=== PATIENT | female | born 1950 | race Caucasian/White ===

== ENCOUNTER 2016-06-21 17:32 | Emergency (ER) | payer MEDICARE ==
[~2016-06-21] VITALS: Ht 167.6 cm; Wt 86.2 kg
[~2016-06-21 17:32] MED LIST: ACET-1697 PO; ALBU0.8322 IH; ALBU17AE23; ALBU8.5H2 IH; ALLP300T PO; ASP81TEC PO; CARV6.252; CEFD300C PO; DIPH25TA31 PO; DOCU-161 PO; FLUT16SP22 NSEACH; FLUT1DIS3 IH; FRSM20T PO; FURO40TA4 PO; HYDR12.570 PO; LISI2.5T PO; LISI5TAB PO; NFAMINITAB PO; NITR100C3 PO; OMEP40CA36 PO; PHEN200T16 PO; PNT40TEC PO; POTA20TA15 PO; POTASSIUM; PRAV40TA PO; PRV20T PO
--- OUTSIDE RECORDS SUMMARY | 2016-06-21 17:36 | XMS REPORT | Continuity of Care Document ---
Author Author [facility] Organization [facility] Address Unknown Phone Unavailable Care Team Providers Care Performance Manager Name Role Phone BURDEN, ABBY Chang MD PCP Insurance Providers Payer Name Policy Number Subscriber Name Relationship [facility] [id number] Raúl Hartman 17 Self / Same As Patient Advance Directives Directive Response Recorded Date/Time Advance Directives No 10/23/12 10:27am Health Care Power of Speech And Language Clinician No 10/23/12 10:27am Organ Donor No 10/23/12 10:27am Problems No known problems or medical conditions. Medications Medication Dose Route Sig Days/Qty Instructions Order Date Discontinued Date Status Carvedilol (Coreg) 6.25 Mg TWICE A DAY 08/23/09 Active Pantoprazole Sodium 1 Tab PO DAILY 08/24/10 03/21/11 Discontinued Omeprazole 40 Mg PO DAILY 03/21/11 10/22/12 Discontinued Aspirin 81 Mg PO DAILY 03/21/11 10/22/12 Discontinued Lisinopril 2.5 Mg PO DAILY 03/21/11 10/22/12 Discontinued Pravastatin Sod 20 Mg PO DAILY 03/21/11 Active Lisinopril 5 Mg PO DAILY 10/22/12 Active Furosemide 10 Mg PO DAILY PRN 10/23/12 Active [Potassium] 10/23/12 Active Social History Social History Problem Response Recorded Date/Time Recent Foreign Travel N [place] 05/04/2014 12:31pm Hospital Discharge Instructions No hospital discharge instructions. Plan of Care No plan of care. Functional Status No functional status results. Allergies, Adverse Reactions, Alerts Allergen Type Severity Reaction Status Last Updated NKANo Known Allergies Allergy Mild Active 10/22/12 Immunizations No immunization records. Vital Signs No known vital signs results. Results Laboratory Results Test Name Result Units Flags Reference Collection Date/Time Result Date/ Time Comments White Blood Count 3.9 10^3/uL L 4.3-11.0 05/27/2014 9:05/27/2014 9: 24am Red Blood Count 4.19 10^6/uL L 4.35-5.85 05/27/2014 9:05/27/2014 9: 24am Hemoglobin 12.8 G/DL 11.5-16.0 05/27/2014 9:05/27/2014 9:24am Hematocrit 38 % 35-52 05/27/2014 9:05/27/2014 9:24am Mean Corpuscular Volume 91 FL 80-99 05/27/2014 9:05/27/2014 9: 24am Mean Corpuscular Hemoglobin 31 PG 25-34 05/27/2014 9:05/27/2014 9: 24am Mean Corpuscular Hemoglobin Concent 34 G/DL 32-36 05/27/2014 9: 9:24am Red Cell Distribution Width 13.7 % 10.0-14.5 05/27/2014 9:2014 9:24am Platelet Count 117 10^3/uL L 130-400 05/27/2014 9:05/27/2014 9:24am Mean Platelet Volume 8.7 FL 7.4-10.4 05/27/2014 9:05/27/2014 9: 24am Neutrophils (%) (Auto) 50 % 42-75 05/27/2014 9:05/27/2014 9:24am Lymphocytes (%) (Auto) 34 % 12-44 05/27/2014 9:05/27/2014 9:24am Monocytes (%) (Auto) 13 % H 0-12 05/27/2014 9:05/27/2014 9:24am Eosinophils (%) (Auto) 2 % 0-10 05/27/2014 9:05/27/2014 9:24am Basophils (%) (Auto) 1 % 0-10 05/27/2014 9:05/27/2014 9:24am Neutrophils # (Auto) 1.9 X 10^3 1.8-7.8 05/27/2014 9:05/27/2014 9: 24am Lymphocytes # (Auto) 1.3 X 10^3 1.0-4.0 05/27/2014 9:05/27/2014 9: 24am Monocytes # (Auto) 0.5 X 10^3 0.0-1.0 05/27/2014 9:05/27/2014 9: 24am Eosinophils # (Auto) 0.1 10^3/uL 0.0-0.3 05/27/2014 9:05/27/2014 9 :24am Basophils # (Auto) 0.0 10^3/uL 0.0-0.1 05/27/2014 9:05/27/2014 9: 24am Sodium Level 140 MMOL/L 135-145 05/27/2014 9:05/27/2014 9:54am Potassium Level 3.9 MMOL/L 3.6-5.0 05/27/2014 9:05/27/2014 9:54am Chloride Level 105 MMOL/L 98-107 05/27/2014 9:05/27/2014 9:54am Carbon Dioxide Level 27 MMOL/L 21-32 05/27/2014 9:05/27/2014 9: 54am Blood Urea Nitrogen 15 MG/DL 7-18 05/27/2014 9:05/27/2014 9:54am Creatinine 0.83 MG/DL 0.60-1.30 05/27/2014 9:05/27/2014 9:54am BUN/Creatinine Ratio 18 05/27/2014 9:05/27/2014 9:54am Estimat Glomerular Filtration Rate > 60 05/27/2014 9:2014 9:54am GFR INTERPRETIVE DATA UNITS FOR ESTIMATED GFR (eGFR): mL/min/1.73 M2 REFERENCE RANGE FOR ESTIMATED GFR (eGFR) eGFR NORMAL eGFR >60 MODERATELY DECREASED eGFR 30-59 SEVERLY DECREASED eGFR 15-29 KIDNEY FAILURE <15 (OR DIALYSIS) Glucose Level 96 MG/DL 70-105 05/27/2014 9:05/27/2014 9:54am Calcium Level 9.9 MG/DL 8.5-10.1 05/27/2014 9:05/27/2014 9:54am Total Bilirubin 0.5 MG/DL 0.1-1.0 05/27/2014 9:05/27/2014 9:54am Alkaline Phosphatase 86 U/L 40-136 05/27/2014 9:05/27/2014 9:54am Aspartate Amino Transf (AST/SGOT) 21 U/L 5-34 05/27/2014 9:2014 9:54am Alanine Aminotransferase (ALT/SGPT) 19 U/L 0-55 05/27/2014 9:05/27 9:54am Lactate Dehydrogenase 210 U/L 125-220 05/27/2014 9:05/27/2014 9: 54am Total Protein 7.1 G/DL 6.4-8.2 05/27/2014 9:05/27/2014 9:54am Albumin 4.1 G/DL 3.2-4.5 05/27/2014 9:05/27/2014 9:54am Procedures No known history of procedures. Encounters Encounter Location Date/Time Discharged Recurring [facility] 05/27/14 9:21am Registered Clinic [facility] 05/27/14 8:59am
--- NOTE | 2016-06-21 19:32 | ED Respiratory ---
General Chief Complaint: Cough/Cold/Flu Symptoms Stated Complaint: COUGH;RUNNY NOSE Nursing Triage Note: PT REPORTS COUGH,CONGESTION X 1.5 WEEKS. REQUIRING O2 24 HOURS/DAY WITH THIS ILLNESS. Source: patient, family Exam Limitations: no limitations History of Present Illness Time seen by provider: 19:26 Initial Comments Patient has a pertinent history of COPD dependent on O2 usually at 2 L but for the past week she has felt a little more short of breath and increased her O2 to 3 L by day. She also has a son living with her who was recently diagnosed with influenza last week and started on Tamiflu but she has not received a prophylactic dose. She feels that she has a COPD attack coming on and maybe pneumonia. She has been coughing up green phlegm. She had a fever of 101 yesterday. She has had no nausea, vomiting, diarrhea. No syncope or chest pain. Allergies and Home Medications Allergies Coded Allergies: NKANo Known Allergies (Unverified Allergy, Mild, 10/22/12) Home Medications Acetaminophen 500 Mg Tablet 500 MG PO Q6H PRN PRN PAIN (Reported) Albuterol 8.5 Gm Hfa.aer.ad 1 PUFF IH Q4H PRN PRN SHORTNESS OF BREATH (Reported ) Carvedilol 6.25 Mg Tablet 6.25 MG BID (Reported) Cefdinir 300 Mg Capsule #14 300 MG PO BID Prescribed by: SHANTEL POZO on 08/27/14 1123 Diphenhydramine Hcl 25 Mg Cap 25 MG PO DAILY PRN PRN ALLERGY (Reported) Fluticasone Propionate 16 Gm Naspr 1 SPRAY NSEACH HS (Reported) Fluticasone/Salmeterol 1 Each Disk.w.dev 1 PUFF IH BID (Reported) Lisinopril 5 Mg Tablet 5 MG PO DAILY (Reported) Oseltamivir Phosphate 75 Mg Cap #10 75 MG PO BID Prescribed by: MITCHELL CHILDRESS on 06/21/161953 Pravastatin Sodium 40 Mg Tablet 40 MG PO HS (Reported) Prednisone 20 Mg Tab #10 20 MG PO BID Prescribed by: MITCHELL CHILDRESS on 06/21/161945 Vitamin C/Vitamin E 1 Tab Tab 1 TAB PO DAILY (Reported) Constitutional: No chills, No diaphoresis, No dizziness, fever malaise EENTM: nose congestionNo ear pain, No epistaxis, No eye pain, No mouth pain, No throat pain Respiratory: cough phlegm wheezing Cardiovascular: No chest pain, No edema, No syncope Gastrointestinal: No abdominal pain, No constipation, No diarrhea Genitourinary: No dysuria, No frequency Musculoskeletal: No back pain, No joint pain Skin: No change in color, No pruritus, No rash Past Bvsslzh-Kebqox-Fqojyb Hx Patient Social History Smoking Status: Former Smoker (quit 17 years ago cigarettes) 2nd Hand Smoke Exposure: No Recent Foreign Travel: No Contact w/Someone Who Travel: No Recent Infectious Disease Expo: No Surgeries HX Surgeries: Yes (GALLBLADDER SEPTEMBER 2009) Respiratory Hx Respiratory Disorders: Yes Respiratory Disorders: COPD Cardiovascular Hx Cardiac Disorders: Yes (in 1999) Neurological Hx Neurological Disorders: No Reproductive System Hx Reproductive Disorders: No Genitourinary Hx Genitourinary Disorders: No Gastrointestinal Hx Gastrointestinal Disorders: No Musculoskeletal Hx Musculoskeletal Disorders: No Endocrine Hx Endocrine Disorders: No HEENT HX ENT Disorders: No (DENTURES) Cancer Hx Cancer: Yes (Non-Hodkins lymphoma) Psychosocial Hx Psychiatric Problems: No Integumentary HX Skin/Integumentary Disorder: No Blood Transfusions Hx Blood Disorders: No Physical Exam Vital Signs Vital Sign - Last 12Hours 06/21/16 18:29 Temp 98.9 Pulse 73 Resp 16 B/P 121/57 Pulse Ox 91 O2 Delivery Nasal Cannula O2 Flow Rate 3 Capillary Refill : Less Than 3 Seconds General Appearance: WD/WN no apparent distress Eyes: Bilateral Eye EOMI, Bilateral Eye Normal Inspection HEENT: PERRL/EOMI normal ENT inspection TMs normal pharynx normal Neck: non-tender supple normal inspection Respiratory: chest non-tender no accessory muscle use decreased breath sounds wheezing Cardiovascular: normal peripheral pulses regular rate, rhythm no edema no JVD Gastrointestinal: normal bowel sounds non tender soft Neurologic/Psychiatric: alert oriented x 3 Skin: normal color warm/dry Lymphatic: no adenopathy Progress/Results/Core Measures Results/Orders Lab Results Laboratory Tests Test 06/21/16 19:59 Range/Units Basophils # (Auto) 0.0 0.0-0.1 10^3/uL Basophils (%) (Auto) 0 0-10 % Eosinophils # (Auto) 0.1 0.0-0.3 10^3/uL Eosinophils (%) (Auto) 1 0-10 % Hematocrit 39 35-52 % Hemoglobin 12.6 11.5-16.0 G/DL Lymphocytes # (Auto) 1.4 1.0-4.0 X 10^3 Lymphocytes (%) (Auto) 18 12-44 % Mean Corpuscular Hemoglobin 29 25-34 PG Mean Corpuscular Hemoglobin Concent 32 32-36 G/DL Mean Corpuscular Volume 90 80-99 FL Mean Platelet Volume 9.2 7.4-10.4 FL Monocytes # (Auto) 0.8 0.0-1.0 X 10^3 Monocytes (%) (Auto) 11 0-12 % Neutrophils # (Auto) 5.5 1.8-7.8 X 10^3 Neutrophils (%) (Auto) 70 42-75 % Platelet Count 203 130-400 10^3/uL Red Blood Count 4.34 L 4.35-5.85 10^6/uL Red Cell Distribution Width 13.6 10.0-14.5 % White Blood Count 7.9 4.3-11.0 10^3/uL My Orders Orders-MITCHELL CHILDRESS Chest Pa/Lat (2 View) (06/21/16 19:32) Cbc With Automated Diff (06/21/16 19:32) Albuterol/Ipra Inhalation Soln (Duoneb I (06/21/16 19:45) Svn Sm Volume Nebulizer Rt-Rfs (06/21/16 19:32) Prednisone Tablet (Deltasone Tablet) (06/21/16 19:45) Medications Given in ED Current Medications Medications Dose Ordered Sig/Scot Route Start Time Stop Time Status Last Admin Dose Admin Prednisone 60 mg ONCE ONCE PO 06/21/16 19:45 06/21/16 19:46 DC 06/21/16 20:00 60 MG Vital Signs/I&O Vital Sign - Last 12Hours 06/21/16 18:29 Temp 98.9 Pulse 73 Resp 16 B/P 121/57 Pulse Ox 91 O2 Delivery Nasal Cannula O2 Flow Rate 3 Blood Pressure Mean: 78 Progress Note : Time: 19:40 Progress Note Patient's son shows up reports he had bronchitis not influenza. Patient is with decreased breath sounds so we will give her albuterol treatments start her on steroids and get a chest x-ray. Possible Pna. No White count. CURB 65 1 point. Patient strongly desires to go home tonight. We'll give Rocephin IM .Will attempt home Tx. Diagnostic Imaging Diagonstic Imaging: Xray Plain Films/CT/US/NM/MRI: chest Comments NAME: RAÚL HARTMAN [facility] REC#: [id number] PT STATUS: REG ER : 1950 PHYSICIAN: MITCHELL CHILDRESS MD ADMIT DATE: 06/21/16/ER Draft Date of Exam:06/21/16 CHEST PA/LAT (2 VIEW) INDICATION: Cough. COMPARISON: December 11, 2014. TECHNIQUE: Frontal and lateral radiographs of the chest dated June 21, 2016. FINDINGS: The cardiac silhouette is within normal limits. No significant pulmonary vascular congestion. The left lung is clear. Mild patchy opacities are identified within the right lung base. No significant pleural effusion. No pneumothorax. Scattered osseous degenerative changes without acute osseous abnormality. IMPRESSION: New patchy opacities within the right lung base, likely relate to developing infiltrate such as pneumonia. However, followup radiographs are recommended 10-14 days after appropriate therapy to ensure resolution as underlying malignancy is not excluded. Dictated on workstation # [id number] Dict: 06/21/161954 Trans: 06/21/162010 [facility] [id number] Interpreted by: MATTHEW GARCÍA MD Electronically signed by: Reviewed: Reviewed by Me Departure Pneumonia Admission Pseudomonal Risk: COPD Patient allergy/sensitivity/re: None Impression Impression: Primary Impression: COPD with exacerbation Additional Impression: Pneumonia Qualified Code: J18.1 - Lobar pneumonia, unspecified organism Disposition: HOME, SELF-CARE Condition: Stable Departure-Patient Inst. Decision time for Depature: 20:26 Referrals: SHANTEL POZO MD (PCP) Primary Care Physician Patient Instructions: Acute Bronchitis, Adult (DC) Add. Discharge Instructions: You have A right lower lobe pneumonia on chest x-ray so you're given a shot of antibiotics and oral antibiotics for home. You will be allowed to go home with prednisone taper. Take one tablet by mouth twice daily until completion. Follow up this week or next with your primary care physician or return to the clinic sooner if you're having new or worsening symptoms or cannot catch her breath. Take the antibiotics as prescribed to completion. Take the Tamiflu one capsule twice a day for 5 days. All discharge instructions reviewed with patient and/or family. Voiced understanding. Scripts Levofloxacin (Levaquin)500 Mg [id number] Mg PO BID #14 TAB Ref 0 Prov:MITCHELL CHILDRESS 06/21/16 Oseltamivir Phosphate (Tamiflu)75 Mg Cap75 Mg PO BID #10 CAP Ref 0 Prov:MITCHELL CHILDRESS 06/21/16 Prednisone 20 Mg Tab20 Mg PO BID #10 TAB Ref 0 Prov:MITCHELL CHILDRESS 06/21/16 Copy Copies To 1: DANIELLA GONZALEZ TITUS J Jun 21, 2016 19:31
[2016-06-21] MEDS ORDERED: RT-ALBUTEROL/IPRATROPIUM 3 ML (DUONEB) VIAL INH ONE (19:45)
[2016-06-21] MEDS ORDERED: predniSONE 20 MG TAB PO ONE (19:45)
[2016-06-21] MEDS ORDERED: PRD20T PO (19:46)
[2016-06-21] MEDS ORDERED: OSLT75C PO (19:54)
[2016-06-21 20:03] LABS: BASOPHILS % (AUTO) 0 % (0-10); EOSINOPHILS # (AUTO) 0.1 10^3/uL (0.0-0.3); EOSINOPHILS % (AUTO) 1 % (0-10); LYMPHOCYTES # (AUTO) 1.4 X 10^3 (1.0-4.0); LYMPHOCYTES % (AUTO) 18 % (12-44); MEAN CORPUSCULAR HEMOGLOBIN 29 PG (25-34); MEAN CORPUSCULAR HGB CONC 32 G/DL (32-36); MEAN CORPUSCULAR VOLUME 90 FL (80-99); MEAN PLATELET VOLUME 9.2 FL (7.4-10.4); MONOCYTES # (AUTO) 0.8 X 10^3 (0.0-1.0); MONOCYTES % (AUTO) 11 % (0-12); NEUTROPHILS # (AUTO) 5.5 X 10^3 (1.8-7.8); NEUTROPHILS % (AUTO) 70 % (42-75); PLATELET COUNT 203 10^3/uL (130-400); RED BLOOD COUNT 4.34 10^6/uL (4.35-5.85); RED CELL DISTRIBUTION WIDTH 13.6 % (10.0-14.5); WHITE BLOOD COUNT 7.9 10^3/uL (4.3-11.0)
--- NOTE | 2016-06-21 20:12 | Diagnostic Imaging Report ---
INDICATION: Cough. COMPARISON: December 11, 2014. TECHNIQUE: Frontal and lateral radiographs of the chest dated June 21, 2016. FINDINGS: The cardiac silhouette is within normal limits. No significant pulmonary vascular congestion. The left lung is clear. Mild patchy opacities are identified within the right lung base. No significant pleural effusion. No pneumothorax. Scattered osseous degenerative changes without acute osseous abnormality. IMPRESSION: New patchy opacities within the right lung base, likely relate to developing infiltrate such as pneumonia. However, followup radiographs are recommended 10-14 days after appropriate therapy to ensure resolution as underlying malignancy is not excluded. Dictated by: Dictated on workstation # [id number]
[2016-06-21] MEDS ORDERED: LEVO500T2 PO (20:26)
[2016-06-21] MEDS ORDERED: cefTRIAXone 1 GM (ROCEPHIN) VIAL IM ONE (20:30)
[2016-06-21] MEDS ORDERED: LIDOCAINE 1% INJ 20 ML (XYLOCAINE) VIAL INJ ONE (20:30)
[2016-06-21] MEDS ORDERED: INHA1INH2 MC (21:25)
[2016-06-21 21:39] VITALS: BP 110/54
== END 2016-06-21 21:39 | disposition home or self-care (01) ==
LOC: EDUNIT# 17:32 → ER 17:33
DX: J44.1 Chronic obstructive pulmonary disease with (acute) exacerbation (principal); J18.9 Pneumonia, unspecified organism; Z79.899 Other long term (current) drug therapy; Z87.891 Personal history of nicotine dependence
CPT/HCPCS: 36415; 71020; 85025; 94640; 94760; 96372; 99282

== ENCOUNTER 2016-08-14 10:30 | Outpatient (RCR) | payer MEDICARE ==
[~2016-08-14 10:30] MED LIST changes: +INHA1INH2 MC; +LEVO500T2 PO; +OSLT75C PO; +PRD20T PO
[2016-08-14 10:51] LABS: BASOPHILS % (AUTO) 1 % (0-10); EOSINOPHILS # (AUTO) 0.1 10^3/uL (0.0-0.3); EOSINOPHILS % (AUTO) 3 % (0-10); LYMPHOCYTES # (AUTO) 1.1 X 10^3 (1.0-4.0); LYMPHOCYTES % (AUTO) 28 % (12-44); MEAN CORPUSCULAR HEMOGLOBIN 29 PG (25-34); MEAN CORPUSCULAR HGB CONC 32 G/DL (32-36); MEAN CORPUSCULAR VOLUME 90 FL (80-99); MEAN PLATELET VOLUME 8.9 FL (7.4-10.4); MONOCYTES # (AUTO) 0.6 X 10^3 (0.0-1.0); MONOCYTES % (AUTO) 14 % (0-12); NEUTROPHILS # (AUTO) 2.1 X 10^3 (1.8-7.8); NEUTROPHILS % (AUTO) 54 % (42-75); PLATELET COUNT 138 10^3/uL (130-400); RED BLOOD COUNT 4.09 10^6/uL (4.35-5.85); RED CELL DISTRIBUTION WIDTH 14.9 % (10.0-14.5); WHITE BLOOD COUNT 3.9 10^3/uL (4.3-11.0)
[2016-08-14 11:39] LABS: ALANINE AMINOTRANSFERASE 15 U/L (0-55); ALBUMIN 3.8 G/DL (3.2-4.5); ANION GAP 6 MMOL/L (5-14); ASPARTATE AMINO TRANSFERASE 20 U/L (5-34); BILIRUBIN,TOTAL 0.4 MG/DL (0.1-1.0); BLOOD UREA NITROGEN 14 MG/DL (7-18); BUN/CREATININE RATIO 19; CALCIUM 9.4 MG/DL (8.5-10.1); CARBON DIOXIDE 31 MMOL/L (21-32); CHLORIDE 107 MMOL/L (98-107); CREATININE SERUM 0.74 MG/DL (0.60-1.30); GFR ESTIMATED > 60; GLUCOSE 94 MG/DL (70-105); LACTATE DEHYDROGENASE 200 U/L (125-220); POTASSIUM 4.1 MMOL/L (3.6-5.0); SODIUM 144 MMOL/L (135-145); TOTAL PROTEIN 6.4 G/DL (6.4-8.2)
== END 2016-11-12 | disposition home or self-care (01) ==
LOC: ONC 10:30
PROVIDERS: ATTEND Internal Medicine Hematology & Oncology
DX: C82.13 Follicular lymphoma grade II, intra-abdominal lymph nodes (principal); J44.9 Chronic obstructive pulmonary disease, unspecified; G47.33 Obstructive sleep apnea (adult) (pediatric); I27.9 Pulmonary heart disease, unspecified; E78.00 Pure hypercholesterolemia, unspecified; I25.10 Atherosclerotic heart disease of native coronary artery without angina pectoris; I45.10 Unspecified right bundle-branch block; Z79.899 Other long term (current) drug therapy
CPT/HCPCS: 36415; 80053; 83615; 85025; 99213

== ENCOUNTER → 2016-08-22 | Outpatient (CLI) | payer MEDICARE ==
[~2016-08-22] MED LIST changes: +BARIUM SUSPENSION 2.1% (VANILLA SILQ) 450 ML PO ONE; +CATHETER FLUSH 10 ML SYR IV PRN; +IOHEXOL 350 MG/ML 100 ML (OMNIPAQUE 350) VIAL IV ONE; +NS 100 ML (IVPB) BAG IV ONE
--- NOTE | 2016-08-22 14:27 | Diagnostic Imaging Report ---
PROCEDURE: CT chest, abdomen, and pelvis with contrast. TECHNIQUE: Multiple contiguous axial images were obtained through the chest, abdomen, and pelvis after the administration of intravenous contrast. INDICATION: Non-Hodgkin's lymphoma. 100 mL of Omnipaque 350 is administered intravenously. COMPARISON: 05/27/2014. FINDINGS: CT CHEST: Heterogenous lower left thyroid lobe is seen with a dominant nodule suggested measuring 1.2 cm, appears stable. Multiple enlarged lymph nodes in the left axilla are seen, the largest is 1.7 cm measured in short axis and two enlarged lymph nodes in the right axilla are noted measuring up to 1.4 cm. This is adverse development from the previous scan and is suggestive of tumor recurrence. There is a 0.8 cm precarinal lymph node that appears slightly more prominent compared to the prior exam. This is indeterminate. There are otherwise no suspicious mass or lymph node enlargement in the mediastinum. No significant lymphadenopathy is seen in the left hilum. The right hilum demonstrates a 0.8 cm nonspecific lymph node of uncertain significance. The lungs demonstrate background emphysema changes. There is no significant consolidation, mass or suspicious nodule. Scattered areas of scarring and atelectasis in the lungs are noted however. There is no pericardial or pleural effusion. The thoracic aorta is normal in caliber. The osseous structures demonstrate no obvious sclerotic or lytic masses. CT ABDOMEN AND PELVIS: The liver is slightly prominent in size with no focal mass seen. The spleen demonstrates a subtle 1.2 cm hypodense lesion that becomes isodense to the rest of the spleen on the delayed phase imaging. Another subtle hypodense lesion is also seen more inferiorly in the spleen measuring 1.5 cm. These are not seen on the prior exam and there could represent perfusional changes or neoplasm. 1.7 cm hypodense area within the posterior aspect of the pancreatic head. This is stable from multiple prior exams and may relate to a small cystic non-neoplastic lesion. The comparison 04/21/2013 exam demonstrates similar appearance. The adrenal glands appear unremarkable. Cholecystectomy clips are seen. The kidneys have symmetric enhancement and contrast excretion. Simple cyst in the mid left kidney and the upper pole of both kidneys are noted. There is nonspecific stranding in the mesentery in a pattern favored to be related to scarring and is without change from the prior exam. There is a fat-containing supraumbilical ventral hernia with omental stranding seen. May relate to panniculitis or omental infarct from strangulation. No herniating bowel loops seen. No bowel obstruction. Appendix appears normal. There is a left para-aortic lesion with mixed groundglass and soft tissue density measuring 2.6 x 1.6 cm. This could be related to adjacent lymph nodes and scarring. When measured separately, the largest soft tissue component is a 1.2 cm in short axis and may represent left paraaortic lymphadenopathy. No significant change however from the previous. In the pelvis, there is an 8.3 cm cystic lesion in the left adnexa without solid mass. The osseous structures demonstrate no suspicious mass. IMPRESSION: CT CHEST: 1. Development of bilateral axillary lymphadenopathy more on the left side suggestive of tumor recurrence. 2. Minimally more prominent precarinal lymph node measuring 0.8 cm. This could be neoplastic. CT ABDOMEN AND PELVIS: 1. Indeterminate subtle hypodense lesions in the spleen up to 1.5 cm in size could be perfusional or neoplastic. 2. Stable left para-aortic mild lymphadenopathy, and stable mesenteric stranding, could relate to scarring from previously treated disease. 3. Fat-containing supraumbilical hernia with stranding. This could be related to omental panniculitis or infarct secondary to strangulation of the hernia. There is no herniating bowel loop or evidence of obstruction. Dictated by: Dictated on workstation # [id number]
== END ==
LOC: RAD 10:14
PROVIDERS: ATTEND Internal Medicine Hematology & Oncology
DX: R59.0 Localized enlarged lymph nodes (principal); D73.89 Other diseases of spleen; K42.9 Umbilical hernia without obstruction or gangrene; C82.13 Follicular lymphoma grade II, intra-abdominal lymph nodes
CPT/HCPCS: 71260; 74177

== ENCOUNTER → 2016-08-31 | Outpatient (CLI) | payer MEDICARE ==
[~2016-08-31] MED LIST changes: -BARIUM SUSPENSION 2.1% (VANILLA SILQ) 450 ML PO ONE; -CATHETER FLUSH 10 ML SYR IV PRN; -IOHEXOL 350 MG/ML 100 ML (OMNIPAQUE 350) VIAL IV ONE; -NS 100 ML (IVPB) BAG IV ONE
--- NOTE | 2016-08-31 16:38 | Diagnostic Imaging Report ---
EXAM: Abnormal pelvic CT. FINDINGS: The uterus measures 6.2 x 4.8 x 3.1 cm. There is an 11 x 8 mm fibroid in the uterine fundus. Endometrial stripe is normal. There is a large cyst on left adnexa that measures 76 mm. The right ovary was not identified. IMPRESSION: Large left adnexal cyst. It has simple cyst characteristics and is likely of ovarian origin. Dictated by: Dictated on workstation # [id number]
== END ==
LOC: RAD 14:14
PROVIDERS: ATTEND Nurse Practitioner Adult Health
DX: N83.202 Unspecified ovarian cyst, left side (principal); D25.9 Leiomyoma of uterus, unspecified
CPT/HCPCS: 76830; 76856

== ENCOUNTER 2016-09-15 09:43 | Outpatient (RCR) | payer MEDICARE | END 2016-10-04 15:24 | disposition home or self-care (01) | PROVIDERS: ATTEND Internal Medicine Hematology & Oncology | DX: C85.90 Non-Hodgkin lymphoma, unspecified, unspecified site (principal); I89.0 Lymphedema, not elsewhere classified ==

== ENCOUNTER → 2016-10-03 | Outpatient (CLI) | payer MEDICARE ==
--- NOTE | 2016-10-03 10:49 | Diagnostic Imaging Report ---
Indication: Followup left adnexal cyst. Comparison: 08/31/2016. Discussion: Transabdominal and transvaginal sonographic evaluation of the pelvis was performed. The uterus is normal in echotexture and size measuring 6.8 x 4.6 x 2.9 cm. Left ovarian fibroid measures 1.5 cm, stable. Neither ovary was discretely visualized. There is a large simple appearing anechoic cystic structure within the left adnexa which measures 7.1 x 6.9 x 7.2 cm, stable. This could represent a parapelvic cyst or an ovarian cyst. There is no mural nodularity or internal complexity identified. Etiology is indeterminate though statistically benign given its simple appearance. Recommend 6-12 month sonographic followup. Impression: 1. Large simple appearing cystic structure within the left adnexa appear stable in overall size and appearance. Etiology is indeterminate though lesion is likely benign. Recommend continued sonographic followup in 6-12 months. 2. Nonvisualization of the bilateral ovaries. 3. Small uterine fibroid, stable. Dictated by: Dictated on workstation # [id number]
== END ==
LOC: RAD 09:57
PROVIDERS: ATTEND Obstetrics & Gynecology
DX: N83.202 Unspecified ovarian cyst, left side (principal); D25.9 Leiomyoma of uterus, unspecified
CPT/HCPCS: 76830; 76856

== ENCOUNTER → 2016-12-19 | Outpatient (CLI) | payer MEDICARE ==
--- NOTE | 2016-12-19 13:41 | Diagnostic Imaging Report ---
Pelvic ultrasound. INDICATION: Left ovarian cyst. The previous pelvic ultrasound exam of 10/03/2016, noted a large anechoic cyst in the left adnexa measuring 7.1 x 6.9 x 7.2 cm. That finding is again evident and does not seem to have changed significantly. The suspected cyst now measures 7.1 x 5.9 x 7.7 cm. There is still no evidence for a solid component associated with this finding, and there no internal echoes. The right ovary was not identified. There is no solid pelvic mass or free fluid collection noted. The uterus is not enlarged measuring 6.5 x 3.9 x 3.0 cm. The endometrial lining is not thickened, but as on the prior exam there is a small amount of nonspecific fluid within the endometrium. IMPRESSION: 1. The large benign-appearing cystic mass in the left adnexa seen previously is again evident and no different. Most likely this is a benign process. If further study is desired, then laparoscopy would be recommended. If there is no intervention at this time, then a short-term (three-month) followup pelvic ultrasound exam should be obtained. 2. There is no acute pelvic abnormality noted. 3. There is still a small amount of nonspecific free fluid within the endometrium. Dictated by: Dictated on workstation # [id number]
== END ==
LOC: RAD 09:56
PROVIDERS: ATTEND Obstetrics & Gynecology
DX: N83.202 Unspecified ovarian cyst, left side (principal)
CPT/HCPCS: 76830; 76856

== ENCOUNTER → 2017-01-16 | Outpatient (CLI) | payer MEDICARE ==
[2017-01-16 12:36] LABS: BASOPHILS % (AUTO) 0 % (0-10); EOSINOPHILS # (AUTO) 0.1 10^3/uL (0.0-0.3); EOSINOPHILS % (AUTO) 1 % (0-10); LYMPHOCYTES # (AUTO) 0.9 X 10^3 (1.0-4.0); LYMPHOCYTES % (AUTO) 15 % (12-44); MEAN CORPUSCULAR HEMOGLOBIN 29 PG (25-34); MEAN CORPUSCULAR HGB CONC 32 G/DL (32-36); MEAN CORPUSCULAR VOLUME 91 FL (80-99); MEAN PLATELET VOLUME 9.8 FL (7.4-10.4); MONOCYTES # (AUTO) 0.6 X 10^3 (0.0-1.0); MONOCYTES % (AUTO) 10 % (0-12); NEUTROPHILS # (AUTO) 4.4 X 10^3 (1.8-7.8); NEUTROPHILS % (AUTO) 74 % (42-75); PLATELET COUNT 162 10^3/uL (130-400); RED BLOOD COUNT 4.32 10^6/uL (4.35-5.85); RED CELL DISTRIBUTION WIDTH 13.5 % (10.0-14.5)
[2017-01-16 13:40] LABS: BAND NEUTROPHILS 7 %; BASOPHILS % (MANUAL) 0 %; EOSINOPHILS % (MANUAL) 1 %; LYMPHOCYTES % (MANUAL) 13 %; NEUTROPHILS % (MANUAL) 71 %
== END ==
LOC: LAB 11:49
PROVIDERS: ATTEND Nurse Practitioner Family
DX: J18.9 Pneumonia, unspecified organism (principal); J43.9 Emphysema, unspecified
CPT/HCPCS: 36415; 83880; 85007; 85027

== ENCOUNTER → 2017-01-16 | Outpatient (CLI) | payer MEDICARE ==
--- NOTE | 2017-01-16 13:52 | Diagnostic Imaging Report ---
PA and lateral views of the chest. INDICATION: Cough. COMPARISON: 06/21/2016. FINDINGS: The right cardiac border is obscured similar to 06/21/2016 exam. This might relate to mild pectus deformity and prominent pericardial fat pad with no definite focal infiltrate seen. There is suggestion of a tiny left pleural effusion. The heart size is normal. No pneumothorax. The shanon and mediastinum appear unremarkable. IMPRESSION: Tiny left pleural effusion. Dictated by: Dictated on workstation # [id number]
== END ==
LOC: RAD 11:59
PROVIDERS: ATTEND Nurse Practitioner Family
DX: J90 Pleural effusion, not elsewhere classified (principal); R09.02 Hypoxemia
CPT/HCPCS: 71020

== ENCOUNTER 2017-02-12 15:52 | Outpatient (RCR) | payer MEDICARE ==
[2017-02-12 10:33] LABS: BASOPHILS % (AUTO) 0 % (0-10); EOSINOPHILS # (AUTO) 0.1 10^3/uL (0.0-0.3); EOSINOPHILS % (AUTO) 3 % (0-10); HEMATOCRIT 38 % (35-52); HEMOGLOBIN 12.2 G/DL (11.5-16.0); LYMPHOCYTES # (AUTO) 0.8 X 10^3 (1.0-4.0); LYMPHOCYTES % (AUTO) 16 % (12-44); MEAN CORPUSCULAR HEMOGLOBIN 29 PG (25-34); MEAN CORPUSCULAR HGB CONC 32 G/DL (32-36); MEAN CORPUSCULAR VOLUME 91 FL (80-99); MEAN PLATELET VOLUME 9.9 FL (7.4-10.4); MONOCYTES # (AUTO) 0.6 X 10^3 (0.0-1.0); MONOCYTES % (AUTO) 12 % (0-12); NEUTROPHILS # (AUTO) 3.6 X 10^3 (1.8-7.8); NEUTROPHILS % (AUTO) 69 % (42-75); PLATELET COUNT 119 10^3/uL (130-400); RED BLOOD COUNT 4.22 10^6/uL (4.35-5.85); RED CELL DISTRIBUTION WIDTH 13.9 % (10.0-14.5); WHITE BLOOD COUNT 5.1 10^3/uL (4.3-11.0)
[2017-02-12 10:51] LABS: ALANINE AMINOTRANSFERASE 15 U/L (0-55); ALBUMIN 3.8 GM/DL (3.2-4.5); ALKALINE PHOSPHATASE 90 U/L (40-136); BILIRUBIN,TOTAL 0.7 MG/DL (0.1-1.0); BUN/CREATININE RATIO 13; CALCIUM 9.4 MG/DL (8.5-10.1); CARBON DIOXIDE 31 MMOL/L (21-32); CHLORIDE 106 MMOL/L (98-107); CREATININE SERUM 0.72 MG/DL (0.60-1.30); GFR ESTIMATED > 60; GLUCOSE 99 MG/DL (70-105); POTASSIUM 3.9 MMOL/L (3.6-5.0); SODIUM 144 MMOL/L (135-145); TOTAL PROTEIN 6.8 GM/DL (6.4-8.2)
== END 2017-05-06 | disposition home or self-care (01) ==
LOC: ONC 15:52
PROVIDERS: ATTEND Internal Medicine Hematology & Oncology
DX: C82.13 Follicular lymphoma grade II, intra-abdominal lymph nodes (principal); J44.9 Chronic obstructive pulmonary disease, unspecified; G47.33 Obstructive sleep apnea (adult) (pediatric); I27.9 Pulmonary heart disease, unspecified; E78.00 Pure hypercholesterolemia, unspecified; I25.10 Atherosclerotic heart disease of native coronary artery without angina pectoris; I45.10 Unspecified right bundle-branch block; Z79.899 Other long term (current) drug therapy
CPT/HCPCS: 36415; 80053; 83615; 85025

== ENCOUNTER → 2017-04-11 | Outpatient (CLI) | payer MEDICARE | LOC: CARD 12:41 | PROVIDERS: ATTEND Internal Medicine Cardiovascular Disease | DX: I42.0 Dilated cardiomyopathy (principal); I25.10 Atherosclerotic heart disease of native coronary artery without angina pectoris; I10 Essential (primary) hypertension; J43.8 Other emphysema; E66.09 Other obesity due to excess calories | CPT/HCPCS: 93306 ==

== ENCOUNTER 2017-06-20 13:05 | Emergency (ER) | payer MEDICARE ==
[~2017-06-20] VITALS: Ht 167.6 cm; Wt 83.9 kg
[2017-06-20] MEDS ORDERED: methylPREDNISolone 125 MG (Solu-MEDROL) VIAL IVP ONE (13:30)
--- NOTE | 2017-06-20 13:35 | ED Respiratory ---
General Chief Complaint: Respiratory Problems Stated Complaint: DIFFICULTY BREATHING Source: patient History of Present Illness Date Seen by Provider: Jun 20, 2017 Time Seen by Provider: 13:27 Initial Comments PT ARRIVES VIA POV FROM HOME C/O SHORTNESS OF BREATH X 1 WEEK--HAS COPD AND WEARS O2 AT 2L/NC CONTINUOUSLY HAS HAD PRODUCTIVE COUGH WITH GREEN SPUTUM BEGAN RUNNING FEVER YESTERDAY --WAS 100.7 + ORTHOPNEA THIS WEEK USED INHALER X 1 TODAY AT 10:00--ALBUTEROL GRAND DAUGHTER WITH RESPIRATORY VIRUS PCP: JOSIANE AT [facility] ([facility])[3] INSIDE SALES ASSISTANT: DR. CAUSEY MANAGER OF MAINTENANCE:DR. JC ONCOLOGIST: DR. NAVA Allergies and Home Medications Allergies Coded Allergies: NKANo Known Allergies (Unverified Allergy, Mild, 10/22/12) Home Medications Acetaminophen 500 Mg Tablet, 500 MG PO Q6H PRN for PAIN, (Reported) Albuterol 8.5 Gm Hfa.aer.ad, 1 PUFF IH Q4H PRN for SHORTNESS OF BREATH, ( Reported) Azithromycin 500 Mg Tablet, 500 MG PO DAILY, #5 FOR INFECTION Prescribed by: LAVINIA MONTANEZ on 06/20/17 1448 Carvedilol 6.25 Mg Tablet, 6.25 MG BID, (Reported) Cefdinir 300 Mg Capsule, 300 MG PO BID, #20 Prescribed by: LAVINIA MONTANEZ on 06/20/17 1448 Diphenhydramine Hcl 25 Mg Cap, 25 MG PO DAILY PRN for ALLERGY, (Reported) Fluticasone Propionate 16 Gm Naspr, 1 SPRAY NSEACH HS, (Reported) Fluticasone/Salmeterol 1 Each Disk.w.dev, 1 PUFF IH BID, (Reported) Lisinopril 5 Mg Tablet, 5 MG PO DAILY, (Reported) Methylprednisolone 4 Mg Tab.ds.pk, 4 MG PO UD, #1 Prescribed by: LAVINIA MONTANEZ on 06/20/17 1448 Pravastatin Sodium 40 Mg Tablet, 40 MG PO HS, (Reported) Vitamin C/Vitamin E 1 Tab Tab, 1 TAB PO DAILY, (Reported) Constitutional: see HPI, fever EENTM: no symptoms reported Respiratory: see HPI, cough, dyspnea on exertion, orthopnea, phlegm, short of breath, wheezing Cardiovascular: No chest pain, edema (CHRONIC, STABLE) Gastrointestinal: no symptoms reported Genitourinary: no symptoms reported Musculoskeletal: no symptoms reported Skin: no symptoms reported Psychiatric/Neurological: No Symptoms Reported Hematologic/Lymphatic: No Symptoms Reported Immunological/Allergic: no symptoms reported Past Pvhusge-Okktlu-Topmcs Hx Patient Social History Alcohol Use: Denies Use Recreational Drug Use: No Smoking Status: Former Smoker (05/08 PPD, QUIT 1999) Type Used: Cigarettes (05/08 PPD, QUIT 1999) 2nd Hand Smoke Exposure: No Recent Foreign Travel: No Contact w/Someone Who Travel: No Surgeries History of Surgeries: Yes (MEGAN 09/2009) Surgeries: Gallbladder Respiratory History of Respiratory Disorde: Yes (O2 AT 2L/NC) Respiratory Disorders: COPD Cardiovascular History of Cardiac Disorders: Yes (RBBB) Cardiac Disorders: Heart Attack, High Cholesterol, Hypertension Neurological History of Neurological Disord: No Reproductive System Hx Reproductive Disorders: No 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 Genitourinary History of Genitourinary Disor: No Gastrointestinal History of Gastrointestinal Di: No Musculoskeletal History of Musculoskeletal Dis: No Endocrine History of Endocrine Disorders: No HEENT History of HEENT Disorders: No Cancer History of Cancer: Yes (NON-HODGKINS LYMPHOMA DX 2010, LAST TX 03/2013) Did You Recieve Any Treatments: Yes Type of Tx Receive: Chemotherapy Psychosocial History of Psychiatric Problem: No Integumentary History of Skin or Integumenta: No Blood Transfusions History of Blood Disorders: No Physical Exam Vital Signs Vital Signs - First Documented 06/20/17 13:05 Temp 97.8 Pulse 80 Resp 18 B/P (MAP) 157/82 (107) Pulse Ox 95 O2 Delivery Room Air O2 Flow Rate 2.00 Capillary Refill : General Appearance: WD/WN, no apparent distress HEENT: PERRL/EOMI, normal ENT inspection Neck: non-tender, supple, normal inspection Respiratory: no accessory muscle use, other (SLIGHTLY DYSPNEIC; EXPIRATORY WHEEZING RIGHT > LEFT; FAINT RALES BILATERALLY) Cardiovascular: regular rate, rhythm, no murmur Gastrointestinal: non tender, soft Extremities: non-tender, no calf tenderness, normal capillary refill, pedal edema (2+ BILATERALLY) Neurologic/Psychiatric: frozen food selector II-XII nml as tested, no motor/sensory deficits, alert, normal mood/affect, oriented x 3 Skin: normal color, warm/dry Focused Exam Evaluation Lactate Level Laboratory Tests 06/20/17 13:40: Lactic Acid Level 0.61 Lactic Acid Level Laboratory Tests Test 06/20/17 13:40 Lactic Acid Level 0.61 MMOL/L (0.50-2.00) Progress/Results/Core Measures Suspected Sepsis SIRS Temperature: Pulse: Respiratory Rate: Laboratory Tests 06/20/17 13:20: White Blood Count 4.8 Blood Pressure / Mean: Laboratory Tests 06/20/17 13:40: Lactic Acid Level 0.61 Laboratory Tests 06/20/17 13:20: Creatinine 0.61, INR Comment 1.1, Platelet Count 144, Total Bilirubin 0.4 Results/Orders Lab Results Laboratory Tests Test 06/20/17 13:20 06/20/17 13:40 Range/Units White Blood Count 4.8 4.3-11.0 10^3/uL Red Blood Count 3.93 L 4.35-5.85 10^6/uL Hemoglobin 11.3 L 11.5-16.0 G/DL Hematocrit 35 35-52 % Mean Corpuscular Volume 89 80-99 FL Mean Corpuscular Hemoglobin 29 25-34 PG Mean Corpuscular Hemoglobin Concent 32 32-36 G/DL Red Cell Distribution Width 14.0 10.0-14.5 % Platelet Count 144 130-400 10^3/uL Mean Platelet Volume 9.3 7.4-10.4 FL Neutrophils (%) (Auto) 68 42-75 % Lymphocytes (%) (Auto) 15 12-44 % Monocytes (%) (Auto) 16 H 0-12 % Eosinophils (%) (Auto) 1 0-10 % Basophils (%) (Auto) 0 0-10 % Neutrophils # (Auto) 3.2 1.8-7.8 X 10^3 Lymphocytes # (Auto) 0.7 L 1.0-4.0 X 10^3 Monocytes # (Auto) 0.8 0.0-1.0 X 10^3 Eosinophils # (Auto) 0.0 0.0-0.3 10^3/uL Basophils # (Auto) 0.0 0.0-0.1 10^3/uL Prothrombin Time 14.6 12.2-14.7 SEC INR Comment 1.1 0.8-1.4 Activated Partial Thromboplast Time 32 24-35 SEC Sodium Level 141 135-145 MMOL/L Potassium Level 4.0 3.6-5.0 MMOL/L Chloride Level 106 98-107 MMOL/L Carbon Dioxide Level 31 21-32 MMOL/L Anion Gap 4 L 5-14 MMOL/L Blood Urea Nitrogen 9 7-18 MG/DL Creatinine 0.61 0.60-1.30 MG/DL Estimat Glomerular Filtration Rate > 60 BUN/Creatinine Ratio 15 Glucose Level 116 H 70-105 MG/DL Calcium Level 9.2 8.5-10.1 MG/DL Magnesium Level 2.0 1.8-2.4 MG/DL Total Bilirubin 0.4 0.1-1.0 MG/DL Aspartate Amino Transf (AST/SGOT) 16 5-34 U/L Alanine Aminotransferase (ALT/SGPT) 12 0-55 U/L Alkaline Phosphatase 73 40-136 U/L Troponin I < 0.30 <0.30 NG/ML B-Type Natriuretic Peptide 121.4 H <100.0 PG/ML Total Protein 6.8 6.4-8.2 GM/DL Albumin 3.5 3.2-4.5 GM/DL Lactic Acid Level 0.61 0.50-2.00 MMOL/L Micro Results Microbiology 06/20/17 Influenza Types A,B Antigen (MEEK) - Final, Complete My Orders Orders - LAVINIA MONTANEZ DO Ekg Tracing (06/20/17 13:28) O2 (06/20/17 13:28) Monitor-Rhythm Ecg Trace Only (06/20/17 13:28) BNP (06/20/17 13:28) Cbc With Automated Diff (06/20/17 13:28) Comprehensive Metabolic Panel (06/20/17 13:28) Lactic Acid Analyzer (06/20/17 13:28) Magnesium (06/20/17 13:28) Protime With Inr (06/20/17 13:28) Partial Thromboplastin Time (06/20/17 13:28) Troponin I (06/20/17 13:28) Blood Culture (06/20/17 13:28) Influenza A And B Antigens (06/20/17 13:28) Chest 1 View, Ap/Pa Only (06/20/17 13:28) Methylprednisolone Sod Succ (Solu-Medrol (06/20/17 13:30) Albuterol/Ipra Inhalation Soln (Duoneb I (06/20/17 13:45) Dexamethasone Injection (Decadron Inject (06/20/17 13:45) Rt Request For Service (06/20/17 13:44) Svn Sm Volume Nebulizer Rt-Rfs (06/20/17 13:44) Ceftriaxone Injection (Rocephin Injectio (06/20/17 14:45) Azithromycin Tablet (Zithromax Tablet) (06/21/17 09:00) Azithromycin Tablet (Zithromax Tablet) (06/20/17 14:57) Medications Given in ED Current Medications Medications Dose Ordered Sig/Scot Route Start Time Stop Time Status Last Admin Dose Admin Albuterol/ Ipratropium 3 ml ONCE ONCE INH 06/20/17 13:45 06/20/17 13:46 DC 06/20/17 13:57 3 ML Ceftriaxone Sodium 1000 mg/ Sodium Chloride 50 ml @ 100 mls/hr ONCE ONCE IV 06/20/17 14:45 06/20/17 15:14 DC 06/20/17 15:01 100 MLS/HR Dexamethasone Sodium Phosphate 20 mg ONCE ONCE IH 06/20/17 13:45 06/20/17 13:46 DC 06/20/17 13:57 20 MG Methylprednisolone Sodium Succinate 125 mg ONCE ONCE IVP 06/20/17 13:30 06/20/17 13:31 DC 06/20/17 13:51 125 MG Vital Signs/I&O Vital Sign - Last 12Hours 06/20/17 06/20/17 06/20/17 13:05 13:05 13:57 Temp 97.8 Pulse 80 Resp 18 B/P (MAP) 157/82 (107) Pulse Ox 95 97 O2 Delivery Room Air Nasal Cannula Nasal Cannula O2 Flow Rate 2.00 4.00 Capillary Refill : Progress Note : Progress Note O2 SAT 94% ON 3L/NC PT STATES SHE FEELS MUCH BETTER AND WANTS TO GO HOME INCREASED AERATION AND NO WHEEZING AT THIS TIME ECG Initial ECG Impression Date: Jun 20, 2017 Initial ECG Impression Time: 13:53 Initial ECG Rate: 67 Initial ECG Comparisson: Unchanged Comment MUCH ARTIFACT, BUT BELIEVE IS SINUS RHYTHM, WITH RBBB Diagnostic Imaging Comments CXR--PATCHY RIGHT BASILAR INFILTRATE, PER RADIOLOGIST REPORT @ 1444 Reviewed: Reviewed by Me Departure Impression Impression: Primary Impression: RLL pneumonia Additional Impression: COPD exacerbation Disposition: 01 HOME, SELF-CARE Condition: Improved Departure-Patient Inst. Referrals: ALEXA JOSHUA (PCP/Family) Primary Care Physician Patient Instructions: COPD Including Emphysema (DC), Pneumonia, Adult (DC) Add. Discharge Instructions: USE YOUR INHALERS PRESCRIBED--YOU MAY USE ALBUTEROL INHALER 2 PUFFS EVERY 4 HOURS NEEDED TYLENOL AND MOTRIN NEEDED FOR PAIN OR FEVER LOTS OF FLUIDS FOLLOW UP WITH [facility] IN 2-3 DAYS FOR RECHECK, RETURN TO ER IF WORSE All discharge instructions reviewed with patient and/or family. Voiced understanding. Scripts Methylprednisolone (Medrol) 4 Mg Tab.ds.pk 4 MG PO UD, #1 PKG Prov: LAVINIA MONTANEZ DO 06/20/17 Azithromycin (Zithromax) 500 Mg Tablet 500 MG PO DAILY, #5 TAB FOR INFECTION Prov: LAVINIA MONTANEZ DO 06/20/17 Cefdinir (Cefdinir) 300 Mg Capsule 300 MG PO BID for FOR INFECTION, #20 CAP Prov: LAVINIA MONTANEZ DO 06/20/17 LAVINIA MONTANEZ DO Jun 20, 2017 13:35
[2017-06-20 13:37] LABS: BASOPHILS % (AUTO) 0 % (0-10); EOSINOPHILS % (AUTO) 1 % (0-10); HEMATOCRIT 35 % (35-52); HEMOGLOBIN 11.3 G/DL (11.5-16.0); LYMPHOCYTES # (AUTO) 0.7 X 10^3 (1.0-4.0); LYMPHOCYTES % (AUTO) 15 % (12-44); MEAN CORPUSCULAR HEMOGLOBIN 29 PG (25-34); MEAN CORPUSCULAR HGB CONC 32 G/DL (32-36); MEAN CORPUSCULAR VOLUME 89 FL (80-99); MEAN PLATELET VOLUME 9.3 FL (7.4-10.4); MONOCYTES # (AUTO) 0.8 X 10^3 (0.0-1.0); MONOCYTES % (AUTO) 16 % (0-12); NEUTROPHILS # (AUTO) 3.2 X 10^3 (1.8-7.8); NEUTROPHILS % (AUTO) 68 % (42-75); PLATELET COUNT 144 10^3/uL (130-400); RED BLOOD COUNT 3.93 10^6/uL (4.35-5.85); WHITE BLOOD COUNT 4.8 10^3/uL (4.3-11.0)
[2017-06-20 13:42] LABS: INR 1.1 (0.8-1.4); PROTHROMBIN TIME PATIENT 14.6 SEC (12.2-14.7)
[2017-06-20] MEDS ORDERED: DEXAMETHASONE 4 MG/ML SDV (DECADRON) IH ONE (13:45)
[2017-06-20] MEDS ORDERED: RT-ALBUTEROL/IPRATROPIUM 3 ML (DUONEB) VIAL INH ONE (13:45)
[2017-06-20 13:46] LABS: ALANINE AMINOTRANSFERASE 12 U/L (0-55); ALBUMIN 3.5 GM/DL (3.2-4.5); ALKALINE PHOSPHATASE 73 U/L (40-136); BILIRUBIN,TOTAL 0.4 MG/DL (0.1-1.0); BUN/CREATININE RATIO 15; CALCIUM 9.2 MG/DL (8.5-10.1); CARBON DIOXIDE 31 MMOL/L (21-32); CHLORIDE 106 MMOL/L (98-107); CREATININE SERUM 0.61 MG/DL (0.60-1.30); GFR ESTIMATED > 60; GLUCOSE 116 MG/DL (70-105); SODIUM 141 MMOL/L (135-145); TOTAL PROTEIN 6.8 GM/DL (6.4-8.2)
--- NOTE | 2017-06-20 14:40 | Diagnostic Imaging Report ---
INDICATION: Shortness of air and cough. TIME OF EXAM: 2:14 PM COMPARISON: Correlation is made with prior study from 01/16/2017. FINDINGS: The heart size is stable. There is patchy infiltrate in the right base suggestive of pneumonia or atelectasis. Left lung is clear. No effusion or pneumothorax is seen. IMPRESSION: Patchy right basilar infiltrate or atelectasis. Dictated by: Dictated on workstation # [id number]
[2017-06-20] MEDS ORDERED: cefTRIAXone INJECTION 1,000 MG in NS (IVPB) 50 ML IV ONE (14:45)
[2017-06-20] MEDS ORDERED: AZIT500T PO (14:48)
[2017-06-20] MEDS ORDERED: METH4TAB PO (14:48)
[2017-06-20] MEDS ORDERED: CEFD300C3 PO (14:48)
[2017-06-20] MEDS ORDERED: AZITHROMYCIN 250 MG TAB (ZITHROMAX) PO ONE (14:57)
[2017-06-20 15:43] VITALS: BP 148/73
[2017-06-21] MEDS ORDERED: AZITHROMYCIN 250 MG TAB (ZITHROMAX) PO SCH (09:00)
== END 2017-06-20 15:43 | disposition home or self-care (01) ==
LOC: EDUNIT# 13:05 → ER 13:07
DX: J18.8 Other pneumonia, unspecified organism (principal); J44.1 Chronic obstructive pulmonary disease with (acute) exacerbation; I25.2 Old myocardial infarction; E78.00 Pure hypercholesterolemia, unspecified; I10 Essential (primary) hypertension; Z85.72 Personal history of non-Hodgkin lymphomas; Z87.448 Personal history of other diseases of urinary system; Z88.1 Allergy status to other antibiotic agents; Z87.891 Personal history of nicotine dependence; Z90.49 Acquired absence of other specified parts of digestive tract
CPT/HCPCS: 36415; 71045; 80053; 83605; 83735; 83880; 84484; 85025; 85610; 85730; 87040; 87804; 93005; 93041; 96365; 96375

== ENCOUNTER → 2017-08-07 | Outpatient (CLI) | payer MEDICARE ==
[~2017-08-07] MED LIST changes: +AZIT500T PO; +CEFD300C3 PO; +METH4TAB PO
[2017-08-07 09:44] LABS: CHOLESTEROL 123 MG/DL (< 200); HDL CHOLESTEROL 26 MG/DL (40-60); TRIGLYCERIDES 105 MG/DL (<150); VLDL CHOLESTEROL 21 MG/DL (5-40)
== END ==
LOC: LAB 08:57
PROVIDERS: ATTEND Nurse Practitioner Family
DX: I25.10 Atherosclerotic heart disease of native coronary artery without angina pectoris (principal); I10 Essential (primary) hypertension; E78.4 Other hyperlipidemia; G47.33 Obstructive sleep apnea (adult) (pediatric)
CPT/HCPCS: 36415; 80061

== ENCOUNTER → 2017-08-07 | Outpatient (CLI) | payer MEDICARE ==
[~2017-08-07] MED LIST changes: +CATHETER FLUSH 10 ML SYR IV PRN; +IOHEXOL 350 MG/ML 100 ML (OMNIPAQUE 350) VIAL IV ONE; +NS 250 ML (IVPB) BAG IV ONE
--- NOTE | 2017-08-07 11:28 | Diagnostic Imaging Report ---
INDICATION: Non-Hodgkin's lymphoma. COMPARISON: Comparison made with prior examination 08/22/2016. TECHNIQUE: Multiple contiguous axial images were obtained through the neck, chest, abdomen and pelvis after the uneventful bolus administration of intravenous contrast. Coronal reformations were also performed. FINDINGS: The visualized intracranial structures are unremarkable. The nasopharyngeal, oropharyngeal and hypopharyngeal tissues are symmetrical without mass effect. The parotid, submandibular and thyroid glands are normal in appearance. The lung apices are clear. There is a left supraclavicular lymph node measuring up to 1.5 cm. No other pathologically enlarged adenopathy in the neck is appreciated. Major vascular structures of the neck enhance in a normal fashion. There is no significant plaque in the carotid arteries. There are mild degenerative changes in the cervical spine. Note is again made of bilateral axillary adenopathy. There is a 1.9 cm node in the left axilla as well as a 1.7 cm node. These are both measured in short axis. There is a persistent 1.3 cm node in the right axilla also measured in short axis. There is some scarring or atelectasis in both lung bases left greater than right. Similar findings are seen in the right middle lobe and lingula. There is no pleural or pericardial fluid. There is no pneumothorax. The thoracic aorta is normal in caliber without evidence of dissection. There is no pathologically enlarged adenopathy in the mediastinum or either shanon. There are mild degenerative changes in the spine. The liver is normal in size without focal lesions. Gallbladder is surgically absent. There is no biliary duct dilatation. Spleen is somewhat heterogeneous. The pancreas and adrenal glands are unremarkable. There are several cysts in the left kidney. Right kidney is normal. There is a midline anterior abdominal wall hernia containing omental fat. This fat does appear mildly indurated. There has been increased preaortic and left periaortic adenopathy developed since the prior exam. Largest left periaortic node now measures 2.2 cm. Preaortic node measures 2 cm. Bowel gas pattern is nonspecific. The appendix is normal. Bladder is normal. The uterus is normal. There is no pelvic mass or adenopathy. There is a trace amount of free pelvic fluid. There are mild degenerative changes in the thoracic and lumbar spine. IMPRESSION: 1. Slightly increased prominence of bilateral axillary adenopathy. There is also left supraclavicular node. Additionally, there has been increase in size of preaortic and left periaortic adenopathy. Possibility of disease recurrence certainly cannot be excluded. Recommend clinical correlation. 2. Bibasilar scarring or atelectasis as well as scarring or atelectasis in the right middle lobe and lingula. 3. Midline anterior abdominal wall hernia containing only omental fat. Fat does however appear mildly indurated. Dictated by: Dictated on workstation # [id number]
== END ==
LOC: RAD 09:03
PROVIDERS: ATTEND Internal Medicine Hematology & Oncology
DX: C85.90 Non-Hodgkin lymphoma, unspecified, unspecified site (principal); R91.8 Other nonspecific abnormal finding of lung field; K43.9 Ventral hernia without obstruction or gangrene
CPT/HCPCS: 70491; 71260; 74178

== ENCOUNTER 2017-08-17 13:21 | Outpatient (RCR) | payer MEDICARE ==
[2017-08-07 09:19] LABS: BASOPHILS % (AUTO) 0 % (0-10); EOSINOPHILS # (AUTO) 0.1 10^3/uL (0.0-0.3); EOSINOPHILS % (AUTO) 1 % (0-10); HEMATOCRIT 36 % (35-52); HEMOGLOBIN 11.6 G/DL (11.5-16.0); LYMPHOCYTES # (AUTO) 0.8 X 10^3 (1.0-4.0); LYMPHOCYTES % (AUTO) 11 % (12-44); MEAN CORPUSCULAR HEMOGLOBIN 29 PG (25-34); MEAN CORPUSCULAR HGB CONC 32 G/DL (32-36); MEAN CORPUSCULAR VOLUME 91 FL (80-99); MEAN PLATELET VOLUME 9.4 FL (7.4-10.4); MONOCYTES # (AUTO) 0.4 X 10^3 (0.0-1.0); MONOCYTES % (AUTO) 5 % (0-12); NEUTROPHILS # (AUTO) 6.7 X 10^3 (1.8-7.8); NEUTROPHILS % (AUTO) 83 % (42-75); PLATELET COUNT 255 10^3/uL (130-400); RED BLOOD COUNT 4.01 10^6/uL (4.35-5.85); RED CELL DISTRIBUTION WIDTH 14.5 % (10.0-14.5)
[2017-08-07 09:41] LABS: ALANINE AMINOTRANSFERASE 11 U/L (0-55); ALBUMIN 3.7 GM/DL (3.2-4.5); ALKALINE PHOSPHATASE 78 U/L (40-136); BILIRUBIN,TOTAL 0.5 MG/DL (0.1-1.0); BUN/CREATININE RATIO 20; CALCIUM 10.2 MG/DL (8.5-10.1); CARBON DIOXIDE 31 MMOL/L (21-32); CHLORIDE 99 MMOL/L (98-107); CREATININE SERUM 0.66 MG/DL (0.60-1.30); GFR ESTIMATED > 60; GLUCOSE 116 MG/DL (70-105); POTASSIUM 4.4 MMOL/L (3.6-5.0); SODIUM 141 MMOL/L (135-145); TOTAL PROTEIN 7.4 GM/DL (6.4-8.2)
[~2017-08-17 13:21] MED LIST changes: -CATHETER FLUSH 10 ML SYR IV PRN; -IOHEXOL 350 MG/ML 100 ML (OMNIPAQUE 350) VIAL IV ONE; -NS 250 ML (IVPB) BAG IV ONE
== END 2017-11-05 | disposition home or self-care (01) ==
LOC: ONC 13:21
PROVIDERS: ATTEND Internal Medicine Hematology & Oncology
DX: C82.13 Follicular lymphoma grade II, intra-abdominal lymph nodes (principal); J44.9 Chronic obstructive pulmonary disease, unspecified; G47.33 Obstructive sleep apnea (adult) (pediatric); I27.9 Pulmonary heart disease, unspecified; E78.00 Pure hypercholesterolemia, unspecified; I25.10 Atherosclerotic heart disease of native coronary artery without angina pectoris; I45.10 Unspecified right bundle-branch block; Z79.899 Other long term (current) drug therapy
CPT/HCPCS: 80053; 82784; 83615; 85025; 99213

== ENCOUNTER → 2017-12-12 | Outpatient (CLI) | payer MEDICARE ==
[~2017-12-12] MED LIST changes: +BARIUM SUSPENSION 2.1% (VANILLA SILQ) 450 ML PO ONE; +CARV6.252 PO; +CETI10TA17 PO; +FLUT1DIS26 IH; +IOHEXOL 350 MG/ML 100 ML (OMNIPAQUE 350) VIAL IV ONE; +LISI-556 PO; +MONT10TA24 PO; +NS 250 ML (IVPB) BAG IV ONE; +PRAV40TA2 PO; +RT-ALBUINH IH; +VIT1CAPS9 PO
--- NOTE | 2017-12-12 14:17 | Diagnostic Imaging Report ---
INDICATION: Lymphoma. COMPARISON: Exam compared with study of 08/07/2017. FINDINGS: Neck: Post IV contrast-enhanced soft tissue neck CT performed. Partially visualized orbits, paranasal sinuses, and intracranial contents appeared unremarkable. The bony skull base is unremarkable. There is slight membrane thickening in the left maxillary sinus, chronic. No paranasal sinus air-fluid level. Right maxillary membrane thickening has essentially resolved in the interim. There are some new shotty lymph nodes in the lower left neck at the posterior triangle, having developed in the interim, the largest of these above the level of the clavicle measures 1.2 x 0.9 cm and several subcentimeter long axis nodes have also developed. The right posterior triangle is unremarkable. The anterior neck and carotid chain spaces are unremarkable. There are carotid vascular calcifications, stable. The nasopharynx, oropharynx, and hypopharynx appeared unremarkable. The prevertebral and retropharyngeal spaces were unremarkable. Chest: Post IV contrast-enhanced chest CT performed with multiplanar reconstructions. Small retroclavicular nodes on the left are not substantially changed, the largest of these measuring 1.4 x 1.1 cm. Left greater than right axillary lymphadenopathy, a redemonstrated finding. A marker node anterosuperiorly has a short axis thickness of 1.7 cm, unchanged. A more spherical node inferiorly and posteriorly has a diameter of 2 cm, unchanged. Right axillary nodes are present, the largest with a short axis thickness of 1.6 cm, previously 1.3 cm. Prevascular lymph nodes posterior to the manubrium have maximal diameter of 1.4 cm today, previously 0.9 cm. Some left superior internal mammary chain adenopathy, unchanged. Right posterior paratracheal node just below the thoracic inlet is unchanged at 1.5 cm. Subcarinal and lower paraesophageal spaces are unremarkable. There is para-aortic posterior and inferior mediastinal adenopathy, not significantly changed. There is a minute amount of left pleural fluid. Some minimal scarring or airspace disease in posterior right upper lobe, unchanged. No new pulmonary parenchymal abnormality with resolution of perihilar and lower lobe patchy infiltrates present previously. No acute or suspect soft tissue or osseous chest wall lesion. Abdomen and pelvis: Oral and intravenous contrast were administered, abdominopelvic CT performed. There is increased periaortic retroperitoneal lymphadenopathy. The left periaortic node just posterior to the left renal vein is 2.8 cm long axis today, previously 2.2 cm. Anterior to the aorta just below the level of the left renal vein, mass measuring 2.1 cm was unchanged. Left periaortic adenopathy below the left renal vein appears more confluent and inseparable today when measured in aggregate is 3.8 x 2.6 cm, previously the same tissue measured 3.1 x 1.5 cm. Some retrocrural lymphadenopathy shows mild progression as well. Hazy induration and nodularity along the fat of the mesenteric root showed mild increase, these nodes all 1 cm or less. Liver and spleen are unremarkable. The adrenals and pancreas are negative. There are renal cortical cysts without renal mass or obstruction. A ventral supraumbilical fatty hernia is stable. Pelvic sidewall and right greater than left external iliac chain lymphadenopathy has increased from prior. On the right confluent nodes in aggregate measure 7.4 x 3.1 cm today, previously at the same level 4.9 x 2.2 cm. New lymphadenopathy along the left pelvic sidewall and left external iliac chain measures a short axis thickness of 1.8 cm. Bilateral inguinal lymphadenopathy, greater right than left, shows a mild increase in alberto size and numbers, the largest spherical mass on the right with a diameter of 3.1 cm and more medially an elongated node measures 2.9 x 2.2 cm. Those masses previously having measured 2.3 and 2.4 x 1.7 cm, respectively. Similar increase in mild left inguinal adenopathy also occurred. There is no ascites. There is no bowel, biliary, or urinary tract obstruction. No fluid collection or free air. No suspicious osseous lesion. IMPRESSION: Progressive cervical, thoracic, abdominal, and pelvic lymphadenopathy, presumed to reflect progression in lymphomatous involvement. The disease progression is most pronounced in the pelvis. No solid visceral or osseous involvement identified. Essential resolution of pulmonary infiltrates with minute left pleural effusion. No abdominopelvic ascites. Dictated by: Dictated on workstation # [id number]
== END ==
LOC: RAD 12:55
PROVIDERS: ATTEND Internal Medicine Hematology & Oncology
DX: C82.13 Follicular lymphoma grade II, intra-abdominal lymph nodes (principal); M79.89 Other specified soft tissue disorders
CPT/HCPCS: 70491; 71260; 74176

== ENCOUNTER 2017-12-18 05:47 | Outpatient (CLI) | payer MEDICARE ==
[~2017-12-18] VITALS: Ht 167.6 cm; Wt 83.9 kg
[~2017-12-18 05:47] MED LIST changes: -BARIUM SUSPENSION 2.1% (VANILLA SILQ) 450 ML PO ONE; -CARV6.252 PO; -CETI10TA17 PO; -FLUT1DIS26 IH; -IOHEXOL 350 MG/ML 100 ML (OMNIPAQUE 350) VIAL IV ONE; -LISI-556 PO; -MONT10TA24 PO; -NS 250 ML (IVPB) BAG IV ONE; -PRAV40TA2 PO; -RT-ALBUINH IH; -VIT1CAPS9 PO
[2017-12-18] MEDS ORDERED: CETI10TA17 PO (14:29)
[2017-12-18] MEDS ORDERED: PRAV40TA2 PO (14:29)
[2017-12-18] MEDS ORDERED: FLUT16SP22 NSEACH (14:29)
[2017-12-18] MEDS ORDERED: RT-ALBUINH IH (14:29)
[2017-12-18] MEDS ORDERED: VIT1CAPS9 PO (14:29)
[2017-12-18] MEDS ORDERED: LISI-556 PO (14:29)
[2017-12-18] MEDS ORDERED: CARV6.252 PO (14:29)
[2017-12-18] MEDS ORDERED: MONT10TA24 PO (14:29)
[2017-12-18] MEDS ORDERED: FLUT1DIS26 IH (14:29)
== END 2017-12-18 14:47 | disposition home or self-care (01) ==
LOC: PREOP 05:47
PROVIDERS: ATTEND Surgery
DX: Z01.818 Encounter for other preprocedural examination (principal)

== ENCOUNTER 2017-12-20 07:45 | Day surgery (SDC) | payer MEDICARE ==
[~2017-12-20] VITALS: Ht 167.6 cm; Wt 83.9 kg
[~2017-12-20 07:45] MED LIST changes: +CARV6.252 PO; +CETI10TA17 PO; +FLUT1DIS26 IH; +LISI-556 PO; +MONT10TA24 PO; +PRAV40TA2 PO; +RT-ALBUINH IH; +VIT1CAPS9 PO
[2017-12-20] MEDS ORDERED: CATHETER FLUSH 10 ML SYR IV PRN (08:30)
[2017-12-20] MEDS ORDERED: ceFAZolin 2 GM IV Premixed 50 ML IV ONE (08:30)
[2017-12-20] MEDS ORDERED: LIDOCAINE 1% INJ 20 ML 20 ML VIAL ONE ×2 (08:52→10:25)
--- NOTE | 2017-12-20 09:11 | Progress Note-Pre Operative ---
Pre-Operative Progress Note H&P Reviewed The H&P was reviewed, patient examined and no changes noted. Date Seen by Provider: Dec 20, 2017 Time Seen by Provider: 09:10 Date H&P Reviewed: Dec 20, 2017 Time H&P Reviewed: 09:11 Pre-Operative Diagnosis: NON-HODGKINS LYMPHOMA ELBA MONTOYA DO Dec 20, 2017 09:11
[2017-12-20 10:03] VITALS: BP 118/61
[2017-12-20] MEDS ORDERED: LACTATED RINGERS 1,000 ML IV PRN (10:11)
[2017-12-20] MEDS ORDERED: BUPIVACAINE 0.5% 30 ML (SENSORCAINE) VIAL ONE (10:24)
[2017-12-20] MEDS ORDERED: 0.9% SODIUM CHLORIDE PF INJ 20 ML VIAL ONE (10:24)
[2017-12-20] MEDS ORDERED: HEParin (CENTRAL IV FLUSH) 500 UNIT/5 ML SYR ONE (10:24)
[2017-12-20] MEDS ORDERED: LIDOCAINE PF 2% 5 ML (XYLOCAINE) VIAL ONE (10:41)
[2017-12-20] MEDS ORDERED: ONDANSETRON 4 MG/2 ML (SDV) Z0FRAN ONE (10:41)
[2017-12-20] MEDS ORDERED: proPOfol 200 MG/20 ML (DIPRIVAN) VIAL IV ONE (10:41)
[2017-12-20] MEDS ORDERED: DEXAMETHASONE 10 MG/ML (DECADRON) 1 ML VIAL ONE (10:41)
[2017-12-20] MEDS ORDERED: fentaNYL INJECTION 100 MCG/2 ML AMP ONE (10:41)
[2017-12-20] MEDS ORDERED: MIDAZOLAM 2 MG/2 ML (VERSED) VIAL ONE (10:42)
--- NOTE | 2017-12-20 11:43 | Discharge Inst-Simple/Standard ---
Discharge Inst-Standard Patient Instructions/Follow Up Plan of Care/Instructions/FU: 2 WEEKS Rosa Activity as Tolerated: No Discharge Diet: Regular Diet Other Inst to Patient Follow up Appt: Make appointment for 2 week. Instructions: No lifting greater than 10 pounds. No strenuous activity. May shower in 24 hours, no tub bath or soaking. Use incentive spirometer at home as directed. No Smoking Skin/Wound Care: May remove bandages IN 24 HOURS. YOU HAVE SPECIAL GLUE OVER INCISIONS IT WILL FALL OFF ON ITS OWN. PLACE ICE PACK ON 15 MIN OFF 30 MIN FOR PAIN AND DISCOMFORT AND TO REDUCE SWELLING. Symptoms to Report: Appetite Changes, Extremity Discoloration, Numbness/Tingling, Swelling Increased , Bleeding Excessive, Eyesight Changes, Pain Increased, Urine Color Change, Constipation(Persistent), Fever over 101 degree F, Pain/Pressure in chest, Urinating Difficulty, Cough Up/Vomit Blood, Heart Beat Irreg/Pounding, Pain/ Pressure in jaw, Vaginal Bleeding Increase, Cramps in feet or legs, Lightheadedness, Pain/Pressure in shoulder, Diarrhea(Persistent), Memory Changes Suddenly, Questions/Concerns, Weight gain consecutive days, Dizziness/ Fainting, Nausea/Vomiting, Shortness of Breath, Weight gain over 2 pounds If questions or concerns contact your physician Or seek help at emergency department. ELBA MONTOYA DO Dec 20, 2017 11:43
[2017-12-20] MEDS ORDERED: ONDANSETRON 4 MG/2 ML (SDV) Z0FRAN IVP PRN (11:45)
[2017-12-20] MEDS ORDERED: HYDROmorphone 2 MG/ML VIAL (DILAUDID) IV PRN (11:45)
[2017-12-20 12:05] VITALS: BP 96/51
--- NOTE | 2017-12-20 12:12 | Diagnostic Imaging Report ---
INDICATION: Groshong catheter placement. TIME OF EXAM: 11:57 a.m. COMPARISON: Correlation is made with prior study from 06/20/2017. FINDINGS: Right chest wall port has tip overlying the SVC. No pneumothorax is identified. The lungs are clear. IMPRESSION: Port placement. No pneumothorax is identified. Dictated by: Dictated on workstation # [id number]
--- NOTE | 2017-12-20 12:27 | Anesthesia-General Post-Op ---
MAC Patient Condition Mental Status/LOC: Same as Preop Cardiovascular: Satisfactory Nausea/Vomiting: Absent Respiratory: Satisfactory Pain: Controlled Complications: Absent Post Op Complications Complications None Follow Up Care/Instructions Patient Instructions None needed. Anesthesiology Discharge Order Discharge Order Patient is doing well, no complaints, stable vital signs, no apparent adverse anesthesia problems. No complications reported per nursing. CARRILLO ROCKWELL CRNA Dec 20, 2017 12:27
[2017-12-20 12:35] VITALS: BP 107/61
[2017-12-20 13:05] VITALS: BP 107/61
--- NOTE | 2017-12-20 13:13 | Diagnostic Imaging Report ---
INDICATION: Non-Hodgkin's lymphoma and axillary lymphadenopathy. Patient presents for ultrasound-guided core biopsy. FINDINGS: Patient was brought to the procedure room, placed on the table in the supine position. Ultrasound imaging over the left axilla was performed to evaluate appropriate entry site. The skin of the left axilla was then prepped and draped in the usual sterile fashion. A small amount of 1% lidocaine was utilized for local anesthesia. A 14-gauge Achieve needle was advanced, placed with the tip adjacent to the largest lymph node in the left axilla. Total of five core biopsies were obtained. Hemostasis was obtained using manual compression. Patient tolerated the procedure well and left the department in stable condition. IMPRESSION: Ultrasound-guided core biopsy of enlarged left axilla lymph node, as described. Dictated by: Dictated on workstation # [id number]
[2017-12-20 13:20] VITALS: BP 107/61
--- NOTE | 2017-12-20 13:21 | Diagnostic Imaging Report ---
Indication: Groshong catheter placement. Patient has history of non-Hodgkin's lymphoma. Time of exam: 11:20 AM Fluoroscopy was provided for Dr. Brandon during Groshong catheter placement in the OR. 22 seconds of fluoroscopy was utilized. A single image over the chest demonstrates a right-sided chest wall port with tip overlying SVC. Impression: Fluoroscopy for Groshong catheter placement. Dictated by: Dictated on workstation # [id number]
--- OUTSIDE RECORDS SUMMARY | 2017-12-21 10:53 | XMS REPORT ---
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 Unknown Non Drug Allergy Apr, Unknown SOCIAL HISTORY No smoking Hx information available PLAN OF CARE VITAL SIGNS Height 65.5 in 2016-04-10 Weight 204.8 lbs 2016-04-10 Heart Rate 107 bpm 2016-04-10 Respiratory Rate 18 2016-04-10 Oximetry 97 % 2016-04-10 BMI 33.56 kg/m2 2016-04-10 Blood pressure systolic 130 mmHg 2016-04-10 Blood pressure diastolic 74 mmHg 2016-04-10 MEDICATIONS Medication Instructions Dosage Frequency Start Date End Date Duration Status Lisinopril 5 MG Active Stiolto Respimat 2.5-2.5 MCG/ACT Inhalation Once a day 2 puffs 24h Active Ventolin HFA 108 (90 Base) MCG/ACT Inhalation every 4 hrs 2 puffs as needed 4h Active Coreg 6.25 MG Orally 2 times a day 1 tablet 12h Active Flonase Allergy Relief 50 MCG/ACT Nasally Once a day 1 spray in each nostril 24h Active Ocuvite - Active Pravastatin Sodium 40 MG Orally Once a day 1 tablet 24h Active Cetirizine HCl 10 MG Orally Once a day 1 tablet 24h Active RESULTS No Results PROCEDURES Procedure Date Ordered Related Diagnosis Body Site FQ VISIT NEW PATIENT Apr 10, 2016 Office Visit, New Pt., Level 3 Apr 10, 2016 IMMUNIZATIONS No Known Immunizations
--- OUTSIDE RECORDS SUMMARY | 2017-12-21 10:53 | XMS REPORT ---
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
--- OUTSIDE RECORDS SUMMARY | 2017-12-21 10:53 | XMS REPORT ---
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 Active 074493987 Problem History of non-Hodgkin's lymphoma Z85.72 Active 419943385 Problem Benign essential hypertension I10 Active 6545059 Problem Seasonal allergic rhinitis due to other allergic trigger J30.89 Active 995007594 ALLERGIES No Information SOCIAL HISTORY Never Assessed PLAN OF CARE VITAL SIGNS MEDICATIONS Medication Instructions Dosage Frequency Start Date End Date Duration Status Albuterol Sulfate (2.5 MG/3ML) 0.083% Inhalation Three times a day as needed 3 ml Jun, 0 days Active RESULTS No Results PROCEDURES No Known procedures IMMUNIZATIONS No Known Immunizations MEDICAL (GENERAL) HISTORY Type Description Date Medical History CAD Medical History CARDIOMYOPATHY- Dr. Ruiz ( ECHO 2013) Medical History COPD- Dr. Watt Medical History EF 50% Medical History HTN Medical History MYOPATHY Medical History NON-HODGKINS LYMPHOMA- dx 2010 ( remission 2012) Dr. [facility] Medical History OBESITY Medical History PULMONARY HYPERTENSION Medical History RBBB Medical History SLEEP APNEA Surgical History GALLBLADDER 2010 Surgical History TUBALIGATION 1980 Surgical History PORT PLACED 2011 AND REMOVED 2014 Surgical History LYMPHNODE REMOVAL Hospitalization History [facility] 2013 Hospitalization History HEART EVENT, INFECTION [facility] 1999
--- OUTSIDE RECORDS SUMMARY | 2017-12-21 10:57 | XMS REPORT | Continuity of Care Document ---
Author Author [facility] Organization [facility] Address Unknown Phone Unavailable Allergies Active Description Code Type Severity Reaction Onset Reported/Identified Relationship to Patient Clinical Status Yes NKANo Known Allergies NKA Miscellaneous Allergy Mild N/A 10/22/2012 Medications There is no data. Problems Date Dx Coded Attending Type Code Diagnosis Diagnosed By 08/24/2010 Ot 202.08 08/24/2010 Ot 275.2 08/24/2010 Ot 401.9 08/24/2010 Ot 412 08/24/2010 Ot 426.4 08/24/2010 Ot 496 08/24/2010 Ot 511.9 08/24/2010 Ot V12.59 08/24/2010 Ot V15.82 08/24/2010 Ot V57.1 11/25/2010 Ot 202.80 11/25/2010 Ot V58.11 11/25/2010 Ot V58.69 01/04/2011 Ot 202.80 OTH LYMPHOMAS EXTRANODAL SOLID ORGAN U 01/04/2011 Ot 496 CHR AIRWAY OBSTRUCT NEC 01/04/2011 Ot V58.11 ENCOUNTER FOR ANTINEOPLASTIC CHEMOTHERAP 01/04/2011 Ot V58.69 OTH MED,LT, CURRENT USE 03/21/2011 Ot 202.80 OTH LYMPHOMAS EXTRANODAL SOLID ORGAN U 03/21/2011 Ot 401.9 HYPERTENSION NOS 03/21/2011 Ot 412 OLD MYOCARDIAL INFARCT 03/21/2011 Ot 414.8 CHR ISCHEMIC HRT DIS NEC 03/21/2011 Ot 416.8 CHR PULMON HEART DIS NEC 03/21/2011 Ot 426.4 RT BUNDLE BRANCH BLOCK 03/21/2011 Ot 780.79 OTH MALAISE FATIGUE 03/21/2011 Ot 786.09 RESPIRATORY ABNORM NEC 03/21/2011 Ot V15.82 HISTORY OF TOBACCO USE 03/21/2011 Ot V58.69 OTH MED,LT, CURRENT USE 03/21/2011 Ot V87.41 PERSONAL HISTORY OF ANTINEOPLASTIC CHEMO 04/05/2011 Ot 202.80 OTH LYMPHOMAS EXTRANODAL SOLID ORGAN U 04/05/2011 Ot V58.11 ENCOUNTER FOR ANTINEOPLASTIC CHEMOTHERAP 04/05/2011 Ot V58.69 OTH MED,LT, CURRENT USE 04/20/2011 Ot 327.23 OBSTRUCTIVE SLEEP APNEA (ADULT) (PEDIATR 05/24/2011 Ot 327.23 OBSTRUCTIVE SLEEP APNEA (ADULT) (PEDIATR 05/24/2011 Ot 416.8 CHR PULMON HEART DIS NEC 07/12/2011 Ot 202.80 OTH LYMPHOMAS EXTRANODAL SOLID ORGAN U 07/12/2011 Ot 327.23 OBSTRUCTIVE SLEEP APNEA (ADULT) (PEDIATR 07/12/2011 Ot 414.00 CORON ATHEROSCLER NOS TYPE VESSEL, NATIV 07/12/2011 Ot 414.8 CHR ISCHEMIC HRT DIS NEC 07/12/2011 Ot V58.11 ENCOUNTER FOR ANTINEOPLASTIC CHEMOTHERAP 07/12/2011 Ot V58.69 OTH MED,LT, CURRENT USE 07/12/2011 Ot V58.81 FIT/ADJ VASCULAR CATHETER 11/01/2011 Ot 202.80 OTH LYMPHOMAS EXTRANODAL SOLID ORGAN U 11/01/2011 Ot 288.00 NEUTROPENIA , UNSPECIFIED 11/01/2011 Ot V58.11 ENCOUNTER FOR ANTINEOPLASTIC CHEMOTHERAP 11/01/2011 Ot V58.69 OTH MED,LT, CURRENT USE 11/01/2011 Ot V58.81 FIT/ADJ VASCULAR CATHETER 02/18/2012 Ot 202.80 OTH LYMPHOMAS EXTRANODAL SOLID ORGAN U 02/18/2012 Ot V58.11 ENCOUNTER FOR ANTINEOPLASTIC CHEMOTHERAP 02/18/2012 Ot V58.81 FIT/ADJ VASCULAR CATHETER 06/12/2012 Ot 202.80 OTH LYMPHOMAS EXTRANODAL SOLID ORGAN U 06/12/2012 Ot 465.9 ACUTE URI NOS 06/12/2012 Ot V58.11 ENCOUNTER FOR ANTINEOPLASTIC CHEMOTHERAP 06/12/2012 Ot V58.69 OTH MED,LT, CURRENT USE 06/12/2012 Ot V58.81 FIT/ADJ VASCULAR CATHETER 10/02/2012 NAKITA NAVA Ot 202.80 OTH LYMPHOMAS EXTRANODAL SOLID ORGAN U 10/02/2012 NAKITA NAVA Ot V58.81 FIT/ADJ VASCULAR CATHETER 10/23/2012 ADRIEL ANDERSON, JUDI Mckinnon Ot 202.80 OTH LYMPHOMAS EXTRANODAL SOLID ORGAN U 10/23/2012 ADRIEL ANDERSON, JUDI Mckinnon Ot 496 CHR AIRWAY OBSTRUCT NEC 10/23/2012 ADRIEL ANDERSON, JUDI Mckinnon Ot 511.9 PLEURAL EFFUSION NOS 10/23/2012 ADRIEL ANDERSON, JUDI Mckinnon Ot 785.6 ENLARGEMENT LYMPH NODES 10/23/2012 ADRIEL ANDERSON, JUDI Mckinnon Ot V58.69 OTH MED,LT,CURRENT USE 01/29/2013 BRANDYBRYNNAN N Ot 202.80 OTH LYMPHOMAS EXTRANODAL SOLID ORGAN U 01/29/2013 BRANDY BOBAN N Ot V58.69 OTH MED,LT,CURRENT USE 01/29/2013 BRANDY, BOBAN N Ot V87.41 PERSONAL HISTORY OF ANTINEOPLASTIC CHEMO 05/04/2013 BRANDY BOBAN N Ot 202.80 OTH LYMPHOMAS EXTRANODAL SOLID ORGAN U 05/04/2013 BRANDY, BOBAN N Ot 511.9 PLEURAL EFFUSION NOS 05/04/2013 BRANDYNAKITA JACKSON N Ot V07.8 OTHER SPECIFIED PROPHYLACTIC OR TREATMEN 05/04/2013 BRANDY BOBAN N Ot V58.11 ENCOUNTER FOR ANTINEOPLASTIC CHEMOTHERAP 05/04/2013 BRANDY BOBAN N Ot V58.69 OTH MED,LT,CURRENT USE 08/25/2013 BRANDY BOBAN N Ot 202.80 OTH LYMPHOMAS EXTRANODAL SOLID ORGAN U 08/25/2013 BRANDY BOBAN N Ot 272.4 HYPERLIPIDEMIA NEC/NOS 08/25/2013 BRANDY BOBAN N Ot V58.69 OTH MED,LT,CURRENT USE 12/15/2013 BRANDY BOBAN N Ot 202.80 OTH LYMPHOMAS EXTRANODAL SOLID ORGAN U 12/15/2013 BRANDY BOBAN N Ot V58.69 OTH MED,LT,CURRENT USE 12/15/2013 BRANDY, BOBAN N Ot V58.81 FIT/ADJ VASCULAR CATHETER 01/21/2014 TOM JC DO Ot 327.23 OBSTRUCTIVE SLEEP APNEA (ADULT) (PEDIATR 01/21/2014 TOM JC DO Ot 786.09 RESPIRATORY ABNORM NEC 03/29/2014 BRANDY BOBAN N Ot 202.80 OTH LYMPHOMAS EXTRANODAL SOLID ORGAN U 03/29/2014 BRANDY BOBAN N Ot V58.69 OTH MED,LT,CURRENT USE 03/29/2014 NAKITA NAVA N Ot V58.81 FIT/ADJ VASCULAR CATHETER 05/04/2014 NAKITA NAVA N Ot 202.80 05/04/2014 NAKITA NAVA N Ot V58.69 05/04/2014 NAKITA NAVA N Ot V58.81 05/05/2014 NAKITA NAVA N Ot 202.80 05/05/2014 NAKITA NAVA N Ot V58.69 05/05/2014 NAKITA NAVA N Ot V58.81 05/11/2014 NAKITA NAVA N Ot 202.80 05/11/2014 NAKITA NAVA N Ot V58.69 05/11/2014 NAKITA NAVA N Ot V58.81 05/13/2014 Ot V76.12 05/13/2014 Ot 793.80 05/13/2014 Ot 202.80 05/13/2014 Ot 511.9 05/13/2014 Ot V58.69 05/13/2014 Ot 202.80 05/13/2014 Ot 410.10 05/13/2014 Ot 428.0 05/13/2014 Ot V58.69 05/13/2014 Ot 401.9 05/13/2014 Ot 413.9 05/13/2014 Ot 414.01 05/13/2014 Ot 426.4 05/13/2014 Ot 428.0 05/13/2014 Ot 786.05 05/13/2014 Ot 794.39 05/13/2014 Ot V58.69 05/13/2014 Ot V72.63 05/13/2014 Ot V72.81 05/13/2014 Ot 272.4 05/13/2014 Ot 414.01 05/13/2014 Ot V58.69 05/13/2014 Ot 414.01 05/13/2014 Ot V58.69 05/13/2014 Ot 425.4 05/13/2014 Ot 272.4 05/13/2014 Ot 414.01 05/13/2014 Ot V58.69 05/13/2014 Ot 272.4 05/13/2014 Ot V58.69 05/13/2014 Ot 272.4 05/13/2014 Ot V58.69 05/13/2014 Ot 272.4 05/13/2014 Ot 401.9 05/13/2014 Ot V58.69 05/13/2014 PADILLA ANDERSON FACC, DAYNA READ CCDS Ot 425.4 05/13/2014 PADILLA ANDERSON [facility] CCDS Ot 786.09 05/13/2014 QUINNVEE Mckinnon S CREDIT RISK ANALYTICS MANAGER Ot 202.80 05/13/2014 QUINNVEE Mckinnon S CREDIT RISK ANALYTICS MANAGER Ot 786.09 05/13/2014 QUINNVEE Mckinnon S CREDIT RISK ANALYTICS MANAGER Ot 202.80 05/13/2014 QUINNVEE S CREDIT RISK ANALYTICS MANAGER Ot 511.9 05/13/2014 QUINNVEE S CREDIT RISK ANALYTICS MANAGER Ot 786.09 05/13/2014 QUINNARIELAH S CREDIT RISK ANALYTICS MANAGER Ot 202.80 05/13/2014 QUINNVEE S CREDIT RISK ANALYTICS MANAGER Ot 511.9 05/13/2014 QUINNVEE S CREDIT RISK ANALYTICS MANAGER Ot 786.09 05/13/2014 QUINNVEE S CREDIT RISK ANALYTICS MANAGER Ot 793.19 05/13/2014 QUINNVEE S CREDIT RISK ANALYTICS MANAGER Ot 202.80 05/13/2014 QUINNVEE S CREDIT RISK ANALYTICS MANAGER Ot 786.09 05/13/2014 QUINNVEE Mckinnon S CREDIT RISK ANALYTICS MANAGER Ot V87.41 05/13/2014 QUINNVEE S CREDIT RISK ANALYTICS MANAGER Ot 202.80 05/13/2014 ADRIEL ANDERSON, JUDI S Ot 202.80 05/13/2014 ADRIEL ANDERSON, JUDI S Ot V72.83 05/13/2014 ADRIEL ANDERSON, JUDI S Ot V74.8 05/13/2014 NAKITA NAVA Ot 202.80 05/13/2014 NAKITA NAVA Ot 786.09 05/13/2014 QUINNVEE Mckinnon S CREDIT RISK ANALYTICS MANAGER Ot 202.80 05/13/2014 QUINNVEE Mckinnon S CREDIT RISK ANALYTICS MANAGER Ot 202.80 05/13/2014 QUINNVEE S CREDIT RISK ANALYTICS MANAGER Ot V58.69 05/13/2014 QUINNVEE S CREDIT RISK ANALYTICS MANAGER Ot 202.80 05/13/2014 PADILLA ANDERSON [facility] CCDS Ot 272.4 05/13/2014 PADILLA ANDERSON [facility] CCDS Ot 414.01 05/13/2014 QUINNVEE Mckinnon S CREDIT RISK ANALYTICS MANAGER Ot 202.80 05/13/2014 QUINNVEE S CREDIT RISK ANALYTICS MANAGER Ot 272.0 05/13/2014 QUINN ARIELAH S CREDIT RISK ANALYTICS MANAGER Ot 401.9 05/13/2014 VEE QUINN CREDIT RISK ANALYTICS MANAGER Ot 414.00 05/13/2014 VEE QUINN CREDIT RISK ANALYTICS MANAGER Ot 425.4 05/13/2014 VEE QUINN CREDIT RISK ANALYTICS MANAGER Ot 780.57 05/13/2014 VEE QUINN CREDIT RISK ANALYTICS MANAGER Ot V58.69 05/13/2014 NAKITA NAVA N Ot 202.80 05/13/2014 QUINNVEE Mckinnon CREDIT RISK ANALYTICS MANAGER Ot 202.80 05/13/2014 VEE QUINN CREDIT RISK ANALYTICS MANAGER Ot 272.0 05/13/2014 QUINNVEE Mckinnon S CREDIT RISK ANALYTICS MANAGER Ot 401.9 05/13/2014 VEE QUINN CREDIT RISK ANALYTICS MANAGER Ot 414.00 05/13/2014 VEE QUINN CREDIT RISK ANALYTICS MANAGER Ot 425.4 05/13/2014 VEE QUINN CREDIT RISK ANALYTICS MANAGER Ot V58.69 05/13/2014 NAKITA NAVA Bree Ot 202.80 05/13/2014 PADILLA ANDERSON FAC, DAYNA READ CCDS Ot 272.4 05/13/2014 TOM JC DO M Ot 278.00 05/13/2014 TOM JC DO M Ot 416.9 05/13/2014 TOM JC DO Ot 425.4 05/13/2014 TOM JC DO M Ot 780.57 05/13/2014 TOM JC DO Ot 786.09 05/13/2014 VEE QUINN CREDIT RISK ANALYTICS MANAGER Ot 202.80 05/13/2014 VEE QUINN CREDIT RISK ANALYTICS MANAGER Ot V58.69 05/13/2014 BRANDYNAKITA N Ot 202.80 05/13/2014 BRANDY NAKITA N Ot V58.69 05/13/2014 BRYNN NAVABRENDON N Ot V58.81 2014 Ot V76.12 2014 Ot 793.80 2014 Ot 202.80 2014 Ot 511.9 2014 Ot V58.69 2014 Ot 202.80 2014 Ot 410.10 2014 Ot 428.0 2014 Ot V58.69 2014 Ot 401.9 2014 Ot 413.9 2014 Ot 414.01 2014 Ot 426.4 2014 Ot 428.0 2014 Ot 786.05 2014 Ot 794.39 2014 Ot V58.69 2014 Ot V72.63 2014 Ot V72.81 2014 Ot 272.4 2014 Ot 414.01 2014 Ot V58.69 2014 Ot 414.01 2014 Ot V58.69 2014 Ot 425.4 2014 Ot 272.4 2014 Ot 414.01 2014 Ot V58.69 2014 Ot 272.4 2014 Ot V58.69 2014 Ot 272.4 2014 Ot V58.69 2014 Ot 272.4 2014 Ot 401.9 2014 Ot V58.69 2014 [facility]ILL[facility]ERSON [facility] Ot 425.4 2014 PADILLA ANDERSON [facility] CCDS Ot 786.09 2014 KAI VEE Pratibha CREDIT RISK ANALYTICS MANAGER Ot 202.80 2014 KAI VEE Pratibha CREDIT RISK ANALYTICS MANAGER Ot 786.09 2014 KAI VEE S CREDIT RISK ANALYTICS MANAGER Ot 202.80 2014 KAI VEE S CREDIT RISK ANALYTICS MANAGER Ot 511.9 2014 KAI VEE S CREDIT RISK ANALYTICS MANAGER Ot 786.09 2014 KAI VEE S CREDIT RISK ANALYTICS MANAGER Ot 202.80 2014 KAI VEE S CREDIT RISK ANALYTICS MANAGER Ot 511.9 2014 KIA VEE S CREDIT RISK ANALYTICS MANAGER Ot 786.09 2014 KAI VEE S CREDIT RISK ANALYTICS MANAGER Ot 793.19 2014 ARIEL QUINNDANIEL S CREDIT RISK ANALYTICS MANAGER Ot 202.80 2014 KAI VEE S CREDIT RISK ANALYTICS MANAGER Ot 786.09 2014 KAI VEE S CREDIT RISK ANALYTICS MANAGER Ot V87.41 2014 VEE QUINN S CREDIT RISK ANALYTICS MANAGER Ot 202.80 2014 ADRIEL ANDERSON, JUDI S Ot 202.80 2014 ADRIEL ANDERSON, JUDI S Ot V72.83 2014 ADRIEL ANDERSON, JUDI S Ot V74.8 2014 NAKITA NAVA N Ot 202.80 2014 NAKITA NAVA N Ot 786.09 2014 VEE QUINN S CREDIT RISK ANALYTICS MANAGER Ot 202.80 2014 VEE QUINN S CREDIT RISK ANALYTICS MANAGER Ot 202.80 2014 VEE QUINN S CREDIT RISK ANALYTICS MANAGER Ot V58.69 2014 VEE QUINN S CREDIT RISK ANALYTICS MANAGER Ot 202.80 2014 PADILLA ANDERSON [facility] CCDS Ot 272.4 2014 PADILLA ANDERSON [facility] CCDS Ot 414.01 2014 VEE QUINN S CREDIT RISK ANALYTICS MANAGER Ot 202.80 2014 VEE QUINN S CREDIT RISK ANALYTICS MANAGER Ot 272.0 2014 QUINNVEE Mckinnon S CREDIT RISK ANALYTICS MANAGER Ot 401.9 2014 QUINNVEE Mckinnon S CREDIT RISK ANALYTICS MANAGER Ot 414.00 2014 QUINNVEE Mckinnon S CREDIT RISK ANALYTICS MANAGER Ot 425.4 2014 QUINNVEE Mckinnon S CREDIT RISK ANALYTICS MANAGER Ot 780.57 2014 VEE QUINN S CREDIT RISK ANALYTICS MANAGER Ot V58.69 2014 NAKITA NAVA N Ot 202.80 2014 VEE QUINN S CREDIT RISK ANALYTICS MANAGER Ot 202.80 2014 VEE QUINN S CREDIT RISK ANALYTICS MANAGER Ot 272.0 2014 QUINNVEE Mckinnon S CREDIT RISK ANALYTICS MANAGER Ot 401.9 2014 QUINNVEE Mckinnon S CREDIT RISK ANALYTICS MANAGER Ot 414.00 2014 QUINNVEE S CREDIT RISK ANALYTICS MANAGER Ot 425.4 2014 QUINNVEE Mckinnon S CREDIT RISK ANALYTICS MANAGER Ot V58.69 2014 NAKITA NAVA N Ot 202.80 2014 PADILLA ANDERSON [facility] CCDS Ot 272.4 2014 TOM JC DO Ot 278.00 2014 TOM JC DO Ot 416.9 2014 TOM JC DO Ot 425.4 2014 TOM JC DO Ot 780.57 2014 GIN JC DOSON M Ot 786.09 2014 VEE QUINN CREDIT RISK ANALYTICS MANAGER Ot 202.80 2014 VEE QUINN CREDIT RISK ANALYTICS MANAGER Ot V58.69 2014 NAKITA NAVA N Ot 202.80 2014 NAKITA NAVA N Ot V58.69 2014 NAKITA NAVA N Ot V58.81 05/27/2014 Ot V76.12 05/27/2014 Ot 793.80 05/27/2014 Ot 202.80 05/27/2014 Ot 511.9 05/27/2014 Ot V58.69 05/27/2014 Ot 202.80 05/27/2014 Ot 410.10 05/27/2014 Ot 428.0 05/27/2014 Ot V58.69 05/27/2014 Ot 401.9 05/27/2014 Ot 413.9 05/27/2014 Ot 414.01 05/27/2014 Ot 426.4 05/27/2014 Ot 428.0 05/27/2014 Ot 786.05 05/27/2014 Ot 794.39 05/27/2014 Ot V58.69 05/27/2014 Ot V72.63 05/27/2014 Ot V72.81 05/27/2014 Ot 272.4 05/27/2014 Ot 414.01 05/27/2014 Ot V58.69 05/27/2014 Ot 414.01 05/27/2014 Ot V58.69 05/27/2014 Ot 425.4 05/27/2014 Ot 272.4 05/27/2014 Ot 414.01 05/27/2014 Ot V58.69 05/27/2014 Ot 272.4 05/27/2014 Ot V58.69 05/27/2014 Ot 272.4 05/27/2014 Ot V58.69 05/27/2014 Ot 272.4 05/27/2014 Ot 401.9 05/27/2014 Ot V58.69 05/27/2014 PADILLA ANDERSON FACC, DAYNA READ CCDS Ot 425.4 05/27/2014 PADILLA ANDERSON FACC, DAYNA READ CCDS Ot 786.09 05/27/2014 VEE QUINN CREDIT RISK ANALYTICS MANAGER Ot 202.80 05/27/2014 VEE QUINN CREDIT RISK ANALYTICS MANAGER Ot 786.09 05/27/2014 VEE QUINN CREDIT RISK ANALYTICS MANAGER Ot 202.80 05/27/2014 VEE QUINN S CREDIT RISK ANALYTICS MANAGER Ot 511.9 05/27/2014 VEE QUINN S CREDIT RISK ANALYTICS MANAGER Ot 786.09 05/27/2014 VEE QUINN S CREDIT RISK ANALYTICS MANAGER Ot 202.80 05/27/2014 VEE QUINN S CREDIT RISK ANALYTICS MANAGER Ot 511.9 05/27/2014 VEE QUINN S CREDIT RISK ANALYTICS MANAGER Ot 786.09 05/27/2014 VEE QUINN S CREDIT RISK ANALYTICS MANAGER Ot 793.19 05/27/2014 VEE QUINN S CREDIT RISK ANALYTICS MANAGER Ot 202.80 05/27/2014 VEE QUINN S CREDIT RISK ANALYTICS MANAGER Ot 786.09 05/27/2014 VEE QUINN S CREDIT RISK ANALYTICS MANAGER Ot V87.41 05/27/2014 VEE QUINN S CREDIT RISK ANALYTICS MANAGER Ot 202.80 05/27/2014 ADRIEL ANDERSON, JUDI S Ot 202.80 05/27/2014 ADRIEL ANDERSON, JUDI S Ot V72.83 05/27/2014 ADRIEL ANDERSON, JUDI S Ot V74.8 05/27/2014 NAKITA NAVA Ot 202.80 05/27/2014 NAKITA NAVA Ot 786.09 05/27/2014 VEE QUINN S CREDIT RISK ANALYTICS MANAGER Ot 202.80 05/27/2014 VEE QUINN S CREDIT RISK ANALYTICS MANAGER Ot 202.80 05/27/2014 QUINNVEE Mckinnon S CREDIT RISK ANALYTICS MANAGER Ot V58.69 05/27/2014 VEE QUINN S CREDIT RISK ANALYTICS MANAGER Ot 202.80 05/27/2014 PADILLA ANDERSON [facility] CCDS Ot 272.4 05/27/2014 PADILLA ANDERSON [facility] CCDS Ot 414.01 05/27/2014 QUINNVEE Mckinnon S CREDIT RISK ANALYTICS MANAGER Ot 202.80 05/27/2014 QUINNVEE Mckinnon S CREDIT RISK ANALYTICS MANAGER Ot 272.0 05/27/2014 VEE QUINN S CREDIT RISK ANALYTICS MANAGER Ot 401.9 05/27/2014 VEE QUINN S CREDIT RISK ANALYTICS MANAGER Ot 414.00 05/27/2014 QUINNVEE Mckinnon S CREDIT RISK ANALYTICS MANAGER Ot 425.4 05/27/2014 QUINNVEE Mckinnon S CREDIT RISK ANALYTICS MANAGER Ot 780.57 05/27/2014 QUINNVEE Mckinnon S CREDIT RISK ANALYTICS MANAGER Ot V58.69 05/27/2014 NAIKTA NAVA N Ot 202.80 05/27/2014 QUINNVEE Mckinnon CREDIT RISK ANALYTICS MANAGER Ot 202.80 05/27/2014 QUINNVEE Mckinnon CREDIT RISK ANALYTICS MANAGER Ot 272.0 05/27/2014 QUINNVEE Mckinnon S CREDIT RISK ANALYTICS MANAGER Ot 401.9 05/27/2014 QUINNVEE Mckinnon S CREDIT RISK ANALYTICS MANAGER Ot 414.00 05/27/2014 QUINNVEE Mckinnon S CREDIT RISK ANALYTICS MANAGER Ot 425.4 05/27/2014 QUINNVEE Mckinnon S CREDIT RISK ANALYTICS MANAGER Ot V58.69 05/27/2014 NAKITA NAVA N Ot 202.80 05/27/2014 PADILLA ANDERSON FAC, DAYNA READ CCDS Ot 272.4 05/27/2014 TOM JC DO Ot 278.00 05/27/2014 TOM JC DO Ot 416.9 05/27/2014 TOM JC DO Ot 425.4 05/27/2014 TOM JC DO M Ot 780.57 05/27/2014 TOM JC DO Ot 786.09 05/27/2014 QUINNVEE Mckinnon CREDIT RISK ANALYTICS MANAGER Ot 202.80 05/27/2014 QUINNVEE Mckinnon CREDIT RISK ANALYTICS MANAGER Ot V58.69 05/27/2014 BRANDYNAKITA N Ot 202.80 05/27/2014 BRANDYNAKITA N Ot V58.69 05/27/2014 BRANDYNAKITA N Ot V58.81 06/01/2014 BRANDYNAKITA JACKSON N Ot 202.80 OTH LYMPHOMAS EXTRANODAL SOLID ORGAN U 06/01/2014 NAKITA NAVA N Ot V58.69 OTH MED,LT,CURRENT USE 06/01/2014 BRANDYBRYNNAN N Ot V58.81 FIT/ADJ VASCULAR CATHETER 06/16/2014 BRANDYNAKITA JACKSON N Ot 202.80 06/25/2014 BRANDYNAKITA N Ot 202.80 07/28/2014 Ot 272.0 07/28/2014 Ot 414.00 07/28/2014 Ot 272.0 07/28/2014 Ot 414.00 08/06/2014 Ot 272.0 08/06/2014 Ot 414.00 08/25/2014 NAKITA NAVA N Ot 202.80 OTH LYMPHOMAS EXTRANODAL SOLID ORGAN U 08/25/2014 BRANDY, BOBAN N Ot V58.69 OTH MED,LT,CURRENT USE 08/25/2014 BRANDYBRYNN JACKSONAN N Ot V58.81 FIT/ADJ VASCULAR CATHETER 08/25/2014 SHANTEL POZO MD Ot 202.80 08/25/2014 SHANTEL POZO MD Ot 486 08/25/2014 SHANTEL POZO MD Ot 799.02 08/25/2014 SHANTEL POZO MD Ot V15.82 08/27/2014 SHANTEL POZO MD Ot 202.80 OTH LYMPHOMAS EXTRANODAL SOLID ORGAN U 08/27/2014 SHANTEL POZO MD Ot 401.9 HYPERTENSION NOS 08/27/2014 SHANTEL POZO MD Ot 481 PNEUMOCOCCAL PNEUMONIA [STREPTOCOCCUS PN 08/27/2014 SHANTEL POZO MD Ot 496 CHR AIRWAY OBSTRUCT NEC 08/27/2014 SHANTEL POZO MD Ot 790.7 BACTEREMIA 08/27/2014 SHANTEL POZO MD Ot 799.02 HYPOXEMIA 08/27/2014 SHANTEL POZO MD Ot V15.82 HISTORY OF TOBACCO USE 08/31/2014 BRANDY, BOBAN N Ot 202.80 08/31/2014 BRANDY, BOBAN N Ot V58.69 08/31/2014 BRANDY, BOBAN N Ot V58.81 08/31/2014 BRANDY, BOBAN N Ot 202.80 08/31/2014 BRANDY, BOBAN N Ot V58.69 08/31/2014 BRANDY, BOBAN N Ot V58.81 08/31/2014 BRANDY, BOBAN N Ot 202.80 08/31/2014 BRANDY, BOBAN N Ot V58.69 08/31/2014 BRANDY, BOBAN N Ot V58.81 09/01/2014 BRANDY, BOBAN N Ot 202.80 09/01/2014 BRANDY, BOBAN N Ot V58.69 09/01/2014 BRANDY, BOBAN N Ot V58.81 10/03/2014 VEE QUINN CREDIT RISK ANALYTICS MANAGER Ot 202.80 10/03/2014 VEE QUINN CREDIT RISK ANALYTICS MANAGER Ot V58.69 10/23/2014 VEE QUINN CREDIT RISK ANALYTICS MANAGER Ot 202.80 10/23/2014 VEE QUINN CREDIT RISK ANALYTICS MANAGER Ot V58.69 11/02/2014 VEE QUINN CREDIT RISK ANALYTICS MANAGER Ot 202.80 11/02/2014 VEE QUINN CREDIT RISK ANALYTICS MANAGER Ot V58.69 11/12/2014 VEE QUINN CREDIT RISK ANALYTICS MANAGER Ot 202.80 11/12/2014 VEE QUINN CREDIT RISK ANALYTICS MANAGER Ot V58.69 11/29/2014 NAKITA NAVA Ot 202.80 OTH LYMPHOMAS EXTRANODAL SOLID ORGAN U 11/29/2014 NAKITA NAVA Ot V58.69 OTH MED,LT,CURRENT USE 01/01/2015 SHERYL GHOSH STORE OPERATIONS ASSOCIATE Ot 465.9 01/01/2015 SHERYL GHOSH STORE OPERATIONS ASSOCIATE Ot 492.8 01/07/2015 SHERYL GHOSH STORE OPERATIONS ASSOCIATE Ot 465.9 01/07/2015 SHERYL GHOSH STORE OPERATIONS ASSOCIATE Ot 492.8 01/14/2015 NAKITA NAVA Bree Ot 202.80 01/14/2015 NAKITA NAVA N Ot V58.69 01/21/2015 NAKITA NAVA N Ot 202.80 01/21/2015 NAKITA NAVA N Ot V58.69 02/01/2015 Ot 202.80 02/01/2015 Ot 511.9 02/01/2015 Ot V58.69 02/01/2015 Ot 202.80 02/01/2015 Ot 410.10 02/01/2015 Ot 428.0 02/01/2015 Ot V58.69 02/01/2015 Ot 401.9 02/01/2015 Ot 413.9 02/01/2015 Ot 414.01 02/01/2015 Ot 426.4 02/01/2015 Ot 428.0 02/01/2015 Ot 786.05 02/01/2015 Ot 794.39 02/01/2015 Ot V58.69 02/01/2015 Ot V72.63 02/01/2015 Ot V72.81 02/01/2015 Ot 272.4 02/01/2015 Ot 414.01 02/01/2015 Ot V58.69 02/01/2015 Ot 414.01 02/01/2015 Ot V58.69 02/01/2015 Ot 425.4 02/01/2015 Ot 272.4 02/01/2015 Ot 414.01 02/01/2015 Ot V58.69 02/01/2015 Ot 272.4 02/01/2015 Ot V58.69 02/01/2015 Ot 272.4 02/01/2015 Ot V58.69 02/01/2015 Ot 272.4 02/01/2015 Ot 401.9 02/01/2015 Ot V58.69 02/01/2015 PADILLA ANDERSON [facility] CCDS Ot 425.4 02/01/2015 PADILLA ANDERSON [facility] CCDS Ot 786.09 02/01/2015 KAIVEE S CREDIT RISK ANALYTICS MANAGER Ot 202.80 02/01/2015 QUINNVEE S CREDIT RISK ANALYTICS MANAGER Ot 786.09 02/01/2015 QUINN ARIELAH S CREDIT RISK ANALYTICS MANAGER Ot 202.80 02/01/2015 QUINN, VEE S CREDIT RISK ANALYTICS MANAGER Ot 511.9 02/01/2015 QUINN, VEE S CREDIT RISK ANALYTICS MANAGER Ot 786.09 02/01/2015 QUINNARIELAH S CREDIT RISK ANALYTICS MANAGER Ot 202.80 02/01/2015 KAI VEE S CREDIT RISK ANALYTICS MANAGER Ot 511.9 02/01/2015 QUINN, VEE S CREDIT RISK ANALYTICS MANAGER Ot 786.09 02/01/2015 KAI VEE S CREDIT RISK ANALYTICS MANAGER Ot 793.19 02/01/2015 KAI VEE S CREDIT RISK ANALYTICS MANAGER Ot 202.80 02/01/2015 KAI VEE S CREDIT RISK ANALYTICS MANAGER Ot 786.09 02/01/2015 KAI VEE S CREDIT RISK ANALYTICS MANAGER Ot V87.41 02/01/2015 KAI VEE S CREDIT RISK ANALYTICS MANAGER Ot 202.80 02/01/2015 ADRIEL ANDERSON, JUDI S Ot 202.80 02/01/2015 ADRIEL ANDERSON, JUDI S Ot V72.83 02/01/2015 ADRIEL ANDERSON, UJDI S Ot V74.8 02/01/2015 NAKITA NAVA Ot 202.80 02/01/2015 NAKITA NAVA Ot 786.09 02/01/2015 QUINN, VEE S CREDIT RISK ANALYTICS MANAGER Ot 202.80 02/01/2015 QUINN, VEE S CREDIT RISK ANALYTICS MANAGER Ot 202.80 02/01/2015 KAI VEE S CREDIT RISK ANALYTICS MANAGER Ot V58.69 02/01/2015 KAI VEE S CREDIT RISK ANALYTICS MANAGER Ot 202.80 02/01/2015 PADILLA ANDERSON [facility] CCDS Ot 272.4 02/01/2015 PADILLA ANDERSON [facility] CCDS Ot 414.01 02/01/2015 VEE QUINN S CREDIT RISK ANALYTICS MANAGER Ot 202.80 02/01/2015 QUINNVEE Mckinnon S CREDIT RISK ANALYTICS MANAGER Ot 272.0 02/01/2015 QUINNVEE Mckinnon S CREDIT RISK ANALYTICS MANAGER Ot 401.9 02/01/2015 QUINNVEE Mckinnon S CREDIT RISK ANALYTICS MANAGER Ot 414.00 02/01/2015 QUINNVEE Mckinnon S CREDIT RISK ANALYTICS MANAGER Ot 425.4 02/01/2015 QUINNVEE Mckinnon S CREDIT RISK ANALYTICS MANAGER Ot 780.57 02/01/2015 QUINNVEE Mckinnon S CREDIT RISK ANALYTICS MANAGER Ot V58.69 02/01/2015 NAKITA NAVA Ot 202.80 02/01/2015 QUINNVEE S CREDIT RISK ANALYTICS MANAGER Ot 202.80 02/01/2015 VEE QUINN S CREDIT RISK ANALYTICS MANAGER Ot 272.0 02/01/2015 QUINNVEE Mckinnon S CREDIT RISK ANALYTICS MANAGER Ot 401.9 02/01/2015 QUINNVEE Mckinnon S CREDIT RISK ANALYTICS MANAGER Ot 414.00 02/01/2015 QUINNVEE Mckinnon S CREDIT RISK ANALYTICS MANAGER Ot 425.4 02/01/2015 VEE QUINN S CREDIT RISK ANALYTICS MANAGER Ot V58.69 02/01/2015 NAKITA NAVA Ot 202.80 02/01/2015 PADILLA ANDERSON [facility] CCDS Ot 272.4 02/01/2015 TOM JC DO M Ot 278.00 02/01/2015 TOM JC DO M Ot 416.9 02/01/2015 TOM JC DO M Ot 425.4 02/01/2015 TOM JC DO Ot 780.57 02/01/2015 TOM JC DO Ot 786.09 02/01/2015 QUINNVEE Mckinnon S CREDIT RISK ANALYTICS MANAGER Ot 202.80 02/01/2015 QUINNVEE Mckinnon S CREDIT RISK ANALYTICS MANAGER Ot V58.69 02/01/2015 NAKITA NAVA N Ot 202.80 02/01/2015 Ot 272.0 02/01/2015 Ot 414.00 02/01/2015 QUINNVEE Mckinnon S CREDIT RISK ANALYTICS MANAGER Ot 202.80 02/01/2015 QUINNVEE S CREDIT RISK ANALYTICS MANAGER Ot V58.69 02/01/2015 QUINNVEE S CREDIT RISK ANALYTICS MANAGER Ot 202.80 02/01/2015 QUINNVEE S CREDIT RISK ANALYTICS MANAGER Ot V58.69 02/01/2015 BRYNN NAVAAN N Ot 202.80 02/01/2015 BRANDY, BOBAN N Ot V58.69 02/01/2015 SHERYL GHOSH APRN Ot 465.9 02/01/2015 SHERYL GHOSH APRN Ot 492.8 02/03/2015 BRANDYNAKITA JACKSON N Ot 202.80 OTH LYMPHOMAS EXTRANODAL SOLID ORGAN U 02/03/2015 NAKITA NAVA N Ot V58.69 OTH MED,LT,CURRENT USE 02/25/2015 CHRISTIAN GAYLE CREDIT RISK ANALYTICS MANAGER Ot 272.4 02/25/2015 CHRISTIAN GAYLE CREDIT RISK ANALYTICS MANAGER Ot 414.00 05/12/2015 VEE QUINN CREDIT RISK ANALYTICS MANAGER Ot C85.80 05/12/2015 VEE QUINN CREDIT RISK ANALYTICS MANAGER Ot Z79.899 05/12/2015 VEE QUINN S CREDIT RISK ANALYTICS MANAGER Ot C85.80 05/12/2015 VEE QUINN CREDIT RISK ANALYTICS MANAGER Ot Z79.899 08/09/2015 BRANDY, BOBAN N Ot 202.80 08/09/2015 BRANDY, BOBAN N Ot V58.69 08/17/2015 BRANDY, BOBAN N Ot 202.80 08/17/2015 BRANDY, BOBAN N Ot V58.69 09/08/2015 CHRISTIAN GAYLE CREDIT RISK ANALYTICS MANAGER Ot E78.0 PURE HYPERCHOLESTEROLEMIA 09/08/2015 CHRISTIAN GAYLE CREDIT RISK ANALYTICS MANAGER Ot I25.10 ATHSCL HEART DISEASE OF [place] CORONARY 09/27/2015 BRANDYBRYNN JACKSONAN N Ot C85.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, UNSPE 09/27/2015 BRANDY, BOBAN N Ot Z79.899 OTHER MARKET RISK SPECIALIST (CURRENT) DRUG THERAPY 10/06/2015 BRANDY, BOBAN N Ot C85.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, UNSPE 10/06/2015 BRANDY, BOBAN N Ot Z79.899 OTHER SENIOR CARE (CURRENT) DRUG THERAPY 11/14/2015 BRANDY, BOBAN N Ot C85.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, UNSPE 11/14/2015 BRANDY, BOBAN N Ot Z79.899 OTHER MARKET RISK SPECIALIST (CURRENT) DRUG THERAPY 02/07/2016 BRANDY, BOBAN N Ot C85.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, UNSPE 02/07/2016 NAKITA NAVA N Ot Z79.899 OTHER SENIOR CARE (CURRENT) DRUG THERAPY 02/07/2016 NAKITA NAVA Ot C85.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, UNSPE 02/07/2016 NAKITA NAVA N Ot Z79.899 OTHER SENIOR CARE (CURRENT) DRUG THERAPY 02/16/2016 BAIMA, CHRISTIAN L CREDIT RISK ANALYTICS MANAGER Ot E78.00 PURE HYPERCHOLESTEROLEMIA, UNSPECIFIED 02/16/2016 BAIMA, CHRISTIAN L CREDIT RISK ANALYTICS MANAGER Ot I25.10 ATHSCL HEART DISEASE OF [place] CORONARY 02/16/2016 NAKITA NAVA N Ot C85.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, UNSPE 02/16/2016 NAKITA NAVA N Ot Z79.899 OTHER MARKET RISK SPECIALIST (CURRENT) DRUG THERAPY 02/18/2016 BAIMA, CHRISTIAN L CREDIT RISK ANALYTICS MANAGER Ot E78.00 PURE HYPERCHOLESTEROLEMIA, UNSPECIFIED 02/18/2016 BAIMA, CHRISTIAN L CREDIT RISK ANALYTICS MANAGER Ot I25.10 ATHSCL HEART DISEASE OF [place] CORONARY 02/18/2016 BAIMA, CHRISTIAN L CREDIT RISK ANALYTICS MANAGER Ot E78.00 PURE HYPERCHOLESTEROLEMIA, UNSPECIFIED 02/18/2016 BAIMA, CHRISTIAN L CREDIT RISK ANALYTICS MANAGER Ot I25.10 ATHSCL HEART DISEASE OF [place] CORONARY 02/18/2016 BAIMA, CHRISTIAN L CREDIT RISK ANALYTICS MANAGER Ot E78.00 PURE HYPERCHOLESTEROLEMIA, UNSPECIFIED 02/18/2016 BAIMA, CHRISTIAN L CREDIT RISK ANALYTICS MANAGER Ot I25.10 ATHSCL HEART DISEASE OF [place] CORONARY 02/29/2016 NAKITA NAVA Ot C85.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, UNSPE 02/29/2016 NAKITA NAVA Ot Z79.899 OTHER SENIOR CARE (CURRENT) DRUG THERAPY 03/02/2016 BAIMA, CHRISTIAN L CREDIT RISK ANALYTICS MANAGER Ot E78.00 PURE HYPERCHOLESTEROLEMIA, UNSPECIFIED 03/02/2016 BAIMA, CHRISTIAN L CREDIT RISK ANALYTICS MANAGER Ot I25.10 ATHSCL HEART DISEASE OF [place] CORONARY 03/02/2016 BAIMA, CHRISTIAN L CREDIT RISK ANALYTICS MANAGER Ot E78.00 PURE HYPERCHOLESTEROLEMIA, UNSPECIFIED 03/02/2016 BAIMA, CHRISTIAN L CREDIT RISK ANALYTICS MANAGER Ot I25.10 ATHSCL HEART DISEASE OF [place] CORONARY 03/02/2016 BAIMA, CHRISTIAN L CREDIT RISK ANALYTICS MANAGER Ot E78.00 PURE HYPERCHOLESTEROLEMIA, UNSPECIFIED 03/02/2016 CHRISTIAN GAYLE CREDIT RISK ANALYTICS MANAGER Ot I25.10 ATHSCL HEART DISEASE OF [place] CORONARY 03/07/2016 CHRISTIAN GAYLE CREDIT RISK ANALYTICS MANAGER Ot E78.00 PURE HYPERCHOLESTEROLEMIA, UNSPECIFIED 03/07/2016 CHRISTIAN GAYLE CREDIT RISK ANALYTICS MANAGER Ot I25.10 ATHSCL HEART DISEASE OF [place] CORONARY 06/21/2016 MONORE ANDERSON, MITCHELL Ascencio Ot J18.9 PNEUMONIA, UNSPECIFIED ORGANISM 06/21/2016 MONROE ANDERSON, MITCHELL Ascencio Ot J44.1 CHRONIC OBSTRUCTIVE PULMONARY DISEASE W 06/21/2016 MITCHELL CHILDRESS MD Ot R05 COUGH 06/21/2016 MONROE ANDERSON, MITCHELL Ascencio Ot Z79.899 OTHER MARKET RISK SPECIALIST (CURRENT) DRUG THERAPY 06/21/2016 MONROE ANDERSON, MITCHELL Ascencio Ot Z87.891 PERSONAL HISTORY OF NICOTINE DEPENDENCE 06/21/2016 Ot 202.80 OTH LYMPHOMAS EXTRANODAL SOLID ORGAN U 06/21/2016 Ot 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,OTH ANTER WALL,SUBSEQ 06/21/2016 Ot 428.0 CONGESTIVE HEART FAILURE NOS 06/21/2016 Ot V58.69 OTH MED,LT, CURRENT USE 06/21/2016 Ot 401.9 HYPERTENSION NOS 06/21/2016 Ot 413.9 ANGINA PECTORIS NEC/NOS 06/21/2016 Ot 414.01 CORONARY ATHEROSCLEROSIS OF [place] CORON 06/21/2016 Ot 426.4 RT BUNDLE BRANCH BLOCK 06/21/2016 Ot 428.0 CONGESTIVE HEART FAILURE NOS 06/21/2016 Ot 786.05 SHORTNESS OF BREATH 06/21/2016 Ot 794.39 ABN CARDIOVASC STUDY NEC 06/21/2016 Ot V58.69 OTH MED,LT, CURRENT USE 06/21/2016 Ot V72.63 PRE- PROCEDURAL LABORATORY EXAMINATION 06/21/2016 Ot V72.81 EXAM-PRE- OPERATIVE CARDIOVASCULAR 06/21/2016 Ot 272.4 HYPERLIPIDEMIA NEC/NOS 06/21/2016 Ot 414.01 CORONARY ATHEROSCLEROSIS OF [place] CORON 06/21/2016 Ot V58.69 OTH MED,LT, CURRENT USE 06/21/2016 Ot 414.01 CORONARY ATHEROSCLEROSIS OF [place] CORON 06/21/2016 Ot V58.69 OTH MED,LT, CURRENT USE 06/21/2016 Ot 425.4 PRIM CARDIOMYOPATHY NEC 06/21/2016 Ot 272.4 HYPERLIPIDEMIA NEC/NOS 06/21/2016 Ot 414.01 CORONARY ATHEROSCLEROSIS OF [place] CORON 06/21/2016 Ot V58.69 OTH MED,LT, CURRENT USE 06/21/2016 Ot 272.4 HYPERLIPIDEMIA NEC/NOS 06/21/2016 Ot V58.69 OTH MED,LT, CURRENT USE 06/21/2016 Ot 272.4 HYPERLIPIDEMIA NEC/NOS 06/21/2016 Ot V58.69 OTH MED,LT, CURRENT USE 06/21/2016 Ot 272.4 HYPERLIPIDEMIA NEC/NOS 06/21/2016 Ot 401.9 HYPERTENSION NOS 06/21/2016 Ot V58.69 OTH MED,LT, CURRENT USE 06/21/2016 PADILLA ANDERSON FAC, ALI FACP CCDS Ot 425.4 PRIM CARDIOMYOPATHY NEC 06/21/2016 PADILLA ANDERSON FAC, ALI FACP CCDS Ot 786.09 RESPIRATORY ABNORM NEC 06/21/2016 VEE QUINN CREDIT RISK ANALYTICS MANAGER Ot 202.80 OTH LYMPHOMAS EXTRANODAL SOLID ORGAN U 06/21/2016 VEE QUINN CREDIT RISK ANALYTICS MANAGER Ot 786.09 RESPIRATORY ABNORM NEC 06/21/2016 VEE QUINN CREDIT RISK ANALYTICS MANAGER Ot 202.80 OTH LYMPHOMAS EXTRANODAL SOLID ORGAN U 06/21/2016 VEE QUINN CREDIT RISK ANALYTICS MANAGER Ot 511.9 PLEURAL EFFUSION NOS 06/21/2016 VEE QUINN CREDIT RISK ANALYTICS MANAGER Ot 786.09 RESPIRATORY ABNORM NEC 06/21/2016 VEE QUINN CREDIT RISK ANALYTICS MANAGER Ot 202.80 OTH LYMPHOMAS EXTRANODAL SOLID ORGAN U 06/21/2016 VEE QUINN CREDIT RISK ANALYTICS MANAGER Ot 511.9 PLEURAL EFFUSION NOS 06/21/2016 VEE QUINN CREDIT RISK ANALYTICS MANAGER Ot 786.09 RESPIRATORY ABNORM NEC 06/21/2016 VEE QUINN CREDIT RISK ANALYTICS MANAGER Ot 793.19 OTHER NONSPECIFIC ABNORMAL FINDING OF [place] 06/21/2016 VEE QUINN CREDIT RISK ANALYTICS MANAGER Ot 202.80 OTH LYMPHOMAS EXTRANODAL SOLID ORGAN U 06/21/2016 VEE QUINN CREDIT RISK ANALYTICS MANAGER Ot 786.09 RESPIRATORY ABNORM NEC 06/21/2016 VEE QUINN CREDIT RISK ANALYTICS MANAGER Ot V87.41 PERSONAL HISTORY OF ANTINEOPLASTIC CHEMO 06/21/2016 VEE QUINN CREDIT RISK ANALYTICS MANAGER Ot 202.80 OTH LYMPHOMAS EXTRANODAL SOLID ORGAN U 06/21/2016 JUDI MOREL MD Ot 202.80 OTH LYMPHOMAS EXTRANODAL SOLID ORGAN U 06/21/2016 ADRIEL ANDERSON, JUDI Mckinnon Ot V72.83 EXAM PRE-OPERATIVE NEC 06/21/2016 JUDI MOREL MD Ot V74.8 SCREEN-BACTERIAL DIS NEC 06/21/2016 NAKITA NAVA Ot 202.80 OTH LYMPHOMAS EXTRANODAL SOLID ORGAN U 06/21/2016 NAIKTA NAVA Ot 786.09 RESPIRATORY ABNORM NEC 06/21/2016 VEE QUINN CREDIT RISK ANALYTICS MANAGER Ot 202.80 OTH LYMPHOMAS EXTRANODAL SOLID ORGAN U 06/21/2016 VEE QUINN CREDIT RISK ANALYTICS MANAGER Ot 202.80 OTH LYMPHOMAS EXTRANODAL SOLID ORGAN U 06/21/2016 VEE QUINN CREDIT RISK ANALYTICS MANAGER Ot V58.69 OTH MED,LT,CURRENT USE 06/21/2016 VEE QUINN CREDIT RISK ANALYTICS MANAGER Ot 202.80 OTH LYMPHOMAS EXTRANODAL SOLID ORGAN U 06/21/2016 PADILLA ANDERSON FAC, ALI FACP CCDS Ot 272.4 HYPERLIPIDEMIA NEC/NOS 06/21/2016 PADILLA ANDERSON FAC, ALI FACP CCDS Ot 414.01 CORONARY ATHEROSCLEROSIS OF [place] CORON 06/21/2016 VEE QUINN CREDIT RISK ANALYTICS MANAGER Ot 202.80 OTH LYMPHOMAS EXTRANODAL SOLID ORGAN U 06/21/2016 VEE QUINN CREDIT RISK ANALYTICS MANAGER Ot 272.0 PURE HYPERCHOLESTEROLEM 06/21/2016 VEE QUINN CREDIT RISK ANALYTICS MANAGER Ot 401.9 HYPERTENSION NOS 06/21/2016 VEE QUINN CREDIT RISK ANALYTICS MANAGER Ot 414.00 CORON ATHEROSCLER NOS TYPE VESSEL, NATIV 06/21/2016 VEE QUINN CREDIT RISK ANALYTICS MANAGER Ot 425.4 PRIM CARDIOMYOPATHY NEC 06/21/2016 VEE QUINN CREDIT RISK ANALYTICS MANAGER Ot 780.57 UNSPECIFIED SLEEP APNEA 06/21/2016 VEE QUINN CREDIT RISK ANALYTICS MANAGER Ot V58.69 OTH MED,LT,CURRENT USE 06/21/2016 NAKITA NAVA Ot 202.80 OTH LYMPHOMAS EXTRANODAL SOLID ORGAN U 06/21/2016 VEE QUINN CREDIT RISK ANALYTICS MANAGER Ot 202.80 OTH LYMPHOMAS EXTRANODAL SOLID ORGAN U 06/21/2016 VEE QUINN S CREDIT RISK ANALYTICS MANAGER Ot 272.0 PURE HYPERCHOLESTEROLEM 06/21/2016 VEE QUINN S CREDIT RISK ANALYTICS MANAGER Ot 401.9 HYPERTENSION NOS 06/21/2016 VEE QUINN S CREDIT RISK ANALYTICS MANAGER Ot 414.00 CORON ATHEROSCLER NOS TYPE VESSEL, NATIV 06/21/2016 VEE QUINN S CREDIT RISK ANALYTICS MANAGER Ot 425.4 PRIM CARDIOMYOPATHY NEC 06/21/2016 VEE QUINN S CREDIT RISK ANALYTICS MANAGER Ot V58.69 OTH MED,LT,CURRENT USE 06/21/2016 NAKITA NAVA Ot 202.80 OTH LYMPHOMAS EXTRANODAL SOLID ORGAN U 06/21/2016 PADILLA ANDERSON FACC, DAYNA READ CCDS Ot 272.4 HYPERLIPIDEMIA NEC/NOS 06/21/2016 TOM JC DO Ot 278.00 OBESITY, NOS 06/21/2016 TOM JC DO Ot 416.9 CHR PULMON HEART DIS NOS 06/21/2016 TOM JC DO Ot 425.4 PRIM CARDIOMYOPATHY NEC 06/21/2016 TOM JC DO Ot 780.57 UNSPECIFIED SLEEP APNEA 06/21/2016 TOM JC DO Ot 786.09 RESPIRATORY ABNORM NEC 06/21/2016 VEE QUINN S CREDIT RISK ANALYTICS MANAGER Ot 202.80 OTH LYMPHOMAS EXTRANODAL SOLID ORGAN U 06/21/2016 VEE QUINN S CREDIT RISK ANALYTICS MANAGER Ot V58.69 OTH MED,LT,CURRENT USE 06/21/2016 NAKITA NAVA Ot 202.80 OTH LYMPHOMAS EXTRANODAL SOLID ORGAN U 06/21/2016 Ot 272.0 PURE HYPERCHOLESTEROLEM 06/21/2016 Ot 414.00 CORON ATHEROSCLER NOS TYPE VESSEL, NATIV 06/21/2016 VEE QUINN S CREDIT RISK ANALYTICS MANAGER Ot 202.80 OTH LYMPHOMAS EXTRANODAL SOLID ORGAN U 06/21/2016 VEE QUINN S CREDIT RISK ANALYTICS MANAGER Ot V58.69 OTH MED,LT,CURRENT USE 06/21/2016 VEE QUINN S CREDIT RISK ANALYTICS MANAGER Ot 202.80 OTH LYMPHOMAS EXTRANODAL SOLID ORGAN U 06/21/2016 VEE QUINN S CREDIT RISK ANALYTICS MANAGER Ot V58.69 OTH MED,LT,CURRENT USE 06/21/2016 SHERYL GHOSH APRN Ot 465.9 ACUTE URI NOS 06/21/2016 SHERYL GHOSH APRN Ot 492.8 EMPHYSEMA NEC 06/21/2016 CHRISTIAN GAYLE CREDIT RISK ANALYTICS MANAGER Ot 272.4 HYPERLIPIDEMIA NEC/NOS 06/21/2016 CHRISTIAN GAYLE CREDIT RISK ANALYTICS MANAGER Ot 414.00 CORON ATHEROSCLER NOS TYPE VESSEL, NATIV 06/21/2016 VEE QUINN CREDIT RISK ANALYTICS MANAGER Ot C85.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, UNSPE 06/21/2016 VEE QUINN CREDIT RISK ANALYTICS MANAGER Ot Z79.899 OTHER MARKET RISK SPECIALIST (CURRENT) DRUG THERAPY 06/21/2016 CHRISTIAN GAYLE CREDIT RISK ANALYTICS MANAGER Ot E78.0 PURE HYPERCHOLESTEROLEMIA 06/21/2016 CHRISTIAN GAYLE CREDIT RISK ANALYTICS MANAGER Ot I25.10 ATHSCL HEART DISEASE OF [place] CORONARY 06/21/2016 NAKITA NAVA Ot C85.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, UNSPE 06/21/2016 NAKITA NAVA Ot Z79.899 OTHER SENIOR CARE (CURRENT) DRUG THERAPY 06/21/2016 CHRISTIAN GAYLE CREDIT RISK ANALYTICS MANAGER Ot E78.00 PURE HYPERCHOLESTEROLEMIA, UNSPECIFIED 06/21/2016 CHRISTIAN GAYLE CREDIT RISK ANALYTICS MANAGER Ot I25.10 ATHSCL HEART DISEASE OF [place] CORONARY 06/27/2016 MONROE ANDERSON, MITCHELL J Ot J18.9 PNEUMONIA, UNSPECIFIED ORGANISM 06/27/2016 MONROE ANDERSON, MITCHELL J Ot J44.1 CHRONIC OBSTRUCTIVE PULMONARY DISEASE W 06/27/2016 MONROE ANDERSON, MITCHELL J Ot R05 COUGH 06/27/2016 MONROE ANDERSON, MITCHELL J Ot Z79.899 OTHER SENIOR CARE (CURRENT) DRUG THERAPY 06/27/2016 MONROE ANDERSON, MITCHELL J Ot Z87.891 PERSONAL HISTORY OF NICOTINE DEPENDENCE 09/01/2016 VEE QUINN CREDIT RISK ANALYTICS MANAGER Ot D25.9 LEIOMYOMA OF UTERUS, UNSPECIFIED 09/01/2016 VEE QUINN CREDIT RISK ANALYTICS MANAGER Ot N83.202 UNSPECIFIED OVARIAN CYST, LEFT SIDE 09/15/2016 NAKITA NAVA Ot C85.90 NON-[place]IN LYMPHOMA, UNSPECIFIED, UNSPE 09/15/2016 NAKITA NAVA Ot I89.0 LYMPHEDEMA, NOT ELSEWHERE CLASSIFIED 09/18/2016 NAKITA NAVA Ot C82.13 FOLLICULAR LYMPHOMA GRADE II, INTRA-ABDO 09/18/2016 NAKITA NAVA Ot D73.89 OTHER DISEASES OF [place] 09/18/2016 BRANDY, BOBAN N Ot K42.9 UMBILICAL HERNIA WITHOUT OBSTRUCTION OR 09/18/2016 BRANDYNAKITA JACKSON N Ot R59.0 LOCALIZED ENLARGED LYMPH NODES 09/21/2016 QUINNARIELDANIEL Mckinnon CREDIT RISK ANALYTICS MANAGER Ot D25.9 LEIOMYOMA OF UTERUS, UNSPECIFIED 09/21/2016 QUINNVEE Mckinnon S CREDIT RISK ANALYTICS MANAGER Ot N83.202 UNSPECIFIED OVARIAN CYST, LEFT SIDE 09/21/2016 NAKITA NAVA N Ot C82.13 FOLLICULAR LYMPHOMA GRADE II, INTRA-ABDO 09/21/2016 BRANDY NAKITA N Ot D73.89 OTHER DISEASES OF [place] 09/21/2016 NAKITA NAVA N Ot K42.9 UMBILICAL HERNIA WITHOUT OBSTRUCTION OR 09/21/2016 BRANDY, BOBBRENDON N Ot R59.0 LOCALIZED ENLARGED LYMPH NODES 10/03/2016 VEE QUINN CREDIT RISK ANALYTICS MANAGER Ot D25.9 LEIOMYOMA OF UTERUS, UNSPECIFIED 10/03/2016 VEE QUINN Pratibha CREDIT RISK ANALYTICS MANAGER Ot N83.202 UNSPECIFIED OVARIAN CYST, LEFT SIDE 10/03/2016 BRANDY, BOBAN N Ot C85.90 NON-HODG[place]IN LYMPHOMA, UNSPECIFIED, UNSPE 10/03/2016 BRANDY, BOBAN N Ot G47.33 OBSTRUCTIVE SLEEP APNEA (ADULT) (PEDIATR 10/03/2016 BRANDY, BOBAN N Ot I27.9 PULMONARY HEART DISEASE, UNSPECIFIED 10/03/2016 BRANDY, BOBAN N Ot I42.9 CARDIOMYOPATHY, UNSPECIFIED 10/03/2016 BRANDY, BOBAN N Ot I89.0 LYMPHEDEMA, NOT ELSEWHERE CLASSIFIED 10/03/2016 BRANDY BOBAN N Ot J44.9 CHRONIC OBSTRUCTIVE PULMONARY DISEASE, U 10/04/2016 BRANDY, BOBAN N Ot C85.90 NON-[place] LYMPHOMA, UNSPECIFIED, UNSPE 10/04/2016 BRANDY, BOBAN N Ot I89.0 LYMPHEDEMA, NOT ELSEWHERE CLASSIFIED 10/10/2016 BRANDY, BOBAN N Ot C85.90 NON-[place] LYMPHOMA, UNSPECIFIED, UNSPE 10/10/2016 BRANDY, BOBAN N Ot G47.33 OBSTRUCTIVE SLEEP APNEA (ADULT) (PEDIATR 10/10/2016 BRANDY, BOBAN N Ot I27.9 PULMONARY HEART DISEASE, UNSPECIFIED 10/10/2016 BRANDY, BOBAN N Ot I42.9 CARDIOMYOPATHY, UNSPECIFIED 10/10/2016 BRANDY, BOBAN N Ot I89.0 LYMPHEDEMA, NOT ELSEWHERE CLASSIFIED 10/10/2016 NAKITA NAVA N Ot J44.9 CHRONIC OBSTRUCTIVE PULMONARY DISEASE, U 10/24/2016 LUCINDA ANDERSON, DOUGLAS N Ot D25.9 LEIOMYOMA OF UTERUS, UNSPECIFIED 10/24/2016 LUCINDA ANDERSON, DOUGLAS N Ot N83.202 UNSPECIFIED OVARIAN CYST, LEFT SIDE 11/02/2016 LUCINDA ANEDRSON, DOUGLAS N Ot D25.9 LEIOMYOMA OF UTERUS, UNSPECIFIED 11/02/2016 LUCINDA ANDERSON, DOUGLAS N Ot N83.202 UNSPECIFIED OVARIAN CYST, LEFT SIDE 11/12/2016 BRANDYBRYNN JACKSONAN N Ot C82.13 FOLLICULAR LYMPHOMA GRADE II, INTRA-ABDO 11/12/2016 BRANDY, BOBAN N Ot C85.90 NON-[place] LYMPHOMA, UNSPECIFIED, UNSPE 11/12/2016 BRANDY, BOBAN N Ot E78.00 PURE HYPERCHOLESTEROLEMIA, UNSPECIFIED 11/12/2016 BRANDYBRYNN JACKSONAN N Ot G47.33 OBSTRUCTIVE SLEEP APNEA (ADULT) (PEDIATR 11/12/2016 BRANDY BOBAN N Ot I25.10 ATHSCL HEART DISEASE OF [place] CORONARY 11/12/2016 BRANDY, BOBAN N Ot I27.9 PULMONARY HEART DISEASE, UNSPECIFIED 11/12/2016 BRANDYNAKITA JACKSON N Ot I42.9 CARDIOMYOPATHY, UNSPECIFIED 11/12/2016 BRANDY BOBAN N Ot I45.10 UNSPECIFIED RIGHT BUNDLE-BRANCH BLOCK 11/12/2016 BRANDYBRYNN JACKSONAN N Ot I89.0 LYMPHEDEMA, NOT ELSEWHERE CLASSIFIED 11/12/2016 NAKITA NAVA N Ot J44.9 CHRONIC OBSTRUCTIVE PULMONARY DISEASE, U 11/12/2016 BRANDY BOBAN N Ot Z79.899 OTHER SENIOR CARE (CURRENT) DRUG THERAPY 12/29/2016 BRANDY BOBAN N Ot C85.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, UNSPE 12/29/2016 BRANDY, BOBAN N Ot E78.00 PURE HYPERCHOLESTEROLEMIA, UNSPECIFIED 12/29/2016 BRANDY, BOBAN N Ot I25.10 ATHSCL HEART DISEASE OF [place] CORONARY 12/29/2016 BRANDY BOBAN N Ot Z79.899 OTHER SENIOR CARE (CURRENT) DRUG THERAPY 01/09/2017 BRANDY, BOBAN N Ot C85.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, UNSPE 01/09/2017 NAKITA NAVA N Ot E78.00 PURE HYPERCHOLESTEROLEMIA, UNSPECIFIED 01/09/2017 NAKITA NAVA N Ot I25.10 ATHSCL HEART DISEASE OF [place] CORONARY 01/09/2017 NAKITA NAVA N Ot Z79.899 OTHER SENIOR CARE (CURRENT) DRUG THERAPY 01/09/2017 NAKITA NAVA Bree Ot C85.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, UNSPE 01/09/2017 NAKITA NAVA N Ot E78.00 PURE HYPERCHOLESTEROLEMIA, UNSPECIFIED 01/09/2017 NAKITA NAVA N Ot I25.10 ATHSCL HEART DISEASE OF [place] CORONARY 01/09/2017 NAKITA NAVA N Ot Z79.899 OTHER SENIOR CARE (CURRENT) DRUG THERAPY 01/10/2017 MARGO HOWARD DO Ot N83.202 UNSPECIFIED OVARIAN CYST, LEFT SIDE 01/17/2017 EATON ALEXA L CREDIT RISK ANALYTICS MANAGER Ot J90 PLEURAL EFFUSION, NOT ELSEWHERE CLASSIFI 01/17/2017 EATON ALEXA L CREDIT RISK ANALYTICS MANAGER Ot R09.02 HYPOXEMIA 01/17/2017 MARGO HOWARD DO Ot N83.202 UNSPECIFIED OVARIAN CYST, LEFT SIDE 01/18/2017 EATON, ALEXA L CREDIT RISK ANALYTICS MANAGER Ot J90 PLEURAL EFFUSION, NOT ELSEWHERE CLASSIFI 01/18/2017 EATON, ALEXA L CREDIT RISK ANALYTICS MANAGER Ot R09.02 HYPOXEMIA 02/12/2017 EATON ALEXA L CREDIT RISK ANALYTICS MANAGER Ot J18.9 PNEUMONIA, UNSPECIFIED ORGANISM 02/12/2017 EATUMANG, ALEXA L CREDIT RISK ANALYTICS MANAGER Ot J43.9 EMPHYSEMA, UNSPECIFIED 02/12/2017 EATON, ALEXA L CREDIT RISK ANALYTICS MANAGER Ot J90 PLEURAL EFFUSION, NOT ELSEWHERE CLASSIFI 02/12/2017 EATON, ALEXA L CREDIT RISK ANALYTICS MANAGER Ot R09.02 HYPOXEMIA 02/14/2017 EATON, ALEXA L CREDIT RISK ANALYTICS MANAGER Ot J90 PLEURAL EFFUSION, NOT ELSEWHERE CLASSIFI 02/14/2017 EATON ALEXA L CREDIT RISK ANALYTICS MANAGER Ot R09.02 HYPOXEMIA 02/15/2017 BRANDY, NAKITA N Ot C82.13 FOLLICULAR LYMPHOMA GRADE II, INTRA-ABDO 02/15/2017 BRANDY, NAKITA N Ot E78.00 PURE HYPERCHOLESTEROLEMIA, UNSPECIFIED 02/15/2017 BRANDY, BOBAN N Ot G47.33 OBSTRUCTIVE SLEEP APNEA (ADULT) (PEDIATR 02/15/2017 BRANDY, BOBAN N Ot I25.10 ATHSCL HEART DISEASE OF [place] CORONARY 02/15/2017 BRANDY, BOBAN N Ot I27.9 PULMONARY HEART DISEASE, UNSPECIFIED 02/15/2017 BRANDY, BOBAN N Ot I45.10 UNSPECIFIED RIGHT BUNDLE-BRANCH BLOCK 02/15/2017 BRANDY, BOBAN N Ot J44.9 CHRONIC OBSTRUCTIVE PULMONARY DISEASE, U 02/15/2017 BRANDY, BOBAN N Ot Z79.899 OTHER MARKET RISK SPECIALIST (CURRENT) DRUG THERAPY 03/30/2017 BRANDY, BOBAN N Ot C82.13 FOLLICULAR LYMPHOMA GRADE II, INTRA-ABDO 03/30/2017 BRANDY, BOBAN N Ot E78.00 PURE HYPERCHOLESTEROLEMIA, UNSPECIFIED 03/30/2017 BRANDY, BOBAN N Ot G47.33 OBSTRUCTIVE SLEEP APNEA (ADULT) (PEDIATR 03/30/2017 BRANDY, BOBAN N Ot I25.10 ATHSCL HEART DISEASE OF [place] CORONARY 03/30/2017 BRANDY, BOBAN N Ot I27.9 PULMONARY HEART DISEASE, UNSPECIFIED 03/30/2017 BRANDY, BOBAN N Ot I45.10 UNSPECIFIED RIGHT BUNDLE-BRANCH BLOCK 03/30/2017 BRANDY, BOBAN N Ot J44.9 CHRONIC OBSTRUCTIVE PULMONARY DISEASE, U 03/30/2017 BRANDY, BOBAN N Ot Z79.899 OTHER MARKET RISK SPECIALIST (CURRENT) DRUG THERAPY 05/02/2017 PADILLA ANDERSON FACC, ALI FACP CCDS Ot E66.09 OTHER OBESITY DUE TO EXCESS CALORIES 05/02/2017 PADILLA ANDERSON FACC, ALI FACP CCDS Ot I10 ESSENTIAL (PRIMARY) HYPERTENSION 05/02/2017 PADILLA ANDERSON FACC, ALI FACP CCDS Ot I25.10 ATHSCL HEART DISEASE OF [place] CORONARY 05/02/2017 PADILLA ANDERSON FACC, ALI FACP CCDS Ot I42.0 DILATED CARDIOMYOPATHY 05/02/2017 PADILLA ANDERSON FACC, ALI FACP CCDS Ot J43.8 OTHER EMPHYSEMA 05/06/2017 BRANDY, BOBAN N Ot C82.13 FOLLICULAR LYMPHOMA GRADE II, INTRA-ABDO 05/06/2017 BRANDY, BOBAN N Ot E78.00 PURE HYPERCHOLESTEROLEMIA, UNSPECIFIED 05/06/2017 BRANDY, BOBAN N Ot G47.33 OBSTRUCTIVE SLEEP APNEA (ADULT) (PEDIATR 05/06/2017 NAKITA NAVA Bree Ot I25.10 ATHSCL HEART DISEASE OF [place] CORONARY 05/06/2017 BRANDY BRYNNBRENDON Bree Ot I27.9 PULMONARY HEART DISEASE, UNSPECIFIED 05/06/2017 NAKITA NAVA Bree Ot I45.10 UNSPECIFIED RIGHT BUNDLE-BRANCH BLOCK 05/06/2017 BRANDY BRYNNBRENDON Bree Ot J44.9 CHRONIC OBSTRUCTIVE PULMONARY DISEASE, U 05/06/2017 NAKITA NAVA Bree Ot Z79.899 OTHER MARKET RISK SPECIALIST (CURRENT) DRUG THERAPY 05/11/2017 PADILLA ANDERSON FACC, ALI FACP CCDS Ot E66.09 OTHER OBESITY DUE TO EXCESS CALORIES 05/11/2017 PADILLA QUICKC, ALI FACP CCDS Ot I10 ESSENTIAL (PRIMARY) HYPERTENSION 05/11/2017 PADILLA ANDERSON FACC, ALI FACP CCDS Ot I25.10 ATHSCL HEART DISEASE OF [place] CORONARY 05/11/2017 PADILLA QUICKC, ALI FACP CCDS Ot I42.0 DILATED CARDIOMYOPATHY 05/11/2017 PADILLA QUICKC, ALI FACP CCDS Ot J43.8 OTHER EMPHYSEMA 06/20/2017 LAVINIA MONTANEZ DO Ot E78.00 PURE HYPERCHOLESTEROLEMIA, UNSPECIFIED 06/20/2017 LAVINIA MONTANEZ DO Ot I10 ESSENTIAL (PRIMARY) HYPERTENSION 06/20/2017 LAVINIA MONTANEZ DO Ot I25.2 OLD MYOCARDIAL INFARCTION 06/20/2017 LAVINIA MONTANEZ DO Ot J18.8 OTHER PNEUMONIA, UNSPECIFIED ORGANISM 06/20/2017 LAVINIA MONTANEZ DO Ot J44.1 CHRONIC OBSTRUCTIVE PULMONARY DISEASE W 06/20/2017 LAVINIA MONTANEZ DO Ot R06.02 SHORTNESS OF BREATH 06/20/2017 LAVINIA MONTANEZ DO Ot Z85.72 PERSONAL HISTORY OF NON-HODGKIN LYMPHOMA 06/20/2017 LAVINIA MONTANEZ DO Ot Z87.448 PERSONAL HISTORY OF OTHER DISEASES OF UR 06/20/2017 LAVINIA MONTANEZ DO Ot Z87.891 PERSONAL HISTORY OF NICOTINE DEPENDENCE 06/20/2017 LAVINIA MONTANEZ DO Ot Z88.1 ALLERGY STATUS TO OTHER ANTIBIOTIC AGENT 06/20/2017 LAVINIA MONTANEZ DO Ot Z90.49 ACQUIRED ABSENCE OF OTHER SPECIFIED PART 07/31/2017 LIAM OSPINA MD Ot C82.13 FOLLICULAR LYMPHOMA GRADE II, INTRA-ABDO 07/31/2017 LIAM OSPINA MD Ot E78.00 PURE HYPERCHOLESTEROLEMIA, UNSPECIFIED 07/31/2017 LIAM OSPINA MD, Ot G47.33 OBSTRUCTIVE SLEEP APNEA (ADULT) (PEDIATR 07/31/2017 LIAM OSPINA MD Ot I25.10 ATHSCL HEART DISEASE OF [place] CORONARY 07/31/2017 LIAM OSPINA MD Ot I27.9 PULMONARY HEART DISEASE, UNSPECIFIED 07/31/2017 LIAM OSPINA MD Ot I45.10 UNSPECIFIED RIGHT BUNDLE-BRANCH BLOCK 07/31/2017 LIAM OSPINA MD Ot J44.9 CHRONIC OBSTRUCTIVE PULMONARY DISEASE, U 07/31/2017 LIAM OSPINA MD Ot Z79.899 OTHER SENIOR CARE (CURRENT) DRUG THERAPY 07/31/2017 Ot 272.4 HYPERLIPIDEMIA NEC/NOS 07/31/2017 Ot 401.9 HYPERTENSION NOS 07/31/2017 Ot V58.69 OTH MED,LT, CURRENT USE 07/31/2017 PADILLA ANDERSON FACC, ALI FACP CCDS Ot 425.4 PRIM CARDIOMYOPATHY NEC 07/31/2017 PADILLA ANDERSON FACC, ALI FACP CCDS Ot 786.09 RESPIRATORY ABNORM NEC 07/31/2017 VEE QUINN CREDIT RISK ANALYTICS MANAGER Ot 202.80 OTH LYMPHOMAS EXTRANODAL SOLID ORGAN U 07/31/2017 VEE QUINN S CREDIT RISK ANALYTICS MANAGER Ot 786.09 RESPIRATORY ABNORM NEC 07/31/2017 VEE QUINN S CREDIT RISK ANALYTICS MANAGER Ot 202.80 OTH LYMPHOMAS EXTRANODAL SOLID ORGAN U 07/31/2017 VEE QUINN CREDIT RISK ANALYTICS MANAGER Ot 511.9 PLEURAL EFFUSION NOS 07/31/2017 VEE QUINN S CREDIT RISK ANALYTICS MANAGER Ot 786.09 RESPIRATORY ABNORM NEC 07/31/2017 VEE QUINN S CREDIT RISK ANALYTICS MANAGER Ot 202.80 OTH LYMPHOMAS EXTRANODAL SOLID ORGAN U 07/31/2017 VEE QUINN S CREDIT RISK ANALYTICS MANAGER Ot 511.9 PLEURAL EFFUSION NOS 07/31/2017 VEE QUINN S CREDIT RISK ANALYTICS MANAGER Ot 786.09 RESPIRATORY ABNORM NEC 07/31/2017 VEE QUINN CREDIT RISK ANALYTICS MANAGER Ot 793.19 OTHER NONSPECIFIC ABNORMAL FINDING OF BETO 07/31/2017 VEE QUINN CREDIT RISK ANALYTICS MANAGER Ot 202.80 OTH LYMPHOMAS EXTRANODAL SOLID ORGAN U 07/31/2017 VEE QUINN CREDIT RISK ANALYTICS MANAGER Ot 786.09 RESPIRATORY ABNORM NEC 07/31/2017 VEE QUINN CREDIT RISK ANALYTICS MANAGER Ot V87.41 PERSONAL HISTORY OF ANTINEOPLASTIC CHEMO 07/31/2017 VEE QUNIN CREDIT RISK ANALYTICS MANAGER Ot 202.80 OTH LYMPHOMAS EXTRANODAL SOLID ORGAN U 07/31/2017 JUDI MOREL MD Ot 202.80 OTH LYMPHOMAS EXTRANODAL SOLID ORGAN U 07/31/2017 JUDI MOREL MD Ot V72.83 EXAM PRE-OPERATIVE NEC 07/31/2017 JUDI MOREL MD Ot V74.8 SCREEN-BACTERIAL DIS NEC 07/31/2017 NAKITA NAVA Ot 202.80 OTH LYMPHOMAS EXTRANODAL SOLID ORGAN U 07/31/2017 NAKITA NAVA Ot 786.09 RESPIRATORY ABNORM NEC 07/31/2017 VEE QUINN CREDIT RISK ANALYTICS MANAGER Ot 202.80 OTH LYMPHOMAS EXTRANODAL SOLID ORGAN U 07/31/2017 VEE QUINN CREDIT RISK ANALYTICS MANAGER Ot 202.80 OTH LYMPHOMAS EXTRANODAL SOLID ORGAN U 07/31/2017 VEE QUINN CREDIT RISK ANALYTICS MANAGER Ot V58.69 OTH MED,LT,CURRENT USE 07/31/2017 VEE QUINN CREDIT RISK ANALYTICS MANAGER Ot 202.80 OTH LYMPHOMAS EXTRANODAL SOLID ORGAN U 07/31/2017 PADILLA ANDERSON FAC, ALI FACP CCDS Ot 272.4 HYPERLIPIDEMIA NEC/NOS 07/31/2017 PADILLA ANDERSON FAC, ALI FACP CCDS Ot 414.01 CORONARY ATHEROSCLEROSIS OF [place] CORON 07/31/2017 VEE QUINN CREDIT RISK ANALYTICS MANAGER Ot 202.80 OTH LYMPHOMAS EXTRANODAL SOLID ORGAN U 07/31/2017 VEE QUINN CREDIT RISK ANALYTICS MANAGER Ot 272.0 PURE HYPERCHOLESTEROLEM 07/31/2017 VEE QUINN CREDIT RISK ANALYTICS MANAGER Ot 401.9 HYPERTENSION NOS 07/31/2017 VEE QUINN S CREDIT RISK ANALYTICS MANAGER Ot 414.00 CORON ATHEROSCLER NOS TYPE VESSEL, NATIV 07/31/2017 VEE QUINN S CREDIT RISK ANALYTICS MANAGER Ot 425.4 PRIM CARDIOMYOPATHY NEC 07/31/2017 VEE QUINN S CREDIT RISK ANALYTICS MANAGER Ot 780.57 UNSPECIFIED SLEEP APNEA 07/31/2017 VEE QUINN S CREDIT RISK ANALYTICS MANAGER Ot V58.69 OTH MED,LT,CURRENT USE 07/31/2017 NAKITA NAVA Ot 202.80 OTH LYMPHOMAS EXTRANODAL SOLID ORGAN U 07/31/2017 VEE QUINN CREDIT RISK ANALYTICS MANAGER Ot 202.80 OTH LYMPHOMAS EXTRANODAL SOLID ORGAN U 07/31/2017 VEE QUINN CREDIT RISK ANALYTICS MANAGER Ot 272.0 PURE HYPERCHOLESTEROLEM 07/31/2017 VEE QUINN CREDIT RISK ANALYTICS MANAGER Ot 401.9 HYPERTENSION NOS 07/31/2017 VEE QUINN CREDIT RISK ANALYTICS MANAGER Ot 414.00 CORON ATHEROSCLER NOS TYPE VESSEL, NATIV 07/31/2017 VEE QUINN CREDIT RISK ANALYTICS MANAGER Ot 425.4 PRIM CARDIOMYOPATHY NEC 07/31/2017 VEE QUINN CREDIT RISK ANALYTICS MANAGER Ot V58.69 OTH MED,LT,CURRENT USE 07/31/2017 NAKITA NAVA Ot 202.80 OTH LYMPHOMAS EXTRANODAL SOLID ORGAN U 07/31/2017 PADILLA ANDERSON FACC, DAYNA QUICKP CCDS Ot 272.4 HYPERLIPIDEMIA NEC/NOS 07/31/2017 TOM JC DO Ot 278.00 OBESITY, NOS 07/31/2017 TOM JC DO Ot 416.9 CHR PULMON HEART DIS NOS 07/31/2017 TOM JC DO Ot 425.4 PRIM CARDIOMYOPATHY NEC 07/31/2017 TOM JC DO Ot 780.57 UNSPECIFIED SLEEP APNEA 07/31/2017 TOM JC DO Ot 786.09 RESPIRATORY ABNORM NEC 07/31/2017 VEE QUINN CREDIT RISK ANALYTICS MANAGER Ot 202.80 OTH LYMPHOMAS EXTRANODAL SOLID ORGAN U 07/31/2017 VEE QUINN CREDIT RISK ANALYTICS MANAGER Ot V58.69 OTH MED,LT,CURRENT USE 07/31/2017 NAKITA NAVA Ot 202.80 OTH LYMPHOMAS EXTRANODAL SOLID ORGAN U 07/31/2017 Ot 272.0 PURE HYPERCHOLESTEROLEM 07/31/2017 Ot 414.00 CORON ATHEROSCLER NOS TYPE VESSEL, NATIV 07/31/2017 VEE QUINN CREDIT RISK ANALYTICS MANAGER Ot 202.80 OTH LYMPHOMAS EXTRANODAL SOLID ORGAN U 07/31/2017 VEE QUINN CREDIT RISK ANALYTICS MANAGER Ot V58.69 OTH MED,LT,CURRENT USE 07/31/2017 VEE QUINN CREDIT RISK ANALYTICS MANAGER Ot 202.80 OTH LYMPHOMAS EXTRANODAL SOLID ORGAN U 07/31/2017 VEE QUINN CREDIT RISK ANALYTICS MANAGER Ot V58.69 OTH MED,LT,CURRENT USE 07/31/2017 SHERYL GHOSH STORE OPERATIONS ASSOCIATE Ot 465.9 ACUTE URI NOS 07/31/2017 SHERYL GHOSH STORE OPERATIONS ASSOCIATE Ot 492.8 EMPHYSEMA NEC 07/31/2017 CHRISTIAN GAYLE CREDIT RISK ANALYTICS MANAGER Ot 272.4 HYPERLIPIDEMIA NEC/NOS 07/31/2017 CHRISTIAN GAYLE CREDIT RISK ANALYTICS MANAGER Ot 414.00 CORON ATHEROSCLER NOS TYPE VESSEL, NATIV 07/31/2017 VEE QUINN CREDIT RISK ANALYTICS MANAGER Ot C85.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, UNSPE 07/31/2017 VEE QUINN S CREDIT RISK ANALYTICS MANAGER Ot Z79.899 OTHER SENIOR CARE (CURRENT) DRUG THERAPY 07/31/2017 CHRISTIAN GAYLE CREDIT RISK ANALYTICS MANAGER Ot E78.0 PURE HYPERCHOLESTEROLEMIA 07/31/2017 CHRISTIAN GAYLE CREDIT RISK ANALYTICS MANAGER Ot I25.10 ATHSCL HEART DISEASE OF [place] CORONARY 07/31/2017 NAKITA NAVA Ot C85.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, UNSPE 07/31/2017 NAKITA NAVA N Ot E78.00 PURE HYPERCHOLESTEROLEMIA, UNSPECIFIED 07/31/2017 NAKITA NAVA N Ot I25.10 ATHSCL HEART DISEASE OF [place] CORONARY 07/31/2017 NAKITA NAVA N Ot Z79.899 OTHER MARKET RISK SPECIALIST (CURRENT) DRUG THERAPY 07/31/2017 CHRISTIAN GAYLE CREDIT RISK ANALYTICS MANAGER Ot E78.00 PURE HYPERCHOLESTEROLEMIA, UNSPECIFIED 07/31/2017 CHRISTIAN GAYLE CREDIT RISK ANALYTICS MANAGER Ot I25.10 ATHSCL HEART DISEASE OF [place] CORONARY 07/31/2017 NAKITA NAVA Ot C82.13 FOLLICULAR LYMPHOMA GRADE II, INTRA-ABDO 07/31/2017 NAKITA NAVA N Ot D73.89 OTHER DISEASES OF [place] 07/31/2017 NAKITA NAVA Ot K42.9 UMBILICAL HERNIA WITHOUT OBSTRUCTION OR 07/31/2017 NAKITA NAVA N Ot R59.0 LOCALIZED ENLARGED LYMPH NODES 07/31/2017 VEE QUINN CREDIT RISK ANALYTICS MANAGER Ot D25.9 LEIOMYOMA OF UTERUS, UNSPECIFIED 07/31/2017 VEE QUINN S CREDIT RISK ANALYTICS MANAGER Ot N83.202 UNSPECIFIED OVARIAN CYST, LEFT SIDE 07/31/2017 LUCINDA ANDERSON, DOUGLAS Giron Ot D25.9 LEIOMYOMA OF UTERUS, UNSPECIFIED 07/31/2017 DOUGLAS JANE MD Ot N83.202 UNSPECIFIED OVARIAN CYST, LEFT SIDE 07/31/2017 MARGO HOWARD DO Ot N83.202 UNSPECIFIED OVARIAN CYST, LEFT SIDE 07/31/2017 EATALEXA HECK CREDIT RISK ANALYTICS MANAGER Ot J18.9 PNEUMONIA, UNSPECIFIED ORGANISM 07/31/2017 EATALEXA HECK L CREDIT RISK ANALYTICS MANAGER Ot J43.9 EMPHYSEMA, UNSPECIFIED 07/31/2017 EATALEXA HECK L CREDIT RISK ANALYTICS MANAGER Ot J90 PLEURAL EFFUSION, NOT ELSEWHERE CLASSIFI 07/31/2017 EATALEXA HECK L CREDIT RISK ANALYTICS MANAGER Ot R09.02 HYPOXEMIA 07/31/2017 PADILLA ANDERSON FACC, ALI FACP CCDS Ot E66.09 OTHER OBESITY DUE TO EXCESS CALORIES 07/31/2017 PADILLA ANDERSON FACC, ALI FACP CCDS Ot I10 ESSENTIAL (PRIMARY) HYPERTENSION 07/31/2017 PADILLA ANDERSON FACC, ALI FACP CCDS Ot I25.10 ATHSCL HEART DISEASE OF [place] CORONARY 07/31/2017 PADILLA ANDERSON FACC, ALI FACP CCDS Ot I42.0 DILATED CARDIOMYOPATHY 07/31/2017 PADILLA ANDERSON FACC, ALI FACP CCDS Ot J43.8 OTHER EMPHYSEMA 07/31/2017 LIAM OSPINA MD Ot C82.13 FOLLICULAR LYMPHOMA GRADE II, INTRA-ABDO 07/31/2017 LIAM OSPINA MD Ot E78.00 PURE HYPERCHOLESTEROLEMIA, UNSPECIFIED 07/31/2017 LIAM OSPINA MD Ot G47.33 OBSTRUCTIVE SLEEP APNEA (ADULT) (PEDIATR 07/31/2017 LIAM OSPINA MD Ot I25.10 ATHSCL HEART DISEASE OF [place] CORONARY 07/31/2017 LIAM OSPINA MD Ot I27.9 PULMONARY HEART DISEASE, UNSPECIFIED 07/31/2017 LIAM OSPINA MD Ot I45.10 UNSPECIFIED RIGHT BUNDLE-BRANCH BLOCK 07/31/2017 LIAM OSPINA MD Ot J44.9 CHRONIC OBSTRUCTIVE PULMONARY DISEASE, U 07/31/2017 LIAM OSPINA MD Ot Z79.899 OTHER MARKET RISK SPECIALIST (CURRENT) DRUG THERAPY 08/08/2017 NAKITA NAVA Ot C85.90 NON-[place] LYMPHOMA, UNSPECIFIED, UNSPE 08/08/2017 BRANDY, BOBAN N Ot K43.9 VENTRAL HERNIA WITHOUT OBSTRUCTION OR GA 08/08/2017 BRANDYNAKITA JACKSON N Ot R91.8 OTHER NONSPECIFIC ABNORMAL FINDING OF [place] 08/09/2017 BAIMA, CHRISTIAN L CREDIT RISK ANALYTICS MANAGER Ot E78.4 OTHER HYPERLIPIDEMIA 08/09/2017 BAIMA, CHRISTIAN L CREDIT RISK ANALYTICS MANAGER Ot G47.33 OBSTRUCTIVE SLEEP APNEA (ADULT) (PEDIATR 08/09/2017 BAIMA, CHRISTIAN L CREDIT RISK ANALYTICS MANAGER Ot I10 ESSENTIAL (PRIMARY) HYPERTENSION 08/09/2017 BAIMA, CHRISTIAN L CREDIT RISK ANALYTICS MANAGER Ot I25.10 ATHSCL HEART DISEASE OF [place] CORONARY 08/29/2017 NAKITA NAVA N Ot C85.90 NON-[place] LYMPHOMA, UNSPECIFIED, UNSPE 08/29/2017 NAKITA NAVA N Ot K43.9 VENTRAL HERNIA WITHOUT OBSTRUCTION OR GA 08/29/2017 BRANDYNAKITA JACKSON N Ot R91.8 OTHER NONSPECIFIC ABNORMAL FINDING OF [place] 08/29/2017 BAIMA, CHRISTIAN L CREDIT RISK ANALYTICS MANAGER Ot E78.4 OTHER HYPERLIPIDEMIA 08/29/2017 BAIMA, CHRISTIAN L CREDIT RISK ANALYTICS MANAGER Ot G47.33 OBSTRUCTIVE SLEEP APNEA (ADULT) (PEDIATR 08/29/2017 BAIMA, CHRISTIAN L CREDIT RISK ANALYTICS MANAGER Ot I10 ESSENTIAL (PRIMARY) HYPERTENSION 08/29/2017 BAIMA, CHRISTIAN L CREDIT RISK ANALYTICS MANAGER Ot I25.10 ATHSCL HEART DISEASE OF [place] CORONARY 09/05/2017 BRANDYNAKITA Ot C85.90 NON-[place] LYMPHOMA, UNSPECIFIED, UNSPE 09/05/2017 BRANDYNAKITA JACKSON N Ot K43.9 VENTRAL HERNIA WITHOUT OBSTRUCTION OR GA 09/05/2017 BRANDYNAKITA JACKSON N Ot R91.8 OTHER NONSPECIFIC ABNORMAL FINDING OF [place] 09/25/2017 LIAM OSPINA MD Ot C82.13 FOLLICULAR LYMPHOMA GRADE II, INTRA-ABDO 09/25/2017 LIAM OSPINA MD Ot E78.00 PURE HYPERCHOLESTEROLEMIA, UNSPECIFIED 09/25/2017 LIAM OSPINA MD Ot G47.33 OBSTRUCTIVE SLEEP APNEA (ADULT) (PEDIATR 09/25/2017 LIAM OSPINA MD Ot I25.10 ATHSCL HEART DISEASE OF [place] CORONARY 09/25/2017 LIAM OSPINA MD Ot I27.9 PULMONARY HEART DISEASE, UNSPECIFIED 09/25/2017 LIAM OSPINA MD Ot I45.10 UNSPECIFIED RIGHT BUNDLE-BRANCH BLOCK 09/25/2017 LIAM OSPINA MD Ot J44.9 CHRONIC OBSTRUCTIVE PULMONARY DISEASE, U 09/25/2017 MATEUSZ OSPINA MDNER Ot Z79.899 OTHER SENIOR CARE (CURRENT) DRUG THERAPY 10/03/2017 LIAM OSPINA MD Ot C82.13 FOLLICULAR LYMPHOMA GRADE II, INTRA-ABDO 10/03/2017 LIAM OSPINA MD Ot E78.00 PURE HYPERCHOLESTEROLEMIA, UNSPECIFIED 10/03/2017 MATEUSZ OSPINA MDNER Ot G47.33 OBSTRUCTIVE SLEEP APNEA (ADULT) (PEDIATR 10/03/2017 MATEUSZ OSPINA MDNER Ot I25.10 ATHSCL HEART DISEASE OF [place] CORONARY 10/03/2017 MATEUSZ OSPINA MDNER Ot I27.9 PULMONARY HEART DISEASE, UNSPECIFIED 10/03/2017 MATEUSZ OSPINA MDNER Ot I45.10 UNSPECIFIED RIGHT BUNDLE-BRANCH BLOCK 10/03/2017 LIAM OSPINA MD Ot J44.9 CHRONIC OBSTRUCTIVE PULMONARY DISEASE, U 10/03/2017 MATEUSZ OSPINA MDNER Ot Z79.899 OTHER MARKET RISK SPECIALIST (CURRENT) DRUG THERAPY 11/05/2017 LIAM OSPINA MD Ot C82.13 FOLLICULAR LYMPHOMA GRADE II, INTRA-ABDO 11/05/2017 LIAM OSPINA MD Ot E78.00 PURE HYPERCHOLESTEROLEMIA, UNSPECIFIED 11/05/2017 MATEUSZ OSPINA MDNER Ot G47.33 OBSTRUCTIVE SLEEP APNEA (ADULT) (PEDIATR 11/05/2017 MATEUSZ OSPINA MDNER Ot I25.10 ATHSCL HEART DISEASE OF [place] CORONARY 11/05/2017 MATEUSZ OSPINA MDNER Ot I27.9 PULMONARY HEART DISEASE, UNSPECIFIED 11/05/2017 MATEUSZ OSPINA MDNER Ot I45.10 UNSPECIFIED RIGHT BUNDLE-BRANCH BLOCK 11/05/2017 LIAM OSPINA MD Ot J44.9 CHRONIC OBSTRUCTIVE PULMONARY DISEASE, U 11/05/2017 MATEUSZ OSPINA MDNER Ot Z79.899 OTHER MARKET RISK SPECIALIST (CURRENT) DRUG THERAPY 11/06/2017 LIAM OSPINA MD Ot C82.13 FOLLICULAR LYMPHOMA GRADE II, INTRA-ABDO 11/06/2017 LIAM OSPINA MD Ot E78.00 PURE HYPERCHOLESTEROLEMIA, UNSPECIFIED 11/06/2017 MATEUSZ OSPINA MDNER Ot G47.33 OBSTRUCTIVE SLEEP APNEA (ADULT) (PEDIATR 11/06/2017 MATEUSZ OSPINA MDNER Ot I25.10 ATHSCL HEART DISEASE OF [place] CORONARY 11/06/2017 MATEUSZ OSPINA MDNER Ot I27.9 PULMONARY HEART DISEASE, UNSPECIFIED 11/06/2017 LIAM OSPINA MD Ot I45.10 UNSPECIFIED RIGHT BUNDLE-BRANCH BLOCK 11/06/2017 LIAM OSPINA MD Ot J44.9 CHRONIC OBSTRUCTIVE PULMONARY DISEASE, U 11/06/2017 LIAM OSPINA MD Ot Z79.899 OTHER MARKET RISK SPECIALIST (CURRENT) DRUG THERAPY 11/11/2017 LIAM OSPINA MD Ot C82.13 FOLLICULAR LYMPHOMA GRADE II, INTRA-ABDO 11/11/2017 LIAM OSPINA MD Ot E78.00 PURE HYPERCHOLESTEROLEMIA, UNSPECIFIED 11/11/2017 LIAM OSPINA MD Ot G47.33 OBSTRUCTIVE SLEEP APNEA (ADULT) (PEDIATR 11/11/2017 LIAM OSPINA MD Ot I25.10 ATHSCL HEART DISEASE OF [place] CORONARY 11/11/2017 LIAM OSPINA MD, Ot I27.9 PULMONARY HEART DISEASE, UNSPECIFIED 11/11/2017 LIAM OSPINA MD Ot I45.10 UNSPECIFIED RIGHT BUNDLE-BRANCH BLOCK 11/11/2017 LIAM OSPINA MD, Ot J44.9 CHRONIC OBSTRUCTIVE PULMONARY DISEASE, U 11/11/2017 LIAM OSPINA MD, Ot Z79.899 OTHER SENIOR CARE (CURRENT) DRUG THERAPY Procedures There is no data. Results Test Result Range Complete blood count (CBC) with automated white blood cell (WBC) differential - 06/21/16 19:59 Blood leukocytes automated count (number/volume) 7.9 10*3/uL 4.3-11.0 Blood erythrocytes automated count (number/volume) 4.34 10*6/uL 4.35-5.85 Venous blood hemoglobin measurement (mass/volume) 12.6 g/dL 11.5-16.0 Blood hematocrit (volume fraction) 39 % 35-52 Automated erythrocyte mean corpuscular volume 90 [foz_us] 80-99 Automated erythrocyte mean corpuscular hemoglobin (mass per erythrocyte) 29 pg 25-34 Automated erythrocyte mean corpuscular hemoglobin concentration measurement ( mass/volume) 32 g/dL 32-36 Automated erythrocyte distribution width ratio 13.6 % 10.0-14.5 Automated blood platelet count (count/volume) 203 10*3/uL 130-400 Automated blood platelet mean volume measurement 9.2 [foz_us] 7.4-10.4 Automated blood neutrophils/100 leukocytes 70 % 42-75 Automated blood lymphocytes/100 leukocytes 18 % 12-44 Blood monocytes/100 leukocytes 11 % 0-12 Automated blood eosinophils/100 leukocytes 1 % 0-10 Automated blood basophils/100 leukocytes 0 % 0-10 Blood neutrophils automated count (number/volume) 5.5 10*3 1.8-7.8 Blood lymphocytes automated count (number/volume) 1.4 10*3 1.0-4.0 Blood monocytes automated count (number/volume) 0.8 10*3 0.0-1.0 Automated eosinophil count 0.1 10*3/uL 0.0-0.3 Automated blood basophil count (count/volume) 0.0 10*3/uL 0.0-0.1 Complete blood count (CBC) with automated white blood cell (WBC) differential - 01/16/17 12:20 Blood leukocytes automated count (number/volume) 6.0 10*3/uL 4.3-11.0 Blood erythrocytes automated count (number/volume) 4.32 10*6/uL 4.35-5.85 Venous blood hemoglobin measurement (mass/volume) 12.6 g/dL 11.5-16.0 Blood hematocrit (volume fraction) 39 % 35-52 Automated erythrocyte mean corpuscular volume 91 [foz_us] 80-99 Automated erythrocyte mean corpuscular hemoglobin (mass per erythrocyte) 29 pg 25-34 Automated erythrocyte mean corpuscular hemoglobin concentration measurement ( mass/volume) 32 g/dL 32-36 Automated erythrocyte distribution width ratio 13.5 % 10.0-14.5 Automated blood platelet count (count/volume) 162 10*3/uL 130-400 Automated blood platelet mean volume measurement 9.8 [foz_us] 7.4-10.4 Automated blood neutrophils/100 leukocytes 74 % 42-75 Automated blood lymphocytes/100 leukocytes 15 % 12-44 Blood monocytes/100 leukocytes 10 % 0-12 Automated blood eosinophils/100 leukocytes 1 % 0-10 Automated blood basophils/100 leukocytes 0 % 0-10 Blood neutrophils automated count (number/volume) 4.4 10*3 1.8-7.8 Blood lymphocytes automated count (number/volume) 0.9 10*3 1.0-4.0 Blood monocytes automated count (number/volume) 0.6 10*3 0.0-1.0 Automated eosinophil count 0.1 10*3/uL 0.0-0.3 Automated blood basophil count (count/volume) 0.0 10*3/uL 0.0-0.1 Serum or plasma lithium measurement (moles/volume) - 01/16/17 12:20 BNP level 95.2 pg/mL <100.0 Blood CBC with ordered manual differential panel - 01/16/17 12:20 Blood monocytes/100 leukocytes 8 % NRG Manual blood segmented neutrophils/100 leukocytes 71 % NRG Blood band neutrophils/100 leukocytes 7 % NRG Manual blood lymphocytes/100 leukocytes 13 % NRG Manual eosinophils/100 leukocytes in nose 1 % NRG Manual blood basophils/100 leukocytes 0 % NRG Blood ovalocytes detection by light microscopy SLIGHT NRG Complete blood count (CBC) with automated white blood cell (WBC) differential - 06/20/17 13:20 Blood leukocytes automated count (number/volume) 4.8 10*3/uL 4.3-11.0 Blood erythrocytes automated count (number/volume) 3.93 10*6/uL 4.35-5.85 Venous blood hemoglobin measurement (mass/volume) 11.3 g/dL 11.5-16.0 Blood hematocrit (volume fraction) 35 % 35-52 Automated erythrocyte mean corpuscular volume 89 [foz_us] 80-99 Automated erythrocyte mean corpuscular hemoglobin (mass per erythrocyte) 29 pg 25-34 Automated erythrocyte mean corpuscular hemoglobin concentration measurement ( mass/volume) 32 g/dL 32-36 Automated erythrocyte distribution width ratio 14.0 % 10.0-14.5 Automated blood platelet count (count/volume) 144 10*3/uL 130-400 Automated blood platelet mean volume measurement 9.3 [foz_us] 7.4-10.4 Automated blood neutrophils/100 leukocytes 68 % 42-75 Automated blood lymphocytes/100 leukocytes 15 % 12-44 Blood monocytes/100 leukocytes 16 % 0-12 Automated blood eosinophils/100 leukocytes 1 % 0-10 Automated blood basophils/100 leukocytes 0 % 0-10 Blood neutrophils automated count (number/volume) 3.2 10*3 1.8-7.8 Blood lymphocytes automated count (number/volume) 0.7 10*3 1.0-4.0 Blood monocytes automated count (number/volume) 0.8 10*3 0.0-1.0 Automated eosinophil count 0.0 10*3/uL 0.0-0.3 Automated blood basophil count (count/volume) 0.0 10*3/uL 0.0-0.1 Comprehensive metabolic panel - 06/20/17 13:20 Serum or plasma sodium measurement (moles/volume) 141 mmol/L 135-145 Serum or plasma potassium measurement (moles/volume) 4.0 mmol/L 3.6-5.0 Serum or plasma chloride measurement (moles/volume) 106 mmol/L 98-107 Carbon dioxide 31 mmol/L 21-32 Serum or plasma anion gap determination (moles/volume) 4 mmol/L 5-14 Serum or plasma urea nitrogen measurement (mass/volume) 9 mg/dL 7-18 Serum or plasma creatinine measurement (mass/volume) 0.61 mg/dL 0.60-1.30 Serum or plasma urea nitrogen/creatinine mass ratio 15 NRG Serum or plasma creatinine measurement with calculation of estimated glomerular filtration rate > NRG Serum or plasma glucose measurement (mass/volume) 116 mg/dL 70-105 Serum or plasma calcium measurement (mass/volume) 9.2 mg/dL 8.5-10.1 Serum or plasma total bilirubin measurement (mass/volume) 0.4 mg/dL 0.1-1.0 Serum or plasma alkaline phosphatase measurement (enzymatic activity/volume) 73 U/L 40-136 Serum or plasma aspartate aminotransferase measurement (enzymatic activity/ volume) 16 U/L 5-34 Serum or plasma alanine aminotransferase measurement (enzymatic activity/volume ) 12 U/L 0-55 Serum or plasma protein measurement (mass/volume) 6.8 g/dL 6.4-8.2 Serum or plasma albumin measurement (mass/volume) 3.5 g/dL 3.2-4.5 Magnesium - 06/20/17 13:20 Magnesium 2.0 mg/dL 1.8-2.4 PT panel in platelet poor plasma by coagulation assay - 06/20/17 13:20 Prothrombin time (PT) in platelet poor plasma by coagulation assay 14.6 s 12.2-14.7 INR in platelet poor plasma or blood by coagulation assay 1.1 0.8-1.4 Activated partial thromboplastin time (aPTT) in platelet poor plasma bycoagulation assay - 06/20/17 13:20 Activated partial thromboplastin time (aPTT) in platelet poor plasma bycoagulation assay 32 s 24-35 Serum or plasma troponin i.cardiac measurement (mass/volume) - 06/20/17 13:20 Serum or plasma troponin i.cardiac measurement (mass/volume) < ng/ mL <0.30 Serum or plasma lithium measurement (moles/volume) - 06/20/17 13:20 BNP level 121.4 pg/mL <100.0 Bacterial blood culture - 06/20/17 13:20 Bacterial blood culture NG NRG Influenza virus A and B antigen detection - 06/20/17 13:39 FLU RESULT NEGATIVE FOR INFLUENZA A AND B ANTIGENS BY IA NRG Blood lactic acid measurement (moles/volume) - 06/20/17 13:40 Blood lactic acid measurement (moles/volume) 0.61 mmol/L 0.50-2.00 Bacterial blood culture - 06/20/17 13:40 Bacterial blood culture NG NRG Encounters ACCT No. Visit Date/Time Discharge Status Pt. Type Provider Facility Loc./Unit Complaint [id number] 11/06/2017 00:08:00 11/06/2017 23:59:59 CLS Preadmit LIAM OSPINA MD [facility] ONC [id number] 08/17/2017 13:21:00 11/05/2017 00:01:00 DIS Outpatient LIAM OSPINA MD [facility] ONC [id number] 08/07/2017 09:03:00 08/07/2017 23:59:59 CLS Outpatient NAKITA NAVA [facility] RAD NHL [id number] 08/07/2017 08:57:00 08/07/2017 23:59:59 CLS Outpatient CHRISTIAN GAYLE [facility] LAB [id number] 06/20/2017 13:07:00 06/20/2017 15:43:00 DIS Emergency TARIK LAVINIA GARRETT [facility] ER DIFFICULTY BREATHING [id number] 02/12/2017 15:52:00 05/06/2017 00:01:00 DIS Outpatient NAKITA NAVA [facility] ONC [id number] 04/11/2017 12:41:00 04/11/2017 23:59:59 CLS Outpatient PADILLA ANDERSON FACC, DAYNA READ CCDS [facility] CARD CAD [id number] 01/16/2017 11:59:00 01/16/2017 23:59:59 CLS Outpatient ALEXA JOSHUA CREDIT RISK ANALYTICS MANAGER [facility] RAD COPD/DYSPNEA [id number] 01/16/2017 11:49:00 01/16/2017 23:59:59 CLS Outpatient ALEXA JOSHUA CREDIT RISK ANALYTICS MANAGER [facility] LAB COPD W EMPHYSEMA [id number] 12/19/2016 09:56:00 12/19/2016 23:59:59 CLS Outpatient LEE GARRETT MARGO Wasserman [facility] RAD OVARIAN CYST, LT SIDE N83.202 [id number] 08/14/2016 10:30:00 11/12/2016 00:01:00 DIS Outpatient NAKITA NAVA [facility] ONC [id number] 09/15/2016 09:43:00 10/04/2016 15:24:00 DIS Outpatient NAKITA NAVA [facility] REHAB LYMPHEDEMA OF LEFT ARM ; NHL [id number] 10/03/2016 09:57:00 10/03/2016 23:59:59 CLS Outpatient LUCINDA ANDERSON, DOUGLAS Giron [facility] RAD LEFT OVARIAN CYST [id number] 08/31/2016 14:14:00 08/31/2016 23:59:59 CLS Outpatient VEE QUINN CREDIT RISK ANALYTICS MANAGER [facility] RAD R93.5 [id number] 08/22/2016 10:14:00 08/22/2016 23:59:59 CLS Outpatient NAKITA NAVA [facility] RAD NHL [id number] 06/21/2016 17:33:00 06/21/2016 21:39:00 DIS Emergency MONROE ANDERSON, MITCHELL Ascencio [facility] ER COUGH;RUNNY NOSE [id number] 02/14/2016 10:46:00 02/14/2016 23:59:59 CLS Outpatient CHRISTIAN GAYLE CREDIT RISK ANALYTICS MANAGER [facility] LAB [id number] 02/14/2016 10:44:00 02/14/2016 23:59:59 CLS Outpatient NAKITA NAVA [facility] ONC [id number] 08/16/2015 09:50:00 11/14/2015 00:01:00 DIS Outpatient NAKITA NAVA [facility] ONC [id number] 08/16/2015 09:52:00 08/16/2015 23:59:59 CLS Outpatient CHRISTIAN GAYLE [facility] LAB [id number] 04/19/2015 09:15:00 04/19/2015 23:59:59 CLS Outpatient VEE QUINN CREDIT RISK ANALYTICS MANAGER [facility] ONC [id number] 01/20/2015 09:42:00 02/03/2015 00:01:00 DIS Outpatient NAKITA NAVA [facility] ONC [id number] 02/01/2015 10:54:00 02/01/2015 23:59:59 CLS Outpatient CHRISTIAN GAYLEP [facility] LAB CAD,HLD [id number] 12/11/2014 11:35:00 12/11/2014 23:59:59 CLS Outpatient SHERYL GHOSH APRN [facility] RAD COPD,DYSPNEA [id number] 10/12/2014 08:44:00 11/29/2014 00:01:00 DIS Outpatient NAKITA NAVA [facility] ONC [id number] 10/12/2014 09:38:00 10/12/2014 23:59:59 CLS Outpatient VEE QUINNP [facility] ONC [id number] 08/31/2014 11:03:00 08/31/2014 23:59:59 CLS Outpatient VEE QUINNP [facility] ONC [id number] 08/24/2014 13:39:00 08/27/2014 12:20:00 DIS Inpatient SHANTEL POZO MD [facility] SURGICAL PNEUMONIA W/HYPOXIA [id number] 07/13/2014 11:31:00 08/25/2014 00:01:00 DIS Outpatient NAKITA NAVA [facility] ONC [id number] 05/27/2014 09:21:00 06/01/2014 13:54:00 DIS Outpatient NAKITA NAVA [facility] ONC [id number] 05/27/2014 08:59:00 05/27/2014 23:59:59 CLS Outpatient NAKITA NAVA [facility] RAD NHL [id number] 03/23/2014 10:41:00 03/29/2014 00:01:00 DIS Outpatient NAKITA NAVA [facility] ONC [id number] 01/20/2014 20:52:00 01/21/2014 06:35:00 DIS Outpatient TOM JC DO [facility] SLEEP EXCESSIVE DAYTIME SLEEPINESS OBSERVED APNEA [id number] 11/20/2013 12:43:00 12/15/2013 00:01:00 DIS Outpatient NAKITA NAVA [facility] ONC [id number] 11/12/2013 09:51:00 11/12/2013 23:59:59 CLS Outpatient TOM JC DO [facility] RT DSYPNEA,PULM. HTN [id number] 11/10/2013 12:47:00 11/10/2013 23:59:59 CLS Outpatient VEE QUINN [facility] ONC [id number] 07/30/2013 09:49:00 08/25/2013 00:01:00 DIS Outpatient NAKITA NAVA [facility] ONC [id number] 07/30/2013 10:22:00 07/30/2013 23:59:59 CLS Outpatient NAKITA NAVA [facility] RAD NON [place] LYMPHOMA [id number] 07/30/2013 10:03:00 07/30/2013 23:59:59 CLS Outpatient PADILLA ANDERSON FACCDAYNA FACP CCDS [facility] LAB [id number] 04/01/2013 10:31:00 05/04/2013 00:01:00 DIS Outpatient NAKITA NAVA Bree [facility] ONC [id number] 04/28/2013 14:27:00 04/28/2013 23:59:59 CLS Outpatient VEE QUINN [facility] ONC [id number] 04/21/2013 09:35:00 04/21/2013 23:59:59 CLS Outpatient NAKITA NAVA [facility] RAD NON [place] LYMPHOMA [id number] 03/03/2013 08:39:00 03/03/2013 23:59:59 CLS Outpatient VEE QUINN S CREDIT RISK ANALYTICS MANAGER [facility] ONC [id number] 01/28/2013 11:25:00 01/29/2013 00:01:00 DIS Outpatient NAKITA NAVA [facility] ONC [id number] 01/28/2013 09:31:00 01/28/2013 23:59:59 CLS Outpatient VEE QUINN S CREDIT RISK ANALYTICS MANAGER [facility] RAD LYMPHOMA [id number] 01/21/2013 10:20:00 01/21/2013 23:59:59 CLS Outpatient PADILLA ANDERSON FACCDAYNA FACP CCDS [facility] LAB [id number] 01/07/2013 10:43:00 01/07/2013 23:59:59 CLS Outpatient VEE QUINN CREDIT RISK ANALYTICS MANAGER [facility] ONC [id number] 12/02/2012 08:41:00 12/02/2012 23:59:59 CLS Outpatient VEE QUINN S CREDIT RISK ANALYTICS MANAGER [facility] ONC [id number] 10/31/2012 14:00:00 10/31/2012 23:59:59 CLS Outpatient BRANDYNAKITA JACKSON Bree [facility] RAD [id number] 10/23/2012 08:56:00 10/23/2012 12:15:00 DIS Outpatient JUDI MOREL MD [facility] SDC LYMPHOMA [id number] 10/22/2012 08:05:00 10/22/2012 23:59:59 CLS Outpatient JUDI MOREL MD [facility] PREOP LYMPHOMA [id number] 10/16/2012 09:25:00 10/16/2012 23:59:59 CLS Outpatient VEE QUINN S CREDIT RISK ANALYTICS MANAGER [facility] ONC [id number] 10/15/2012 11:40:00 10/15/2012 23:59:59 CLS Outpatient QUINN, VEE S CREDIT RISK ANALYTICS MANAGER [facility] RAD NON HODGKINS LYMPHOMA [id number] 10/09/2012 12:46:00 10/09/2012 23:59:59 CLS Outpatient QUINN VEE S CREDIT RISK ANALYTICS MANAGER [facility] RT DYSPNEA,NON-HODGKINS LYMPHOMA,PLEURAL EFFUSION [id number] 10/02/2012 10:04:00 10/02/2012 23:59:59 CLS Outpatient QUINN VEE S CREDIT RISK ANALYTICS MANAGER [facility] RAD [id number] 10/02/2012 08:55:00 10/02/2012 23:59:59 CLS Outpatient QUINN, VEE S CREDIT RISK ANALYTICS MANAGER Via [facility] ONC [id number] 10/02/2012 09:11:00 10/02/2012 00:01:00 DIS Outpatient BRANDY BRYNNBRENDON Giron [facility] ONC [id number] 09/04/2012 12:49:00 09/04/2012 23:59:59 CLS Outpatient PADILLA ANDERSON FACC, DAYNA READ CCDS [facility] CARD DYSPNEA,HX OF MILD NON-ISCHEMIC CM [id number] 07/28/2014 12:20:00 Document Registration [id number] 05/13/2014 10:09:00 Document Registration [id number] 05/13/2014 10:09:00 Document Registration [id number] 06/06/2012 09:07:00 Document Registration [id number] 06/06/2012 09:03:00 Document Registration [id number] 02/15/2012 09:06:00 Document Registration [id number] 12/21/2011 08:49:00 Document Registration [id number] 10/26/2011 08:54:00 Document Registration [id number] 09/11/2011 08:56:00 Document Registration [id number] 08/31/2011 08:49:00 Document Registration [id number] 07/06/2011 09:06:00 Document Registration [id number] 07/06/2011 09:03:00 Document Registration [id number] 05/23/2011 20:53:00 Document Registration [id number] 04/20/2011 06:54:00 Document Registration [id number] 04/19/2011 21:16:00 Document Registration [id number] 04/13/2011 12:30:00 Document Registration [id number] 03/21/2011 05:32:00 Document Registration [id number] 03/16/2011 09:11:00 Document Registration [id number] 03/16/2011 08:26:00 Document Registration [id number] 03/02/2011 05:58:00 Document Registration [id number] 02/09/2011 08:57:00 Document Registration [id number] 01/04/2011 10:35:00 Document Registration [id number] 11/24/2010 14:31:00 Document Registration [id number] 11/16/2010 09:07:00 Document Registration [id number] 08/18/2010 17:58:00 Document Registration [id number] 04/14/2009 09:14:00 Document Registration [id number] 04/07/2009 11:24:00 Document Registration
--- NOTE | 2017-12-22 02:11 | OPERATIVE REPORT ---
DATE OF SERVICE: 12/20/2017 PREOPERATIVE DIAGNOSIS: Non-Hodgkin's lymphoma. POSTOPERATIVE DIAGNOSIS: Non-Hodgkin's lymphoma. PROCEDURE: Right internal jugular port placement. SURGEON: Elba Brandon DO ANESTHESIA: MAC with local. ESTIMATED BLOOD LOSS: Minimal. COMPLICATIONS: None. INDICATIONS: The patient is a 67-year-old female with non-Hodgkin's lymphoma. She is going to undergo chemotherapy. She understands the risks and benefits of port placement. She wishes to proceed. Consent was signed on the chart. DESCRIPTION OF PROCEDURE: The patient was taken to the operating suite. She was prepped and draped in sterile fashion. Surgical pause was performed. Ultrasound was used to locate the right internal jugular vein. Local anesthetic was infiltrated into the area. The right internal jugular vein was then accessed using micro access needle. Dark nonpulsatile blood was withdrawn. A micro access wire was inserted through the needle and the needle was removed. Fluoroscopy assured proper placement. An 11 blade scalpel was used to make a stab incision at the insertion point. The dilator sheath was then advanced over the micro access wire and this was converted to the normal guidewire. This was then secured after fluoroscopy assured proper placement. Local anesthetic was used to infiltrate on the neck towards the pocket to be created on the right chest. A 15 blade scalpel was used to make a skin incision on the right chest and cautery and blunt dissection was used to create the pocket. Then, under fluoroscopy, a dilator sheath was advanced over the guidewire. The wire and dilator were removed. The Groshong catheter was inserted through the sheath and the sheath was then removed. The Groshong wire was then removed and the catheter was then tunneled from the insertion point down towards the pocket that was created. This was then cut to length using fluoroscopy and attached to the port and placed within the pocket. The port was accessed without difficulty and flushed first with saline and then with heparin without difficulty. The subcutaneous tissues were then reapproximated using 3-0 Vicryl. The area was then washed and dried and Skin Affix was placed over the incisions. The patient tolerated the procedure well without any complications. She was taken to recovery room in stable condition. Chest x-ray, pending. Job ID: [id number] DocumentID: [id number] Dictated Date: 12/21/2017 15:51:55 [employer] Technician Date: 12/22/2017 02:11:06 Dictated By: ELBA BRANDON DO
== END 2017-12-20 13:20 | disposition home or self-care (01) ==
LOC: SDC 07:45
PROVIDERS: ATTEND Surgery
DX: C85.90 Non-Hodgkin lymphoma, unspecified, unspecified site (principal); I10 Essential (primary) hypertension; I25.10 Atherosclerotic heart disease of native coronary artery without angina pectoris; E78.5 Hyperlipidemia, unspecified; J44.9 Chronic obstructive pulmonary disease, unspecified; Z87.891 Personal history of nicotine dependence; Z79.899 Other long term (current) drug therapy; Z11.2 Encounter for screening for other bacterial diseases; G47.33 Obstructive sleep apnea (adult) (pediatric); I27.20 Pulmonary hypertension, unspecified; E78.00 Pure hypercholesterolemia, unspecified; I42.9 Cardiomyopathy, unspecified
CPT/HCPCS: 71045; 76942; 87081

== ENCOUNTER 2018-01-16 12:37 | Outpatient (RCR) | payer MEDICARE ==
[2017-12-07 13:09] LABS: BASOPHILS % (AUTO) 1 % (0-10); EOSINOPHILS # (AUTO) 0.1 10^3/uL (0.0-0.3); EOSINOPHILS % (AUTO) 3 % (0-10); HEMATOCRIT 36 % (35-52); HEMOGLOBIN 12.1 G/DL (11.5-16.0); LYMPHOCYTES # (AUTO) 0.9 X 10^3 (1.0-4.0); LYMPHOCYTES % (AUTO) 23 % (12-44); MEAN CORPUSCULAR HEMOGLOBIN 29 PG (25-34); MEAN CORPUSCULAR HGB CONC 33 G/DL (32-36); MEAN CORPUSCULAR VOLUME 87 FL (80-99); MEAN PLATELET VOLUME 9.2 FL (7.4-10.4); MONOCYTES # (AUTO) 0.5 X 10^3 (0.0-1.0); MONOCYTES % (AUTO) 13 % (0-12); NEUTROPHILS # (AUTO) 2.5 X 10^3 (1.8-7.8); NEUTROPHILS % (AUTO) 61 % (42-75); PLATELET COUNT 150 10^3/uL (130-400); RED BLOOD COUNT 4.21 10^6/uL (4.35-5.85); RED CELL DISTRIBUTION WIDTH 14.2 % (10.0-14.5); WHITE BLOOD COUNT 4.1 10^3/uL (4.3-11.0)
[2017-12-07 13:26] LABS: ALANINE AMINOTRANSFERASE 15 U/L (0-55); ALBUMIN 3.9 GM/DL (3.2-4.5); ALKALINE PHOSPHATASE 98 U/L (40-136); BILIRUBIN,TOTAL 0.4 MG/DL (0.1-1.0); BUN/CREATININE RATIO 18; CALCIUM 9.5 MG/DL (8.5-10.1); CARBON DIOXIDE 30 MMOL/L (21-32); CHLORIDE 105 MMOL/L (98-107); CREATININE SERUM 0.72 MG/DL (0.60-1.30); GFR ESTIMATED > 60; GLUCOSE 100 MG/DL (70-105); POTASSIUM 4.2 MMOL/L (3.6-5.0); SODIUM 141 MMOL/L (135-145); TOTAL PROTEIN 6.9 GM/DL (6.4-8.2)
[2017-12-26 10:54] LABS: BASOPHILS % (AUTO) 0 % (0-10); EOSINOPHILS # (AUTO) 0.1 10^3/uL (0.0-0.3); EOSINOPHILS % (AUTO) 3 % (0-10); HEMATOCRIT 36 % (35-52); HEMOGLOBIN 11.6 G/DL (11.5-16.0); LYMPHOCYTES # (AUTO) 0.7 X 10^3 (1.0-4.0); LYMPHOCYTES % (AUTO) 18 % (12-44); MEAN CORPUSCULAR HEMOGLOBIN 28 PG (25-34); MEAN CORPUSCULAR HGB CONC 33 G/DL (32-36); MEAN CORPUSCULAR VOLUME 86 FL (80-99); MEAN PLATELET VOLUME 8.8 FL (7.4-10.4); MONOCYTES # (AUTO) 0.6 X 10^3 (0.0-1.0); MONOCYTES % (AUTO) 15 % (0-12); NEUTROPHILS # (AUTO) 2.5 X 10^3 (1.8-7.8); NEUTROPHILS % (AUTO) 64 % (42-75); PLATELET COUNT 134 10^3/uL (130-400); RED BLOOD COUNT 4.13 10^6/uL (4.35-5.85); RED CELL DISTRIBUTION WIDTH 14.8 % (10.0-14.5)
[2017-12-26 11:10] LABS: ALANINE AMINOTRANSFERASE 13 U/L (0-55); ALBUMIN 3.7 GM/DL (3.2-4.5); ALKALINE PHOSPHATASE 100 U/L (40-136); BILIRUBIN,TOTAL 0.5 MG/DL (0.1-1.0); BUN/CREATININE RATIO 25; CALCIUM 9.6 MG/DL (8.5-10.1); CARBON DIOXIDE 29 MMOL/L (21-32); CHLORIDE 106 MMOL/L (98-107); CREATININE SERUM 0.71 MG/DL (0.60-1.30); GFR ESTIMATED > 60; GLUCOSE 101 MG/DL (70-105); POTASSIUM 4.3 MMOL/L (3.6-5.0); SODIUM 140 MMOL/L (135-145); TOTAL PROTEIN 6.9 GM/DL (6.4-8.2)
[2018-01-02 12:54] LABS: BASOPHILS % (AUTO) 0 % (0-10); EOSINOPHILS # (AUTO) 0.2 10^3/uL (0.0-0.3); EOSINOPHILS % (AUTO) 4 % (0-10); HEMATOCRIT 35 % (35-52); HEMOGLOBIN 11.4 G/DL (11.5-16.0); LYMPHOCYTES # (AUTO) 0.2 X 10^3 (1.0-4.0); LYMPHOCYTES % (AUTO) 4 % (12-44); MEAN CORPUSCULAR HEMOGLOBIN 28 PG (25-34); MEAN CORPUSCULAR HGB CONC 32 G/DL (32-36); MEAN CORPUSCULAR VOLUME 87 FL (80-99); MEAN PLATELET VOLUME 9.4 FL (7.4-10.4); MONOCYTES # (AUTO) 0.6 X 10^3 (0.0-1.0); MONOCYTES % (AUTO) 12 % (0-12); NEUTROPHILS # (AUTO) 3.8 X 10^3 (1.8-7.8); NEUTROPHILS % (AUTO) 80 % (42-75); PLATELET COUNT 151 10^3/uL (130-400); RED BLOOD COUNT 4.08 10^6/uL (4.35-5.85); WHITE BLOOD COUNT 4.8 10^3/uL (4.3-11.0)
[2018-01-02 13:11] LABS: BUN/CREATININE RATIO 17; CALCIUM 9.5 MG/DL (8.5-10.1); CARBON DIOXIDE 30 MMOL/L (21-32); CHLORIDE 103 MMOL/L (98-107); CREATININE SERUM 0.71 MG/DL (0.60-1.30); GFR ESTIMATED > 60; GLUCOSE 105 MG/DL (70-105); POTASSIUM 3.8 MMOL/L (3.6-5.0); SODIUM 140 MMOL/L (135-145)
[2018-01-09 12:56] LABS: BASOPHILS % (AUTO) 1 % (0-10); EOSINOPHILS # (AUTO) 0.3 10^3/uL (0.0-0.3); EOSINOPHILS % (AUTO) 7 % (0-10); HEMATOCRIT 36 % (35-52); HEMOGLOBIN 11.6 G/DL (11.5-16.0); LYMPHOCYTES # (AUTO) 0.6 X 10^3 (1.0-4.0); LYMPHOCYTES % (AUTO) 14 % (12-44); MEAN CORPUSCULAR HGB CONC 32 G/DL (32-36); MEAN CORPUSCULAR VOLUME 86 FL (80-99); MEAN PLATELET VOLUME 9.6 FL (7.4-10.4); MONOCYTES # (AUTO) 0.8 X 10^3 (0.0-1.0); MONOCYTES % (AUTO) 19 % (0-12); NEUTROPHILS # (AUTO) 2.6 X 10^3 (1.8-7.8); NEUTROPHILS % (AUTO) 60 % (42-75); PLATELET COUNT 169 10^3/uL (130-400); RED BLOOD COUNT 4.22 10^6/uL (4.35-5.85); WHITE BLOOD COUNT 4.3 10^3/uL (4.3-11.0)
[2018-01-09 12:59] LABS: MEAN CORPUSCULAR HEMOGLOBIN 27 PG (25-34)
[2018-01-09 13:14] LABS: BUN/CREATININE RATIO 16; CALCIUM 9.7 MG/DL (8.5-10.1); CARBON DIOXIDE 27 MMOL/L (21-32); CHLORIDE 105 MMOL/L (98-107); CREATININE SERUM 0.68 MG/DL (0.60-1.30); GFR ESTIMATED > 60; GLUCOSE 93 MG/DL (70-105); POTASSIUM 4.1 MMOL/L (3.6-5.0); SODIUM 140 MMOL/L (135-145)
[~2018-01-16] VITALS: Ht 167.6 cm; Wt 85.7 kg
[~2018-01-16 12:37] MED LIST changes: +ACETAMINOPHEN 325 MG TAB (TYLENOL) CANCER CTR ONE; +BENDAMUSTINE HCL 160 MG in NS (IVPB) CANCER CENTER 50 ML IV SCH; +NS IV 1000 ML (CANCER CTR) IV SCH; +ONDANSETRON MDV (CANCER CENTER 16 MG, DEXAMETHASONE INJECTION 10 MG in NS (IVPB) CANCER... IV SCH; +PALONOSETRON HCL 0.25 MG, DEXAMETHASONE INJECTION 10 MG in NS (IVPB) CANCER CENTER 50 ML IV SCH; +diphenhydrAMINE 50 MG/ML INJ (CANCER CENTER) ONE; +riTUXimab 500 MG, riTUXimab FOR IV INJ CONC 200 MG in NS (IVPB) CANCER CENTER 163 ML IV SCH; +riTUXimab 500 MG, riTUXimab FOR IV INJ CONC 200 MG in NS (IVPB) CANCER CENTER ONLY 150 ML IV SCH
[2018-01-16 13:16] LABS: BASOPHILS % (AUTO) 1 % (0-10); EOSINOPHILS # (AUTO) 0.3 10^3/uL (0.0-0.3); EOSINOPHILS % (AUTO) 8 % (0-10); HEMATOCRIT 37 % (35-52); HEMOGLOBIN 11.9 G/DL (11.5-16.0); LYMPHOCYTES # (AUTO) 0.6 X 10^3 (1.0-4.0); LYMPHOCYTES % (AUTO) 15 % (12-44); MEAN CORPUSCULAR HEMOGLOBIN 28 PG (25-34); MEAN CORPUSCULAR HGB CONC 33 G/DL (32-36); MEAN CORPUSCULAR VOLUME 86 FL (80-99); MEAN PLATELET VOLUME 9.5 FL (7.4-10.4); MONOCYTES # (AUTO) 0.8 X 10^3 (0.0-1.0); MONOCYTES % (AUTO) 19 % (0-12); NEUTROPHILS # (AUTO) 2.5 X 10^3 (1.8-7.8); NEUTROPHILS % (AUTO) 58 % (42-75); PLATELET COUNT 162 10^3/uL (130-400); RED BLOOD COUNT 4.25 10^6/uL (4.35-5.85); WHITE BLOOD COUNT 4.2 10^3/uL (4.3-11.0)
[2018-01-16 13:36] LABS: BUN/CREATININE RATIO 16; CALCIUM 9.7 MG/DL (8.5-10.1); CARBON DIOXIDE 29 MMOL/L (21-32); CHLORIDE 105 MMOL/L (98-107); GFR ESTIMATED > 60; GLUCOSE 97 MG/DL (70-105); SODIUM 141 MMOL/L (135-145)
== END 2018-01-22 15:10 | disposition home or self-care (01) ==
LOC: ONC 12:37
PROVIDERS: ATTEND Internal Medicine Hematology & Oncology
DX: Z51.11 Encounter for antineoplastic chemotherapy (principal); C82.13 Follicular lymphoma grade II, intra-abdominal lymph nodes; J44.9 Chronic obstructive pulmonary disease, unspecified; G47.33 Obstructive sleep apnea (adult) (pediatric); I27.9 Pulmonary heart disease, unspecified; E78.00 Pure hypercholesterolemia, unspecified; I25.10 Atherosclerotic heart disease of native coronary artery without angina pectoris; I45.10 Unspecified right bundle-branch block; Z79.899 Other long term (current) drug therapy
CPT/HCPCS: 36415; 36591; 80048; 80053; 83615; 85025; 96375; 96409; 96411; 96413; 96415; 99213

== ENCOUNTER 2018-01-30 12:59 | Outpatient (RCR) | payer MEDICARE ==
[2018-01-23 08:50] LABS: BASOPHILS % (AUTO) 0 % (0-10); EOSINOPHILS # (AUTO) 0.2 10^3/uL (0.0-0.3); EOSINOPHILS % (AUTO) 3 % (0-10); HEMATOCRIT 37 % (35-52); LYMPHOCYTES # (AUTO) 0.4 X 10^3 (1.0-4.0); LYMPHOCYTES % (AUTO) 7 % (12-44); MEAN CORPUSCULAR HEMOGLOBIN 28 PG (25-34); MEAN CORPUSCULAR HGB CONC 33 G/DL (32-36); MEAN CORPUSCULAR VOLUME 86 FL (80-99); MEAN PLATELET VOLUME 8.9 FL (7.4-10.4); MONOCYTES % (AUTO) 16 % (0-12); NEUTROPHILS # (AUTO) 4.6 X 10^3 (1.8-7.8); NEUTROPHILS % (AUTO) 74 % (42-75); PLATELET COUNT 127 10^3/uL (130-400); RED BLOOD COUNT 4.25 10^6/uL (4.35-5.85); RED CELL DISTRIBUTION WIDTH 15.3 % (10.0-14.5); WHITE BLOOD COUNT 6.2 10^3/uL (4.3-11.0)
[2018-01-23 09:12] LABS: ALANINE AMINOTRANSFERASE 13 U/L (0-55); ALBUMIN 3.7 GM/DL (3.2-4.5); ALKALINE PHOSPHATASE 85 U/L (40-136); BILIRUBIN,TOTAL 0.4 MG/DL (0.1-1.0); BUN/CREATININE RATIO 19; CALCIUM 9.5 MG/DL (8.5-10.1); CARBON DIOXIDE 27 MMOL/L (21-32); CHLORIDE 107 MMOL/L (98-107); GFR ESTIMATED > 60; GLUCOSE 102 MG/DL (70-105); POTASSIUM 4.1 MMOL/L (3.6-5.0); SODIUM 140 MMOL/L (135-145); TOTAL PROTEIN 6.5 GM/DL (6.4-8.2)
[~2018-01-30] VITALS: Ht 167.6 cm; Wt 83.9 kg
[~2018-01-30 12:59] MED LIST changes: +diphenhydrAMINE 25 MG TAB (BENADRYL) CANCER CENTER PO ONE; -diphenhydrAMINE 50 MG/ML INJ (CANCER CENTER) ONE; -riTUXimab 500 MG, riTUXimab FOR IV INJ CONC 200 MG in NS (IVPB) CANCER CENTER 163 ML IV SCH
[2018-01-30 13:09] LABS: BASOPHILS % (AUTO) 0 % (0-10); EOSINOPHILS # (AUTO) 0.2 10^3/uL (0.0-0.3); EOSINOPHILS % (AUTO) 4 % (0-10); HEMATOCRIT 37 % (35-52); HEMOGLOBIN 12.1 G/DL (11.5-16.0); LYMPHOCYTES # (AUTO) 0.4 X 10^3 (1.0-4.0); LYMPHOCYTES % (AUTO) 9 % (12-44); MEAN CORPUSCULAR HEMOGLOBIN 28 PG (25-34); MEAN CORPUSCULAR HGB CONC 33 G/DL (32-36); MEAN CORPUSCULAR VOLUME 87 FL (80-99); MEAN PLATELET VOLUME 9.1 FL (7.4-10.4); MONOCYTES # (AUTO) 0.5 X 10^3 (0.0-1.0); MONOCYTES % (AUTO) 10 % (0-12); NEUTROPHILS # (AUTO) 3.8 X 10^3 (1.8-7.8); NEUTROPHILS % (AUTO) 77 % (42-75); PLATELET COUNT 125 10^3/uL (130-400); RED BLOOD COUNT 4.27 10^6/uL (4.35-5.85); RED CELL DISTRIBUTION WIDTH 15.4 % (10.0-14.5); WHITE BLOOD COUNT 4.9 10^3/uL (4.3-11.0)
[2018-01-30 13:30] LABS: BUN/CREATININE RATIO 15; CALCIUM 9.5 MG/DL (8.5-10.1); CARBON DIOXIDE 31 MMOL/L (21-32); CHLORIDE 104 MMOL/L (98-107); CREATININE SERUM 0.74 MG/DL (0.60-1.30); GFR ESTIMATED > 60; GLUCOSE 94 MG/DL (70-105); SODIUM 141 MMOL/L (135-145)
== END 2018-02-03 | disposition home or self-care (01) ==
LOC: ONC 12:59
PROVIDERS: ATTEND Internal Medicine Hematology & Oncology
DX: Z51.11 Encounter for antineoplastic chemotherapy (principal); C82.13 Follicular lymphoma grade II, intra-abdominal lymph nodes; J44.9 Chronic obstructive pulmonary disease, unspecified; G47.33 Obstructive sleep apnea (adult) (pediatric); I27.9 Pulmonary heart disease, unspecified; E78.00 Pure hypercholesterolemia, unspecified; I25.10 Atherosclerotic heart disease of native coronary artery without angina pectoris; I45.10 Unspecified right bundle-branch block; Z79.899 Other long term (current) drug therapy
CPT/HCPCS: 36415; 36591; 80048; 80053; 83615; 85025; 96375; 96409; 96411; 96413

== ENCOUNTER → 2018-03-01 | Outpatient (CLI) | payer MEDICARE ==
[~2018-03-01] MED LIST changes: -ACETAMINOPHEN 325 MG TAB (TYLENOL) CANCER CTR ONE; -BENDAMUSTINE HCL 160 MG in NS (IVPB) CANCER CENTER 50 ML IV SCH; -NS IV 1000 ML (CANCER CTR) IV SCH; -ONDANSETRON MDV (CANCER CENTER 16 MG, DEXAMETHASONE INJECTION 10 MG in NS (IVPB) CANCER... IV SCH; -PALONOSETRON HCL 0.25 MG, DEXAMETHASONE INJECTION 10 MG in NS (IVPB) CANCER CENTER 50 ML IV SCH; -diphenhydrAMINE 25 MG TAB (BENADRYL) CANCER CENTER PO ONE; -riTUXimab 500 MG, riTUXimab FOR IV INJ CONC 200 MG in NS (IVPB) CANCER CENTER ONLY 150 ML IV SCH
== END ==
LOC: CARD 10:58
PROVIDERS: ATTEND Internal Medicine Cardiovascular Disease
DX: I42.0 Dilated cardiomyopathy (principal); I25.10 Atherosclerotic heart disease of native coronary artery without angina pectoris; I10 Essential (primary) hypertension; G47.33 Obstructive sleep apnea (adult) (pediatric); I45.19 Other right bundle-branch block
CPT/HCPCS: 93306

== ENCOUNTER 2018-04-24 13:53 | Inpatient (IN) | payer MEDICARE ==
[~2018-04-24] VITALS: Ht 167.6 cm; Wt 85.3 kg
[~2018-04-24 13:53] MED LIST changes: +FLUT16SP22 NS
--- OUTSIDE RECORDS SUMMARY | 2018-04-24 14:22 | XMS REPORT | Continuity of Care Document ---
Author Author [facility] Organization [facility] Address Unknown Phone Unavailable Allergies Active Description Code Type Severity Reaction Onset Reported/Identified Relationship to Patient Clinical Status Yes NKANo Known Allergies NKA Miscellaneous Allergy Mild N/A 10/22/2012 Medications There is no data. Problems Date Dx Coded Attending Type Code Diagnosis Diagnosed By 04/05/1509 NAKITA NAVA Ot C82.13 FOLLICULAR LYMPHOMA GRADE II, INTRA-ABDO 04/05/1509 NAKITA NAVA Ot E78.00 PURE HYPERCHOLESTEROLEMIA, UNSPECIFIED 04/05/1509 NAKITA NAVA Ot G47.33 OBSTRUCTIVE SLEEP APNEA (ADULT) (PEDIATR 04/05/1509 NAKITA NAVA Ot I25.10 ATHSCL HEART DISEASE OF [place] CORONARY 04/05/1509 NAKITA NAVA Ot I27.9 PULMONARY HEART DISEASE, UNSPECIFIED 04/05/1509 NAKITA NAVA Ot I45.10 UNSPECIFIED RIGHT BUNDLE-BRANCH BLOCK 04/05/1509 NAKITA NAVA Ot J44.9 CHRONIC OBSTRUCTIVE PULMONARY DISEASE, U 04/05/1509 NAKITA NAVA Ot Z51.11 ENCOUNTER FOR ANTINEOPLASTIC CHEMOTHERAP 04/05/1509 NAKITA NAVA Ot Z79.899 OTHER SENIOR CARE (CURRENT) DRUG THERAPY 08/24/2010 Ot 202.08 08/24/2010 Ot 275.2 08/24/2010 [...] V58.81 FIT/ADJ VASCULAR CATHETER 10/02/2012 NAKITA NAVA N Ot 202.80 OTH LYMPHOMAS EXTRANODAL SOLID ORGAN U 10/02/2012 NAKITA NAVA Ot V58.81 FIT/ADJ VASCULAR CATHETER 10/23/2012 ADRIEL ANDERSON, JUDI S Ot 202.80 OTH LYMPHOMAS EXTRANODAL SOLID ORGAN U 10/23/2012 ADRIEL ANDERSON, JUDI S Ot 496 CHR AIRWAY OBSTRUCT NEC 10/23/2012 ADRIEL ANDERSON, JUDI S Ot 511.9 PLEURAL EFFUSION NOS 10/23/2012 ADRIEL ANDERSON, JUDI S Ot 785.6 ENLARGEMENT LYMPH NODES 10/23/2012 ADRIEL ANDERSON, JUDI S Ot V58.69 OTH MED,LT,CURRENT USE 01/29/2013 NAKITA NAVA N Ot 202.80 OTH LYMPHOMAS EXTRANODAL SOLID ORGAN U 01/29/2013 NAKITA NAVA Ot V58.69 OTH MED,LT,CURRENT USE 01/29/2013 NAKITA NAVA Ot V87.41 PERSONAL HISTORY OF ANTINEOPLASTIC CHEMO 05/04/2013 NAKITA NAVA Ot 202.80 OTH LYMPHOMAS EXTRANODAL SOLID ORGAN U 05/04/2013 NAKITA NAVA Ot 511.9 PLEURAL EFFUSION NOS 05/04/2013 NAKITA NAVA Ot V07.8 OTHER SPECIFIED PROPHYLACTIC OR TREATMEN 05/04/2013 NAKITA NAVA Ot V58.11 ENCOUNTER FOR ANTINEOPLASTIC CHEMOTHERAP 05/04/2013 NAKITA NAVA Ot V58.69 OTH MED,LT,CURRENT USE 08/25/2013 NAKITA NAVA Ot 202.80 OTH LYMPHOMAS EXTRANODAL SOLID ORGAN U 08/25/2013 BRANDYNAKITA N Ot 272.4 HYPERLIPIDEMIA NEC/NOS 08/25/2013 BRANDYBRYNNAN N Ot V58.69 OTH MED,LT,CURRENT USE 12/15/2013 BRANDY BOBAN N Ot 202.80 OTH LYMPHOMAS EXTRANODAL SOLID ORGAN U 12/15/2013 BRANDYBRYNNAN N Ot V58.69 OTH MED,LT,CURRENT USE 12/15/2013 BRANDY BOBAN N Ot V58.81 FIT/ADJ VASCULAR CATHETER 01/21/2014 TOM JC DO Ot 327.23 OBSTRUCTIVE SLEEP APNEA (ADULT) (PEDIATR 01/21/2014 TOM JC DO Ot 786.09 RESPIRATORY ABNORM NEC 03/29/2014 BRANDYBRYNN JACKSONAN N Ot 202.80 OTH LYMPHOMAS EXTRANODAL SOLID ORGAN U 03/29/2014 BRANDYNAKITA N Ot V58.69 OTH MED,LT,CURRENT USE 03/29/2014 BRANDY BOBAN N Ot V58.81 FIT/ADJ VASCULAR CATHETER 05/04/2014 BRANDY, BOBAN N Ot 202.80 05/04/2014 BRANDY, BOBAN N Ot V58.69 05/04/2014 BRANDY, BOBAN N Ot V58.81 05/05/2014 BRANDY, BOBAN N Ot 202.80 05/05/2014 BRANDY, BOBAN N Ot V58.69 05/05/2014 BRANDY, BOBAN N Ot V58.81 05/11/2014 BRANDY, BOBAN N Ot 202.80 05/11/2014 BRANDY, BOBAN N Ot V58.69 05/11/2014 BRANDY, BOBAN N Ot V58.81 05/13/2014 Ot V76.12 05/13/2014 [...] 401.9 05/13/2014 Ot V58.69 05/13/2014 PADILLA ANDERSON [facility] CCDS Ot 425.4 05/13/2014 PADILLA ANDERSON [facility] CCDS Ot 786.09 05/13/2014 KAI VEE Pratibha EVALUATION ENGINEER Ot 202.80 05/13/2014 KAI VEE Pratibha EVALUATION ENGINEER Ot 786.09 05/13/2014 KAI VEE S EVALUATION ENGINEER Ot 202.80 05/13/2014 KAI VEE S EVALUATION ENGINEER Ot 511.9 05/13/2014 QUINN, VEE S EVALUATION ENGINEER Ot 786.09 05/13/2014 KAI VEE S EVALUATION ENGINEER Ot 202.80 05/13/2014 KAI VEE S EVALUATION ENGINEER Ot 511.9 05/13/2014 QUINN, VEE S EVALUATION ENGINEER Ot 786.09 05/13/2014 QUINN, VEE S EVALUATION ENGINEER Ot 793.19 05/13/2014 KAI VEE S EVALUATION ENGINEER Ot 202.80 05/13/2014 KAI VEE S EVALUATION ENGINEER Ot 786.09 05/13/2014 KAI VEE S EVALUATION ENGINEER Ot V87.41 05/13/2014 KAI ARIELDANIEL S EVALUATION ENGINEER Ot 202.80 05/13/2014 ADRIEL ANDERSON, JUDI S Ot 202.80 05/13/2014 ADRIEL ANDERSON, JUDI S Ot V72.83 05/13/2014 ADRIEL ANDERSON, JUDI S Ot V74.8 05/13/2014 NAKITA NAVA N Ot 202.80 05/13/2014 NAKITA NAVA Ot 786.09 05/13/2014 QUINNVEE Mckinnno EVALUATION ENGINEER Ot 202.80 05/13/2014 VEE QUINN S EVALUATION ENGINEER Ot 202.80 05/13/2014 QUINNVEE Mckinnon S EVALUATION ENGINEER Ot V58.69 05/13/2014 QUINNVEE Mckinnon S EVALUATION ENGINEER Ot 202.80 05/13/2014 PADILLA ANDERSON [facility] CCDS Ot 272.4 05/13/2014 PADILLA ANDERSON [facility] CCDS Ot 414.01 05/13/2014 QUINNVEE Mckinnon S EVALUATION ENGINEER Ot 202.80 05/13/2014 QUINNVEE Mckinnon S EVALUATION ENGINEER Ot 272.0 05/13/2014 QUINNVEE Mckinnon S EVALUATION ENGINEER Ot 401.9 05/13/2014 QUINNVEE Mckinnon S EVALUATION ENGINEER Ot 414.00 05/13/2014 QUINNVEE Mckinnon S EVALUATION ENGINEER Ot 425.4 05/13/2014 QUINNVEE Mckinnon S EVALUATION ENGINEER Ot 780.57 05/13/2014 QUINNVEE Mckinnon S EVALUATION ENGINEER Ot V58.69 05/13/2014 NAKITA NAVA N Ot 202.80 05/13/2014 VEE QUINN S EVALUATION ENGINEER Ot 202.80 05/13/2014 VEE QUINN S EVALUATION ENGINEER Ot 272.0 05/13/2014 QUINNVEE Mckinnon S EVALUATION ENGINEER Ot 401.9 05/13/2014 QUINNVEE Mckinnon S EVALUATION ENGINEER Ot 414.00 05/13/2014 QUINNVEE Mckinnon S EVALUATION ENGINEER Ot 425.4 05/13/2014 QUINNVEE Mckinnon S EVALUATION ENGINEER Ot V58.69 05/13/2014 NAKITA NAVA N Ot 202.80 05/13/2014 PADILLA ANDERSON [facility] CCDS Ot 272.4 05/13/2014 TOM JC DO Ot 278.00 05/13/2014 TOM JC DO Ot 416.9 05/13/2014 TOM JC DO Ot 425.4 05/13/2014 TOM JC DO Ot 780.57 05/13/2014 GIN JC DOSON M Ot 786.09 05/13/2014 VEE QUINN EVALUATION ENGINEER Ot 202.80 05/13/2014 VEE QUINN EVALUATION ENGINEER Ot V58.69 05/13/2014 NAKITA NAVA N Ot 202.80 05/13/2014 NAKITA NAVA N Ot V58.69 05/13/2014 NAKITA NAVA N Ot V58.81 2014 Ot V76.12 2014 [...] 401.9 2014 Ot V58.69 2014 PADILLA ANDERSON FACC, DAYNA READ CCDS Ot 425.4 2014 PADILLA ANDERSON FACC, DAYNA FACP CCDS Ot 786.09 2014 VEE QUINN EVALUATION ENGINEER Ot 202.80 2014 VEE QUINN EVALUATION ENGINEER Ot 786.09 2014 VEE QUINN EVALUATION ENGINEER Ot 202.80 2014 VEE QUINN S EVALUATION ENGINEER Ot 511.9 2014 VEE QUINN S EVALUATION ENGINEER Ot 786.09 2014 VEE QUINN S EVALUATION ENGINEER Ot 202.80 2014 VEE QUINN S EVALUATION ENGINEER Ot 511.9 2014 QUINNVEE Mckinnon S EVALUATION ENGINEER Ot 786.09 2014 QUINNVEE Mckinnon S EVALUATION ENGINEER Ot 793.19 2014 VEE QUINN S EVALUATION ENGINEER Ot 202.80 2014 QUINNVEE Mckinnon S EVALUATION ENGINEER Ot 786.09 2014 VEE QUINN S EVALUATION ENGINEER Ot V87.41 2014 VEE QUINN S EVALUATION ENGINEER Ot 202.80 2014 ADRIEL ANDERSON, JUDI S Ot 202.80 2014 ADRIEL ANDERSON, JUDI S Ot V72.83 2014 ADRIEL ANDERSON, JUDI S Ot V74.8 2014 NAKITA NAVA Ot 202.80 2014 NAKITA NAVA Ot 786.09 2014 VEE QUINN S EVALUATION ENGINEER Ot 202.80 2014 VEE QUINN S EVALUATION ENGINEER Ot 202.80 2014 VEE QUINN S EVALUATION ENGINEER Ot V58.69 2014 VEE QUINN S EVALUATION ENGINEER Ot 202.80 2014 PADILLA ANDERSON [facility] CCDS Ot 272.4 2014 PADILLA ANDERSON [facility] CCDS Ot 414.01 2014 VEE QUINN S EVALUATION ENGINEER Ot 202.80 2014 VEE QUINN S EVALUATION ENGINEER Ot 272.0 2014 QUINNVEE Mckinnon S EVALUATION ENGINEER Ot 401.9 2014 QUINNVEE Mckinnon S EVALUATION ENGINEER Ot 414.00 2014 QUINNVEE Mckinnon S EVALUATION ENGINEER Ot 425.4 2014 QUINNVEE S EVALUATION ENGINEER Ot 780.57 2014 QUINNVEE S EVALUATION ENGINEER Ot V58.69 2014 NAKITA NAVA N Ot 202.80 2014 VEE QUINN EVALUATION ENGINEER Ot 202.80 2014 VEE QUINN EVALUATION ENGINEER Ot 272.0 2014 VEE QUINN EVALUATION ENGINEER Ot 401.9 2014 VEE QUINN EVALUATION ENGINEER Ot 414.00 2014 VEE QUINN EVALUATION ENGINEER Ot 425.4 2014 VEE QUINN EVALUATION ENGINEER Ot V58.69 2014 NAKITA NAVA N Ot 202.80 2014 PADILLA ANDERSON FAC, DAYNA READ CCDS Ot 272.4 2014 TOM JC DO Ot 278.00 2014 TOM JC DO Ot 416.9 2014 TOM JC DO Ot 425.4 2014 TOM JC DO M Ot 780.57 2014 TOM JC DO M Ot 786.09 2014 VEE QUINN EVALUATION ENGINEER Ot 202.80 2014 VEE QUINN EVALUATION ENGINEER Ot V58.69 2014 NAKITA NAVA N Ot [...] 401.9 05/27/2014 Ot V58.69 05/27/2014 PADILLA ANDERSON [facility] CCDS Ot 425.4 05/27/2014 PADILLA ANDERSON [facility] CCDS Ot 786.09 05/27/2014 KAI ARIELDANIEL Mckinnon EVALUATION ENGINEER Ot 202.80 05/27/2014 VEE QUINN S EVALUATION ENGINEER Ot 786.09 05/27/2014 VEE QUINN S EVALUATION ENGINEER Ot 202.80 05/27/2014 KAI VEE S EVALUATION ENGINEER Ot 511.9 05/27/2014 KAI VEE S EVALUATION ENGINEER Ot 786.09 05/27/2014 VEE QUINN S EVALUATION ENGINEER Ot 202.80 05/27/2014 KAI VEE S EVALUATION ENGINEER Ot 511.9 05/27/2014 KAI VEE S EVALUATION ENGINEER Ot 786.09 05/27/2014 KAI VEE S EVALUATION ENGINEER Ot 793.19 05/27/2014 VEE QUINN S EVALUATION ENGINEER Ot 202.80 05/27/2014 KAI VEE S EVALUATION ENGINEER Ot 786.09 05/27/2014 KAI VEE S EVALUATION ENGINEER Ot V87.41 05/27/2014 KAI ARIELDANIEL S EVALUATION ENGINEER Ot 202.80 05/27/2014 ADRIEL ANDERSON, JUDI S Ot 202.80 05/27/2014 ADRIEL ANDERSON, JUDI S Ot V72.83 05/27/2014 ADRIEL ANDERSON, JUDI S Ot V74.8 05/27/2014 NAKITA NAVA Ot 202.80 05/27/2014 NAKITA NAVA Ot 786.09 05/27/2014 VEE QUINN EVALUATION ENGINEER Ot 202.80 05/27/2014 VEE QUINN S EVALUATION ENGINEER Ot 202.80 05/27/2014 VEE QUINN S EVALUATION ENGINEER Ot V58.69 05/27/2014 VEE QUINN S EVALUATION ENGINEER Ot 202.80 05/27/2014 PADILLA ANDERSON [facility] CCDS Ot 272.4 05/27/2014 PADILLA ANDERSON [facility] CCDS Ot 414.01 05/27/2014 VEE QUINN S EVALUATION ENGINEER Ot 202.80 05/27/2014 VEE QUINN S EVALUATION ENGINEER Ot 272.0 05/27/2014 VEE QUINN S EVALUATION ENGINEER Ot 401.9 05/27/2014 QUINNVEE S EVALUATION ENGINEER Ot 414.00 05/27/2014 QUINNVEE S EVALUATION ENGINEER Ot 425.4 05/27/2014 VEE QUINN S EVALUATION ENGINEER Ot 780.57 05/27/2014 VEE QUINN S EVALUATION ENGINEER Ot V58.69 05/27/2014 NAKITA NAVA Ot 202.80 05/27/2014 QUINNVEE Mckinnon S EVALUATION ENGINEER Ot 202.80 05/27/2014 VEE QUINN S EVALUATION ENGINEER Ot 272.0 05/27/2014 VEE QUINN S EVALUATION ENGINEER Ot 401.9 05/27/2014 VEE QUINN S EVALUATION ENGINEER Ot 414.00 05/27/2014 VEE QUINN S EVALUATION ENGINEER Ot 425.4 05/27/2014 QUINNVEE Mckinnon S EVALUATION ENGINEER Ot V58.69 05/27/2014 NAKITA NAVA Ot 202.80 05/27/2014 PADILLA ANDERSON [facility] CCDS Ot 272.4 05/27/2014 TOM JC DO Ot 278.00 05/27/2014 TOM JC DO Ot 416.9 05/27/2014 TOM JC DO Ot 425.4 05/27/2014 TOM JC DO M Ot 780.57 05/27/2014 TOM JC DO Ot 786.09 05/27/2014 KAIVEE S EVALUATION ENGINEER Ot 202.80 05/27/2014 KAI VEE S EVALUATION ENGINEER Ot V58.69 05/27/2014 NAKITA NAVA Ot 202.80 05/27/2014 NAKITA NAVA N Ot V58.69 05/27/2014 NAKITA NAVA N Ot V58.81 06/01/2014 NAKITA NAVA N Ot 202.80 OTH LYMPHOMAS EXTRANODAL SOLID ORGAN U 06/01/2014 NAKITA NAVA N Ot V58.69 OTH MED,LT,CURRENT USE 06/01/2014 NAKITA NAVA N Ot V58.81 FIT/ADJ VASCULAR CATHETER 06/16/2014 BRYNN NAVABRENDON N Ot 202.80 06/25/2014 NAKITA NAVA N Ot 202.80 07/28/2014 Ot 272.0 07/28/2014 Ot 414.00 07/28/2014 Ot 272.0 07/28/2014 Ot 414.00 08/06/2014 Ot 272.0 08/06/2014 Ot 414.00 08/25/2014 NAKITA NAVA N Ot 202.80 OTH LYMPHOMAS EXTRANODAL SOLID ORGAN U 08/25/2014 NAKITA NAVA N Ot V58.69 OTH MED,LT,CURRENT USE 08/25/2014 NAKITA NAVA N Ot V58.81 FIT/ADJ VASCULAR CATHETER 08/25/2014 [...] SHANTEL POZO MD Ot 790.7 BACTEREMIA 08/27/2014 SHATNEL POZO MD Ot 799.02 HYPOXEMIA 08/27/2014 SHANTEL POZO MD Ot V15.82 HISTORY OF TOBACCO USE 08/31/2014 BRANDYNAKITA JACKSON N Ot 202.80 08/31/2014 BRANDY NAKITA N Ot V58.69 08/31/2014 BRANDY, BOBAN N Ot V58.81 08/31/2014 BRYNN NAVAAN N Ot 202.80 08/31/2014 BRANDYNAKITA JACKSON N Ot V58.69 08/31/2014 BRANDYNAKITA JACKSON N Ot V58.81 08/31/2014 BRANDYBRYNN JACKSONAN N Ot 202.80 08/31/2014 BRANDYNAKITA JACKSON N Ot V58.69 08/31/2014 BRANDYNAKITA JACKSON N Ot V58.81 09/01/2014 BRANDYBRYNN JACKSONAN N Ot 202.80 09/01/2014 BRANDYNAKITA JACKSON N Ot V58.69 09/01/2014 BRANDYNAKITA JACKSON N Ot V58.81 10/03/2014 VEE QUINN S EVALUATION ENGINEER Ot 202.80 10/03/2014 QUINNARIELAH S EVALUATION ENGINEER Ot V58.69 10/23/2014 QUINN HILAH S EVALUATION ENGINEER Ot 202.80 10/23/2014 QUINN HILAH S EVALUATION ENGINEER Ot V58.69 11/02/2014 QUINN HILAH S EVALUATION ENGINEER Ot 202.80 11/02/2014 QUINN HILAH S EVALUATION ENGINEER Ot V58.69 11/12/2014 QUINN HILAH S EVALUATION ENGINEER Ot 202.80 11/12/2014 VEE QUINN S EVALUATION ENGINEER Ot V58.69 11/29/2014 NAKITA NAVA N Ot 202.80 OTH LYMPHOMAS EXTRANODAL SOLID ORGAN U 11/29/2014 NAKITA NAVA N Ot V58.69 OTH MED,LT,CURRENT USE 01/01/2015 SHERYL GHOSH BELT MAKER HELPER Ot 465.9 01/01/2015 SHERYL GHOSH BELT MAKER HELPER Ot 492.8 01/07/2015 SHERYL GHOSH BELT MAKER HELPER Ot 465.9 01/07/2015 SHERYL GHOSH BELT MAKER HELPER Ot 492.8 01/14/2015 BRANDYBRYNN JACKSONAN N Ot 202.80 01/14/2015 BRANDYBRYNN JACKSONAN N Ot V58.69 01/21/2015 BRANYD, BRYNNAN N Ot 202.80 01/21/2015 BRANDYBRYNN JACKSONAN N Ot V58.69 02/01/2015 Ot 202.80 02/01/2015 [...] 401.9 02/01/2015 Ot V58.69 02/01/2015 PADILLA ANDERSON [facility] CCDS Ot 425.4 02/01/2015 PADILLA ANDERSON [facility] CCDS Ot 786.09 02/01/2015 VEE QUINN EVALUATION ENGINEER Ot 202.80 02/01/2015 VEE QUINN EVALUATION ENGINEER Ot 786.09 02/01/2015 VEE QUINN EVALUATION ENGINEER Ot 202.80 02/01/2015 VEE QUINN EVALUATION ENGINEER Ot 511.9 02/01/2015 VEE QUINN EVALUATION ENGINEER Ot 786.09 02/01/2015 VEE QUINN EVALUATION ENGINEER Ot 202.80 02/01/2015 VEE QUINN EVALUATION ENGINEER Ot 511.9 02/01/2015 VEE QUINN EVALUATION ENGINEER Ot 786.09 02/01/2015 VEE QUINN EVALUATION ENGINEER Ot 793.19 02/01/2015 VEE QUINN EVALUATION ENGINEER Ot 202.80 02/01/2015 VEE QUINN EVALUATION ENGINEER Ot 786.09 02/01/2015 VEE QUINN EVALUATION ENGINEER Ot V87.41 02/01/2015 QUINNVEE Mckinnon S EVALUATION ENGINEER Ot 202.80 02/01/2015 ADRIEL ANDERSON, JUDI S Ot 202.80 02/01/2015 ADRIEL ANDERSON, JUDI S Ot V72.83 02/01/2015 ADRIEL ANDERSON, JUDI S Ot V74.8 02/01/2015 NAKITA NAVA Ot 202.80 02/01/2015 NAKITA NAVA Ot 786.09 02/01/2015 VEE QUINN S EVALUATION ENGINEER Ot 202.80 02/01/2015 QUINNVEE Mckinnon S EVALUATION ENGINEER Ot 202.80 02/01/2015 QUINNVEE Mckinnon S EVALUATION ENGINEER Ot V58.69 02/01/2015 QUINNVEE Mckinnon S EVALUATION ENGINEER Ot 202.80 02/01/2015 PADILLA ANDERSON [facility] CCDS Ot 272.4 02/01/2015 PADILLA ANDERSON [facility] CCDS Ot 414.01 02/01/2015 VEE QUINN S EVALUATION ENGINEER Ot 202.80 02/01/2015 VEE QUINN S EVALUATION ENGINEER Ot 272.0 02/01/2015 QUINNVEE Mckinnon S EVALUATION ENGINEER Ot 401.9 02/01/2015 QUINNVEE Mckinnon S EVALUATION ENGINEER Ot 414.00 02/01/2015 QUINNVEE Mckinnon S EVALUATION ENGINEER Ot 425.4 02/01/2015 QUINNVEE Mckinnon S EVALUATION ENGINEER Ot 780.57 02/01/2015 QUINNVEE Mckinnon S EVALUATION ENGINEER Ot V58.69 02/01/2015 NAKITA NAVA Ot 202.80 02/01/2015 QUINNVEE Mckinnon S EVALUATION ENGINEER Ot 202.80 02/01/2015 VEE QUINN S EVALUATION ENGINEER Ot 272.0 02/01/2015 QUINNVEE S EVALUATION ENGINEER Ot 401.9 02/01/2015 QUINNVEE S EVALUATION ENGINEER Ot 414.00 02/01/2015 QUINNVEE S EVALUATION ENGINEER Ot 425.4 02/01/2015 QUINNVEE Mckinnon S EVALUATION ENGINEER Ot V58.69 02/01/2015 NAKITA NAVA Ot 202.80 02/01/2015 PADILLA ANDERSON [facility] CCDS Ot 272.4 02/01/2015 TOM JC DO Ot 278.00 02/01/2015 TOM JC DO Ot 416.9 02/01/2015 TOM JC DO Ot 425.4 02/01/2015 TOM JC DO M Ot 780.57 02/01/2015 TOM JC DO Ot 786.09 02/01/2015 VEE QUINN S EVALUATION ENGINEER Ot 202.80 02/01/2015 VEE QUINN S EVALUATION ENGINEER Ot V58.69 02/01/2015 NAKITA NAVA N Ot 202.80 02/01/2015 Ot 272.0 02/01/2015 Ot 414.00 02/01/2015 VEE QUINN S EVALUATION ENGINEER Ot 202.80 02/01/2015 VEE QUINN S EVALUATION ENGINEER Ot V58.69 02/01/2015 VEE QUINN S EVALUATION ENGINEER Ot 202.80 02/01/2015 VEE QUINN S EVALUATION ENGINEER Ot V58.69 02/01/2015 NAKITA NAVA N Ot 202.80 02/01/2015 NAKITA NAVA N Ot V58.69 02/01/2015 SHERYL GHOSH BELT MAKER HELPER Ot 465.9 02/01/2015 SHERYL GHOSH APRN Ot 492.8 02/03/2015 NAKITA NAVA Ot 202.80 OTH LYMPHOMAS EXTRANODAL SOLID ORGAN U 02/03/2015 NAKITA NAVA Ot V58.69 OTH MED,LT,CURRENT USE 02/25/2015 CHRISTIAN GAYLE EVALUATION ENGINEER Ot 272.4 02/25/2015 CHRISTIAN GAYLE EVALUATION ENGINEER Ot 414.00 05/12/2015 VEE QUINN S EVALUATION ENGINEER Ot C85.80 05/12/2015 VEE QUINN S EVALUATION ENGINEER Ot Z79.899 05/12/2015 VEE QUINN S EVALUATION ENGINEER Ot C85.80 05/12/2015 VEE QUINN S EVALUATION ENGINEER Ot Z79.899 08/09/2015 NAKITA NAVA N Ot 202.80 08/09/2015 BRANDYBRYNN JACKSONAN N Ot V58.69 08/17/2015 NAKITA NAVA N Ot 202.80 08/17/2015 NAKITA NAVA N Ot V58.69 09/08/2015 ARTCHRISTIAN GOLDSMITH L EVALUATION ENGINEER Ot E78.0 PURE HYPERCHOLESTEROLEMIA 09/08/2015 BAIMA CHRISTIAN L EVALUATION ENGINEER Ot I25.10 ATHSCL HEART DISEASE OF [place] CORONARY 09/27/2015 BRANDYBRYNN JACKSONAN N Ot C85.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, UNSPE 09/27/2015 BRANDY, BOBAN N Ot Z79.899 OTHER SENIOR CARE (CURRENT) DRUG THERAPY 10/06/2015 BRANDY, BOBAN N Ot C85.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, UNSPE 10/06/2015 BRANDY, BOBAN N Ot Z79.899 OTHER CROWN POUNCER (CURRENT) DRUG THERAPY 11/14/2015 BRANDY BOBAN N Ot C85.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, UNSPE 11/14/2015 BRANDY, BOBAN N Ot Z79.899 OTHER CROWN POUNCER (CURRENT) DRUG THERAPY 02/07/2016 BRANDY, BOBAN N Ot C85.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, UNSPE 02/07/2016 BRANDY BOBAN N Ot Z79.899 OTHER CROWN POUNCER (CURRENT) DRUG THERAPY 02/07/2016 BRANDY, BOBAN N Ot C85.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, UNSPE 02/07/2016 BRANDY, BOBAN N Ot Z79.899 OTHER SENIOR CARE (CURRENT) DRUG THERAPY 02/16/2016 ARTAGUSCHRISTIAN EVALUATION ENGINEER Ot E78.00 PURE HYPERCHOLESTEROLEMIA, UNSPECIFIED 02/16/2016 ARTMAWILLARDCHRISTIAN L EVALUATION ENGINEER Ot I25.10 ATHSCL HEART DISEASE OF [place] CORONARY 02/16/2016 BRANDY, BOBAN N Ot C85.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, UNSPE 02/16/2016 BRANDY BOBAN N Ot Z79.899 OTHER CROWN POUNCER (CURRENT) DRUG THERAPY 02/18/2016 BAIMA, CHRISTIAN L EVALUATION ENGINEER Ot E78.00 PURE HYPERCHOLESTEROLEMIA, UNSPECIFIED 02/18/2016 BAIMA, CHRISTIAN L EVALUATION ENGINEER Ot I25.10 ATHSCL HEART DISEASE OF [place] CORONARY 02/18/2016 BAIMA, CHRISTIAN L EVALUATION ENGINEER Ot E78.00 PURE HYPERCHOLESTEROLEMIA, UNSPECIFIED 02/18/2016 BAIMA, CHRISTIAN L EVALUATION ENGINEER Ot I25.10 ATHSCL HEART DISEASE OF [place] CORONARY 02/18/2016 BAIMACHRISTIAN L EVALUATION ENGINEER Ot E78.00 PURE HYPERCHOLESTEROLEMIA, UNSPECIFIED 02/18/2016 BAIMA, CHRISTIAN L EVALUATION ENGINEER Ot I25.10 ATHSCL HEART DISEASE OF [place] CORONARY 02/29/2016 NAKITA NAVA Ot C85.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, UNSPE 02/29/2016 NAKITA NAVA Ot Z79.899 OTHER CROWN POUNCER (CURRENT) DRUG THERAPY 03/02/2016 BAIMA CHRISTIAN L EVALUATION ENGINEER Ot E78.00 PURE HYPERCHOLESTEROLEMIA, UNSPECIFIED 03/02/2016 BAIMA, CHRISTIAN L EVALUATION ENGINEER Ot I25.10 ATHSCL HEART DISEASE OF [place] CORONARY 03/02/2016 BAIMA, CHRISTIAN L EVALUATION ENGINEER Ot E78.00 PURE HYPERCHOLESTEROLEMIA, UNSPECIFIED 03/02/2016 BAIMA, CHRISTIAN L EVALUATION ENGINEER Ot I25.10 ATHSCL HEART DISEASE OF [place] CORONARY 03/02/2016 BAIMA CHRISTIAN L EVALUATION ENGINEER Ot E78.00 PURE HYPERCHOLESTEROLEMIA, UNSPECIFIED 03/02/2016 BAIMA, CHRISTIAN L EVALUATION ENGINEER Ot I25.10 ATHSCL HEART DISEASE OF [place] CORONARY 03/07/2016 BAIMA, CHRISTIAN L EVALUATION ENGINEER Ot E78.00 PURE HYPERCHOLESTEROLEMIA, UNSPECIFIED 03/07/2016 BAIMA, CHRISTIAN L EVALUATION ENGINEER Ot I25.10 ATHSCL HEART DISEASE OF [place] CORONARY 06/21/2016 MONROE ANDERSON, MITCHELL Ascencio Ot J18.9 PNEUMONIA, UNSPECIFIED ORGANISM 06/21/2016 MONROE ANDERSON, MITCHELL Ascencio Ot J44.1 CHRONIC OBSTRUCTIVE PULMONARY DISEASE W 06/21/2016 MONROE ANDERSON, MITCHELL Ascencio Ot R05 COUGH 06/21/2016 MONROE ANDERSON, MITCHELL Ascencio Ot Z79.899 OTHER CROWN POUNCER (CURRENT) DRUG THERAPY 06/21/2016 MONROE ANDERSON, MITCHELL Ascencio Ot Z87.891 PERSONAL HISTORY OF NICOTINE DEPENDENCE 06/21/2016 Ot 202.80 OTH LYMPHOMAS EXTRANODAL SOLID ORGAN U 06/21/2016 Ot 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,OTH ANTER WALL,SUBSEQ 06/21/2016 Ot 428.0 CONGESTIVE HEART FAILURE NOS 06/21/2016 Ot V58.69 OTH MED,LT, CURRENT USE 06/21/2016 Ot 401.9 HYPERTENSION NOS 06/21/2016 Ot 413.9 ANGINA PECTORIS NEC/NOS 06/21/2016 Ot 414.01 CORONARY ATHEROSCLEROSIS OF [place] CORON 06/21/2016 Ot 426.4 RT BUNDLE BRANCH BLOCK 06/21/2016 Ot 428.0 CONGESTIVE HEART FAILURE NOS 06/21/2016 Ot 786.05 SHORTNESS OF BREATH 06/21/2016 Ot 794.39 ABN CARDIOVASC STUDY NEC 06/21/2016 Ot V58.69 OTH MED,LT, CURRENT USE 06/21/2016 Ot V72.63 PRE- PROCEDURAL LABORATORY EXAMINATION 06/21/2016 Ot V72.81 EXAM-PRE- OPERATIVE CARDIOVASCULAR 06/21/2016 Ot 272.4 HYPERLIPIDEMIA NEC/NOS 06/21/2016 Ot 414.01 CORONARY ATHEROSCLEROSIS OF [place] CORON 06/21/2016 Ot V58.69 OTH MED,LT, CURRENT USE 06/21/2016 Ot 414.01 CORONARY ATHEROSCLEROSIS OF [place] CORON 06/21/2016 Ot V58.69 OTH MED,LT, CURRENT USE 06/21/2016 Ot 425.4 PRIM CARDIOMYOPATHY NEC 06/21/2016 Ot 272.4 HYPERLIPIDEMIA NEC/NOS 06/21/2016 Ot 414.01 CORONARY ATHEROSCLEROSIS OF [place] CORON 06/21/2016 Ot V58.69 OTH MED,LT, CURRENT USE 06/21/2016 Ot 272.4 HYPERLIPIDEMIA NEC/NOS 06/21/2016 Ot V58.69 OTH MED,LT, CURRENT USE 06/21/2016 Ot 272.4 HYPERLIPIDEMIA NEC/NOS 06/21/2016 Ot V58.69 OTH MED,LT, CURRENT USE 06/21/2016 Ot 272.4 HYPERLIPIDEMIA NEC/NOS 06/21/2016 Ot 401.9 HYPERTENSION NOS 06/21/2016 Ot V58.69 OTH MED,LT, CURRENT USE 06/21/2016 PADILLA ANDERSON FACLisy, ALI FACP CCDS Ot 425.4 PRIM CARDIOMYOPATHY NEC 06/21/2016 PADILLA ANDERSON FACC, ALI FACP CCDS Ot 786.09 RESPIRATORY ABNORM NEC 06/21/2016 VEE QUINN EVALUATION ENGINEER Ot 202.80 OTH LYMPHOMAS EXTRANODAL SOLID ORGAN U 06/21/2016 VEE QUINN EVALUATION ENGINEER Ot 786.09 RESPIRATORY ABNORM NEC 06/21/2016 VEE QUINN EVALUATION ENGINEER Ot 202.80 OTH LYMPHOMAS EXTRANODAL SOLID ORGAN U 06/21/2016 VEE QUINN EVALUATION ENGINEER Ot 511.9 PLEURAL EFFUSION NOS 06/21/2016 VEE QUINN EVALUATION ENGINEER Ot 786.09 RESPIRATORY ABNORM NEC 06/21/2016 VEE QUINN EVALUATION ENGINEER Ot 202.80 OTH LYMPHOMAS EXTRANODAL SOLID ORGAN U 06/21/2016 VEE QUINN EVALUATION ENGINEER Ot 511.9 PLEURAL EFFUSION NOS 06/21/2016 ARIEL QUINNDANIEL Pratibha EVALUATION ENGINEER Ot 786.09 RESPIRATORY ABNORM NEC 06/21/2016 KAI VEE Pratibha EVALUATION ENGINEER Ot 793.19 OTHER NONSPECIFIC ABNORMAL FINDING OF [place] 06/21/2016 VEE QUINN EVALUATION ENGINEER Ot 202.80 OTH LYMPHOMAS EXTRANODAL SOLID ORGAN U 06/21/2016 EVE QUINN EVALUATION ENGINEER Ot 786.09 RESPIRATORY ABNORM NEC 06/21/2016 VEE QUINN EVALUATION ENGINEER Ot V87.41 PERSONAL HISTORY OF ANTINEOPLASTIC CHEMO 06/21/2016 VEE QUINN EVALUATION ENGINEER Ot 202.80 OTH LYMPHOMAS EXTRANODAL SOLID ORGAN U 06/21/2016 JUDI MOREL MD Ot 202.80 OTH LYMPHOMAS EXTRANODAL SOLID ORGAN U 06/21/2016 JUDI MOREL MD Ot V72.83 EXAM PRE-OPERATIVE NEC 06/21/2016 JUDI MOREL MD Ot V74.8 SCREEN-BACTERIAL DIS NEC 06/21/2016 NAKITA NAVA Ot 202.80 OTH LYMPHOMAS EXTRANODAL SOLID ORGAN U 06/21/2016 NAKITA NAVA Ot 786.09 RESPIRATORY ABNORM NEC 06/21/2016 VEE QUINN EVALUATION ENGINEER Ot 202.80 OTH LYMPHOMAS EXTRANODAL SOLID ORGAN U 06/21/2016 VEE QUINN EVALUATION ENGINEER Ot 202.80 OTH LYMPHOMAS EXTRANODAL SOLID ORGAN U 06/21/2016 VEE QUINN EVALUATION ENGINEER Ot V58.69 OTH MED,LT,CURRENT USE 06/21/2016 VEE QUINN EVALUATION ENGINEER Ot 202.80 OTH LYMPHOMAS EXTRANODAL SOLID ORGAN U 06/21/2016 PADILLA ANDERSON FAC, ALI FACP CCDS Ot 272.4 HYPERLIPIDEMIA NEC/NOS 06/21/2016 PADILLA ANDERSON FAC, ALI FACP CCDS Ot 414.01 CORONARY ATHEROSCLEROSIS OF [place] CORON 06/21/2016 VEE QUINN EVALUATION ENGINEER Ot 202.80 OTH LYMPHOMAS EXTRANODAL SOLID ORGAN U 06/21/2016 QUINNVEE Mckinnon S EVALUATION ENGINEER Ot 272.0 PURE HYPERCHOLESTEROLEM 06/21/2016 QUINNVEE Mckinnon S EVALUATION ENGINEER Ot 401.9 HYPERTENSION NOS 06/21/2016 VEE QUINN S EVALUATION ENGINEER Ot 414.00 CORON ATHEROSCLER NOS TYPE VESSEL, NATIV 06/21/2016 KAI VEE S EVALUATION ENGINEER Ot 425.4 PRIM CARDIOMYOPATHY NEC 06/21/2016 KAI VEE S EVALUATION ENGINEER Ot 780.57 UNSPECIFIED SLEEP APNEA 06/21/2016 KAI VEE S EVALUATION ENGINEER Ot V58.69 OTH MED,LT,CURRENT USE 06/21/2016 NAKITA NAVA Ot 202.80 OTH LYMPHOMAS EXTRANODAL SOLID ORGAN U 06/21/2016 VEE QUINN S EVALUATION ENGINEER Ot 202.80 OTH LYMPHOMAS EXTRANODAL SOLID ORGAN U 06/21/2016 KAI ARIELDANIEL S EVALUATION ENGINEER Ot 272.0 PURE HYPERCHOLESTEROLEM 06/21/2016 KAI VEE S EVALUATION ENGINEER Ot 401.9 HYPERTENSION NOS 06/21/2016 VEE QUINN S EVALUATION ENGINEER Ot 414.00 CORON ATHEROSCLER NOS TYPE VESSEL, NATIV 06/21/2016 KAI VEE S EVALUATION ENGINEER Ot 425.4 PRIM CARDIOMYOPATHY NEC 06/21/2016 KAI VEE S EVALUATION ENGINEER Ot V58.69 OTH MED,LT,CURRENT USE 06/21/2016 NAKITA NAVA Ot 202.80 OTH LYMPHOMAS EXTRANODAL SOLID ORGAN U 06/21/2016 PADILLA ANDERSON FACC, DAYNA QUICKP CCDS Ot 272.4 HYPERLIPIDEMIA NEC/NOS 06/21/2016 TOM JC DO Ot 278.00 OBESITY, NOS 06/21/2016 TOM JC DO Ot 416.9 CHR PULMON HEART DIS NOS 06/21/2016 TOM JC DO Ot 425.4 PRIM CARDIOMYOPATHY NEC 06/21/2016 TOM JC DO Ot 780.57 UNSPECIFIED SLEEP APNEA 06/21/2016 TOM JC DO Ot 786.09 RESPIRATORY ABNORM NEC 06/21/2016 VEE QUINN S EVALUATION ENGINEER Ot 202.80 OTH LYMPHOMAS EXTRANODAL SOLID ORGAN U 06/21/2016 VEE QUINN S EVALUATION ENGINEER Ot V58.69 OTH MED,LT,CURRENT USE 06/21/2016 NAKITA NAVA Ot 202.80 OTH LYMPHOMAS EXTRANODAL SOLID ORGAN U 06/21/2016 Ot 272.0 PURE HYPERCHOLESTEROLEM 06/21/2016 Ot 414.00 CORON ATHEROSCLER NOS TYPE VESSEL, NATIV 06/21/2016 QUINN, VEE S EVALUATION ENGINEER Ot 202.80 OTH LYMPHOMAS EXTRANODAL SOLID ORGAN U 06/21/2016 QUINNVEE S EVALUATION ENGINEER Ot V58.69 OTH MED,LT,CURRENT USE 06/21/2016 QUINN HILAH S EVALUATION ENGINEER Ot 202.80 OTH LYMPHOMAS EXTRANODAL SOLID ORGAN U 06/21/2016 QUINN HILAH S EVALUATION ENGINEER Ot V58.69 OTH MED,LT,CURRENT USE 06/21/2016 SHERYL GHOSH APRN Ot 465.9 ACUTE URI NOS 06/21/2016 SHERYL GHOSH BELT MAKER HELPER Ot 492.8 EMPHYSEMA NEC 06/21/2016 CHRISTIAN GAYLE EVALUATION ENGINEER Ot 272.4 HYPERLIPIDEMIA NEC/NOS 06/21/2016 CHRISTIAN GAYLE L EVALUATION ENGINEER Ot 414.00 CORON ATHEROSCLER NOS TYPE VESSEL, NATIV 06/21/2016 VEE QUINN S EVALUATION ENGINEER Ot C85.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, UNSPE 06/21/2016 ARIEL QUINNAH S EVALUATION ENGINEER Ot Z79.899 OTHER CROWN POUNCER (CURRENT) DRUG THERAPY 06/21/2016 ARTMACHRISTIAN L EVALUATION ENGINEER Ot E78.0 PURE HYPERCHOLESTEROLEMIA 06/21/2016 ARTMAWILLARDCHRISTIAN L EVALUATION ENGINEER Ot I25.10 ATHSCL HEART DISEASE OF [place] CORONARY 06/21/2016 NAKITA NAVA Ot C85.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, UNSPE 06/21/2016 NAKITA NAVA Ot Z79.899 OTHER SENIOR CARE (CURRENT) DRUG THERAPY 06/21/2016 ARTMACHRISTIAN L EVALUATION ENGINEER Ot E78.00 PURE HYPERCHOLESTEROLEMIA, UNSPECIFIED 06/21/2016 ARTMACHRISTIAN L EVALUATION ENGINEER Ot I25.10 ATHSCL HEART DISEASE OF [place] CORONARY 06/27/2016 MONROE ANDERSON, MITCHELL J Ot J18.9 PNEUMONIA, UNSPECIFIED ORGANISM 06/27/2016 MONROE ANDERSON, MITCHELL J Ot J44.1 CHRONIC OBSTRUCTIVE PULMONARY DISEASE W 06/27/2016 MITCHELL CHILDRESS MD Ot R05 COUGH 06/27/2016 MITCHELL CHILDRESS MD Ot Z79.899 OTHER SENIOR CARE (CURRENT) DRUG THERAPY 06/27/2016 MITCHELL CHILDRESS MD Ot Z87.891 PERSONAL HISTORY OF NICOTINE DEPENDENCE 09/01/2016 VEE QUINN EVALUATION ENGINEER Ot D25.9 LEIOMYOMA OF UTERUS, UNSPECIFIED 09/01/2016 VEE QUINN EVALUATION ENGINEER Ot N83.202 UNSPECIFIED OVARIAN CYST, LEFT SIDE 09/15/2016 BRANDYNAKITA N Ot C85.90 NON-[place] LYMPHOMA, UNSPECIFIED, UNSPE 09/15/2016 BRANDYNAKITA N Ot I89.0 LYMPHEDEMA, NOT ELSEWHERE CLASSIFIED 09/18/2016 BRANDYNAKITA N Ot C82.13 FOLLICULAR LYMPHOMA GRADE II, INTRA-ABDO 09/18/2016 BRANDYNAKITA N Ot D73.89 OTHER DISEASES OF SPLE[place] 09/18/2016 BRANDYNAKITA N Ot K42.9 UMBILICAL HERNIA WITHOUT OBSTRUCTION OR 09/18/2016 BRANDYNAKITA N Ot R59.0 LOCALIZED ENLARGED LYMPH NODES 09/21/2016 VEE QUINN EVALUATION ENGINEER Ot D25.9 LEIOMYOMA OF UTERUS, UNSPECIFIED 09/21/2016 VEE QUINN EVALUATION ENGINEER Ot N83.202 UNSPECIFIED OVARIAN CYST, LEFT SIDE 09/21/2016 BRANDY BRYNNBRENDON N Ot C82.13 FOLLICULAR LYMPHOMA GRADE II, INTRA-ABDO 09/21/2016 BRANDYNAKITA N Ot D73.89 OTHER DISEASES OF SPLE[place] 09/21/2016 BRANDYNAKITA N Ot K42.9 UMBILICAL HERNIA WITHOUT OBSTRUCTION OR 09/21/2016 BRANDY NAKITA N Ot R59.0 LOCALIZED ENLARGED LYMPH NODES 10/03/2016 VEE QUINN EVALUATION ENGINEER Ot D25.9 LEIOMYOMA OF UTERUS, UNSPECIFIED 10/03/2016 VEE QUINN EVALUATION ENGINEER Ot N83.202 UNSPECIFIED OVARIAN CYST, LEFT SIDE 10/03/2016 NAKITA NAVA N Ot C85.90 NON-[place] LYMPHOMA, UNSPECIFIED, UNSPE 10/03/2016 NAKITA NAVA N Ot G47.33 OBSTRUCTIVE SLEEP APNEA (ADULT) (PEDIATR 10/03/2016 NAKITA NAVA N Ot I27.9 PULMONARY HEART DISEASE, UNSPECIFIED 10/03/2016 BRANDY, BOBAN N Ot I42.9 CARDIOMYOPATHY, UNSPECIFIED 10/03/2016 BRANDY, BOBAN N Ot I89.0 LYMPHEDEMA, NOT ELSEWHERE CLASSIFIED 10/03/2016 BRANDY, BRYNNAN N Ot J44.9 CHRONIC OBSTRUCTIVE PULMONARY DISEASE, [...] ELSEWHERE CLASSIFIED 10/10/2016 BRANDY, BOBAN N Ot J44.9 CHRONIC OBSTRUCTIVE PULMONARY DISEASE, U 10/24/2016 LUCINDA ANDERSON, DOUGLAS N Ot D25.9 LEIOMYOMA OF UTERUS, UNSPECIFIED 10/24/2016 LUCINDA ANDERSON, DOUGLAS N Ot N83.202 UNSPECIFIED OVARIAN CYST, LEFT SIDE 11/02/2016 LUCINDA ANDERSON, DOUGLAS N Ot D25.9 LEIOMYOMA OF UTERUS, UNSPECIFIED 11/02/2016 LUCINDA ANDERSON, DOUGLAS N Ot N83.202 UNSPECIFIED OVARIAN CYST, LEFT SIDE 11/12/2016 BRANDY, BOBAN N Ot C82.13 FOLLICULAR LYMPHOMA GRADE II, INTRA-ABDO 11/12/2016 BRANDY, BOBAN N Ot C85.90 NON-[place] LYMPHOMA, UNSPECIFIED, UNSPE 11/12/2016 BRANDY, BOBAN N Ot E78.00 PURE HYPERCHOLESTEROLEMIA, UNSPECIFIED 11/12/2016 BRANDY, BOBAN N Ot G47.33 OBSTRUCTIVE SLEEP APNEA (ADULT) (PEDIATR 11/12/2016 BRANDY, BOBAN N Ot I25.10 ATHSCL HEART DISEASE OF [place] CORONARY 11/12/2016 BRANDY, BOBAN N Ot I27.9 PULMONARY HEART DISEASE, UNSPECIFIED 11/12/2016 BRANDYNAKITA JACKSON N Ot I42.9 CARDIOMYOPATHY, UNSPECIFIED 11/12/2016 BRANDY, BRYNNBRENDON N Ot I45.10 UNSPECIFIED RIGHT BUNDLE-BRANCH BLOCK 11/12/2016 BRANDY, BRYNNBRENDON N Ot I89.0 LYMPHEDEMA, NOT ELSEWHERE CLASSIFIED 11/12/2016 BRANDY BRYNNBRENDON N Ot J44.9 CHRONIC OBSTRUCTIVE PULMONARY DISEASE, U 11/12/2016 BRANDY BRYNNAN N Ot Z79.899 OTHER SENIOR CARE (CURRENT) DRUG THERAPY 12/29/2016 BRANDY, BOBAN N Ot C85.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, UNSPE 12/29/2016 BRANDY, BOBAN N Ot E78.00 PURE HYPERCHOLESTEROLEMIA, UNSPECIFIED 12/29/2016 BRANDY, BOBAN N Ot I25.10 ATHSCL HEART DISEASE OF [place] CORONARY 12/29/2016 BRANDY, BOBAN N Ot Z79.899 OTHER SENIOR CARE (CURRENT) DRUG THERAPY 01/09/2017 BRANDY, BOBAN N Ot C85.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, UNSPE 01/09/2017 BRANDY, BOBAN N Ot E78.00 PURE HYPERCHOLESTEROLEMIA, UNSPECIFIED 01/09/2017 BRANDY, BOBAN N Ot I25.10 ATHSCL HEART DISEASE OF [place] CORONARY 01/09/2017 BRANDY, BOBAN N Ot Z79.899 OTHER SENIOR CARE (CURRENT) DRUG THERAPY 01/09/2017 BRANDY, BOBAN N Ot C85.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, UNSPE 01/09/2017 BRANDY, BOBAN N Ot E78.00 PURE HYPERCHOLESTEROLEMIA, UNSPECIFIED 01/09/2017 BRANDY, BOBAN N Ot I25.10 ATHSCL HEART DISEASE OF [place] CORONARY 01/09/2017 BRANDY, BOBAN N Ot Z79.899 OTHER SENIOR CARE (CURRENT) DRUG THERAPY 01/10/2017 MARGO HOWARD DO Ot N83.202 UNSPECIFIED OVARIAN CYST, LEFT SIDE 01/17/2017 ALEXA JOSHUA EVALUATION ENGINEER Ot J90 PLEURAL EFFUSION, NOT ELSEWHERE CLASSIFI 01/17/2017 ALEXA JOSHUA EVALUATION ENGINEER Ot R09.02 HYPOXEMIA 01/17/2017 MARGO HOWARD DO Ot N83.202 UNSPECIFIED OVARIAN CYST, LEFT SIDE 01/18/2017 ALEXA JOSHUA EVALUATION ENGINEER Ot J90 PLEURAL EFFUSION, NOT ELSEWHERE CLASSIFI 01/18/2017 ALEXA JOSHUA EVALUATION ENGINEER Ot R09.02 HYPOXEMIA 02/12/2017 ALEXA JOSHUA EVALUATION ENGINEER Ot J18.9 PNEUMONIA, UNSPECIFIED ORGANISM 02/12/2017 ALEXA JOSHUA EVALUATION ENGINEER Ot J43.9 EMPHYSEMA, UNSPECIFIED 02/12/2017 EATALEXA HECK EVALUATION ENGINEER Ot J90 PLEURAL EFFUSION, NOT ELSEWHERE CLASSIFI 02/12/2017 EATALEXA HECK EVALUATION ENGINEER Ot R09.02 HYPOXEMIA 02/14/2017 EATALEXA HECK EVALUATION ENGINEER Ot J90 PLEURAL EFFUSION, NOT ELSEWHERE CLASSIFI 02/14/2017 ALEXA JOSHUA EVALUATION ENGINEER Ot R09.02 HYPOXEMIA 02/15/2017 BRANDY, BOBAN N Ot C82.13 FOLLICULAR LYMPHOMA GRADE II, INTRA-ABDO 02/15/2017 BRANDY, BOBAN N Ot E78.00 PURE HYPERCHOLESTEROLEMIA, UNSPECIFIED 02/15/2017 BRANDY, BOBAN N Ot G47.33 OBSTRUCTIVE SLEEP APNEA (ADULT) (PEDIATR 02/15/2017 BRANDY, BOBAN N Ot I25.10 ATHSCL HEART DISEASE OF [place] CORONARY 02/15/2017 BRANDY, BOBAN N Ot I27.9 PULMONARY HEART DISEASE, UNSPECIFIED 02/15/2017 BRANDY, BOBAN N Ot I45.10 UNSPECIFIED RIGHT BUNDLE-BRANCH BLOCK 02/15/2017 BRANDY, BOBAN N Ot J44.9 CHRONIC OBSTRUCTIVE PULMONARY DISEASE, U 02/15/2017 BRANDY BOBAN N Ot Z79.899 OTHER CROWN POUNCER (CURRENT) DRUG THERAPY 03/30/2017 BRANDY BOBAN N Ot C82.13 FOLLICULAR LYMPHOMA GRADE II, INTRA-ABDO 03/30/2017 BRANDY, BOBAN N Ot E78.00 PURE HYPERCHOLESTEROLEMIA, UNSPECIFIED 03/30/2017 BRANDY, BOBAN N Ot G47.33 OBSTRUCTIVE SLEEP APNEA (ADULT) (PEDIATR 03/30/2017 BRANDY, BOBAN N Ot I25.10 ATHSCL HEART DISEASE OF [place] CORONARY 03/30/2017 BRANDY, BOBAN N Ot I27.9 PULMONARY HEART DISEASE, UNSPECIFIED 03/30/2017 BRANDY, BOBAN N Ot I45.10 UNSPECIFIED RIGHT BUNDLE-BRANCH BLOCK 03/30/2017 BRANDY, BOBAN N Ot J44.9 CHRONIC OBSTRUCTIVE PULMONARY DISEASE, U 03/30/2017 NAKITA NAVA N Ot Z79.899 OTHER CROWN POUNCER (CURRENT) DRUG THERAPY 05/02/2017 PADILLA ANDERSON FACC, ALI FACP CCDS Ot E66.09 OTHER OBESITY DUE TO EXCESS CALORIES 05/02/2017 PADILLA ANDERSON FACC, ALI FACP CCDS Ot I10 ESSENTIAL (PRIMARY) HYPERTENSION 05/02/2017 PADILLA ANDERSON FACC, ALI FACP CCDS Ot I25.10 ATHSCL HEART DISEASE OF [place] CORONARY 05/02/2017 PADILLA ANDERSON FACC, ALI FACP CCDS Ot I42.0 DILATED CARDIOMYOPATHY 05/02/2017 PADILLA ANDERSON FACC, ALI FACP CCDS Ot J43.8 OTHER EMPHYSEMA 05/06/2017 NAKITA NAVA Ot C82.13 FOLLICULAR LYMPHOMA GRADE II, INTRA-ABDO 05/06/2017 NAKITA NAVA N Ot E78.00 PURE HYPERCHOLESTEROLEMIA, UNSPECIFIED 05/06/2017 NAKITA NAVA Ot G47.33 OBSTRUCTIVE SLEEP APNEA (ADULT) (PEDIATR 05/06/2017 NAKITA NAVA N Ot I25.10 ATHSCL HEART DISEASE OF [place] CORONARY 05/06/2017 NAKITA NAVA N Ot I27.9 PULMONARY HEART DISEASE, UNSPECIFIED 05/06/2017 NAKITA NAVA Ot I45.10 UNSPECIFIED RIGHT BUNDLE-BRANCH BLOCK 05/06/2017 NAKITA NAVA N Ot J44.9 CHRONIC OBSTRUCTIVE PULMONARY DISEASE, U 05/06/2017 NAKITA NAVA N Ot Z79.899 OTHER CROWN POUNCER (CURRENT) DRUG THERAPY 05/11/2017 PADILLA ANDERSON FACC, DAYNA FACP CCDS Ot E66.09 OTHER OBESITY DUE TO EXCESS CALORIES 05/11/2017 PADILLA ANDERSON FACC, ALI FACP CCDS Ot I10 ESSENTIAL (PRIMARY) HYPERTENSION 05/11/2017 PADILLA ANDERSON FACC, ALI FACP CCDS Ot I25.10 ATHSCL HEART DISEASE OF [place] CORONARY 05/11/2017 PADILLA ANDERSON FACC, ALI FACP CCDS Ot I42.0 DILATED CARDIOMYOPATHY 05/11/2017 PADILLA ANDERSON FACC, ALI FACP CCDS Ot J43.8 OTHER EMPHYSEMA 06/20/2017 LAVINIA MONTANEZ DO Ot E78.00 PURE HYPERCHOLESTEROLEMIA, UNSPECIFIED 06/20/2017 LAVINIA MONTANEZ DO Ot I10 ESSENTIAL (PRIMARY) HYPERTENSION 06/20/2017 LAVINIA MONTANEZ DO Ot I25.2 OLD MYOCARDIAL INFARCTION 06/20/2017 ALVINIA MONTANEZ DO Ot J18.8 OTHER PNEUMONIA, UNSPECIFIED [...] MD Ot I25.10 ATHSCL HEART DISEASE OF [place] CORONARY 07/31/2017 LIAM OSPINA MD Ot I27.9 PULMONARY HEART DISEASE, UNSPECIFIED 07/31/2017 LIAM OSPINA MD Ot I45.10 UNSPECIFIED RIGHT BUNDLE-BRANCH BLOCK 07/31/2017 LIAM OSPINA MD Ot J44.9 CHRONIC OBSTRUCTIVE PULMONARY DISEASE, U 07/31/2017 LIAM OSPINA MD Ot Z79.899 OTHER CROWN POUNCER (CURRENT) DRUG THERAPY 07/31/2017 Ot 272.4 HYPERLIPIDEMIA NEC/NOS 07/31/2017 Ot 401.9 HYPERTENSION NOS 07/31/2017 Ot V58.69 OTH MED,LT, CURRENT USE 07/31/2017 PADILLA ANDERSON FACLisy, DAYNA QUICKP CCDS Ot 425.4 PRIM CARDIOMYOPATHY NEC 07/31/2017 PADILLA ANDERSON FACLisy, ALI FACP CCDS Ot 786.09 RESPIRATORY ABNORM NEC 07/31/2017 QUINN, HILAH S EVALUATION ENGINEER Ot 202.80 OTH LYMPHOMAS EXTRANODAL SOLID ORGAN U 07/31/2017 VEE QUINN S EVALUATION ENGINEER Ot 786.09 RESPIRATORY ABNORM NEC 07/31/2017 VEE QUINN EVALUATION ENGINEER Ot 202.80 OTH LYMPHOMAS EXTRANODAL SOLID ORGAN U 07/31/2017 VEE QUINN S EVALUATION ENGINEER Ot 511.9 PLEURAL EFFUSION NOS 07/31/2017 VEE QUINN S EVALUATION ENGINEER Ot 786.09 RESPIRATORY ABNORM NEC 07/31/2017 VEE QUINN S EVALUATION ENGINEER Ot 202.80 OTH LYMPHOMAS EXTRANODAL SOLID ORGAN U 07/31/2017 ARIEL QUINNDANIEL Mckinnon EVALUATION ENGINEER Ot 511.9 PLEURAL EFFUSION NOS 07/31/2017 VEE QUINN S EVALUATION ENGINEER Ot 786.09 RESPIRATORY ABNORM NEC 07/31/2017 VEE QUINN EVALUATION ENGINEER Ot 793.19 OTHER NONSPECIFIC ABNORMAL FINDING OF [place] 07/31/2017 VEE QUINN EVALUATION ENGINEER Ot 202.80 OTH LYMPHOMAS EXTRANODAL SOLID ORGAN U 07/31/2017 VEE QUINN EVALUATION ENGINEER Ot 786.09 RESPIRATORY ABNORM NEC 07/31/2017 ARIEL QUINNDANIEL Mckinnon EVALUATION ENGINEER Ot V87.41 PERSONAL HISTORY OF ANTINEOPLASTIC CHEMO 07/31/2017 VEE QUINN EVALUATION ENGINEER Ot 202.80 OTH LYMPHOMAS EXTRANODAL SOLID ORGAN U 07/31/2017 JUDI MOREL MD Ot 202.80 OTH LYMPHOMAS EXTRANODAL SOLID ORGAN U 07/31/2017 JUDI MOREL MD Ot V72.83 EXAM PRE-OPERATIVE NEC 07/31/2017 JUDI MOREL MD Ot V74.8 SCREEN-BACTERIAL DIS NEC 07/31/2017 NAKITA NAVA Ot 202.80 OTH LYMPHOMAS EXTRANODAL SOLID ORGAN U 07/31/2017 NAKITA NAVA Ot 786.09 RESPIRATORY ABNORM NEC 07/31/2017 VEE QUINN EVALUATION ENGINEER Ot 202.80 OTH LYMPHOMAS EXTRANODAL SOLID ORGAN U 07/31/2017 VEE QUINN S EVALUATION ENGINEER Ot 202.80 OTH LYMPHOMAS EXTRANODAL SOLID ORGAN U 07/31/2017 VEE QUINN EVALUATION ENGINEER Ot V58.69 OTH MED,LT,CURRENT USE 07/31/2017 VEE QUINN S EVALUATION ENGINEER Ot 202.80 OTH LYMPHOMAS EXTRANODAL SOLID ORGAN U 07/31/2017 PADILLA QUICK, DAYNA FACP CCDS Ot 272.4 HYPERLIPIDEMIA NEC/NOS 07/31/2017 PADILLA QUICK, DAYNA FACP CCDS Ot 414.01 CORONARY ATHEROSCLEROSIS OF [place] CORON 07/31/2017 KAI VEE S EVALUATION ENGINEER Ot 202.80 OTH LYMPHOMAS EXTRANODAL SOLID ORGAN U 07/31/2017 VEE QUINN S EVALUATION ENGINEER Ot 272.0 PURE HYPERCHOLESTEROLEM 07/31/2017 VEE QUINN S EVALUATION ENGINEER Ot 401.9 HYPERTENSION NOS 07/31/2017 VEE QUINN S EVALUATION ENGINEER Ot 414.00 CORON ATHEROSCLER NOS TYPE VESSEL, NATIV 07/31/2017 VEE QUINN S EVALUATION ENGINEER Ot 425.4 PRIM CARDIOMYOPATHY NEC 07/31/2017 ARIEL QUINNAH S EVALUATION ENGINEER Ot 780.57 UNSPECIFIED SLEEP APNEA 07/31/2017 VEE QUINN S EVALUATION ENGINEER Ot V58.69 OTH MED,LT,CURRENT USE 07/31/2017 NAKITA NAVA Ot 202.80 OTH LYMPHOMAS EXTRANODAL SOLID ORGAN U 07/31/2017 VEE QUINN S EVALUATION ENGINEER Ot 202.80 OTH LYMPHOMAS EXTRANODAL SOLID ORGAN U 07/31/2017 VEE QUINN S EVALUATION ENGINEER Ot 272.0 PURE HYPERCHOLESTEROLEM 07/31/2017 VEE QUINN S EVALUATION ENGINEER Ot 401.9 HYPERTENSION NOS 07/31/2017 VEE QUINN S EVALUATION ENGINEER Ot 414.00 CORON ATHEROSCLER NOS TYPE VESSEL, NATIV 07/31/2017 VEE QUINN S EVALUATION ENGINEER Ot 425.4 PRIM CARDIOMYOPATHY NEC 07/31/2017 VEE QUINN S EVALUATION ENGINEER Ot V58.69 OTH MED,LT,CURRENT USE 07/31/2017 NAKITA NAVA Ot 202.80 OTH LYMPHOMAS EXTRANODAL SOLID ORGAN U 07/31/2017 PADILLA QUICK, DAYNA FACCheryl CCDS Ot 272.4 HYPERLIPIDEMIA NEC/NOS 07/31/2017 TOM JC DO Ot 278.00 OBESITY, NOS 07/31/2017 TOM JC DO Ot 416.9 CHR PULMON HEART DIS NOS 07/31/2017 TOM JC DO Ot 425.4 PRIM CARDIOMYOPATHY NEC 07/31/2017 TOM JC DO Ot 780.57 UNSPECIFIED SLEEP APNEA 07/31/2017 HOSEATOM BUSTOS DO Ot 786.09 RESPIRATORY ABNORM NEC 07/31/2017 VEE QUINN S EVALUATION ENGINEER Ot 202.80 OTH LYMPHOMAS EXTRANODAL SOLID ORGAN U 07/31/2017 VEE QUINN S EVALUATION ENGINEER Ot V58.69 OTH MED,LT,CURRENT USE 07/31/2017 NAKITA NAVA Ot 202.80 OTH LYMPHOMAS EXTRANODAL SOLID ORGAN U 07/31/2017 Ot 272.0 PURE HYPERCHOLESTEROLEM 07/31/2017 Ot 414.00 CORON ATHEROSCLER NOS TYPE VESSEL, NATIV 07/31/2017 VEE QUINN EVALUATION ENGINEER Ot 202.80 OTH LYMPHOMAS EXTRANODAL SOLID ORGAN U 07/31/2017 VEE QUINN EVALUATION ENGINEER Ot V58.69 OTH MED,LT,CURRENT USE 07/31/2017 VEE QUINN EVALUATION ENGINEER Ot 202.80 OTH LYMPHOMAS EXTRANODAL SOLID ORGAN U 07/31/2017 VEE QUINN EVALUATION ENGINEER Ot V58.69 OTH MED,LT,CURRENT USE 07/31/2017 SHERYL GHOSH BELT MAKER HELPER Ot 465.9 ACUTE URI NOS 07/31/2017 SHERYL GHOSH BELT MAKER HELPER Ot 492.8 EMPHYSEMA NEC 07/31/2017 CHRISTIAN GAYLE EVALUATION ENGINEER Ot 272.4 HYPERLIPIDEMIA NEC/NOS 07/31/2017 CHRISTIAN GAYLE L EVALUATION ENGINEER Ot 414.00 CORON ATHEROSCLER NOS TYPE VESSEL, NATIV 07/31/2017 VEE QUINN EVALUATION ENGINEER Ot C85.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, UNSPE 07/31/2017 VEE QUINN EVALUATION ENGINEER Ot Z79.899 OTHER SENIOR CARE (CURRENT) DRUG THERAPY 07/31/2017 CHRISTIAN GAYLE EVALUATION ENGINEER Ot E78.0 PURE HYPERCHOLESTEROLEMIA 07/31/2017 CHRISTIAN GAYLE L EVALUATION ENGINEER Ot I25.10 ATHSCL HEART DISEASE OF [place] CORONARY 07/31/2017 NAKITA NAVA Ot C85.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, UNSPE 07/31/2017 NAKITA NAVA Ot E78.00 PURE HYPERCHOLESTEROLEMIA, UNSPECIFIED 07/31/2017 NAKITA NAVA Ot I25.10 ATHSCL HEART DISEASE OF [place] CORONARY 07/31/2017 NAKITA NAVA N Ot Z79.899 OTHER CROWN POUNCER (CURRENT) DRUG THERAPY 07/31/2017 ARTCHRISTIAN GOLDSMITH Bernardo EVALUATION ENGINEER Ot E78.00 PURE HYPERCHOLESTEROLEMIA, UNSPECIFIED 07/31/2017 CHRISTIAN GAYLE Bernardo EVALUATION ENGINEER Ot I25.10 ATHSCL HEART DISEASE OF [place] CORONARY 07/31/2017 NAKITA NAVA N Ot C82.13 FOLLICULAR LYMPHOMA GRADE II, INTRA-ABDO 07/31/2017 NAKITA NAVA N Ot D73.89 OTHER DISEASES OF SPLEEN 07/31/2017 NAKITA NAVA N Ot K42.9 UMBILICAL HERNIA WITHOUT OBSTRUCTION OR 07/31/2017 NAKITA NAVA N Ot R59.0 LOCALIZED ENLARGED LYMPH NODES 07/31/2017 VEE QUINN EVALUATION ENGINEER Ot D25.9 LEIOMYOMA OF UTERUS, UNSPECIFIED 07/31/2017 VEE QUINN EVALUATION ENGINEER Ot N83.202 UNSPECIFIED OVARIAN CYST, LEFT SIDE 07/31/2017 LUCINDA ANDERSON, DOUGLAS N Ot D25.9 LEIOMYOMA OF UTERUS, UNSPECIFIED 07/31/2017 LUCINDA ANDERSON, DOUGLAS N Ot N83.202 UNSPECIFIED OVARIAN CYST, LEFT SIDE 07/31/2017 MARGO HOWARD DO Ot N83.202 UNSPECIFIED OVARIAN CYST, LEFT SIDE 07/31/2017 ALEXA JOSHUA EVALUATION ENGINEER Ot J18.9 PNEUMONIA, UNSPECIFIED ORGANISM 07/31/2017 ALEXA JOSHUA EVALUATION ENGINEER Ot J43.9 EMPHYSEMA, UNSPECIFIED 07/31/2017 EATALEXA HECK EVALUATION ENGINEER Ot J90 PLEURAL EFFUSION, NOT ELSEWHERE CLASSIFI 07/31/2017 EATALEXA HECK EVALUATION ENGINEER Ot R09.02 HYPOXEMIA 07/31/2017 PADILLA ANDERSON FACC, DAYNA QUICKP CCDS Ot E66.09 OTHER OBESITY DUE TO EXCESS CALORIES 07/31/2017 PADILLA ANDERSON FACC, DAYNA QUICKP CCDS Ot I10 ESSENTIAL (PRIMARY) HYPERTENSION 07/31/2017 PADILLA ANDERSON FACC, DAYNA FACP CCDS Ot I25.10 ATHSCL HEART DISEASE OF [place] CORONARY 07/31/2017 PADILLA ANDERSON FACC, DAYNA QUICKP CCDS Ot I42.0 DILATED CARDIOMYOPATHY 07/31/2017 PADILLA ANDERSON FACC, DAYNA QUICKP CCDS Ot J43.8 OTHER EMPHYSEMA 07/31/2017 ANAI ANDERSON, LIAM Ot C82.13 FOLLICULAR LYMPHOMA GRADE II, INTRA-ABDO 07/31/2017 LIAM OSPINA MD Ot E78.00 PURE HYPERCHOLESTEROLEMIA, UNSPECIFIED 07/31/2017 LIAM OSPINA MD Ot G47.33 OBSTRUCTIVE SLEEP APNEA (ADULT) (PEDIATR 07/31/2017 LIAM OSPINA MD Ot I25.10 ATHSCL HEART DISEASE OF [place] CORONARY 07/31/2017 LIAM OSPINA MD Ot I27.9 PULMONARY HEART DISEASE, UNSPECIFIED 07/31/2017 LIAM OSPINA MD Ot I45.10 UNSPECIFIED RIGHT BUNDLE-BRANCH BLOCK 07/31/2017 LIAM OSPINA MD Ot J44.9 CHRONIC OBSTRUCTIVE PULMONARY DISEASE, U 07/31/2017 LIAM OSPINA MD Ot Z79.899 OTHER CROWN POUNCER (CURRENT) DRUG THERAPY 08/08/2017 NAKITA NAVA Ot C85.90 NON-[place] LYMPHOMA, UNSPECIFIED, UNSPE 08/08/2017 NAKITA NAVA Ot K43.9 VENTRAL HERNIA WITHOUT OBSTRUCTION OR GA 08/08/2017 NAKITA NAVA N Ot R91.8 OTHER NONSPECIFIC ABNORMAL FINDING OF [place] 08/09/2017 BAIMA, CHRISTIAN L EVALUATION ENGINEER Ot E78.4 OTHER HYPERLIPIDEMIA 08/09/2017 ARTMA, CHRISTIAN L EVALUATION ENGINEER Ot G47.33 OBSTRUCTIVE SLEEP APNEA (ADULT) (PEDIATR 08/09/2017 BAIMA, CHRISTIAN L EVALUATION ENGINEER Ot I10 ESSENTIAL (PRIMARY) HYPERTENSION 08/09/2017 BAIMA, CHRISTIAN L EVALUATION ENGINEER Ot I25.10 ATHSCL HEART DISEASE OF [place] CORONARY 08/29/2017 NAKITA NAVA Ot C85.90 NON-[place] LYMPHOMA, UNSPECIFIED, UNSPE 08/29/2017 NAKITA NAVA N Ot K43.9 VENTRAL HERNIA WITHOUT OBSTRUCTION OR GA 08/29/2017 NAKITA NAVA N Ot R91.8 OTHER NONSPECIFIC ABNORMAL FINDING OF [place] 08/29/2017 BAIMA, CHRISTIAN L EVALUATION ENGINEER Ot E78.4 OTHER HYPERLIPIDEMIA 08/29/2017 BAIMA, CHRISTIAN L EVALUATION ENGINEER Ot G47.33 OBSTRUCTIVE SLEEP APNEA (ADULT) (PEDIATR 08/29/2017 BAIMA, CHRISTIAN L EVALUATION ENGINEER Ot I10 ESSENTIAL (PRIMARY) HYPERTENSION 08/29/2017 BAIMA, CHRISTIAN L EVALUATION ENGINEER Ot I25.10 ATHSCL HEART DISEASE OF [place] CORONARY 09/05/2017 NAKITA NAVA Ot C85.90 NON-[place] LYMPHOMA, UNSPECIFIED, UNSPE 09/05/2017 NAKITA NAVA Ot K43.9 VENTRAL HERNIA WITHOUT OBSTRUCTION OR GA 09/05/2017 NAKITA NAVA Ot R91.8 OTHER NONSPECIFIC ABNORMAL FINDING OF [place] 09/25/2017 LIAM OSPINA MD Ot C82.13 FOLLICULAR LYMPHOMA GRADE II, INTRA-ABDO 09/25/2017 LIAM OSPINA MD Ot E78.00 PURE HYPERCHOLESTEROLEMIA, UNSPECIFIED 09/25/2017 LIAM OSPINA MD Ot G47.33 OBSTRUCTIVE SLEEP APNEA (ADULT) (PEDIATR 09/25/2017 MATEUSZ OSPINA MDNER Ot I25.10 ATHSCL HEART DISEASE OF [place] CORONARY 09/25/2017 LIAM OSPINA MD Ot I27.9 PULMONARY HEART DISEASE, UNSPECIFIED 09/25/2017 LIAM OSPINA MD Ot I45.10 UNSPECIFIED RIGHT BUNDLE-BRANCH BLOCK 09/25/2017 LIAM OSPINA MD Ot J44.9 CHRONIC OBSTRUCTIVE PULMONARY DISEASE, U 09/25/2017 LIAM OSPINA MD Ot Z79.899 OTHER SENIOR CARE (CURRENT) DRUG THERAPY 10/03/2017 LIAM OSPINA MD Ot C82.13 FOLLICULAR LYMPHOMA GRADE II, INTRA-ABDO 10/03/2017 LIAM OSPINA MD Ot E78.00 PURE HYPERCHOLESTEROLEMIA, UNSPECIFIED 10/03/2017 LIAM OSPINA MD Ot G47.33 OBSTRUCTIVE SLEEP APNEA (ADULT) (PEDIATR 10/03/2017 MATEUSZ OSPINA MDNER Ot I25.10 ATHSCL HEART DISEASE OF [place] CORONARY 10/03/2017 LIAM OSPINA MD Ot I27.9 PULMONARY HEART DISEASE, UNSPECIFIED 10/03/2017 MATEUSZ OSPINA MDNER Ot I45.10 UNSPECIFIED RIGHT BUNDLE-BRANCH BLOCK 10/03/2017 MATEUSZ OSPINA MDNER Ot J44.9 CHRONIC OBSTRUCTIVE PULMONARY DISEASE, U 10/03/2017 MATEUSZ OSPINA MDNER Ot Z79.899 OTHER SENIOR CARE (CURRENT) DRUG THERAPY 11/05/2017 LIAM OSPINA MD Ot C82.13 FOLLICULAR LYMPHOMA GRADE II, INTRA-ABDO 11/05/2017 LIAM OSPINA MD Ot E78.00 PURE HYPERCHOLESTEROLEMIA, UNSPECIFIED 11/05/2017 LIAM OSPINA MD Ot G47.33 OBSTRUCTIVE SLEEP APNEA (ADULT) (PEDIATR 11/05/2017 LIAM OSPINA MD Ot I25.10 ATHSCL HEART DISEASE OF [place] CORONARY 11/05/2017 LIAM OSPINA MD Ot I27.9 PULMONARY HEART DISEASE, UNSPECIFIED 11/05/2017 LIAM OSPINA MD Ot I45.10 UNSPECIFIED RIGHT BUNDLE-BRANCH BLOCK 11/05/2017 LIAM OSPINA MD Ot J44.9 CHRONIC OBSTRUCTIVE PULMONARY DISEASE, U 11/05/2017 LIAM OSPINA MD Ot Z79.899 OTHER SENIOR CARE (CURRENT) DRUG THERAPY 11/06/2017 LIAM OSPINA MD Ot C82.13 FOLLICULAR LYMPHOMA GRADE II, INTRA-ABDO 11/06/2017 LIAM OSPINA MD Ot E78.00 PURE HYPERCHOLESTEROLEMIA, UNSPECIFIED 11/06/2017 LIAM OSPINA MD Ot G47.33 OBSTRUCTIVE SLEEP APNEA (ADULT) (PEDIATR 11/06/2017 LIAM OSPINA MD Ot I25.10 ATHSCL HEART DISEASE OF [place] CORONARY 11/06/2017 LIAM OSPINA MD Ot I27.9 PULMONARY HEART DISEASE, UNSPECIFIED 11/06/2017 LIAM OSPINA MD Ot I45.10 UNSPECIFIED RIGHT BUNDLE-BRANCH BLOCK 11/06/2017 LIAM OSPINA MD Ot J44.9 CHRONIC OBSTRUCTIVE PULMONARY DISEASE, U 11/06/2017 LIAM OSPINA MD Ot Z79.899 OTHER SENIOR CARE (CURRENT) DRUG THERAPY 11/11/2017 LIAM OSPINA MD Ot C82.13 FOLLICULAR LYMPHOMA GRADE II, INTRA-ABDO 11/11/2017 LIAM OSPINA MD Ot E78.00 PURE HYPERCHOLESTEROLEMIA, UNSPECIFIED 11/11/2017 LIAM OSPINA MD Ot G47.33 OBSTRUCTIVE SLEEP APNEA (ADULT) (PEDIATR 11/11/2017 LIAM OSPINA MD Ot I25.10 ATHSCL HEART DISEASE OF [place] CORONARY 11/11/2017 LIAM OSPINA MD Ot I27.9 PULMONARY HEART DISEASE, UNSPECIFIED 11/11/2017 LIAM OSPINA MD Ot I45.10 UNSPECIFIED RIGHT BUNDLE-BRANCH BLOCK 11/11/2017 LIAM OSPINA MD Ot J44.9 CHRONIC OBSTRUCTIVE PULMONARY DISEASE, U 11/11/2017 LIAM OSPINA MD Ot Z79.899 OTHER SENIOR CARE (CURRENT) DRUG THERAPY 12/18/2017 Ot Z01.818 ENCOUNTER FOR OTHER PREPROCEDURAL EXAMIN 12/20/2017 Ot C85.90 NON-[place] LYMPHOMA, UNSPECIFIED, UNSPE 12/20/2017 Ot E78.00 PURE HYPERCHOLESTEROLEMIA, UNSPECIFIED 12/20/2017 Ot E78.5 HYPERLIPIDEMIA, UNSPECIFIED 12/20/2017 Ot G47.33 OBSTRUCTIVE SLEEP APNE[place] (ADULT) (PEDIATR 12/20/2017 Ot I10 ESSENTIAL ( PRIMARY) HYPERTENSION 12/20/2017 Ot I25.10 ATHSCL HEART DISEASE OF [place] CORONARY 12/20/2017 Ot I27.20 PULMONARY HYPERTENSION, UNSPECIFIED 12/20/2017 Ot I42.9 CARDIOMYOPATHY, UNSPECIFIED 12/20/2017 Ot J44.9 CHRONIC OBSTRUCTIVE PULMONARY DISEASE, U 12/20/2017 Ot Z11.2 ENCOUNTER FOR SCREENING FOR OTHER BACTER 12/20/2017 Ot Z79.899 OTHER SENIOR CARE (CURRENT) DRUG THERAPY 12/20/2017 Ot Z87.891 PERSONAL HISTORY OF NICOTINE DEPENDENCE 12/21/2017 NAKITA NAVA Ot C82.13 FOLLICULAR LYMPHOMA GRADE II, INTRA-ABDO 12/21/2017 NAKITA NAVA Ot E78.00 PURE HYPERCHOLESTEROLEMIA, UNSPECIFIED 12/21/2017 BRANDYNAKITA JACKSON Ot G47.33 OBSTRUCTIVE SLEEP APNEA (ADULT) (PEDIATR 12/21/2017 BRANDYNAKITA N Ot I25.10 ATHSCL HEART DISEASE OF [place] CORONARY 12/21/2017 BARNDYNAKITA N Ot I27.9 PULMONARY HEART DISEASE, UNSPECIFIED 12/21/2017 NAKITA NAVA Ot I45.10 UNSPECIFIED RIGHT BUNDLE-BRANCH BLOCK 12/21/2017 NAKITA NAVA Ot J44.9 CHRONIC OBSTRUCTIVE PULMONARY DISEASE, U 12/21/2017 NAKITA NAVA Ot Z79.899 OTHER SENIOR CARE (CURRENT) DRUG THERAPY 12/24/2017 Ot C85.90 NON-[place] LYMPHOMA, UNSPECIFIED, UNSPE 12/24/2017 Ot E78.00 PURE HYPERCHOLESTEROLEMIA, UNSPECIFIED 12/24/2017 Ot E78.5 HYPERLIPIDEMIA, UNSPECIFIED 12/24/2017 Ot G47.33 OBSTRUCTIVE SLEEP APNE[place] (ADULT) (PEDIATR 12/24/2017 Ot I10 ESSENTIAL ( PRIMARY) HYPERTENSION 12/24/2017 Ot I25.10 ATHSCL HEART DISEASE OF [place] CORONARY 12/24/2017 Ot I27.20 PULMONARY HYPERTENSION, UNSPECIFIED 12/24/2017 Ot I42.9 CARDIOMYOPATHY, UNSPECIFIED 12/24/2017 Ot J44.9 CHRONIC OBSTRUCTIVE PULMONARY DISEASE, U 12/24/2017 Ot Z11.2 ENCOUNTER FOR SCREENING FOR OTHER BACTER 12/24/2017 Ot Z79.899 OTHER SENIOR CARE (CURRENT) DRUG THERAPY 12/24/2017 Ot Z87.891 PERSONAL HISTORY OF NICOTINE DEPENDENCE 12/31/2017 Ot C82.84 OTH TYPES OF FOLICLAR LYMPH, NODES OF AX 12/31/2017 Ot C85.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, LYMPH NODES OF AXI 12/31/2017 Ot I89.0 LYMPHEDEMA, NOT ELSEWHERE CLASSIFIED 12/31/2017 Ot C85.90 NON-[place] LYMPHOMA, UNSPECIFIED, UNSPE 12/31/2017 Ot E78.00 PURE HYPERCHOLESTEROLEMIA, UNSPECIFIED 12/31/2017 Ot E78.5 HYPERLIPIDEMIA, UNSPECIFIED 12/31/2017 Ot G47.33 OBSTRUCTIVE SLEEP [place] (ADULT) (PEDIATR 12/31/2017 Ot I10 ESSENTIAL ( PRIMARY) HYPERTENSION 12/31/2017 Ot I25.10 ATHSCL HEART DISEASE OF [place] CORONARY 12/31/2017 Ot I27.20 PULMONARY HYPERTENSION, UNSPECIFIED 12/31/2017 Ot I42.9 CARDIOMYOPATHY, UNSPECIFIED 12/31/2017 Ot J44.9 CHRONIC OBSTRUCTIVE PULMONARY DISEASE, U 12/31/2017 Ot Z11.2 ENCOUNTER FOR SCREENING FOR OTHER BACTER 12/31/2017 Ot Z79.899 OTHER SENIOR CARE (CURRENT) DRUG THERAPY 12/31/2017 Ot Z87.891 PERSONAL HISTORY OF NICOTINE DEPENDENCE 01/01/2018 Ot C82.13 FOLLICULAR LYMPHOMA GRADE II, INTRA-ABDO 01/01/2018 Ot M79.89 OTHER SPECIFIED SOFT TISSUE DISORDERS 01/11/2018 Ot C82.13 FOLLICULAR LYMPHOMA GRADE II, INTRA-ABDO 01/11/2018 Ot M79.89 OTHER SPECIFIED SOFT TISSUE DISORDERS 01/22/2018 NAKITA NAVA Ot C82.13 FOLLICULAR LYMPHOMA GRADE II, INTRA-ABDO 01/22/2018 NAKITA NAVA Ot E78.00 PURE HYPERCHOLESTEROLEMIA, UNSPECIFIED 01/22/2018 NAKITA NAVA Ot G47.33 OBSTRUCTIVE SLEEP APNEA (ADULT) (PEDIATR 01/22/2018 NAKITA NAVA Ot I25.10 ATHSCL HEART DISEASE OF [place] CORONARY 01/22/2018 NAKITA NAVA Ot I27.9 PULMONARY HEART DISEASE, UNSPECIFIED 01/22/2018 NAKITA NAVA Ot I45.10 UNSPECIFIED RIGHT BUNDLE-BRANCH BLOCK 01/22/2018 NAKITA NAVA Bree Ot J44.9 CHRONIC OBSTRUCTIVE PULMONARY DISEASE, U 01/22/2018 NAKITA NAVA Ot Z51.11 ENCOUNTER FOR ANTINEOPLASTIC CHEMOTHERAP 01/22/2018 NAKITA NAVA Bree Ot Z79.899 OTHER SENIOR CARE (CURRENT) DRUG THERAPY 01/22/2018 LIAM OSPINA MD Ot C82.13 FOLLICULAR LYMPHOMA GRADE II, INTRA-ABDO 01/22/2018 LIAM OSPINA MD Ot E78.00 PURE HYPERCHOLESTEROLEMIA, UNSPECIFIED 01/22/2018 LIAM OSPINA MD Ot G47.33 OBSTRUCTIVE SLEEP APNEA (ADULT) (PEDIATR 01/22/2018 LIAM OSPINA MD Ot I25.10 ATHSCL HEART DISEASE OF [place] CORONARY 01/22/2018 LIAM OSPINA MD Ot I27.9 PULMONARY HEART DISEASE, UNSPECIFIED 01/22/2018 LIAM OSPINA MD Ot I45.10 UNSPECIFIED RIGHT BUNDLE-BRANCH BLOCK 01/22/2018 LIAM OSPINA MD Ot J44.9 CHRONIC OBSTRUCTIVE PULMONARY DISEASE, U 01/22/2018 LIAM OSPINA MD Ot Z79.899 OTHER SENIOR CARE (CURRENT) DRUG THERAPY 01/23/2018 LIAM OSPINA MD Ot C82.13 FOLLICULAR LYMPHOMA GRADE II, INTRA-ABDO 01/23/2018 LIAM OSPINA MD Ot E78.00 PURE HYPERCHOLESTEROLEMIA, UNSPECIFIED 01/23/2018 LIAM OSPINA MD Ot G47.33 OBSTRUCTIVE SLEEP APNEA (ADULT) (PEDIATR 01/23/2018 LIAM OSPINA MD Ot I25.10 ATHSCL HEART DISEASE OF [place] CORONARY 01/23/2018 LIAM OSPINA MD Ot I27.9 PULMONARY HEART DISEASE, UNSPECIFIED 01/23/2018 LIAM OSPINA MD Ot I45.10 UNSPECIFIED RIGHT BUNDLE-BRANCH BLOCK 01/23/2018 LIAM OSPINA MD Ot J44.9 CHRONIC OBSTRUCTIVE PULMONARY DISEASE, U 01/23/2018 LIAM OSPINA MD Ot Z79.899 OTHER CROWN POUNCER (CURRENT) DRUG THERAPY 01/23/2018 Ot C82.84 OTH TYPES OF FOLICLAR LYMPH, NODES OF AX 01/23/2018 Ot C85.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, LYMPH NODES OF AXI 01/23/2018 Ot I89.0 LYMPHEDEMA, NOT ELSEWHERE CLASSIFIED 01/25/2018 LIAM OSPINA MD Ot C82.13 FOLLICULAR LYMPHOMA GRADE II, INTRA-ABDO 01/25/2018 LIAM OSPINA MD Ot E78.00 PURE HYPERCHOLESTEROLEMIA, UNSPECIFIED 01/25/2018 LIAM OSPINA MD Ot G47.33 OBSTRUCTIVE SLEEP [place]NE[place] (ADULT) (PEDIATR 01/25/2018 LIAM OSPINA MD Ot I25.10 ATHSCL HEART DISEASE OF [place] CORONARY 01/25/2018 LIAM OSPINA MD Ot I27.9 PULMONARY HEART DISEASE, UNSPECIFIED 01/25/2018 LIAM OSPINA MD Ot I45.10 UNSPECIFIED RIGHT BUNDLE-BRANCH BLOCK 01/25/2018 LIAM OSPINA MD Ot J44.9 CHRONIC OBSTRUCTIVE PULMONARY DISEASE, U 01/25/2018 LIAM OSPINA MD Ot Z79.899 OTHER CROWN POUNCER (CURRENT) DRUG THERAPY 01/30/2018 Ot C82.84 OTH TYPES OF FOLICLAR LYMPH, NODES OF AX 01/30/2018 Ot C85.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, LYMPH NODES OF AXI 01/30/2018 Ot I89.0 LYMPHEDEMA, NOT ELSEWHERE CLASSIFIED 02/03/2018 LIAM OSPINA MD Ot C82.13 FOLLICULAR LYMPHOMA GRADE II, INTRA-ABDO 02/03/2018 LIAM OSPINA MD Ot E78.00 PURE HYPERCHOLESTEROLEMIA, UNSPECIFIED 02/03/2018 LIAM OSPINA MD Ot G47.33 OBSTRUCTIVE SLEEP [place] (ADULT) (PEDIATR 02/03/2018 LIAM OSPINA MD Ot I25.10 ATHSCL HEART DISEASE OF [place] CORONARY 02/03/2018 LIAM OSPINA MD Ot I27.9 PULMONARY HEART DISEASE, UNSPECIFIED 02/03/2018 LIAM OSPINA MD Ot I45.10 UNSPECIFIED RIGHT BUNDLE-BRANCH BLOCK 02/03/2018 LIAM OSPINA MD Ot J44.9 CHRONIC OBSTRUCTIVE PULMONARY DISEASE, U 02/03/2018 LIAM SOPINA MD Ot Z51.11 ENCOUNTER FOR ANTINEOPLASTIC CHEMOTHERAP 02/03/2018 LIAM OSPINA MD Ot Z79.899 OTHER SENIOR CARE (CURRENT) DRUG THERAPY 02/05/2018 LIAM OSPINA MD Ot C82.13 FOLLICULAR LYMPHOMA GRADE II, INTRA-ABDO 02/05/2018 LIAM OSPINA MD Ot E78.00 PURE HYPERCHOLESTEROLEMIA, UNSPECIFIED 02/05/2018 LIAM OSPINA MD Ot G47.33 OBSTRUCTIVE SLEEP [place] (ADULT) (PEDIATR 02/05/2018 ANAI ANDERSON, LIAM Ot I25.10 ATHSCL HEART DISEASE OF [place] CORONARY 02/05/2018 LIAM OSPINA MD Ot I27.9 PULMONARY HEART DISEASE, UNSPECIFIED 02/05/2018 LIAM OSPINA MD Ot I45.10 UNSPECIFIED RIGHT BUNDLE-BRANCH BLOCK 02/05/2018 LIAM OSPINA MD Ot J44.9 CHRONIC OBSTRUCTIVE PULMONARY DISEASE, U 02/05/2018 LIAM OSPINA MD Ot Z51.11 ENCOUNTER FOR ANTINEOPLASTIC CHEMOTHERAP 02/05/2018 LIAM OSPINA MD Ot Z79.899 OTHER CROWN POUNCER (CURRENT) DRUG THERAPY 03/01/2018 VEE QUINN S EVALUATION ENGINEER Ot 202.80 OTH LYMPHOMAS EXTRANODAL SOLID ORGAN U 03/01/2018 VEE QUINN S EVALUATION ENGINEER Ot 786.09 RESPIRATORY ABNORM NEC 03/01/2018 VEE QUINN S EVALUATION ENGINEER Ot 202.80 OTH LYMPHOMAS EXTRANODAL SOLID ORGAN U 03/01/2018 VEE QUINN S EVALUATION ENGINEER Ot 511.9 PLEURAL EFFUSION NOS 03/01/2018 VEE QUINN S EVALUATION ENGINEER Ot 786.09 RESPIRATORY ABNORM NEC 03/01/2018 VEE QUINN S EVALUATION ENGINEER Ot 202.80 OTH LYMPHOMAS EXTRANODAL SOLID ORGAN U 03/01/2018 VEE QUINN S EVALUATION ENGINEER Ot 511.9 PLEURAL EFFUSION NOS 03/01/2018 VEE QUINN S EVALUATION ENGINEER Ot 786.09 RESPIRATORY ABNORM NEC 03/01/2018 VEE QUINN S EVALUATION ENGINEER Ot 793.19 OTHER NONSPECIFIC ABNORMAL FINDING OF [place] 03/01/2018 VEE QUINN S EVALUATION ENGINEER Ot 202.80 OTH LYMPHOMAS EXTRANODAL SOLID ORGAN U 03/01/2018 VEE QUINN S EVALUATION ENGINEER Ot 786.09 RESPIRATORY ABNORM NEC 03/01/2018 VEE QUINN S EVALUATION ENGINEER Ot V87.41 PERSONAL HISTORY OF ANTINEOPLASTIC CHEMO 03/01/2018 VEE QUINN S EVALUATION ENGINEER Ot 202.80 OTH LYMPHOMAS EXTRANODAL SOLID ORGAN U 03/01/2018 JUDI MOREL MD Ot 202.80 OTH LYMPHOMAS EXTRANODAL SOLID ORGAN U 03/01/2018 JUDI MOREL MD Ot V72.83 EXAM PRE-OPERATIVE NEC 03/01/2018 JUDI MOREL MD Ot V74.8 SCREEN-BACTERIAL DIS NEC 03/01/2018 NAKITA NAVA Ot 202.80 OTH LYMPHOMAS EXTRANODAL SOLID ORGAN U 03/01/2018 NAKITA NAVA Ot 786.09 RESPIRATORY ABNORM NEC 03/01/2018 VEE QUINN S EVALUATION ENGINEER Ot 202.80 OTH LYMPHOMAS EXTRANODAL SOLID ORGAN U 03/01/2018 VEE QUINN S EVALUATION ENGINEER Ot 202.80 OTH LYMPHOMAS EXTRANODAL SOLID ORGAN U 03/01/2018 VEE QUINN S EVALUATION ENGINEER Ot V58.69 OTH MED,LT,CURRENT USE 03/01/2018 QUINNVEE S EVALUATION ENGINEER Ot 202.80 OTH LYMPHOMAS EXTRANODAL SOLID ORGAN U 03/01/2018 PADILLA ANDERSON FAC, ALI FACP CCDS Ot 272.4 HYPERLIPIDEMIA NEC/NOS 03/01/2018 PADILLA ANDERSON FAC, ALI FACP CCDS Ot 414.01 CORONARY ATHEROSCLEROSIS OF [place] CORON 03/01/2018 VEE QUINN S EVALUATION ENGINEER Ot 202.80 OTH LYMPHOMAS EXTRANODAL SOLID ORGAN U 03/01/2018 ARIEL QUINNAH S EVALUATION ENGINEER Ot 272.0 PURE HYPERCHOLESTEROLEM 03/01/2018 QUINNARIELAH S EVALUATION ENGINEER Ot 401.9 HYPERTENSION NOS 03/01/2018 QUINNARIELAH S EVALUATION ENGINEER Ot 414.00 CORON ATHEROSCLER NOS TYPE VESSEL, NATIV 03/01/2018 QUINNARIELAH S EVALUATION ENGINEER Ot 425.4 PRIM CARDIOMYOPATHY NEC 03/01/2018 QUINNARIELAH S EVALUATION ENGINEER Ot 780.57 UNSPECIFIED SLEEP APNEA 03/01/2018 VEE QUINN S EVALUATION ENGINEER Ot V58.69 OTH MED,LT,CURRENT USE 03/01/2018 NAKITA NAVA Ot 202.80 OTH LYMPHOMAS EXTRANODAL SOLID ORGAN U 03/01/2018 QUINNVEE S EVALUATION ENGINEER Ot 202.80 OTH LYMPHOMAS EXTRANODAL SOLID ORGAN U 03/01/2018 QUINNARIELAH S EVALUATION ENGINEER Ot 272.0 PURE HYPERCHOLESTEROLEM 03/01/2018 QUINN HILAH S EVALUATION ENGINEER Ot 401.9 HYPERTENSION NOS 03/01/2018 QUINN HILAH S EVALUATION ENGINEER Ot 414.00 CORON ATHEROSCLER NOS TYPE VESSEL, NATIV 03/01/2018 QUINNARIELAH S EVALUATION ENGINEER Ot 425.4 PRIM CARDIOMYOPATHY NEC 03/01/2018 VEE QUINN EVALUATION ENGINEER Ot V58.69 OTH MED,LT,CURRENT USE 03/01/2018 NAKITA NAVA Ot 202.80 OTH LYMPHOMAS EXTRANODAL SOLID ORGAN U 03/01/2018 PADILLA ANDERSON FACCDAYNA FACP CCDS Ot 272.4 HYPERLIPIDEMIA NEC/NOS 03/01/2018 TOM JC DO Ot 278.00 OBESITY, NOS 03/01/2018 TOM JC DO Ot 416.9 CHR PULMON HEART DIS NOS 03/01/2018 TOM JC DO Ot 425.4 PRIM CARDIOMYOPATHY NEC 03/01/2018 TOM JC DO Ot 780.57 UNSPECIFIED SLEEP APNEA 03/01/2018 TOM JC DO Ot 786.09 RESPIRATORY ABNORM NEC 03/01/2018 VEE QUINN EVALUATION ENGINEER Ot 202.80 OTH LYMPHOMAS EXTRANODAL SOLID ORGAN U 03/01/2018 VEE QUINN EVALUATION ENGINEER Ot V58.69 OTH MED,LT,CURRENT USE 03/01/2018 NAKITA NAVA Ot 202.80 OTH LYMPHOMAS EXTRANODAL SOLID ORGAN U 03/01/2018 Ot 272.0 PURE HYPERCHOLESTEROLEM 03/01/2018 Ot 414.00 CORON ATHEROSCLER NOS TYPE VESSEL, NATIV 03/01/2018 VEE QUINN EVALUATION ENGINEER Ot 202.80 OTH LYMPHOMAS EXTRANODAL SOLID ORGAN U 03/01/2018 VEE QUINN EVALUATION ENGINEER Ot V58.69 OTH MED,LT,CURRENT USE 03/01/2018 VEE QUINN EVALUATION ENGINEER Ot 202.80 OTH LYMPHOMAS EXTRANODAL SOLID ORGAN U 03/01/2018 VEE QUINN EVALUATION ENGINEER Ot V58.69 OTH MED,LT,CURRENT USE 03/01/2018 SHERYL GHOSH APRN Ot 465.9 ACUTE URI NOS 03/01/2018 SHERYL GHOSH BELT MAKER HELPER Ot 492.8 EMPHYSEMA NEC 03/01/2018 CHRISTIAN GAYLE EVALUATION ENGINEER Ot 272.4 HYPERLIPIDEMIA NEC/NOS 03/01/2018 CHRISTIAN GAYLE EVALUATION ENGINEER Ot 414.00 CORON ATHEROSCLER NOS TYPE VESSEL, NATIV 03/01/2018 VEE QUINN EVALUATION ENGINEER Ot C85.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, UNSPE 03/01/2018 VEE QUINN EVALUATION ENGINEER Ot Z79.899 OTHER CROWN POUNCER (CURRENT) DRUG THERAPY 03/01/2018 BAICHRISTIAN GOLDSMITH L EVALUATION ENGINEER Ot E78.0 PURE HYPERCHOLESTEROLEMIA 03/01/2018 BAIMA, CHRISTIAN L EVALUATION ENGINEER Ot I25.10 ATHSCL HEART DISEASE OF [place] CORONARY 03/01/2018 NAKITA NAVA N Ot C85.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, UNSPE 03/01/2018 NAKITA NAVA N Ot E78.00 PURE HYPERCHOLESTEROLEMIA, UNSPECIFIED 03/01/2018 NAKITA NAVA N Ot I25.10 ATHSCL HEART DISEASE OF [place] CORONARY 03/01/2018 NAKITA NAVA N Ot Z79.899 OTHER SENIOR CARE (CURRENT) DRUG THERAPY 03/01/2018 BAIWILLARD GOLDSMITHHER L EVALUATION ENGINEER Ot E78.00 PURE HYPERCHOLESTEROLEMIA, UNSPECIFIED 03/01/2018 BAIAGUS CHRISTIAN L EVALUATION ENGINEER Ot I25.10 ATHSCL HEART DISEASE OF [place] CORONARY 03/01/2018 NAKITA NAVA N Ot C82.13 FOLLICULAR LYMPHOMA GRADE II, INTRA-ABDO 03/01/2018 NAKITA NAVA N Ot D73.89 OTHER DISEASES OF [place] 03/01/2018 NAKITA NAVA N Ot K42.9 UMBILICAL HERNIA WITHOUT OBSTRUCTION OR 03/01/2018 BRANDYNAKITA JACKSON N Ot R59.0 LOCALIZED ENLARGED LYMPH NODES 03/01/2018 VEE QUINN EVALUATION ENGINEER Ot D25.9 LEIOMYOMA OF UTERUS, UNSPECIFIED 03/01/2018 VEE QUINN EVALUATION ENGINEER Ot N83.202 UNSPECIFIED OVARIAN CYST, LEFT SIDE 03/01/2018 LUCINDA ANDERSON, DOUGLAS N Ot D25.9 LEIOMYOMA OF UTERUS, UNSPECIFIED 03/01/2018 LUCINDA ANDERSON, DOUGLAS N Ot N83.202 UNSPECIFIED OVARIAN CYST, LEFT SIDE 03/01/2018 MARGO HOWARD DO Ot N83.202 UNSPECIFIED OVARIAN CYST, LEFT SIDE 03/01/2018 ALEXA JOSHUA EVALUATION ENGINEER Ot J18.9 PNEUMONIA, UNSPECIFIED ORGANISM 03/01/2018 ALEXA JOSHUA EVALUATION ENGINEER Ot J43.9 EMPHYSEMA, UNSPECIFIED 03/01/2018 EATALEXA HECK EVALUATION ENGINEER Ot J90 PLEURAL EFFUSION, NOT ELSEWHERE CLASSIFI 03/01/2018 ALEXA JOSHUA EVALUATION ENGINEER Ot R09.02 HYPOXEMIA 03/01/2018 NAKITA NAVA Ot C85.90 NON-[place] LYMPHOMA, UNSPECIFIED, UNSPE 03/01/2018 NAKITA NAVA Ot K43.9 VENTRAL HERNIA WITHOUT OBSTRUCTION OR GA 03/01/2018 NAKITA NAVA Ot R91.8 OTHER NONSPECIFIC ABNORMAL FINDING OF [place] 03/01/2018 PADILLA ANDERSON FACC, ALI FACP CCDS Ot E66.09 OTHER OBESITY DUE TO EXCESS CALORIES 03/01/2018 PADILLA ANDERSON FACC, ALI FACP CCDS Ot I10 ESSENTIAL (PRIMARY) HYPERTENSION 03/01/2018 PADILLA ANDERSON FACC, ALI FACP CCDS Ot I25.10 ATHSCL HEART DISEASE OF [place] CORONARY 03/01/2018 PADILLA ANDERSON FACC, ALI FACP CCDS Ot I42.0 DILATED CARDIOMYOPATHY 03/01/2018 PADILLA ANDERSON FACC, ALI FACP CCDS Ot J43.8 OTHER EMPHYSEMA 03/01/2018 CHRISTIAN GAYLE EVALUATION ENGINEER Ot E78.4 OTHER HYPERLIPIDEMIA 03/01/2018 CHRISTIAN GAYLE EVALUATION ENGINEER Ot G47.33 OBSTRUCTIVE SLEEP APNEA (ADULT) (PEDIATR 03/01/2018 CHRITSIAN GAYLE EVALUATION ENGINEER Ot I10 ESSENTIAL (PRIMARY) HYPERTENSION 03/01/2018 BAICHRISTIAN GOLDSMITH EVALUATION ENGINEER Ot I25.10 ATHSCL HEART DISEASE OF [place] CORONARY 03/01/2018 Ot C82.13 FOLLICULAR LYMPHOMA GRADE II, INTRA-ABDO 03/01/2018 Ot M79.89 OTHER SPECIFIED SOFT TISSUE DISORDERS 03/01/2018 Ot C82.84 OTH TYPES OF FOLICLAR LYMPH, NODES OF AX 03/01/2018 Ot C85.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, LYMPH NODES OF AXI 03/01/2018 Ot I89.0 LYMPHEDEMA, NOT ELSEWHERE CLASSIFIED 03/01/2018 NAKITA NAVA Ot C82.13 FOLLICULAR LYMPHOMA GRADE II, INTRA-ABDO 03/01/2018 NAKITA NAVA Ot E78.00 PURE HYPERCHOLESTEROLEMIA, UNSPECIFIED 03/01/2018 NAKITA NAVA Ot G47.33 OBSTRUCTIVE SLEEP APNEA (ADULT) (PEDIATR 03/01/2018 NAKITA NAVA Ot I25.10 ATHSCL HEART DISEASE OF [place] CORONARY 03/01/2018 BRANDY, BOBAN N Ot I27.9 PULMONARY HEART DISEASE, UNSPECIFIED 03/01/2018 BRANDY, BOBAN N Ot I45.10 UNSPECIFIED RIGHT BUNDLE-BRANCH BLOCK 03/01/2018 BRANDY, BOBAN N Ot J44.9 CHRONIC OBSTRUCTIVE PULMONARY DISEASE, U 03/01/2018 BRANDY, BOBAN N Ot Z79.899 OTHER CROWN POUNCER (CURRENT) DRUG THERAPY 03/05/2018 PADILLA ANDERSON FACC, ALI FACP CCDS Ot G47.33 OBSTRUCTIVE SLEEP APNEA (ADULT) (PEDIATR 03/05/2018 PADILLA ANDERSON FACC, ALI FACP CCDS Ot I10 ESSENTIAL (PRIMARY) HYPERTENSION 03/05/2018 PADILLA ANDERSON FACC, ALI FACP CCDS Ot I25.10 ATHSCL HEART DISEASE OF [place] CORONARY 03/05/2018 PADILLA ANDERSON FACC, ALI FACP CCDS Ot I42.0 DILATED CARDIOMYOPATHY 03/05/2018 PADILLA ANDERSON FACC, ALI FACP CCDS Ot I45.19 OTHER RIGHT BUNDLE-BRANCH BLOCK 03/06/2018 BRANDY, BOBAN N Ot C82.13 FOLLICULAR LYMPHOMA GRADE II, INTRA-ABDO 03/06/2018 BRANDY, BOBAN N Ot E78.00 PURE HYPERCHOLESTEROLEMIA, UNSPECIFIED 03/06/2018 BRANDY, BOBAN N Ot G47.33 OBSTRUCTIVE SLEEP APNEA (ADULT) (PEDIATR 03/06/2018 BRANDY, BOBAN N Ot I25.10 ATHSCL HEART DISEASE OF [place] CORONARY 03/06/2018 BRANDY, BOBAN N Ot I27.9 PULMONARY HEART DISEASE, UNSPECIFIED 03/06/2018 BRANDY, BOBAN N Ot I45.10 UNSPECIFIED RIGHT BUNDLE-BRANCH BLOCK 03/06/2018 BRANDY, BOBAN N Ot J44.9 CHRONIC OBSTRUCTIVE PULMONARY DISEASE, U 03/06/2018 BRANDY, BOBAN N Ot Z79.899 OTHER SENIOR CARE (CURRENT) DRUG THERAPY 03/20/2018 BRANDY, BOBAN N Ot C82.13 FOLLICULAR LYMPHOMA GRADE II, INTRA-ABDO 03/20/2018 BRANDY, BOBAN N Ot E78.00 PURE HYPERCHOLESTEROLEMIA, UNSPECIFIED 03/20/2018 BRANDY, BOBAN N Ot G47.33 OBSTRUCTIVE SLEEP APNEA (ADULT) (PEDIATR 03/20/2018 BRANDY, BOBAN N Ot I25.10 ATHSCL HEART DISEASE OF [place] CORONARY 03/20/2018 BRANDY, BOBAN N Ot I27.9 PULMONARY HEART DISEASE, UNSPECIFIED 03/20/2018 BRANDY, BOBAN N Ot I45.10 UNSPECIFIED RIGHT BUNDLE-BRANCH BLOCK 03/20/2018 BRANDYBRYNN JACKSONAN N Ot J44.9 CHRONIC OBSTRUCTIVE PULMONARY DISEASE, U 03/20/2018 BRANDYBRYNN JACKSONAN N Ot Z51.11 ENCOUNTER FOR ANTINEOPLASTIC CHEMOTHERAP 03/20/2018 BRANDY, BOBAN N Ot Z79.899 OTHER SENIOR CARE (CURRENT) DRUG THERAPY 03/25/2018 PADILLA ANDERSON FACC, ALI FACP CCDS Ot G47.33 OBSTRUCTIVE SLEEP APNEA (ADULT) (PEDIATR 03/25/2018 PADILLA ANDERSON FACC, ALI FACP CCDS Ot I10 ESSENTIAL (PRIMARY) HYPERTENSION 03/25/2018 PADILLA ANDERSON FACC, ALI FACP CCDS Ot I25.10 ATHSCL HEART DISEASE OF [place] CORONARY 03/25/2018 PADILLA ANDERSON FACC, ALI FACP CCDS Ot I42.0 DILATED CARDIOMYOPATHY 03/25/2018 PADILLA ANDERSON FACC, ALI FACP CCDS Ot I45.19 OTHER RIGHT BUNDLE-BRANCH BLOCK 04/03/2018 BRANDY BOBAN N Ot C82.13 FOLLICULAR LYMPHOMA GRADE II, INTRA-ABDO 04/03/2018 BRANDY, BOBAN N Ot E78.00 PURE HYPERCHOLESTEROLEMIA, UNSPECIFIED 04/03/2018 BRANDY BOBAN N Ot G47.33 OBSTRUCTIVE SLEEP APNEA (ADULT) (PEDIATR 04/03/2018 BRANDY, BOBAN N Ot I25.10 ATHSCL HEART DISEASE OF [place] CORONARY 04/03/2018 BRANDY, BOBAN N Ot I27.9 PULMONARY HEART DISEASE, UNSPECIFIED 04/03/2018 BRANDY BOBAN N Ot I45.10 UNSPECIFIED RIGHT BUNDLE-BRANCH BLOCK 04/03/2018 BRYNN NAVAAN N Ot J44.9 CHRONIC OBSTRUCTIVE PULMONARY DISEASE, U 04/03/2018 BRANDY, BOBAN N Ot Z51.11 ENCOUNTER FOR ANTINEOPLASTIC CHEMOTHERAP 04/03/2018 BRANDY BOBAN N Ot Z79.899 OTHER SENIOR [...] Status Pt. Type Provider Facility Loc./Unit Complaint [id number] 04/17/2018 13:01:00 04/17/2018 23:59:59 CLS Outpatient NAKITA NAVA [facility] ONC [id number] 04/03/2018 16:32:00 04/03/2018 23:59:59 CLS Preadmit NAKITA NAVA [facility] RAD ENCOUNTER FOR IMAGING STUDY TO RESTAGE NEOPLASM [id number] 03/01/2018 10:58:00 03/01/2018 23:59:59 CLS Outpatient DAYNA CAUSEY MD, FACC, FACP CCDS [facility] CARD CARDIOMYOPATHY [id number] 01/30/2018 12:59:00 02/03/2018 00:01:00 DIS Outpatient LIAM OSPINA MD [facility] ONC [id number] 01/16/2018 12:37:00 01/22/2018 15:10:00 DIS Outpatient NAKITA NAVA [facility] ONC [id number] 08/17/2017 13:21:00 11/05/2017 00:01:00 DIS Outpatient LIAM OSPINA MD [facility] ONC [id number] 08/07/2017 09:03:00 08/07/2017 23:59:59 CLS Outpatient NAKITA NAVA [facility] RAD NHL [id number] 08/07/2017 08:57:00 08/07/2017 23:59:59 CLS Outpatient CHRISTIAN GAYLEP [facility] LAB [id number] 06/20/2017 13:07:00 06/20/2017 15:43:00 DIS Emergency TARIK GARRETT LAVINIA Partida [facility] ER DIFFICULTY BREATHING [id number] 02/12/2017 15:52:00 05/06/2017 00:01:00 DIS Outpatient NAKITA NAVA [facility] ONC [id number] 04/11/2017 12:41:00 04/11/2017 23:59:59 CLS Outpatient DAYNA CAUSEY MD, FACC, FACP CCDS [facility] CARD CAD [id number] 01/16/2017 11:59:00 01/16/2017 23:59:59 CLS Outpatient ALEXA JOSHUA [facility] RAD COPD/DYSPNEA [id number] 01/16/2017 11:49:00 01/16/2017 23:59:59 CLS Outpatient ALEXA JOSHUAP [facility] LAB COPD W EMPHYSEMA [id number] 12/19/2016 09:56:00 12/19/2016 23:59:59 CLS Outpatient MARGO HOWARD DO C [facility] RAD OVARIAN CYST, LT SIDE N83.202 [id number] 08/14/2016 10:30:00 11/12/2016 00:01:00 DIS Outpatient NAKITA NAVA [facility] ONC [id number] 09/15/2016 09:43:00 10/04/2016 15:24:00 DIS Outpatient NAKITA NAVA [facility] REHAB LYMPHEDEMA OF LEFT ARM ; NHL [id number] 10/03/2016 09:57:00 10/03/2016 23:59:59 CLS Outpatient LUCINDA ANDERSON, DOUGLAS Giron [facility] RAD LEFT OVARIAN CYST [id number] 08/31/2016 14:14:00 08/31/2016 23:59:59 CLS Outpatient VEE QUINN EVALUATION ENGINEER [facility] RAD R93.5 [id number] 08/22/2016 10:14:00 08/22/2016 23:59:59 CLS Outpatient NAKITA NAVA [facility] RAD NHL [id number] 06/21/2016 17:33:00 06/21/2016 21:39:00 DIS Emergency MITCHELL CHILDRESS MD [facility] ER COUGH;RUNNY NOSE [id number] 02/14/2016 10:46:00 02/14/2016 23:59:59 CLS Outpatient CHRISTIAN GAYLE [facility] LAB [id number] 02/14/2016 10:44:00 02/14/2016 23:59:59 CLS Outpatient NAKITA NAVA [facility] ONC [id number] 08/16/2015 09:50:00 11/14/2015 00:01:00 DIS Outpatient NAKITA NAVA [facility] ONC [id number] 08/16/2015 09:52:00 08/16/2015 23:59:59 CLS Outpatient CHRISTIAN GAYLE EVALUATION ENGINEER [facility] LAB [id number] 04/19/2015 09:15:00 04/19/2015 23:59:59 CLS Outpatient VEE QUINN EVALUATION ENGINEER [facility] ONC [id number] 01/20/2015 09:42:00 02/03/2015 00:01:00 DIS Outpatient NAKITA NAVA [facility] ONC [id number] 02/01/2015 10:54:00 02/01/2015 23:59:59 CLS Outpatient CHRISTIAN GAYLEP [facility] LAB CAD,HLD [id number] 12/11/2014 11:35:00 12/11/2014 23:59:59 CLS Outpatient SHERYL GHOSH APRN [facility] RAD COPD,DYSPNEA [id number] 10/12/2014 08:44:00 11/29/2014 00:01:00 DIS Outpatient NAKITA NAVA [facility] ONC [id number] 10/12/2014 09:38:00 10/12/2014 23:59:59 CLS Outpatient VEE QUINN [facility] ONC [id number] 08/31/2014 11:03:00 08/31/2014 23:59:59 CLS Outpatient VEE QUINN [facility] ONC [id number] 08/24/2014 13:39:00 08/27/2014 12:20:00 DIS Inpatient SHANTEL POZO MD [facility] SURGICAL PNEUMONIA W/HYPOXIA [id number] 07/13/2014 11:31:00 08/25/2014 00:01:00 DIS Outpatient NAKITA NAVA [facility] ONC [id number] 05/27/2014 09:21:00 06/01/2014 13:54:00 DIS Outpatient NAKITA NAVA [facility] ONC [id number] 05/27/2014 08:59:00 05/27/2014 23:59:59 CLS Outpatient NAKITA NAVA [facility] RAD NHL [id number] 03/23/2014 10:41:00 03/29/2014 00:01:00 DIS Outpatient NAKITA NAVA [facility] ONC [id number] 01/20/2014 20:52:00 01/21/2014 06:35:00 DIS Outpatient TOM JC DO [facility] SLEEP EXCESSIVE DAYTIME SLEEPINESS OBSERVED APNEA [id number] 11/20/2013 12:43:00 12/15/2013 00:01:00 DIS Outpatient NAKITA NAVA Bree [facility] ONC [id number] 11/12/2013 09:51:00 11/12/2013 23:59:59 CLS Outpatient TOM JC DO [facility] RT DSYPNEA,PULM. HTN [id number] 11/10/2013 12:47:00 11/10/2013 23:59:59 CLS Outpatient VEE QUINNP [facility] ONC [id number] 07/30/2013 09:49:00 08/25/2013 00:01:00 DIS Outpatient BRANDYNAKITA JACKSON Bree [facility] ONC [id number] 07/30/2013 10:22:00 07/30/2013 23:59:59 CLS Outpatient BRANDYNAKITA JACKSON Bree [facility] RAD NON HODGKINS LYMPHOMA [id number] 07/30/2013 10:03:00 07/30/2013 23:59:59 CLS Outpatient PADILLA ANDERSON FACC, DAYNA READ CCDS [facility] LAB [id number] 04/01/2013 10:31:00 05/04/2013 00:01:00 DIS Outpatient NAKITA NAVA Bree [facility] ONC [id number] 04/28/2013 14:27:00 04/28/2013 23:59:59 CLS Outpatient VEE QUINN EVALUATION ENGINEER [facility] ONC [id number] 04/21/2013 09:35:00 04/21/2013 23:59:59 CLS Outpatient BRANDYNAKITA JACKSON Bree [facility] RAD NON HODGKINS LYMPHOMA [id number] 03/03/2013 08:39:00 03/03/2013 23:59:59 CLS Outpatient VEE QUINN EVALUATION ENGINEER [facility] ONC [id number] 01/28/2013 11:25:00 01/29/2013 00:01:00 DIS Outpatient NAKITA NAVA N [facility] ONC [id number] 01/28/2013 09:31:00 01/28/2013 23:59:59 CLS Outpatient VEE QUINN S EVALUATION ENGINEER [facility] RAD LYMPHOMA [id number] 01/21/2013 10:20:00 01/21/2013 23:59:59 CLS Outpatient PADILLA ANDERSON FACCDAYNA FACP CCDS [facility] LAB [id number] 01/07/2013 10:43:00 01/07/2013 23:59:59 CLS Outpatient VEE QUINN S EVALUATION ENGINEER [facility] ONC [id number] 12/02/2012 08:41:00 12/02/2012 23:59:59 CLS Outpatient VEE QUINN S EVALUATION ENGINEER [facility] ONC [id number] 10/31/2012 14:00:00 10/31/2012 23:59:59 CLS Outpatient NAKITA NAVA [facility] RAD [id number] 10/23/2012 08:56:00 10/23/2012 12:15:00 DIS Outpatient JUDI MOREL MD [facility] SDC LYMPHOMA [id number] 10/22/2012 08:05:00 10/22/2012 23:59:59 CLS Outpatient JUDI MOREL MD [facility] PREOP LYMPHOMA [id number] 10/16/2012 09:25:00 10/16/2012 23:59:59 CLS Outpatient VEE QUINN S EVALUATION ENGINEER [facility] ONC [id number] 10/15/2012 11:40:00 10/15/2012 23:59:59 CLS Outpatient QUINN, HILAH S EVALUATION ENGINEER [facility] RAD NON HODGKINS LYMPHOMA [id number] 10/09/2012 12:46:00 10/09/2012 23:59:59 CLS Outpatient ARIEL QUINNAH S EVALUATION ENGINEER [facility] RT DYSPNEA,NON-HODGKINS LYMPHOMA,PLEURAL EFFUSION [id number] 10/02/2012 10:04:00 10/02/2012 23:59:59 CLS Outpatient VEE QUINN EVALUATION ENGINEER [facility] RAD [id number] 10/02/2012 08:55:00 10/02/2012 23:59:59 CLS Outpatient VEE QUINN EVALUATION ENGINEER [facility] ONC [id number] 10/02/2012 09:11:00 10/02/2012 00:01:00 DIS Outpatient NAKITA NAVA [facility] ONC [id number] 09/04/2012 12:49:00 09/04/2012 23:59:59 CLS Outpatient PADILLA ANDERSON FACC, DAYNA QUICKP CCDS [facility] CARD DYSPNEA,HX OF MILD NON-ISCHEMIC CM [id number] 12/26/2017 13:20:00 Document Registration [id number] 12/20/2017 07:45:00 Document Registration [id number] 12/18/2017 05:47:00 Document Registration [id number] 12/12/2017 12:55:00 Document Registration [id number] 07/28/2014 12:20:00 Document Registration [id number] 05/13/2014 10:09:00 Document Registration [id number] 05/13/2014 10:09:00 Document Registration [id number] 06/06/2012 09:07:00 Document Registration [id number] 06/06/2012 09:03:00 Document Registration [id number] 02/15/2012 09:06:00 Document Registration [id number] 12/21/2011 08:49:00 Document Registration [id number] 10/26/2011 08:54:00 Document Registration [id number] 09/11/2011 08:56:00 Document Registration [id number] 08/31/2011 08:49:00 Document Registration [id number] 07/06/2011 09:06:00 Document Registration [id number] 07/06/2011 09:03:00 Document Registration [id number] 05/23/2011 20:53:00 Document Registration [id number] 04/20/2011 06:54:00 Document Registration [id number] 04/19/2011 21:16:00 Document Registration [id number] 04/13/2011 12:30:00 Document Registration [id number] 03/21/2011 05:32:00 Document Registration [id number] 03/16/2011 09:11:00 Document Registration [id number] 03/16/2011 08:26:00 Document Registration [id number] 03/02/2011 05:58:00 Document Registration [id number] 02/09/2011 08:57:00 Document Registration [id number] 01/04/2011 10:35:00 Document Registration [id number] 11/24/2010 14:31:00 Document Registration [id number] 11/16/2010 09:07:00 Document Registration [id number] 08/18/2010 17:58:00 Document Registration [id number] 04/14/2009 09:14:00 Document Registration [id number] 04/07/2009 11:24:00 Document Registration
[2018-04-24] MEDS ORDERED: NS IV ONE (14:30)
[2018-04-24] MEDS ORDERED: CATHETER FLUSH 10 ML SYR IV PRN ×3 (14:45→16:00)
[2018-04-24] MEDS: cefTRIAXone FOR IV USE 1,000 MG in NS (IVPB) 50 ML IV SCH (14:55)
[2018-04-24] MEDS ORDERED: OMEP20CA12 PO (14:58)
[2018-04-24] MEDS ORDERED: AZITHROMYCIN INJECTION 500 MG in NS (IVPB) 250 ML IV SCH (15:00)
[2018-04-24 15:04] LABS: BASOPHILS % (AUTO) 0 % (0-10); EOSINOPHILS # (AUTO) 0.1 10^3/uL (0.0-0.3); EOSINOPHILS % (AUTO) 1 % (0-10); HEMATOCRIT 36 % (35-52); HEMOGLOBIN 11.2 G/DL (11.5-16.0); LYMPHOCYTES # (AUTO) 0.6 X 10^3 (1.0-4.0); LYMPHOCYTES % (AUTO) 13 % (12-44); MEAN CORPUSCULAR HEMOGLOBIN 28 PG (25-34); MEAN CORPUSCULAR HGB CONC 31 G/DL (32-36); MEAN CORPUSCULAR VOLUME 91 FL (80-99); MEAN PLATELET VOLUME 9.6 FL (7.4-10.4); MONOCYTES # (AUTO) 0.6 X 10^3 (0.0-1.0); MONOCYTES % (AUTO) 13 % (0-12); NEUTROPHILS # (AUTO) 3.4 X 10^3 (1.8-7.8); NEUTROPHILS % (AUTO) 73 % (42-75); PLATELET COUNT 119 10^3/uL (130-400); RED BLOOD COUNT 3.96 10^6/uL (4.35-5.85); RED CELL DISTRIBUTION WIDTH 14.6 % (10.0-14.5); WHITE BLOOD COUNT 4.6 10^3/uL (4.3-11.0)
--- NOTE | 2018-04-24 15:10 | Diagnostic Imaging Report ---
INDICATION: Fever and difficulty breathing. TIME OF EXAM: 2:58 p.m. COMPARISON: Correlation is made with prior chest from 12/20/2017. FINDINGS: A right chest wall port has tip overlying the SVC. The heart size is stable. Lungs are hyperinflated, consistent with COPD. No significant infiltrate is identified. There may be very minimal infiltrate present in the left base which shows partial obscuration of the left hemidiaphragm and slight blunting of the left costophrenic angle. Mid and upper lung berumen are clear. The pulmonary vascularity is normal. There is no pneumothorax. IMPRESSION: Questionable minimal left basilar infiltrate or atelectasis. Otherwise, the lungs appear to be clear. Dictated by: Dictated on workstation # [id number]
[2018-04-24] MEDS ORDERED: MV-M1TAB32 PO (15:12)
[2018-04-24 15:24] LABS: ALANINE AMINOTRANSFERASE 15 U/L (0-55); ALBUMIN 3.6 GM/DL (3.2-4.5); ALKALINE PHOSPHATASE 75 U/L (40-136); BILIRUBIN,TOTAL 0.3 MG/DL (0.1-1.0); BUN/CREATININE RATIO 15; CALCIUM 9.9 MG/DL (8.5-10.1); CARBON DIOXIDE 38 MMOL/L (21-32); CHLORIDE 99 MMOL/L (98-107); CREATININE SERUM 0.62 MG/DL (0.60-1.30); GFR ESTIMATED > 60; GLUCOSE 109 MG/DL (70-105); POTASSIUM 3.8 MMOL/L (3.6-5.0); SODIUM 145 MMOL/L (135-145); TOTAL PROTEIN 6.7 GM/DL (6.4-8.2)
[2018-04-24] MEDS ORDERED: FLU QUADRIvalent (5+ YOA) 2018-2019 (AFLURIA) 0.5 ML IM ONE (16:00)
[2018-04-24 16:25] VITALS: BP 157/73
--- NOTE | 2018-04-24 17:13 | History & Physical-Hospitalist ---
History of Present Illness HPI/Chief Complaint Pt is a 67yoCF with a PMH of COPD, NHL, HTN who was direct admitted from Dr Watt's office for hypoxia. She states that she started feeling poorly around 3 weeks ago when she got her last dose of chemo. She was seen by her oncologist Dr Lorenzo around that time who advised Mucinex. She states she continued to gradually worsen developing a cough with sputum. She went to her appointment with Dr Watt today and was found to be febrile with oxygen sats in the 70s on arrival. She was placed on oxygen there with good response and was directed admitted for concerns for sepsis. She states she is still feeling SOB but that has improved. She denies any other complaints at this time. Source: patient Date Seen 04/24/18 Time Seen by a Provider: 15:35 Attending Physician Antoine Montoya MD PCP Alicja Huber DO Referring Physician Date of Admission Apr 24, 2018 at 14:00 Home Medications & Allergies Home Medications Reviewed patient Home Medication Reconciliation performed by pharmacy medication reconciliations electro mechanical solar technician and/or nursing. Patients Allergies have been reviewed. Allergies Allergies Coded Allergies NKANo Known Allergies (Unverified Allergy, Mild, 10/22/12) Past Mpojogs-Wauphp-Mvzets Hx Past Med/Social Hx: Reviewed Nursing Past Med/Soc Hx Patient Social History Marrital Status: Alcohol Use: Denies Use Recreational Drug Use: No Smoking Status: Former Smoker Former Smoker, Quit: Jan 06, 2000 Type Used: Cigarettes 2nd Hand Smoke Exposure: No Physical Abuse Screen: No Sexual Abuse: No Recent Foreign Travel: No Contact w/other who traveled: No Recent Hopitalizations: No Recent Infectious Disease Expo: No Seasonal Allergies Seasonal Allergies: No Past Medical History Surgeries: Gallbladder, Tubal Ligation port Respiratory: COPD Currently Using CPAP: No Currently Using BIPAP: No Cardiac: Heart Attack, High Cholesterol, Hypertension Reproductive: No Female Reproductive Disorders: Ovarian Cyst Menopausal Cancer: Lymphoma Did You Recieve Any Treatments: Yes What Type of Treatment Did You: Chemotherapy Cancer: Pt states chemo once an month on the last sunday of each month. Next chemo treatment is scheduled for 05/01/18 History of Blood Disorders: No Family History Drug abuse G8 BROTHER Review of Systems Constitutional: fever, weakness EENTM: No blurred vision, No double vision, No nose congestion, No throat pain Respiratory: cough, dyspnea on exertion, phlegm, short of breath Cardiovascular: No chest pain Gastrointestinal: No abdominal pain, No constipation, No diarrhea, No nausea, No vomiting Genitourinary: No dysuria, No frequency Musculoskeletal: No joint pain, No muscle pain Skin: No lesions, No rash Psychiatric/Neurological: Denies Headache, Denies Numbness, Denies Tingling Physical Exam Physical Exam Vital Signs Vital Signs - First Documented 04/24/18 04/24/18 14:15 16:25 Temp 99.2 Pulse 91 Resp 20 B/P (MAP) 157/73 (101) Pulse Ox 100 O2 Delivery Nasal Cannula O2 Flow Rate 3.50 Capillary Refill : Height, Weight, BMI Height: 5'6.00" Weight: 188lbs. 1.0oz. 85.660268ma; 30.4 BMI Method:Stated General Appearance: No Apparent Distress, WD/WN HEENT: PERRL/EOMI, Moist Mucous Membranes; No Scleral Icterus (L), No Scleral Icterus (R) Neck: Non Tender, Supple Respiratory: No Respiratory Distress, Decreased Breath Sounds Cardiovascular: Regular Rate, Rhythm, No Murmur Gastrointestinal: Normal Bowel Sounds, Non Tender, Soft Extremity: Normal Capillary Refill, No Calf Tenderness Neurologic/Psychiatric: Alert, Oriented x3, Normal Mood/Affect Skin: Normal Color, Warm/Dry Results Results/Procedures Labs Laboratory Tests 04/24/18 14:46 Patient resulted labs reviewed. Imaging: Reviewed Imaging Report Assessment/Plan Admission Diagnosis Sepsis Admission Status: Inpatient Order (span 2 midnights) Reason for Inpatient Admission: IV abx, will likely take more than 2 midnights to stabilize Diagnosis/Problems Diagnosis/Problems (1) Sepsis Assessment & Plan: left sided infiltrate on CXR Tachycardiac and febrile Continue on IV abx (Rocephin and Azithro) cultures ordered No severe sepsis criteria met Qualifiers: Sepsis type: sepsis due to unspecified organism Qualified Codes: A41.9 - Sepsis, unspecified organism (2) COPD (chronic obstructive pulmonary disease) Status: Chronic Assessment & Plan: MAT protocol Will place on oral steroids as well given increased cough and hypoxia Qualifiers: COPD type: unspecified COPD Qualified Codes: J44.9 - Chronic obstructive pulmonary disease, unspecified (3) Essential (primary) hypertension Status: Chronic Assessment & Plan: Resume home meds (4) Pneumonia Status: Acute Assessment & Plan: CAP On rocpehin and azithro (5) Non-Hodgkin lymphoma Status: Acute Assessment & Plan: Currently on chemo not neutropenic Qualifiers: Non-Hodgkin lymphoma type: unspecified type Lymphoma site: unspecified region Qualified Codes: C85.90 - Non-Hodgkin lymphoma, unspecified, unspecified site Clinical Quality Measures DVT/VTE Risk/Contraindication: Risk Factor Score Per Nursin RFS Level Per Nursing on Admit: 4+=Very High ANTOINE MONTOYA MD Apr 24, 2018 17:13
[2018-04-24] MEDS ORDERED: ACETAMINOPHEN 500 MG TAB (TYLENOL) PO PRN (17:15)
[2018-04-24] MEDS ORDERED: MILK OF MAGNESIA 400 MG/5 ML 30 ML UDC PO PRN (17:15)
[2018-04-24] MEDS ORDERED: ANTACID SUSP 30 ML UDC (MYLANTA) PO PRN (17:15)
[2018-04-24] MEDS ORDERED: MELATONIN 3 MG TABLET PO PRN (17:15)
[2018-04-24] MEDS ORDERED: ONDANSETRON 4 MG/2 ML (SDV) Z0FRAN IV PRN (17:15)
[2018-04-24] MEDS: BENZONATATE 100 MG (TESSALON) CAPSULE PO PRN (17:29)
[2018-04-24 17:30] VITALS: BP 157/73
[2018-04-24] MEDS ORDERED: ACETAMINOPHEN 325 MG TABLET PO PRN (17:30)
[2018-04-24] MEDS ORDERED: RT-ALBUTEROL/IPRATROPIUM 3 ML (DUONEB) VIAL INH PRN (18:00)
[2018-04-24] MEDS: RT-ALBUTEROL/IPRATROPIUM 3 ML (DUONEB) VIAL INH SCH (18:50)
[2018-04-24] MEDS ORDERED: FLUTICASONE NASAL SPRAY (FLONASE) 16 GM BTL NS PRN (19:00)
[2018-04-24] MEDS: RT-ADVAIR HFA 115/21 MCG PER PUFF IH SCH (20:00)
[2018-04-24 20:05] VITALS: BP 134/63
[2018-04-24] MEDS: MONTELUKAST 10 MG (SINGULAIR) TAB PO SCH (20:50)
[2018-04-24] MEDS: CARVEDILOL 6.25 MG (COREG) TAB PO SCH (20:50)
[2018-04-24] MEDS: SIMvastatin 20 MG (ZOCOR) TAB PO SCH (20:50)
[2018-04-24] MEDS: CATHETER FLUSH 10 ML SYR IV SCH (20:51)
[2018-04-24] MEDS ORDERED: NON-FORMULARY MEDICATION 1 EA EA (Fluticasone/Salmeterol (Advair 250-50 Diskus) 1 PUFF) IH SCH (21:00)
[2018-04-24] MEDS ORDERED: NON-FORMULARY MEDICATION 1 EA EA (Pravastatin Sodium 40 MG) PO SCH (21:00)
[2018-04-25 00:03] VITALS: BP 123/64
[2018-04-25 04:00] VITALS: BP_SYST 123; BP_SYST 135; BP_DIAS 62; BP_DIAS 64
[2018-04-25] MEDS: BENZONATATE 100 MG (TESSALON) CAPSULE PO PRN ×3 (05:07→23:51)
[2018-04-25] MEDS: CATHETER FLUSH 10 ML SYR IV SCH ×3 (05:07→20:39)
[2018-04-25 05:48] LABS: BASOPHILS % (AUTO) 0 % (0-10); EOSINOPHILS # (AUTO) 0.1 10^3/uL (0.0-0.3); EOSINOPHILS % (AUTO) 3 % (0-10); HEMATOCRIT 34 % (35-52); HEMOGLOBIN 10.6 G/DL (11.5-16.0); LYMPHOCYTES # (AUTO) 0.9 X 10^3 (1.0-4.0); LYMPHOCYTES % (AUTO) 27 % (12-44); MEAN CORPUSCULAR HEMOGLOBIN 29 PG (25-34); MEAN CORPUSCULAR HGB CONC 32 G/DL (32-36); MEAN CORPUSCULAR VOLUME 92 FL (80-99); MEAN PLATELET VOLUME 9.7 FL (7.4-10.4); MONOCYTES # (AUTO) 0.5 X 10^3 (0.0-1.0); MONOCYTES % (AUTO) 13 % (0-12); NEUTROPHILS % (AUTO) 58 % (42-75); PLATELET COUNT 114 10^3/uL (130-400); RED BLOOD COUNT 3.67 10^6/uL (4.35-5.85); RED CELL DISTRIBUTION WIDTH 14.9 % (10.0-14.5); WHITE BLOOD COUNT 3.5 10^3/uL (4.3-11.0)
[2018-04-25 06:12] LABS: ALANINE AMINOTRANSFERASE 14 U/L (0-55); ALBUMIN 3.3 GM/DL (3.2-4.5); ALKALINE PHOSPHATASE 72 U/L (40-136); BILIRUBIN,TOTAL 0.4 MG/DL (0.1-1.0); BUN/CREATININE RATIO 14; CALCIUM 9.5 MG/DL (8.5-10.1); CARBON DIOXIDE 37 MMOL/L (21-32); CHLORIDE 99 MMOL/L (98-107); CREATININE SERUM 0.59 MG/DL (0.60-1.30); GFR ESTIMATED > 60; GLUCOSE 99 MG/DL (70-105); POTASSIUM 3.6 MMOL/L (3.6-5.0); SODIUM 144 MMOL/L (135-145); TOTAL PROTEIN 6.1 GM/DL (6.4-8.2)
[2018-04-25] MEDS: RT-ALBUTEROL/IPRATROPIUM 3 ML (DUONEB) VIAL INH SCH ×4 (07:23→19:22)
[2018-04-25] MEDS: RT-ADVAIR HFA 115/21 MCG PER PUFF IH SCH ×2 (07:27→19:22)
[2018-04-25 08:00] VITALS: BP 145/74
[2018-04-25] MEDS: LORATADINE (CLARITIN) 10 MG TAB PO SCH (08:28)
[2018-04-25] MEDS: lisINopril 5 MG (PRINIVIL) TABLET PO SCH (08:41)
[2018-04-25] MEDS: CARVEDILOL 6.25 MG (COREG) TAB PO SCH ×2 (08:41→20:39)
[2018-04-25] MEDS ORDERED: AZITHROMYCIN INJECTION 500 MG in NS (IVPB) 250 ML IV SCH (09:00)
[2018-04-25] MEDS ORDERED: NON-FORMULARY MEDICATION 1 EA EA (Cetirizine HCl 10 MG) PO SCH (09:00)
--- NOTE | 2018-04-25 11:46 | Progress Note-Hospitalist ---
Subjective HPI/CC On Admission Date Seen by Provider: Apr 25, 2018 Time Seen by Provider: 11:43 Pt is a 67yoCF with a PMH of COPD, NHL, HTN who was direct admitted from Dr Watt's office for hypoxia. She states that she started feeling poorly around 3 weeks ago when she got her last dose of chemo. She was seen by her oncologist Dr Lorenzo around that time who advised Mucinex. She states she continued to gradually worsen developing a cough with sputum. She went to her appointment with Dr Watt today and was found to be febrile with oxygen sats in the 70s on arrival. She was placed on oxygen there with good response and was directed admitted for concerns for sepsis. She states she is still feeling SOB but that has improved. She denies any other complaints at this time. Subjective/Events-last exam Pt reports feeling better today and breathing is improved. Normally wears 2lpm at home when sick and currently on 3.5lpm Focused Exam Lactate Level 04/24/18 14:46: Lactic Acid Level 0.81 Objective Exam Vital Signs Vital Signs Date Time Temp Pulse Resp B/P (MAP) Pulse Ox O2 Delivery O2 Flow Rate FiO2 04/25/18 10:45 Nasal Cannula 3.50 04/25/18 08:00 97.9 72 20 145/74 (97) 91 Capillary Refill : General Appearance: No Apparent Distress, Chronically ill Respiratory: Lungs Clear, No Respiratory Distress Cardiovascular: Regular Rate, Rhythm, No Murmur Gastrointestinal: Normal Bowel Sounds, Soft Neurologic/Psychiatric: Alert, Oriented x3 Results/Procedures Lab Laboratory Tests 04/24/18 14:46 04/25/18 05:30 Patient resulted labs reviewed. Imaging: Reviewed Imaging Report Assessment/Plan Assessment and Plan Assess & Plan/Chief Complaint Sepsis Diagnosis/Problems Diagnosis/Problems (1) Sepsis Assessment & Plan: left sided infiltrate on CXR Sepsis resolving Continue on IV abx (Rocephin and Azithro) cultures ordered- pending Qualifiers: Sepsis type: sepsis due to unspecified organism Qualified Codes: A41.9 - Sepsis, unspecified organism (2) COPD (chronic obstructive pulmonary disease) Status: Chronic Assessment & Plan: MAT protocol Will defer steroids given significant improvement and no wheezing Qualifiers: COPD type: unspecified COPD Qualified Codes: J44.9 - Chronic obstructive pulmonary disease, unspecified (3) Essential (primary) hypertension Status: Chronic Assessment & Plan: Resume home meds (4) Pneumonia Status: Acute Assessment & Plan: CAP On rocpehin and azithro (5) Non-Hodgkin lymphoma Status: Acute Assessment & Plan: Currently on chemo not neutropenic Qualifiers: Non-Hodgkin lymphoma type: unspecified type Lymphoma site: unspecified region Qualified Codes: C85.90 - Non-Hodgkin lymphoma, unspecified, unspecified site Clinical Quality Measures DVT/VTE Risk/Contraindication: Risk Factor Score Per Nursin RFS Level Per Nursing on Admit: 4+=Very High ANTOINE GUTIERREZ MD Apr 25, 2018 11:46
[2018-04-25 12:00] VITALS: BP 143/82
[2018-04-25] MEDS: AZITHROMYCIN 250 MG TAB (ZITHROMAX) PO SCH (14:27)
[2018-04-25] MEDS: cefTRIAXone FOR IV USE 1,000 MG in NS (IVPB) 50 ML IV SCH (14:27)
[2018-04-25 15:49] VITALS: BP 140/61
[2018-04-25 19:51] VITALS: BP 134/76
[2018-04-25] MEDS: MONTELUKAST 10 MG (SINGULAIR) TAB PO SCH (20:39)
[2018-04-25] MEDS: SIMvastatin 20 MG (ZOCOR) TAB PO SCH (20:39)
[2018-04-26 00:45] VITALS: BP 138/69
[2018-04-26 04:06] VITALS: BP 131/63
[2018-04-26] MEDS: RT-ADVAIR HFA 115/21 MCG PER PUFF IH SCH (06:30)
[2018-04-26] MEDS: RT-ALBUTEROL/IPRATROPIUM 3 ML (DUONEB) VIAL INH SCH ×2 (06:30→10:49)
[2018-04-26] MEDS: CATHETER FLUSH 10 ML SYR IV SCH ×2 (06:50→11:47)
[2018-04-26 08:00] VITALS: BP 132/61
[2018-04-26] MEDS: lisINopril 5 MG (PRINIVIL) TABLET PO SCH (08:54)
[2018-04-26] MEDS: CARVEDILOL 6.25 MG (COREG) TAB PO SCH (08:55)
[2018-04-26] MEDS: LORATADINE (CLARITIN) 10 MG TAB PO SCH (08:55)
--- NOTE | 2018-04-26 09:06 | Discharge Summary-Hospitalist ---
Diagnosis/Chief Complaint Date of Admission Apr 24, 2018 at 14:00 Date of Discharge Discharge Date: Apr 26, 2018 Admission Diagnosis Sepsis Discharge Diagnosis (1) Sepsis Assessment & Plan: left sided infiltrate on CXR Sepsis resolving Continue on IV abx (Rocephin and Azithro) cultures ordered- pending (2) COPD (chronic obstructive pulmonary disease) Status: Chronic Assessment & Plan: MAT protocol Will defer steroids given significant improvement and no wheezing (3) Essential (primary) hypertension Status: Chronic Assessment & Plan: Resume home meds (4) Pneumonia Status: Acute Assessment & Plan: CAP On rocpehin and azithro (5) Non-Hodgkin lymphoma Status: Acute Assessment & Plan: Currently on chemo not neutropenic Discharge Summary Discharge Physical Exam Allergies: Coded Allergies: NKANo Known Allergies (Unverified Allergy, Mild, 10/22/12) Vitals & I&Os Vital Signs Date Time Temp Pulse Resp B/P (MAP) Pulse Ox O2 Delivery O2 Flow Rate FiO2 04/26/18 06:30 95 Nasal Cannula 3.50 04/26/18 04:06 98.4 90 18 131/63 (85) General Appearance: No Apparent Distress Cardiovascular: Regular Rate, Rhythm, No Murmur Hospital Course Pt is a 67yoCF who presented with sepsis from pneumonia from her rn rehabilitation' s office. She was started on IV abx and responded well. She was able to be titrated down to her normal oxygen and was requesting discharge home on day of discharge. She was sent home to complete oral antibiotics. She already has oxygen at home. Labs (last 24 hrs) Microbiology 04/24/18 Blood Culture - Preliminary, Resulted No growth Patient resulted labs reviewed. Imaging: Reviewed Imaging Report Discussion & Recommendations Discharge Planning: >30 minutes discharge planning Discharge Home Medications: Active Scripts Active Reported Airborne Tablet Chewable (Mv-Min/Vit C/Glut/María AC/Hc124) 1 Each Tab.chew 1 Tab.chew PO DAILY Omeprazole 20 Mg Capsule.dr 20 Mg PO DAILY Montelukast Sodium 10 Mg Tablet 10 Mg PO HS Cetirizine HCl 10 Mg Tablet 10 Mg PO DAILY Proair Hfa (Albuterol Sulfate) 1 Puff Puff 2 Puff IH Q4H PRN 1 PUFF = 90 MCG Ocuvite Softgel (Vit C/Vit E/Lutein/Min/Crewe-3) 1 Each Capsule 1 Cap PO DAILY Pravastatin Sodium 40 Mg Tablet 40 Mg PO HS Fluticasone Propionate 16 Gm [place].susp 1 [place] NS HS PRN Advair 250-50 Diskus (Fluticasone/Salmeterol) 1 Each Blst.w.dev 1 Puff IH BID LAST FILLED 02-04-18 Lisinopril 5 Mg Tablet 5 Mg PO DAILY Carvedilol 6.25 Mg Tablet 6.25 Mg PO BID Instructions to patient/family Please see electronic discharge instructions given to patient. Clinical Quality Measures DVT/VTE Risk/Contraindication: Risk Factor Score Per Nursin RFS Level Per Nursing on Admit: 4+=Very High Problem Qualifiers (1) Sepsis: Sepsis type: sepsis due to unspecified organism Qualified Codes: A41.9 - Sepsis, unspecified organism (2) COPD (chronic obstructive pulmonary disease): COPD type: unspecified COPD Qualified Codes: J44.9 - Chronic obstructive pulmonary disease, unspecified (3) Non-Hodgkin lymphoma: Non-Hodgkin lymphoma type: unspecified type Lymphoma site: unspecified region Qualified Codes: C85.90 - Non-Hodgkin lymphoma, unspecified, unspecified site ANTOINE GUTIERREZ MD Apr 26, 2018 09:06
[2018-04-26] MEDS ORDERED: AZIT250T12 PO (09:14)
[2018-04-26] MEDS ORDERED: CEPH-507 PO (09:14)
[2018-04-26] MEDS ORDERED: NS IV 1000 ML 1,000 ML ONE (10:48)
[2018-04-26] MEDS: cefTRIAXone FOR IV USE 1,000 MG in NS (IVPB) 50 ML IV SCH (11:46)
[2018-04-26 12:00] VITALS: BP 134/58
[2018-04-26] MEDS: AZITHROMYCIN 250 MG TAB (ZITHROMAX) PO SCH (12:33)
== END 2018-04-26 13:55 | disposition home or self-care (01) | DRG 871 ==
LOC: 4TH 14:00
PROVIDERS: ADMIT Family Medicine; ATTEND Family Medicine
DX: A41.9 Sepsis, unspecified organism (principal); J18.9 Pneumonia, unspecified organism; C85.90 Non-Hodgkin lymphoma, unspecified, unspecified site; J44.9 Chronic obstructive pulmonary disease, unspecified; I10 Essential (primary) hypertension; I25.2 Old myocardial infarction; E78.00 Pure hypercholesterolemia, unspecified; Z87.891 Personal history of nicotine dependence; Z79.899 Other long term (current) drug therapy
CPT/HCPCS: 36415; 71045; 80053; 83605; 85025; 87040; 94640; 94760; 94761

== ENCOUNTER 2018-05-01 13:08 | Outpatient (RCR) | payer MEDICARE ==
[2018-02-06 12:47] LABS: BASOPHILS % (AUTO) 1 % (0-10); EOSINOPHILS # (AUTO) 0.2 10^3/uL (0.0-0.3); EOSINOPHILS % (AUTO) 4 % (0-10); HEMATOCRIT 37 % (35-52); HEMOGLOBIN 12.1 G/DL (11.5-16.0); LYMPHOCYTES # (AUTO) 0.5 X 10^3 (1.0-4.0); LYMPHOCYTES % (AUTO) 10 % (12-44); MEAN CORPUSCULAR HEMOGLOBIN 28 PG (25-34); MEAN CORPUSCULAR HGB CONC 33 G/DL (32-36); MEAN CORPUSCULAR VOLUME 86 FL (80-99); MEAN PLATELET VOLUME 8.7 FL (7.4-10.4); MONOCYTES # (AUTO) 0.9 X 10^3 (0.0-1.0); MONOCYTES % (AUTO) 20 % (0-12); NEUTROPHILS # (AUTO) 2.9 X 10^3 (1.8-7.8); NEUTROPHILS % (AUTO) 66 % (42-75); PLATELET COUNT 144 10^3/uL (130-400); RED BLOOD COUNT 4.29 10^6/uL (4.35-5.85); RED CELL DISTRIBUTION WIDTH 15.8 % (10.0-14.5); WHITE BLOOD COUNT 4.4 10^3/uL (4.3-11.0)
[2018-02-06 13:06] LABS: BUN/CREATININE RATIO 17; CALCIUM 9.7 MG/DL (8.5-10.1); CARBON DIOXIDE 27 MMOL/L (21-32); CHLORIDE 105 MMOL/L (98-107); GFR ESTIMATED > 60; GLUCOSE 96 MG/DL (70-105); SODIUM 141 MMOL/L (135-145)
[2018-02-13 13:22] LABS: BASOPHILS % (AUTO) 1 % (0-10); EOSINOPHILS # (AUTO) 0.2 10^3/uL (0.0-0.3); EOSINOPHILS % (AUTO) 5 % (0-10); HEMATOCRIT 36 % (35-52); HEMOGLOBIN 11.4 G/DL (11.5-16.0); LYMPHOCYTES # (AUTO) 0.8 X 10^3 (1.0-4.0); LYMPHOCYTES % (AUTO) 23 % (12-44); MEAN CORPUSCULAR HEMOGLOBIN 28 PG (25-34); MEAN CORPUSCULAR HGB CONC 32 G/DL (32-36); MEAN CORPUSCULAR VOLUME 87 FL (80-99); MEAN PLATELET VOLUME 9.3 FL (7.4-10.4); MONOCYTES # (AUTO) 0.9 X 10^3 (0.0-1.0); MONOCYTES % (AUTO) 25 % (0-12); NEUTROPHILS # (AUTO) 1.7 X 10^3 (1.8-7.8); NEUTROPHILS % (AUTO) 46 % (42-75); PLATELET COUNT 144 10^3/uL (130-400); RED BLOOD COUNT 4.09 10^6/uL (4.35-5.85); RED CELL DISTRIBUTION WIDTH 15.7 % (10.0-14.5); WHITE BLOOD COUNT 3.6 10^3/uL (4.3-11.0)
[2018-02-13 13:38] LABS: BUN/CREATININE RATIO 16; CALCIUM 9.7 MG/DL (8.5-10.1); CARBON DIOXIDE 30 MMOL/L (21-32); CHLORIDE 105 MMOL/L (98-107); GFR ESTIMATED > 60; GLUCOSE 121 MG/DL (70-105); POTASSIUM 3.9 MMOL/L (3.6-5.0); SODIUM 142 MMOL/L (135-145)
[2018-02-20 09:50] LABS: BASOPHILS % (AUTO) 1 % (0-10); EOSINOPHILS # (AUTO) 0.2 10^3/uL (0.0-0.3); EOSINOPHILS % (AUTO) 7 % (0-10); HEMATOCRIT 36 % (35-52); LYMPHOCYTES # (AUTO) 0.9 X 10^3 (1.0-4.0); LYMPHOCYTES % (AUTO) 35 % (12-44); MEAN CORPUSCULAR HEMOGLOBIN 29 PG (25-34); MEAN CORPUSCULAR HGB CONC 34 G/DL (32-36); MEAN CORPUSCULAR VOLUME 86 FL (80-99); MONOCYTES # (AUTO) 0.8 X 10^3 (0.0-1.0); MONOCYTES % (AUTO) 30 % (0-12); NEUTROPHILS # (AUTO) 0.7 X 10^3 (1.8-7.8); NEUTROPHILS % (AUTO) 28 % (42-75); PLATELET COUNT 130 10^3/uL (130-400); RED BLOOD COUNT 4.15 10^6/uL (4.35-5.85); RED CELL DISTRIBUTION WIDTH 15.6 % (10.0-14.5); WHITE BLOOD COUNT 2.6 10^3/uL (4.3-11.0)
[2018-02-20 10:13] LABS: ALANINE AMINOTRANSFERASE 16 U/L (0-55); ALBUMIN 3.8 GM/DL (3.2-4.5); ALKALINE PHOSPHATASE 74 U/L (40-136); BILIRUBIN,TOTAL 0.5 MG/DL (0.1-1.0); BUN/CREATININE RATIO 17; CALCIUM 9.7 MG/DL (8.5-10.1); CARBON DIOXIDE 28 MMOL/L (21-32); CHLORIDE 104 MMOL/L (98-107); GFR ESTIMATED > 60; GLUCOSE 99 MG/DL (70-105); POTASSIUM 4.1 MMOL/L (3.6-5.0); SODIUM 141 MMOL/L (135-145); TOTAL PROTEIN 6.5 GM/DL (6.4-8.2)
[2018-02-27 09:49] LABS: BASOPHILS % (AUTO) 1 % (0-10); EOSINOPHILS # (AUTO) 0.1 10^3/uL (0.0-0.3); EOSINOPHILS % (AUTO) 5 % (0-10); HEMATOCRIT 37 % (35-52); LYMPHOCYTES # (AUTO) 1.1 X 10^3 (1.0-4.0); LYMPHOCYTES % (AUTO) 41 % (12-44); MEAN CORPUSCULAR HEMOGLOBIN 29 PG (25-34); MEAN CORPUSCULAR HGB CONC 33 G/DL (32-36); MEAN CORPUSCULAR VOLUME 87 FL (80-99); MEAN PLATELET VOLUME 9.1 FL (7.4-10.4); MONOCYTES # (AUTO) 0.6 X 10^3 (0.0-1.0); MONOCYTES % (AUTO) 21 % (0-12); NEUTROPHILS # (AUTO) 0.9 X 10^3 (1.8-7.8); NEUTROPHILS % (AUTO) 33 % (42-75); PLATELET COUNT 152 10^3/uL (130-400); RED BLOOD COUNT 4.21 10^6/uL (4.35-5.85); RED CELL DISTRIBUTION WIDTH 15.7 % (10.0-14.5); WHITE BLOOD COUNT 2.7 10^3/uL (4.3-11.0)
[2018-02-27 10:07] LABS: BUN/CREATININE RATIO 18; CALCIUM 9.6 MG/DL (8.5-10.1); CARBON DIOXIDE 28 MMOL/L (21-32); CHLORIDE 105 MMOL/L (98-107); CREATININE SERUM 0.68 MG/DL (0.60-1.30); GFR ESTIMATED > 60; GLUCOSE 103 MG/DL (70-105); SODIUM 142 MMOL/L (135-145)
[2018-03-06 09:41] LABS: BASOPHILS % (AUTO) 1 % (0-10); EOSINOPHILS # (AUTO) 0.2 10^3/uL (0.0-0.3); EOSINOPHILS % (AUTO) 4 % (0-10); HEMATOCRIT 38 % (35-52); HEMOGLOBIN 12.1 G/DL (11.5-16.0); LYMPHOCYTES # (AUTO) 1.3 X 10^3 (1.0-4.0); LYMPHOCYTES % (AUTO) 33 % (12-44); MEAN CORPUSCULAR HEMOGLOBIN 28 PG (25-34); MEAN CORPUSCULAR HGB CONC 32 G/DL (32-36); MEAN CORPUSCULAR VOLUME 89 FL (80-99); MEAN PLATELET VOLUME 9.6 FL (7.4-10.4); MONOCYTES # (AUTO) 0.6 X 10^3 (0.0-1.0); MONOCYTES % (AUTO) 14 % (0-12); NEUTROPHILS # (AUTO) 1.9 X 10^3 (1.8-7.8); NEUTROPHILS % (AUTO) 49 % (42-75); PLATELET COUNT 122 10^3/uL (130-400); RED BLOOD COUNT 4.27 10^6/uL (4.35-5.85); WHITE BLOOD COUNT 3.9 10^3/uL (4.3-11.0)
[2018-03-06 10:00] LABS: BUN/CREATININE RATIO 19; CALCIUM 9.6 MG/DL (8.5-10.1); CARBON DIOXIDE 29 MMOL/L (21-32); CHLORIDE 106 MMOL/L (98-107); CREATININE SERUM 0.68 MG/DL (0.60-1.30); GFR ESTIMATED > 60; GLUCOSE 106 MG/DL (70-105); SODIUM 142 MMOL/L (135-145)
[2018-03-13 13:14] LABS: BASOPHILS % (AUTO) 0 % (0-10); EOSINOPHILS # (AUTO) 0.3 10^3/uL (0.0-0.3); EOSINOPHILS % (AUTO) 6 % (0-10); HEMATOCRIT 37 % (35-52); HEMOGLOBIN 11.8 G/DL (11.5-16.0); LYMPHOCYTES # (AUTO) 0.3 X 10^3 (1.0-4.0); LYMPHOCYTES % (AUTO) 7 % (12-44); MEAN CORPUSCULAR HEMOGLOBIN 29 PG (25-34); MEAN CORPUSCULAR HGB CONC 32 G/DL (32-36); MEAN CORPUSCULAR VOLUME 90 FL (80-99); MEAN PLATELET VOLUME 9.4 FL (7.4-10.4); MONOCYTES # (AUTO) 0.6 X 10^3 (0.0-1.0); MONOCYTES % (AUTO) 13 % (0-12); NEUTROPHILS # (AUTO) 3.4 X 10^3 (1.8-7.8); NEUTROPHILS % (AUTO) 73 % (42-75); PLATELET COUNT 120 10^3/uL (130-400); RED CELL DISTRIBUTION WIDTH 16.1 % (10.0-14.5); WHITE BLOOD COUNT 4.6 10^3/uL (4.3-11.0)
[2018-03-13 13:29] LABS: BUN/CREATININE RATIO 15; CALCIUM 9.6 MG/DL (8.5-10.1); CARBON DIOXIDE 33 MMOL/L (21-32); CHLORIDE 104 MMOL/L (98-107); CREATININE SERUM 0.66 MG/DL (0.60-1.30); GFR ESTIMATED > 60; GLUCOSE 107 MG/DL (70-105); POTASSIUM 4.2 MMOL/L (3.6-5.0); SODIUM 144 MMOL/L (135-145)
[2018-03-20 11:19] LABS: BASOPHILS % (AUTO) 1 % (0-10); EOSINOPHILS # (AUTO) 0.3 10^3/uL (0.0-0.3); EOSINOPHILS % (AUTO) 4 % (0-10); HEMATOCRIT 38 % (35-52); HEMOGLOBIN 11.8 G/DL (11.5-16.0); LYMPHOCYTES # (AUTO) 0.4 X 10^3 (1.0-4.0); LYMPHOCYTES % (AUTO) 6 % (12-44); MEAN CORPUSCULAR HEMOGLOBIN 28 PG (25-34); MEAN CORPUSCULAR HGB CONC 31 G/DL (32-36); MEAN CORPUSCULAR VOLUME 91 FL (80-99); MONOCYTES # (AUTO) 0.8 X 10^3 (0.0-1.0); MONOCYTES % (AUTO) 12 % (0-12); NEUTROPHILS # (AUTO) 4.7 X 10^3 (1.8-7.8); NEUTROPHILS % (AUTO) 77 % (42-75); PLATELET COUNT 158 10^3/uL (130-400); RED BLOOD COUNT 4.18 10^6/uL (4.35-5.85); RED CELL DISTRIBUTION WIDTH 15.2 % (10.0-14.5); WHITE BLOOD COUNT 6.1 10^3/uL (4.3-11.0)
[2018-03-20 11:35] LABS: BUN/CREATININE RATIO 14; CALCIUM 10.3 MG/DL (8.5-10.1); CARBON DIOXIDE 38 MMOL/L (21-32); CHLORIDE 99 MMOL/L (98-107); CREATININE SERUM 0.69 MG/DL (0.60-1.30); GFR ESTIMATED > 60; GLUCOSE 121 MG/DL (70-105); POTASSIUM 3.9 MMOL/L (3.6-5.0); SODIUM 144 MMOL/L (135-145)
[2018-03-27 13:04] LABS: BASOPHILS % (AUTO) 1 % (0-10); EOSINOPHILS # (AUTO) 0.2 10^3/uL (0.0-0.3); EOSINOPHILS % (AUTO) 5 % (0-10); HEMATOCRIT 36 % (35-52); HEMOGLOBIN 11.1 G/DL (11.5-16.0); LYMPHOCYTES # (AUTO) 0.5 X 10^3 (1.0-4.0); LYMPHOCYTES % (AUTO) 11 % (12-44); MEAN CORPUSCULAR HEMOGLOBIN 28 PG (25-34); MEAN CORPUSCULAR HGB CONC 31 G/DL (32-36); MEAN CORPUSCULAR VOLUME 91 FL (80-99); MEAN PLATELET VOLUME 9.3 FL (7.4-10.4); MONOCYTES # (AUTO) 0.8 X 10^3 (0.0-1.0); MONOCYTES % (AUTO) 19 % (0-12); NEUTROPHILS # (AUTO) 2.8 X 10^3 (1.8-7.8); NEUTROPHILS % (AUTO) 64 % (42-75); PLATELET COUNT 158 10^3/uL (130-400); RED CELL DISTRIBUTION WIDTH 14.8 % (10.0-14.5); WHITE BLOOD COUNT 4.3 10^3/uL (4.3-11.0)
[2018-03-27 13:21] LABS: BUN/CREATININE RATIO 19; CALCIUM 9.9 MG/DL (8.5-10.1); CARBON DIOXIDE 36 MMOL/L (21-32); CHLORIDE 101 MMOL/L (98-107); CREATININE SERUM 0.69 MG/DL (0.60-1.30); GFR ESTIMATED > 60; GLUCOSE 100 MG/DL (70-105); POTASSIUM 4.3 MMOL/L (3.6-5.0); SODIUM 143 MMOL/L (135-145)
[2018-04-03 10:46] LABS: BASOPHILS % (AUTO) 1 % (0-10); EOSINOPHILS # (AUTO) 0.2 10^3/uL (0.0-0.3); EOSINOPHILS % (AUTO) 6 % (0-10); HEMATOCRIT 35 % (35-52); LYMPHOCYTES # (AUTO) 0.5 X 10^3 (1.0-4.0); LYMPHOCYTES % (AUTO) 19 % (12-44); MEAN CORPUSCULAR HEMOGLOBIN 28 PG (25-34); MEAN CORPUSCULAR HGB CONC 32 G/DL (32-36); MEAN CORPUSCULAR VOLUME 89 FL (80-99); MEAN PLATELET VOLUME 9.2 FL (7.4-10.4); MONOCYTES # (AUTO) 0.5 X 10^3 (0.0-1.0); MONOCYTES % (AUTO) 18 % (0-12); NEUTROPHILS # (AUTO) 1.5 X 10^3 (1.8-7.8); NEUTROPHILS % (AUTO) 56 % (42-75); PLATELET COUNT 146 10^3/uL (130-400); RED BLOOD COUNT 3.87 10^6/uL (4.35-5.85); RED CELL DISTRIBUTION WIDTH 14.8 % (10.0-14.5); WHITE BLOOD COUNT 2.7 10^3/uL (4.3-11.0)
[2018-04-03 11:05] LABS: ALANINE AMINOTRANSFERASE 14 U/L (0-55); ALBUMIN 3.7 GM/DL (3.2-4.5); ALKALINE PHOSPHATASE 71 U/L (40-136); BILIRUBIN,TOTAL 0.3 MG/DL (0.1-1.0); BUN/CREATININE RATIO 17; CALCIUM 9.8 MG/DL (8.5-10.1); CARBON DIOXIDE 31 MMOL/L (21-32); CHLORIDE 104 MMOL/L (98-107); CREATININE SERUM 0.65 MG/DL (0.60-1.30); GFR ESTIMATED > 60; GLUCOSE 108 MG/DL (70-105); POTASSIUM 4.1 MMOL/L (3.6-5.0); SODIUM 143 MMOL/L (135-145); TOTAL PROTEIN 6.4 GM/DL (6.4-8.2)
[2018-04-17 13:19] LABS: BASOPHILS % (AUTO) 1 % (0-10); EOSINOPHILS # (AUTO) 0.1 10^3/uL (0.0-0.3); EOSINOPHILS % (AUTO) 3 % (0-10); HEMATOCRIT 35 % (35-52); HEMOGLOBIN 11.6 G/DL (11.5-16.0); LYMPHOCYTES # (AUTO) 0.6 X 10^3 (1.0-4.0); LYMPHOCYTES % (AUTO) 16 % (12-44); MEAN CORPUSCULAR HEMOGLOBIN 29 PG (25-34); MEAN CORPUSCULAR HGB CONC 33 G/DL (32-36); MEAN CORPUSCULAR VOLUME 89 FL (80-99); MEAN PLATELET VOLUME 9.2 FL (7.4-10.4); MONOCYTES # (AUTO) 0.7 X 10^3 (0.0-1.0); MONOCYTES % (AUTO) 17 % (0-12); NEUTROPHILS # (AUTO) 2.6 X 10^3 (1.8-7.8); NEUTROPHILS % (AUTO) 63 % (42-75); PLATELET COUNT 87 10^3/uL (130-400); RED BLOOD COUNT 3.97 10^6/uL (4.35-5.85); RED CELL DISTRIBUTION WIDTH 15.5 % (10.0-14.5)
[2018-04-17 13:43] LABS: BUN/CREATININE RATIO 12; CALCIUM 9.4 MG/DL (8.5-10.1); CARBON DIOXIDE 34 MMOL/L (21-32); CHLORIDE 101 MMOL/L (98-107); CREATININE SERUM 0.67 MG/DL (0.60-1.30); GFR ESTIMATED > 60; GLUCOSE 105 MG/DL (70-105); POTASSIUM 3.6 MMOL/L (3.6-5.0); SODIUM 142 MMOL/L (135-145)
[2018-04-24 12:51] LABS: BASOPHILS % (AUTO) 0 % (0-10); EOSINOPHILS # (AUTO) 0.1 10^3/uL (0.0-0.3); EOSINOPHILS % (AUTO) 2 % (0-10); HEMATOCRIT 36 % (35-52); HEMOGLOBIN 11.2 G/DL (11.5-16.0); LYMPHOCYTES # (AUTO) 0.6 X 10^3 (1.0-4.0); LYMPHOCYTES % (AUTO) 14 % (12-44); MEAN CORPUSCULAR HEMOGLOBIN 28 PG (25-34); MEAN CORPUSCULAR HGB CONC 31 G/DL (32-36); MEAN CORPUSCULAR VOLUME 91 FL (80-99); MEAN PLATELET VOLUME 9.5 FL (7.4-10.4); MONOCYTES # (AUTO) 0.5 X 10^3 (0.0-1.0); MONOCYTES % (AUTO) 12 % (0-12); NEUTROPHILS # (AUTO) 3.2 X 10^3 (1.8-7.8); NEUTROPHILS % (AUTO) 73 % (42-75); PLATELET COUNT 116 10^3/uL (130-400); RED BLOOD COUNT 3.96 10^6/uL (4.35-5.85); RED CELL DISTRIBUTION WIDTH 14.5 % (10.0-14.5); WHITE BLOOD COUNT 4.3 10^3/uL (4.3-11.0)
[2018-04-24 13:06] LABS: BUN/CREATININE RATIO 13; CALCIUM 9.7 MG/DL (8.5-10.1); CARBON DIOXIDE 37 MMOL/L (21-32); CHLORIDE 99 MMOL/L (98-107); CREATININE SERUM 0.63 MG/DL (0.60-1.30); GFR ESTIMATED > 60; GLUCOSE 113 MG/DL (70-105); POTASSIUM 3.4 MMOL/L (3.6-5.0); SODIUM 144 MMOL/L (135-145)
[~2018-05-01] VITALS: Ht 167.6 cm; Wt 84.8 kg
[~2018-05-01 13:08] MED LIST changes: +ACETAMINOPHEN 325 MG TAB (TYLENOL) CANCER CTR PO PRN; +AZIT250T12 PO; +BENDAMUSTINE HCL 140 MG in NS (IVPB) CANCER CENTER 50 ML IV SCH; +BENDAMUSTINE HCL 160 MG in NS (IVPB) CANCER CENTER 50 ML IV SCH; +CEPH-507 PO; +MV-M1TAB32 PO; +NS IV 1000 ML (CANCER CTR) IV SCH; +NS IV 500 ML (CANCER CENTER) 500 ML ONE; +OMEP20CA12 PO; +ONDANSETRON MDV (CANCER CENTER 16 MG, DEXAMETHASONE INJECTION 10 MG in NS (IVPB) CANCER... IV SCH; +PALONOSETRON HCL 0.25 MG, DEXAMETHASONE INJECTION 10 MG in NS (IVPB) CANCER CENTER 50 ML IV SCH; +diphenhydrAMINE 25 MG TAB (BENADRYL) CANCER CENTER PO SCH; +riTUXimab 500 MG, riTUXimab FOR IV INJ CONC 200 MG in NS (IVPB) CANCER CENTER ONLY 150 ML IV SCH
[2018-05-01 13:40] LABS: BASOPHILS % (AUTO) 0 % (0-10); EOSINOPHILS # (AUTO) 0.1 10^3/uL (0.0-0.3); EOSINOPHILS % (AUTO) 5 % (0-10); HEMATOCRIT 32 % (35-52); HEMOGLOBIN 10.2 G/DL (11.5-16.0); LYMPHOCYTES # (AUTO) 0.9 X 10^3 (1.0-4.0); LYMPHOCYTES % (AUTO) 31 % (12-44); MEAN CORPUSCULAR HEMOGLOBIN 29 PG (25-34); MEAN CORPUSCULAR HGB CONC 32 G/DL (32-36); MEAN CORPUSCULAR VOLUME 91 FL (80-99); MEAN PLATELET VOLUME 9.7 FL (7.4-10.4); MONOCYTES # (AUTO) 0.4 X 10^3 (0.0-1.0); MONOCYTES % (AUTO) 15 % (0-12); NEUTROPHILS # (AUTO) 1.4 X 10^3 (1.8-7.8); NEUTROPHILS % (AUTO) 48 % (42-75); PLATELET COUNT 144 10^3/uL (130-400); RED BLOOD COUNT 3.54 10^6/uL (4.35-5.85); RED CELL DISTRIBUTION WIDTH 14.7 % (10.0-14.5); WHITE BLOOD COUNT 2.9 10^3/uL (4.3-11.0)
[2018-05-01 14:02] LABS: ALANINE AMINOTRANSFERASE 17 U/L (0-55); ALBUMIN 3.4 GM/DL (3.2-4.5); ALKALINE PHOSPHATASE 64 U/L (40-136); BILIRUBIN,TOTAL 0.3 MG/DL (0.1-1.0); BUN/CREATININE RATIO 14; CALCIUM 9.1 MG/DL (8.5-10.1); CARBON DIOXIDE 34 MMOL/L (21-32); CHLORIDE 103 MMOL/L (98-107); CREATININE SERUM 0.63 MG/DL (0.60-1.30); GFR ESTIMATED > 60; GLUCOSE 108 MG/DL (70-105); POTASSIUM 3.9 MMOL/L (3.6-5.0); SODIUM 144 MMOL/L (135-145); TOTAL PROTEIN 5.9 GM/DL (6.4-8.2)
== END 2018-05-07 | disposition home or self-care (01) ==
LOC: ONC 13:08
PROVIDERS: ATTEND Internal Medicine Hematology & Oncology
DX: Z51.11 Encounter for antineoplastic chemotherapy (principal); C82.13 Follicular lymphoma grade II, intra-abdominal lymph nodes; J44.9 Chronic obstructive pulmonary disease, unspecified; G47.33 Obstructive sleep apnea (adult) (pediatric); I27.9 Pulmonary heart disease, unspecified; E78.00 Pure hypercholesterolemia, unspecified; I25.10 Atherosclerotic heart disease of native coronary artery without angina pectoris; I45.10 Unspecified right bundle-branch block; Z79.899 Other long term (current) drug therapy
CPT/HCPCS: 36415; 36591; 80048; 80053; 83615; 85025; 96375; 96409; 96411; 96413; 99213; J9310

== ENCOUNTER → 2018-05-22 | Outpatient (CLI) | payer MEDICARE ==
[~2018-05-22] MED LIST changes: -ACETAMINOPHEN 325 MG TAB (TYLENOL) CANCER CTR PO PRN; -BENDAMUSTINE HCL 140 MG in NS (IVPB) CANCER CENTER 50 ML IV SCH; -BENDAMUSTINE HCL 160 MG in NS (IVPB) CANCER CENTER 50 ML IV SCH; -NS IV 1000 ML (CANCER CTR) IV SCH; -NS IV 500 ML (CANCER CENTER) 500 ML ONE; -ONDANSETRON MDV (CANCER CENTER 16 MG, DEXAMETHASONE INJECTION 10 MG in NS (IVPB) CANCER... IV SCH; -PALONOSETRON HCL 0.25 MG, DEXAMETHASONE INJECTION 10 MG in NS (IVPB) CANCER CENTER 50 ML IV SCH; -diphenhydrAMINE 25 MG TAB (BENADRYL) CANCER CENTER PO SCH; -riTUXimab 500 MG, riTUXimab FOR IV INJ CONC 200 MG in NS (IVPB) CANCER CENTER ONLY 150 ML IV SCH
[2018-05-22 13:13] LABS: HEMATOCRIT 34 % (35-52); HEMOGLOBIN 10.9 G/DL (11.5-16.0); MEAN CORPUSCULAR HEMOGLOBIN 30 PG (25-34); MEAN CORPUSCULAR HGB CONC 33 G/DL (32-36); MEAN CORPUSCULAR VOLUME 91 FL (80-99); RED BLOOD COUNT 3.68 10^6/uL (4.35-5.85)
[2018-05-22 13:14] LABS: BASOPHILS % (AUTO) 1 % (0-10); EOSINOPHILS # (AUTO) 0.2 10^3/uL (0.0-0.3); EOSINOPHILS % (AUTO) 8 % (0-10); LYMPHOCYTES # (AUTO) 0.4 X 10^3 (1.0-4.0); LYMPHOCYTES % (AUTO) 21 % (12-44); MEAN PLATELET VOLUME 9.4 FL (7.4-10.4); MONOCYTES # (AUTO) 0.5 X 10^3 (0.0-1.0); MONOCYTES % (AUTO) 24 % (0-12); NEUTROPHILS # (AUTO) 0.9 X 10^3 (1.8-7.8); NEUTROPHILS % (AUTO) 47 % (42-75); PLATELET COUNT 98 10^3/uL (130-400); RED CELL DISTRIBUTION WIDTH 15.9 % (10.0-14.5)
[2018-05-22 13:31] LABS: ALANINE AMINOTRANSFERASE 12 U/L (0-55); ALBUMIN 3.7 GM/DL (3.2-4.5); ALKALINE PHOSPHATASE 79 U/L (40-136); BILIRUBIN,TOTAL 0.5 MG/DL (0.1-1.0); BUN/CREATININE RATIO 18; CALCIUM 9.5 MG/DL (8.5-10.1); CARBON DIOXIDE 31 MMOL/L (21-32); CHLORIDE 104 MMOL/L (98-107); CHOLESTEROL 159 MG/DL (< 200); CREATININE SERUM 0.66 MG/DL (0.60-1.30); GFR ESTIMATED > 60; GLUCOSE 99 MG/DL (70-105); HDL CHOLESTEROL 44 MG/DL (40-60); POTASSIUM 3.5 MMOL/L (3.6-5.0); SODIUM 144 MMOL/L (135-145); TOTAL PROTEIN 6.2 GM/DL (6.4-8.2); TRIGLYCERIDES 153 MG/DL (<150); VLDL CHOLESTEROL 31 MG/DL (5-40)
[2018-05-22 13:53] LABS: FREE T4 (FREE THYROXINE) 1.06 NG/DL (0.70-1.48)
[2018-05-22 14:54] LABS: BAND NEUTROPHILS 5 %; BASOPHILS % (MANUAL) 3 %; ELLIPT/OVALOCYTES SLIGHT; EOSINOPHILS % (MANUAL) 6 %; LYMPHOCYTES % (MANUAL) 20 %; MONOCYTES % (MANUAL) 10 %; NEUTROPHILS % (MANUAL) 50 %; POIKILOCYTOSIS SLIGHT; REACTIVE LYMPHOCYTES 6 %; ROULEAUX SLIGHT
== END ==
LOC: LAB 12:36
PROVIDERS: ATTEND Nurse Practitioner Family
DX: E78.2 Mixed hyperlipidemia (principal); R53.83 Other fatigue; I10 Essential (primary) hypertension; C85.98 Non-Hodgkin lymphoma, unspecified, lymph nodes of multiple sites
CPT/HCPCS: 36415; 80053; 80061; 84439; 84443; 85007; 85027

== ENCOUNTER → 2018-06-26 | Outpatient (CLI) | payer MEDICARE ==
[~2018-06-26] MED LIST changes: -ACET-1697 PO; -ALBU0.8322 IH; -ALBU17AE23; -ALBU8.5H2 IH; -ALLP300T PO; -ASP81TEC PO; -AZIT250T12 PO; -AZIT500T PO; +BARIUM SUSPENSION 2.1% (VANILLA SILQ) 450 ML PO ONE; -CARV6.252; -CARV6.252 PO; +CATHETER FLUSH 10 ML SYR IV PRN; -CEFD300C PO; -CEFD300C3 PO; -CEPH-507 PO; -CETI10TA17 PO; -DIPH25TA31 PO; -DOCU-161 PO; -FLUT16SP22 NS; -FLUT16SP22 NSEACH; -FLUT1DIS26 IH; -FLUT1DIS3 IH; -FRSM20T PO; -FURO40TA4 PO; -HYDR12.570 PO; -INHA1INH2 MC; +IOHEXOL 350 MG/ML 100 ML (OMNIPAQUE 350) VIAL IV ONE; -LEVO500T2 PO; -LISI-556 PO; -LISI2.5T PO; -LISI5TAB PO; -METH4TAB PO; -MONT10TA24 PO; -MV-M1TAB32 PO; -NFAMINITAB PO; -NITR100C3 PO; +NS 100 ML (IVPB) BAG IV ONE; -OMEP20CA12 PO; -OMEP40CA36 PO; -OSLT75C PO; -PHEN200T16 PO; -PNT40TEC PO; -POTA20TA15 PO; -POTASSIUM; -PRAV40TA PO; -PRAV40TA2 PO; -PRD20T PO; -PRV20T PO; +RECEIVED CONTRAST (Hold Metformin) IV SCH; -RT-ALBUINH IH; -VIT1CAPS9 PO
--- NOTE | 2018-06-26 15:23 | Diagnostic Imaging Report ---
INDICATION: Non-Hodgkin's lymphoma. Study is performed for followup. TECHNIQUE: Pre and post contrast axial imaging through the abdomen and pelvis with post contrast axial imaging through the neck and chest was performed. COMPARISON: Correlation is made with prior CT from 12/12/2017. FINDINGS: CT neck: The visualized intracranial structures are unremarkable. Posterior nasopharynx, oropharynx, and larynx are unremarkable. No discrete thyroid mass is identified. Bilateral submandibular and parotid glands appear to be symmetric bilaterally. Minimal mucosal thickening of ethmoid air cells is seen. There is some mucosal thickening of the maxillary sinuses bilaterally. No definite cervical lymphadenopathy is seen. The slightly prominent lymph nodes in the left lower neck and supraclavicular region are now barely visualized. No fluid collections are seen. IMPRESSION: Improved CT of the neck since study from 12/12/2017. Previously noted prominent left supraclavicular nodes are no longer visualized. CT chest: Retroclavicular lymph nodes previously noted greatest on the left have significantly improved and decreased in size. Previous node measured approximately 13 mm and now is barely visible on today's study. Bilateral axillary lymph nodes have significantly decreased in size and now are all less than 1 cm in size. The enlarged nodes posterior to the manubrium in the anterior mediastinum are no longer visible. Small lymph nodes in AP window are seen. No definite pathologically enlarged mediastinal or hilar nodes are identified. No pericardial fluid is seen. There is trace pleural fluid or pleural thickening on the left. Parenchymal evaluation does show centrilobular emphysematous changes. There is ill-defined density in the right upper lobe posteriorly, stable when compared with prior study. There is some scarring or atelectasis in the right middle lobe and left lower lobe. No other abnormalities are seen. There is a right chest wall port in place. IMPRESSION: Significant improvement in thoracic lymphadenopathy when compared with prior study from 12/12/2017. CT abdomen and pelvis: No discrete liver mass is seen. Gallbladder is unremarkable. No biliary ductal dilatation is seen. Pancreas and spleen are unremarkable. No adrenal mass is detected. Cortical low-densities involving the left kidney are stable, consistent with cysts. There is a large midline ventral hernia. Today, the hernia sac does contain portions of the transverse colon. No bowel wall thickening is seen. No definite bowel obstruction is identified. There is no ascites. The aorta is nonaneurysmal. Previously noted significant retroperitoneal lymphadenopathy has markedly improved. There is now just mildly prominent left periaortic node just below the level of the left renal artery measuring 17 mm x 10 mm. This compares with approximately 27 mm x 21 mm. Smaller node just medial to this is also seen. The bulky iliac chain lymphadenopathy previously noted has nearly completely resolved with no measurable alberto disease identified. Previously noted large inguinal nodes are all now normal in size. The bladder is unremarkable. Large cystic mass just superior to the bladder measures approximately 9 cm, slightly larger when compared with prior measurement of 8.7 cm. This is likely ovarian. IMPRESSION: 1. Significant response to therapy with near-complete resolution of central retroperitoneal and pelvic lymphadenopathy when compared with prior CT from 12/12/2017. Midline ventral hernia now contains a portion of the transverse colon, however no definite bowel obstruction or evidence of strangulation is seen. Large cystic mass in the midline/left paramidline pelvis is stable or perhaps minimally larger and again is likely ovarian. Correlation with ultrasound may be useful for better characterization, if not already performed. Dictated by: Dictated on workstation # [id number]
== END ==
LOC: RAD 13:11
PROVIDERS: ATTEND Internal Medicine Hematology & Oncology
DX: C85.90 Non-Hodgkin lymphoma, unspecified, unspecified site (principal); K43.9 Ventral hernia without obstruction or gangrene; R19.00 Intra-abdominal and pelvic swelling, mass and lump, unspecified site
CPT/HCPCS: 70491; 71260; 74178

== ENCOUNTER 2018-07-31 10:53 | Outpatient (RCR) | payer MEDICARE ==
[2018-05-08 13:35] LABS: BASOPHILS % (AUTO) 1 % (0-10); EOSINOPHILS # (AUTO) 0.2 10^3/uL (0.0-0.3); EOSINOPHILS % (AUTO) 5 % (0-10); HEMATOCRIT 33 % (35-52); HEMOGLOBIN 10.7 G/DL (11.5-16.0); LYMPHOCYTES # (AUTO) 0.8 X 10^3 (1.0-4.0); LYMPHOCYTES % (AUTO) 24 % (12-44); MEAN CORPUSCULAR HEMOGLOBIN 29 PG (25-34); MEAN CORPUSCULAR HGB CONC 32 G/DL (32-36); MEAN CORPUSCULAR VOLUME 92 FL (80-99); MEAN PLATELET VOLUME 9.1 FL (7.4-10.4); MONOCYTES # (AUTO) 0.5 X 10^3 (0.0-1.0); MONOCYTES % (AUTO) 14 % (0-12); NEUTROPHILS % (AUTO) 57 % (42-75); PLATELET COUNT 156 10^3/uL (130-400); RED CELL DISTRIBUTION WIDTH 15.7 % (10.0-14.5); WHITE BLOOD COUNT 3.5 10^3/uL (4.3-11.0)
[2018-05-08 13:51] LABS: BUN/CREATININE RATIO 17; CALCIUM 9.4 MG/DL (8.5-10.1); CARBON DIOXIDE 32 MMOL/L (21-32); CHLORIDE 103 MMOL/L (98-107); CREATININE SERUM 0.66 MG/DL (0.60-1.30); GFR ESTIMATED > 60; GLUCOSE 95 MG/DL (70-105); POTASSIUM 3.7 MMOL/L (3.6-5.0); SODIUM 146 MMOL/L (135-145)
[2018-05-15 12:58] LABS: BASOPHILS % (AUTO) 1 % (0-10); EOSINOPHILS # (AUTO) 0.3 10^3/uL (0.0-0.3); EOSINOPHILS % (AUTO) 9 % (0-10); HEMATOCRIT 35 % (35-52); HEMOGLOBIN 10.9 G/DL (11.5-16.0); LYMPHOCYTES # (AUTO) 0.3 X 10^3 (1.0-4.0); LYMPHOCYTES % (AUTO) 12 % (12-44); MEAN CORPUSCULAR HEMOGLOBIN 29 PG (25-34); MEAN CORPUSCULAR HGB CONC 31 G/DL (32-36); MEAN CORPUSCULAR VOLUME 93 FL (80-99); MEAN PLATELET VOLUME 9.8 FL (7.4-10.4); MONOCYTES # (AUTO) 0.3 X 10^3 (0.0-1.0); MONOCYTES % (AUTO) 12 % (0-12); NEUTROPHILS # (AUTO) 1.9 X 10^3 (1.8-7.8); NEUTROPHILS % (AUTO) 67 % (42-75); PLATELET COUNT 108 10^3/uL (130-400); RED CELL DISTRIBUTION WIDTH 15.9 % (10.0-14.5); WHITE BLOOD COUNT 2.8 10^3/uL (4.3-11.0)
[2018-05-15 13:13] LABS: BUN/CREATININE RATIO 12; CALCIUM 9.3 MG/DL (8.5-10.1); CARBON DIOXIDE 33 MMOL/L (21-32); CHLORIDE 104 MMOL/L (98-107); CREATININE SERUM 0.84 MG/DL (0.60-1.30); GFR ESTIMATED > 60; GLUCOSE 106 MG/DL (70-105); POTASSIUM 3.7 MMOL/L (3.6-5.0); SODIUM 144 MMOL/L (135-145)
[2018-05-22 13:11] LABS: BASOPHILS % (AUTO) 1 % (0-10); EOSINOPHILS # (AUTO) 0.2 10^3/uL (0.0-0.3); EOSINOPHILS % (AUTO) 8 % (0-10); HEMATOCRIT 34 % (35-52); HEMOGLOBIN 10.9 G/DL (11.5-16.0); LYMPHOCYTES # (AUTO) 0.4 X 10^3 (1.0-4.0); LYMPHOCYTES % (AUTO) 21 % (12-44); MEAN CORPUSCULAR HEMOGLOBIN 30 PG (25-34); MEAN CORPUSCULAR HGB CONC 33 G/DL (32-36); MEAN CORPUSCULAR VOLUME 91 FL (80-99); MEAN PLATELET VOLUME 9.4 FL (7.4-10.4); MONOCYTES # (AUTO) 0.5 X 10^3 (0.0-1.0); MONOCYTES % (AUTO) 24 % (0-12); NEUTROPHILS # (AUTO) 0.9 X 10^3 (1.8-7.8); NEUTROPHILS % (AUTO) 47 % (42-75); PLATELET COUNT 98 10^3/uL (130-400); RED CELL DISTRIBUTION WIDTH 15.9 % (10.0-14.5)
[2018-05-22 14:08] LABS: SODIUM 144 MMOL/L (135-145)
[2018-05-22 14:09] LABS: BUN/CREATININE RATIO 18; CALCIUM 9.5 MG/DL (8.5-10.1); CARBON DIOXIDE 31 MMOL/L (21-32); CHLORIDE 104 MMOL/L (98-107); CREATININE SERUM 0.66 MG/DL (0.60-1.30); GFR ESTIMATED > 60; GLUCOSE 99 MG/DL (70-105); POTASSIUM 3.5 MMOL/L (3.6-5.0)
[2018-05-29 12:51] LABS: BASOPHILS % (AUTO) 1 % (0-10); EOSINOPHILS # (AUTO) 0.2 10^3/uL (0.0-0.3); EOSINOPHILS % (AUTO) 8 % (0-10); HEMATOCRIT 34 % (35-52); HEMOGLOBIN 10.9 G/DL (11.5-16.0); LYMPHOCYTES # (AUTO) 0.6 X 10^3 (1.0-4.0); LYMPHOCYTES % (AUTO) 22 % (12-44); MEAN CORPUSCULAR HEMOGLOBIN 29 PG (25-34); MEAN CORPUSCULAR HGB CONC 32 G/DL (32-36); MEAN CORPUSCULAR VOLUME 91 FL (80-99); MEAN PLATELET VOLUME 9.5 FL (7.4-10.4); MONOCYTES # (AUTO) 0.6 X 10^3 (0.0-1.0); MONOCYTES % (AUTO) 21 % (0-12); NEUTROPHILS # (AUTO) 1.4 X 10^3 (1.8-7.8); NEUTROPHILS % (AUTO) 49 % (42-75); PLATELET COUNT 114 10^3/uL (130-400); RED CELL DISTRIBUTION WIDTH 15.5 % (10.0-14.5); WHITE BLOOD COUNT 2.8 10^3/uL (4.3-11.0)
[2018-05-29 13:09] LABS: BUN/CREATININE RATIO 17; CALCIUM 9.4 MG/DL (8.5-10.1); CARBON DIOXIDE 32 MMOL/L (21-32); CHLORIDE 105 MMOL/L (98-107); CREATININE SERUM 0.71 MG/DL (0.60-1.30); GFR ESTIMATED > 60; GLUCOSE 112 MG/DL (70-105); POTASSIUM 3.7 MMOL/L (3.6-5.0); SODIUM 144 MMOL/L (135-145)
[2018-06-05 10:53] LABS: BASOPHILS % (AUTO) 1 % (0-10); EOSINOPHILS # (AUTO) 0.1 10^3/uL (0.0-0.3); EOSINOPHILS % (AUTO) 4 % (0-10); HEMATOCRIT 33 % (35-52); HEMOGLOBIN 10.8 G/DL (11.5-16.0); LYMPHOCYTES # (AUTO) 0.6 X 10^3 (1.0-4.0); LYMPHOCYTES % (AUTO) 19 % (12-44); MEAN CORPUSCULAR HEMOGLOBIN 30 PG (25-34); MEAN CORPUSCULAR HGB CONC 33 G/DL (32-36); MEAN CORPUSCULAR VOLUME 90 FL (80-99); MEAN PLATELET VOLUME 8.8 FL (7.4-10.4); MONOCYTES # (AUTO) 0.6 X 10^3 (0.0-1.0); MONOCYTES % (AUTO) 19 % (0-12); NEUTROPHILS # (AUTO) 1.7 X 10^3 (1.8-7.8); NEUTROPHILS % (AUTO) 57 % (42-75); PLATELET COUNT 141 10^3/uL (130-400); RED CELL DISTRIBUTION WIDTH 14.8 % (10.0-14.5)
[2018-06-05 11:10] LABS: ALANINE AMINOTRANSFERASE 11 U/L (0-55); ALBUMIN 3.7 GM/DL (3.2-4.5); ALKALINE PHOSPHATASE 83 U/L (40-136); BILIRUBIN,TOTAL 0.4 MG/DL (0.1-1.0); BUN/CREATININE RATIO 18; CALCIUM 9.8 MG/DL (8.5-10.1); CARBON DIOXIDE 31 MMOL/L (21-32); CHLORIDE 105 MMOL/L (98-107); CREATININE SERUM 0.68 MG/DL (0.60-1.30); GFR ESTIMATED > 60; GLUCOSE 96 MG/DL (70-105); SODIUM 144 MMOL/L (135-145); TOTAL PROTEIN 6.4 GM/DL (6.4-8.2)
[2018-06-12 12:57] LABS: BASOPHILS % (AUTO) 1 % (0-10); EOSINOPHILS # (AUTO) 0.1 10^3/uL (0.0-0.3); EOSINOPHILS % (AUTO) 7 % (0-10); HEMATOCRIT 35 % (35-52); HEMOGLOBIN 11.1 G/DL (11.5-16.0); LYMPHOCYTES # (AUTO) 0.3 X 10^3 (1.0-4.0); LYMPHOCYTES % (AUTO) 17 % (12-44); MEAN CORPUSCULAR HEMOGLOBIN 29 PG (25-34); MEAN CORPUSCULAR HGB CONC 32 G/DL (32-36); MEAN CORPUSCULAR VOLUME 91 FL (80-99); MEAN PLATELET VOLUME 9.3 FL (7.4-10.4); MONOCYTES # (AUTO) 0.4 X 10^3 (0.0-1.0); MONOCYTES % (AUTO) 19 % (0-12); NEUTROPHILS # (AUTO) 1.1 X 10^3 (1.8-7.8); NEUTROPHILS % (AUTO) 56 % (42-75); PLATELET COUNT 136 10^3/uL (130-400); RED CELL DISTRIBUTION WIDTH 15.1 % (10.0-14.5)
[2018-06-12 13:11] LABS: BUN/CREATININE RATIO 20; CALCIUM 9.3 MG/DL (8.5-10.1); CARBON DIOXIDE 30 MMOL/L (21-32); CHLORIDE 106 MMOL/L (98-107); CREATININE SERUM 0.76 MG/DL (0.60-1.30); GFR ESTIMATED > 60; GLUCOSE 105 MG/DL (70-105); POTASSIUM 3.7 MMOL/L (3.6-5.0); SODIUM 144 MMOL/L (135-145)
[2018-06-19 12:52] LABS: BASOPHILS % (AUTO) 1 % (0-10); EOSINOPHILS # (AUTO) 0.2 10^3/uL (0.0-0.3); EOSINOPHILS % (AUTO) 9 % (0-10); HEMATOCRIT 36 % (35-52); HEMOGLOBIN 11.8 G/DL (11.5-16.0); LYMPHOCYTES # (AUTO) 0.5 X 10^3 (1.0-4.0); LYMPHOCYTES % (AUTO) 18 % (12-44); MEAN CORPUSCULAR HEMOGLOBIN 30 PG (25-34); MEAN CORPUSCULAR HGB CONC 32 G/DL (32-36); MEAN CORPUSCULAR VOLUME 91 FL (80-99); MEAN PLATELET VOLUME 9.2 FL (7.4-10.4); MONOCYTES # (AUTO) 0.6 X 10^3 (0.0-1.0); MONOCYTES % (AUTO) 21 % (0-12); NEUTROPHILS # (AUTO) 1.4 X 10^3 (1.8-7.8); NEUTROPHILS % (AUTO) 52 % (42-75); PLATELET COUNT 158 10^3/uL (130-400); RED CELL DISTRIBUTION WIDTH 15.6 % (10.0-14.5); WHITE BLOOD COUNT 2.8 10^3/uL (4.3-11.0)
[2018-06-19 13:09] LABS: BUN/CREATININE RATIO 21; CALCIUM 9.4 MG/DL (8.5-10.1); CARBON DIOXIDE 30 MMOL/L (21-32); CHLORIDE 104 MMOL/L (98-107); CREATININE SERUM 0.73 MG/DL (0.60-1.30); GFR ESTIMATED > 60; GLUCOSE 93 MG/DL (70-105); SODIUM 141 MMOL/L (135-145)
[2018-06-26 13:13] LABS: BASOPHILS % (AUTO) 1 % (0-10); EOSINOPHILS # (AUTO) 0.2 10^3/uL (0.0-0.3); EOSINOPHILS % (AUTO) 8 % (0-10); HEMATOCRIT 36 % (35-52); HEMOGLOBIN 11.6 G/DL (11.5-16.0); LYMPHOCYTES # (AUTO) 0.5 X 10^3 (1.0-4.0); LYMPHOCYTES % (AUTO) 18 % (12-44); MEAN CORPUSCULAR HEMOGLOBIN 29 PG (25-34); MEAN CORPUSCULAR HGB CONC 32 G/DL (32-36); MEAN CORPUSCULAR VOLUME 91 FL (80-99); MEAN PLATELET VOLUME 9.5 FL (7.4-10.4); MONOCYTES # (AUTO) 0.4 X 10^3 (0.0-1.0); MONOCYTES % (AUTO) 14 % (0-12); NEUTROPHILS # (AUTO) 1.6 X 10^3 (1.8-7.8); NEUTROPHILS % (AUTO) 60 % (42-75); PLATELET COUNT 119 10^3/uL (130-400); RED CELL DISTRIBUTION WIDTH 14.8 % (10.0-14.5); WHITE BLOOD COUNT 2.6 10^3/uL (4.3-11.0)
[2018-06-26 14:06] LABS: BUN/CREATININE RATIO 17; CALCIUM 9.6 MG/DL (8.5-10.1); CARBON DIOXIDE 31 MMOL/L (21-32); CHLORIDE 103 MMOL/L (98-107); GFR ESTIMATED > 60; GLUCOSE 88 MG/DL (70-105); SODIUM 141 MMOL/L (135-145)
[2018-07-03 11:04] LABS: BASOPHILS % (AUTO) 1 % (0-10); EOSINOPHILS # (AUTO) 0.2 10^3/uL (0.0-0.3); EOSINOPHILS % (AUTO) 10 % (0-10); HEMATOCRIT 35 % (35-52); HEMOGLOBIN 11.4 G/DL (11.5-16.0); LYMPHOCYTES # (AUTO) 0.6 X 10^3 (1.0-4.0); LYMPHOCYTES % (AUTO) 26 % (12-44); MEAN CORPUSCULAR HEMOGLOBIN 30 PG (25-34); MEAN CORPUSCULAR HGB CONC 32 G/DL (32-36); MEAN CORPUSCULAR VOLUME 92 FL (80-99); MEAN PLATELET VOLUME 9.4 FL (7.4-10.4); MONOCYTES # (AUTO) 0.4 X 10^3 (0.0-1.0); MONOCYTES % (AUTO) 18 % (0-12); NEUTROPHILS % (AUTO) 45 % (42-75); PLATELET COUNT 120 10^3/uL (130-400); RED CELL DISTRIBUTION WIDTH 14.9 % (10.0-14.5); WHITE BLOOD COUNT 2.2 10^3/uL (4.3-11.0)
[2018-07-03 11:26] LABS: ALANINE AMINOTRANSFERASE 17 U/L (0-55); ALBUMIN 3.7 GM/DL (3.2-4.5); ALKALINE PHOSPHATASE 77 U/L (40-136); BILIRUBIN,TOTAL 0.3 MG/DL (0.1-1.0); BUN/CREATININE RATIO 23; CALCIUM 9.8 MG/DL (8.5-10.1); CARBON DIOXIDE 31 MMOL/L (21-32); CHLORIDE 105 MMOL/L (98-107); CREATININE SERUM 0.73 MG/DL (0.60-1.30); GFR ESTIMATED > 60; GLUCOSE 105 MG/DL (70-105); POTASSIUM 4.1 MMOL/L (3.6-5.0); SODIUM 144 MMOL/L (135-145); TOTAL PROTEIN 6.3 GM/DL (6.4-8.2)
[~2018-07-31 10:53] MED LIST changes: +ACET-1697 PO; +ACETAMINOPHEN 325 MG TAB (TYLENOL) CANCER CTR PO PRN; +ALBU0.8322 IH; +ALBU17AE23; +ALBU8.5H2 IH; +ALLP300T PO; +ASP81TEC PO; +AZIT250T12 PO; +AZIT500T PO; -BARIUM SUSPENSION 2.1% (VANILLA SILQ) 450 ML PO ONE; +BENDAMUSTINE HCL 130 MG in NS (IVPB) CANCER CENTER 50 ML IV SCH; +BENDAMUSTINE HCL 140 MG in NS (IVPB) CANCER CENTER 50 ML IV SCH; +CARV6.252; +CARV6.252 PO; -CATHETER FLUSH 10 ML SYR IV PRN; +CEFD300C PO; +CEFD300C3 PO; +CEPH-507 PO; +CETI10TA17 PO; +DIPH25TA31 PO; +DOCU-161 PO; +FLUT16SP22 NS; +FLUT16SP22 NSEACH; +FLUT1DIS26 IH; +FLUT1DIS3 IH; +FRSM20T PO; +FURO40TA4 PO; +HYDR12.570 PO; +INHA1INH2 MC; -IOHEXOL 350 MG/ML 100 ML (OMNIPAQUE 350) VIAL IV ONE; +LEVO500T2 PO; +LISI-556 PO; +LISI2.5T PO; +LISI5TAB PO; +METH4TAB PO; +MONT10TA24 PO; +MV-M1TAB32 PO; +NFAMINITAB PO; +NITR100C3 PO; -NS 100 ML (IVPB) BAG IV ONE; +NS IV 1000 ML (CANCER CTR) IV SCH; +NS IV 500 ML (CANCER CENTER) 500 ML ONE; +OCUVITE SOFTGE1 EACH PO; +OMEP20CA12 PO; +OMEP40CA36 PO; +ONDANSETRON MDV (CANCER CENTER 16 MG, DEXAMETHASONE INJECTION 10 MG in NS (IVPB) CANCER... IV SCH; +OSLT75C PO; +PALONOSETRON HCL 0.25 MG, DEXAMETHASONE INJECTION 10 MG in NS (IVPB) CANCER CENTER 50 ML IV SCH; +PHEN200T16 PO; +PNT40TEC PO; +POTA20TA15 PO; +POTASSIUM; +PRAV40TA PO; +PRAV40TA2 PO; +PRD20T PO; +PRV20T PO; -RECEIVED CONTRAST (Hold Metformin) IV SCH; +RT-ALBUINH IH; +diphenhydrAMINE 25 MG TAB (BENADRYL) CANCER CENTER PO SCH; +riTUXimab 500 MG, riTUXimab FOR IV INJ CONC 200 MG in NS (IVPB) CANCER CENTER ONLY 150 ML IV SCH
[2018-07-31 11:18] LABS: BASOPHILS % (AUTO) 0 % (0-10); EOSINOPHILS # (AUTO) 0.1 10^3/uL (0.0-0.3); EOSINOPHILS % (AUTO) 3 % (0-10); HEMATOCRIT 34 % (35-52); HEMOGLOBIN 11.1 G/DL (11.5-16.0); LYMPHOCYTES # (AUTO) 0.6 X 10^3 (1.0-4.0); LYMPHOCYTES % (AUTO) 19 % (12-44); MEAN CORPUSCULAR HEMOGLOBIN 30 PG (25-34); MEAN CORPUSCULAR HGB CONC 33 G/DL (32-36); MEAN CORPUSCULAR VOLUME 92 FL (80-99); MEAN PLATELET VOLUME 9.3 FL (7.4-10.4); MONOCYTES # (AUTO) 0.5 X 10^3 (0.0-1.0); MONOCYTES % (AUTO) 18 % (0-12); NEUTROPHILS # (AUTO) 1.8 X 10^3 (1.8-7.8); NEUTROPHILS % (AUTO) 60 % (42-75); PLATELET COUNT 110 10^3/uL (130-400); RED CELL DISTRIBUTION WIDTH 14.2 % (10.0-14.5)
[2018-07-31 11:38] LABS: ALANINE AMINOTRANSFERASE 14 U/L (0-55); ALBUMIN 3.7 GM/DL (3.2-4.5); ALKALINE PHOSPHATASE 72 U/L (40-136); BILIRUBIN,TOTAL 0.5 MG/DL (0.1-1.0); BUN/CREATININE RATIO 19; CALCIUM 9.7 MG/DL (8.5-10.1); CARBON DIOXIDE 28 MMOL/L (21-32); CHLORIDE 104 MMOL/L (98-107); CREATININE SERUM 0.72 MG/DL (0.60-1.30); GFR ESTIMATED > 60; GLUCOSE 123 MG/DL (70-105); POTASSIUM 3.9 MMOL/L (3.6-5.0); SODIUM 141 MMOL/L (135-145); TOTAL PROTEIN 6.2 GM/DL (6.4-8.2)
== END 2018-08-06 | disposition home or self-care (01) ==
LOC: ONC 10:53
PROVIDERS: ATTEND Internal Medicine Hematology & Oncology
DX: Z51.11 Encounter for antineoplastic chemotherapy (principal); C82.13 Follicular lymphoma grade II, intra-abdominal lymph nodes; J44.9 Chronic obstructive pulmonary disease, unspecified; G47.33 Obstructive sleep apnea (adult) (pediatric); I27.9 Pulmonary heart disease, unspecified; E78.00 Pure hypercholesterolemia, unspecified; I25.10 Atherosclerotic heart disease of native coronary artery without angina pectoris; I45.10 Unspecified right bundle-branch block; Z79.899 Other long term (current) drug therapy
CPT/HCPCS: 36415; 36591; 80048; 80053; 83615; 85025; 96365; 96375; 96409; 96411; 96413; J9312

== ENCOUNTER → 2018-09-25 | Outpatient (CLI) | payer MEDICARE ==
[~2018-09-25] MED LIST changes: -ACETAMINOPHEN 325 MG TAB (TYLENOL) CANCER CTR PO PRN; -BENDAMUSTINE HCL 130 MG in NS (IVPB) CANCER CENTER 50 ML IV SCH; -BENDAMUSTINE HCL 140 MG in NS (IVPB) CANCER CENTER 50 ML IV SCH; -NS IV 1000 ML (CANCER CTR) IV SCH; -NS IV 500 ML (CANCER CENTER) 500 ML ONE; -ONDANSETRON MDV (CANCER CENTER 16 MG, DEXAMETHASONE INJECTION 10 MG in NS (IVPB) CANCER... IV SCH; -PALONOSETRON HCL 0.25 MG, DEXAMETHASONE INJECTION 10 MG in NS (IVPB) CANCER CENTER 50 ML IV SCH; -diphenhydrAMINE 25 MG TAB (BENADRYL) CANCER CENTER PO SCH; -riTUXimab 500 MG, riTUXimab FOR IV INJ CONC 200 MG in NS (IVPB) CANCER CENTER ONLY 150 ML IV SCH
--- NOTE | 2018-09-25 13:37 | Diagnostic Imaging Report ---
PROCEDURE: US Non-ob pelvis comp/trans. TECHNIQUE: Multiple realtime grayscale images were obtained of the pelvis in various projections endovaginally. Transabdominal imaging was also performed. INDICATION: Pelvic cyst. Correlation is made with CT study from 06/26/2018. The uterus measures 7.6 x 4.9 x 2.6 cm. Endometrium is 5 mm in thickness. Ovaries are not visualized. There is a large simple appearing cystic mass in the left adnexa approximately 7.0 x 5.2 x 8.4 cm, similar to CT from June. No definite nodularity or wall thickening is seen. There is no free fluid. IMPRESSION: Simple appearing left adnexal cyst, stable when compared with exam from 06/26/2018. Dictated by: Dictated on workstation # [id number]
== END ==
LOC: RAD 12:45
PROVIDERS: ATTEND Obstetrics & Gynecology
DX: N83.8 Other noninflammatory disorders of ovary, fallopian tube and broad ligament (principal)
CPT/HCPCS: 76830; 76856

== ENCOUNTER 2018-11-20 10:37 | Outpatient (RCR) | payer MEDICARE ==
[2018-09-25 10:03] LABS: BASOPHILS % (AUTO) 0 % (0-10); EOSINOPHILS # (AUTO) 0.2 10^3/uL (0.0-0.3); EOSINOPHILS % (AUTO) 5 % (0-10); HEMATOCRIT 33 % (35-52); HEMOGLOBIN 10.6 G/DL (11.5-16.0); LYMPHOCYTES # (AUTO) 0.6 X 10^3 (1.0-4.0); LYMPHOCYTES % (AUTO) 18 % (12-44); MEAN CORPUSCULAR HEMOGLOBIN 30 PG (25-34); MEAN CORPUSCULAR HGB CONC 32 G/DL (32-36); MEAN CORPUSCULAR VOLUME 92 FL (80-99); MEAN PLATELET VOLUME 9.5 FL (7.4-10.4); MONOCYTES # (AUTO) 0.4 X 10^3 (0.0-1.0); MONOCYTES % (AUTO) 14 % (0-12); NEUTROPHILS % (AUTO) 63 % (42-75); PLATELET COUNT 144 10^3/uL (130-400); RED CELL DISTRIBUTION WIDTH 14.3 % (10.0-14.5); WHITE BLOOD COUNT 3.2 10^3/uL (4.3-11.0)
[2018-09-25 10:21] LABS: ALANINE AMINOTRANSFERASE 14 U/L (0-55); ALBUMIN 3.7 GM/DL (3.2-4.5); ALKALINE PHOSPHATASE 82 U/L (40-136); BILIRUBIN,TOTAL 0.3 MG/DL (0.1-1.0); BUN/CREATININE RATIO 18; CALCIUM 9.8 MG/DL (8.5-10.1); CARBON DIOXIDE 29 MMOL/L (21-32); CHLORIDE 105 MMOL/L (98-107); CREATININE SERUM 0.68 MG/DL (0.60-1.30); GFR ESTIMATED > 60; GLUCOSE 109 MG/DL (70-105); SODIUM 144 MMOL/L (135-145); TOTAL PROTEIN 6.5 GM/DL (6.4-8.2)
[~2018-11-20] VITALS: Ht 167.6 cm; Wt 84.8 kg
[~2018-11-20 10:37] MED LIST changes: +ACETAMINOPHEN 325 MG TAB (TYLENOL) CANCER CTR PO PRN; +NS IV 1000 ML (CANCER CTR) IV SCH; -OMEP20CA12 PO; +OMEP20CA13 PO; +diphenhydrAMINE 25 MG TAB (BENADRYL) CANCER CENTER PO SCH; +riTUXimab 500 MG, riTUXimab FOR IV INJ CONC 200 MG in NS (IVPB) CANCER CENTER ONLY 150 ML IV SCH
[2018-11-20 11:03] LABS: BASOPHILS % (AUTO) 1 % (0-10); EOSINOPHILS # (AUTO) 0.1 10^3/uL (0.0-0.3); EOSINOPHILS % (AUTO) 5 % (0-10); HEMATOCRIT 37 % (35-52); HEMOGLOBIN 11.7 G/DL (11.5-16.0); LYMPHOCYTES # (AUTO) 0.8 X 10^3 (1.0-4.0); LYMPHOCYTES % (AUTO) 29 % (12-44); MEAN CORPUSCULAR HEMOGLOBIN 29 PG (25-34); MEAN CORPUSCULAR HGB CONC 32 G/DL (32-36); MEAN CORPUSCULAR VOLUME 92 FL (80-99); MEAN PLATELET VOLUME 9.1 FL (7.4-10.4); MONOCYTES # (AUTO) 0.4 X 10^3 (0.0-1.0); MONOCYTES % (AUTO) 13 % (0-12); NEUTROPHILS # (AUTO) 1.5 X 10^3 (1.8-7.8); NEUTROPHILS % (AUTO) 53 % (42-75); PLATELET COUNT 118 10^3/uL (130-400); RED CELL DISTRIBUTION WIDTH 13.8 % (10.0-14.5); WHITE BLOOD COUNT 2.9 10^3/uL (4.3-11.0)
[2018-11-20 11:25] LABS: ALANINE AMINOTRANSFERASE 17 U/L (0-55); ALBUMIN 3.9 GM/DL (3.2-4.5); ALKALINE PHOSPHATASE 84 U/L (40-136); BILIRUBIN,TOTAL 0.4 MG/DL (0.1-1.0); BUN/CREATININE RATIO 21; CALCIUM 9.7 MG/DL (8.5-10.1); CARBON DIOXIDE 32 MMOL/L (21-32); CHLORIDE 105 MMOL/L (98-107); CREATININE SERUM 0.78 MG/DL (0.60-1.30); GFR ESTIMATED > 60; GLUCOSE 101 MG/DL (70-105); POTASSIUM 4.1 MMOL/L (3.6-5.0); SODIUM 142 MMOL/L (135-145); TOTAL PROTEIN 6.5 GM/DL (6.4-8.2)
== END 2018-12-24 | disposition home or self-care (01) ==
LOC: ONC 10:37
PROVIDERS: ATTEND Internal Medicine Hematology & Oncology
DX: Z51.11 Encounter for antineoplastic chemotherapy (principal); C82.13 Follicular lymphoma grade II, intra-abdominal lymph nodes; J44.9 Chronic obstructive pulmonary disease, unspecified; G47.33 Obstructive sleep apnea (adult) (pediatric); I27.9 Pulmonary heart disease, unspecified; E78.00 Pure hypercholesterolemia, unspecified; I25.10 Atherosclerotic heart disease of native coronary artery without angina pectoris; I45.10 Unspecified right bundle-branch block; Z79.899 Other long term (current) drug therapy
CPT/HCPCS: 36591; 80053; 83615; 85025; 96413; J9312

== ENCOUNTER 2019-03-12 09:14 | Outpatient (RCR) | payer MEDICARE ==
[2019-01-15 10:04] LABS: BASOPHILS % (AUTO) 1 % (0-10); EOSINOPHILS # (AUTO) 0.1 10^3/uL (0.0-0.3); EOSINOPHILS % (AUTO) 4 % (0-10); HEMATOCRIT 36 % (35-52); HEMOGLOBIN 11.6 G/DL (11.5-16.0); LYMPHOCYTES # (AUTO) 0.7 X 10^3 (1.0-4.0); LYMPHOCYTES % (AUTO) 21 % (12-44); MEAN CORPUSCULAR HEMOGLOBIN 30 PG (25-34); MEAN CORPUSCULAR HGB CONC 32 G/DL (32-36); MEAN CORPUSCULAR VOLUME 92 FL (80-99); MEAN PLATELET VOLUME 9.3 FL (7.4-10.4); MONOCYTES # (AUTO) 0.5 X 10^3 (0.0-1.0); MONOCYTES % (AUTO) 17 % (0-12); NEUTROPHILS # (AUTO) 1.8 X 10^3 (1.8-7.8); NEUTROPHILS % (AUTO) 57 % (42-75); PLATELET COUNT 133 10^3/uL (130-400); RED CELL DISTRIBUTION WIDTH 13.9 % (10.0-14.5); WHITE BLOOD COUNT 3.2 10^3/uL (4.3-11.0)
[2019-01-15 10:27] LABS: ALANINE AMINOTRANSFERASE 13 U/L (0-55); ALKALINE PHOSPHATASE 92 U/L (40-136); BILIRUBIN,TOTAL 0.5 MG/DL (0.1-1.0); BUN/CREATININE RATIO 17; CALCIUM 9.8 MG/DL (8.5-10.1); CARBON DIOXIDE 31 MMOL/L (21-32); CHLORIDE 102 MMOL/L (98-107); CREATININE SERUM 0.72 MG/DL (0.60-1.30); GFR ESTIMATED > 60; GLUCOSE 105 MG/DL (70-105); POTASSIUM 3.9 MMOL/L (3.6-5.0); SODIUM 142 MMOL/L (135-145); TOTAL PROTEIN 6.8 GM/DL (6.4-8.2)
[2019-03-12 09:31] LABS: BASOPHILS % (AUTO) 1 % (0-10); EOSINOPHILS # (AUTO) 0.1 10^3/uL (0.0-0.3); EOSINOPHILS % (AUTO) 4 % (0-10); HEMATOCRIT 36 % (35-52); HEMOGLOBIN 11.3 G/DL (11.5-16.0); LYMPHOCYTES # (AUTO) 0.6 X 10^3 (1.0-4.0); LYMPHOCYTES % (AUTO) 18 % (12-44); MEAN CORPUSCULAR HEMOGLOBIN 29 PG (25-34); MEAN CORPUSCULAR HGB CONC 32 G/DL (32-36); MEAN CORPUSCULAR VOLUME 92 FL (80-99); MEAN PLATELET VOLUME 9.3 FL (7.4-10.4); MONOCYTES # (AUTO) 0.4 X 10^3 (0.0-1.0); MONOCYTES % (AUTO) 13 % (0-12); NEUTROPHILS # (AUTO) 2.1 X 10^3 (1.8-7.8); NEUTROPHILS % (AUTO) 64 % (42-75); PLATELET COUNT 143 10^3/uL (130-400); RED CELL DISTRIBUTION WIDTH 13.8 % (10.0-14.5); WHITE BLOOD COUNT 3.2 10^3/uL (4.3-11.0)
[2019-03-12] MEDS ORDERED: NS IV 500 ML (CANCER CENTER) 500 ML ONE (09:51)
[2019-03-12 09:58] LABS: ALANINE AMINOTRANSFERASE 12 U/L (0-55); ALBUMIN 3.8 GM/DL (3.2-4.5); ALKALINE PHOSPHATASE 89 U/L (40-136); BILIRUBIN,TOTAL 0.4 MG/DL (0.1-1.0); BUN/CREATININE RATIO 16; CALCIUM 9.9 MG/DL (8.5-10.1); CARBON DIOXIDE 32 MMOL/L (21-32); CHLORIDE 104 MMOL/L (98-107); CREATININE SERUM 0.74 MG/DL (0.60-1.30); GFR ESTIMATED > 60; GLUCOSE 125 MG/DL (70-105); POTASSIUM 3.9 MMOL/L (3.6-5.0); SODIUM 145 MMOL/L (135-145); TOTAL PROTEIN 6.8 GM/DL (6.4-8.2)
== END 2019-04-15 | disposition home or self-care (01) ==
LOC: ONC 09:14
PROVIDERS: ATTEND Internal Medicine Hematology & Oncology
DX: Z51.11 Encounter for antineoplastic chemotherapy (principal); C82.13 Follicular lymphoma grade II, intra-abdominal lymph nodes; J44.9 Chronic obstructive pulmonary disease, unspecified; G47.33 Obstructive sleep apnea (adult) (pediatric); I27.9 Pulmonary heart disease, unspecified; E78.00 Pure hypercholesterolemia, unspecified; I25.10 Atherosclerotic heart disease of native coronary artery without angina pectoris; I45.10 Unspecified right bundle-branch block; Z79.899 Other long term (current) drug therapy
CPT/HCPCS: 36415; 36591; 80053; 83615; 85025; 96413; J9312

== ENCOUNTER → 2019-05-08 | Outpatient (CLI) | payer MEDICARE ==
[~2019-05-08] MED LIST changes: -ACETAMINOPHEN 325 MG TAB (TYLENOL) CANCER CTR PO PRN; -NS IV 1000 ML (CANCER CTR) IV SCH; -diphenhydrAMINE 25 MG TAB (BENADRYL) CANCER CENTER PO SCH; -riTUXimab 500 MG, riTUXimab FOR IV INJ CONC 200 MG in NS (IVPB) CANCER CENTER ONLY 150 ML IV SCH
--- NOTE | 2019-05-08 10:35 | Diagnostic Imaging Report ---
INDICATION: Cough and fever. Patient has non-Hodgkin's lymphoma. TIME OF EXAM: 10:27 AM Correlation is made with prior chest from 04/24/2018. Right chest wall port has tip overlying the SVC. There is some patchy infiltrate in the right base medially. Remainder of the lung berumen appear to be clear. There is some hyperinflation consistent with COPD. No effusion or pneumothorax is identified. IMPRESSION: Findings suggestive of a mild patchy right basilar pneumonia. Dictated by: Dictated on workstation # [id number]
== END ==
LOC: RAD 10:02
PROVIDERS: ATTEND Nurse Practitioner Adult Health
DX: C85.90 Non-Hodgkin lymphoma, unspecified, unspecified site (principal)
CPT/HCPCS: 71046

== ENCOUNTER 2019-07-02 09:07 | Outpatient (RCR) | payer MEDICARE ==
[2019-05-08 10:11] LABS: HEMATOCRIT 36 % (35-52); HEMOGLOBIN 11.4 G/DL (11.5-16.0); LYMPHOCYTES % (AUTO) 17 % (12-44); MEAN CORPUSCULAR HEMOGLOBIN 29 PG (25-34); MEAN CORPUSCULAR HGB CONC 31 G/DL (32-36); MEAN CORPUSCULAR VOLUME 91 FL (80-99); MEAN PLATELET VOLUME 9.2 FL (7.4-10.4); NEUTROPHILS % (AUTO) 64 % (42-75); PLATELET COUNT 131 10^3/uL (130-400); RED CELL DISTRIBUTION WIDTH 14.1 % (10.0-14.5)
[2019-05-08 10:12] LABS: BASOPHILS % (AUTO) 1 % (0-10); EOSINOPHILS # (AUTO) 0.2 10^3/uL (0.0-0.3); EOSINOPHILS % (AUTO) 5 % (0-10); LYMPHOCYTES # (AUTO) 0.7 X 10^3 (1.0-4.0); MONOCYTES # (AUTO) 0.6 X 10^3 (0.0-1.0); MONOCYTES % (AUTO) 15 % (0-12); NEUTROPHILS # (AUTO) 2.5 X 10^3 (1.8-7.8)
[2019-05-08 10:13] LABS: ALANINE AMINOTRANSFERASE 11 U/L (0-55); ALBUMIN 3.9 GM/DL (3.2-4.5); ALKALINE PHOSPHATASE 100 U/L (40-136); BILIRUBIN,TOTAL 0.4 MG/DL (0.1-1.0); BUN/CREATININE RATIO 18; CALCIUM 9.6 MG/DL (8.5-10.1); CARBON DIOXIDE 28 MMOL/L (21-32); CHLORIDE 103 MMOL/L (98-107); CREATININE SERUM 0.67 MG/DL (0.60-1.30); GFR ESTIMATED > 60; GLUCOSE 108 MG/DL (70-105); SODIUM 142 MMOL/L (135-145); TOTAL PROTEIN 6.7 GM/DL (6.4-8.2)
[~2019-07-02 09:07] MED LIST changes: +ACETAMINOPHEN 325 MG TAB (TYLENOL) CANCER CTR PO PRN; -MONT10TA24 PO; +MONT10TA26 PO; +NS IV 1000 ML (CANCER CTR) IV SCH; +NS IV 500 ML (CANCER CENTER) 500 ML ONE; -OMEP20CA13 PO; +OMEP20CA18 PO; +diphenhydrAMINE 25 MG TAB (BENADRYL) CANCER CENTER PO SCH; +riTUXimab 500 MG, riTUXimab FOR IV INJ CONC 200 MG in NS (IVPB) CANCER CENTER ONLY 150 ML IV SCH
[2019-07-02 09:32] LABS: BASOPHILS % (AUTO) 0 % (0-10); EOSINOPHILS # (AUTO) 0.2 10^3/uL (0.0-0.3); EOSINOPHILS % (AUTO) 5 % (0-10); HEMATOCRIT 35 % (35-52); HEMOGLOBIN 10.7 G/DL (11.5-16.0); LYMPHOCYTES # (AUTO) 0.6 X 10^3 (1.0-4.0); LYMPHOCYTES % (AUTO) 14 % (12-44); MEAN CORPUSCULAR HEMOGLOBIN 28 PG (25-34); MEAN CORPUSCULAR HGB CONC 31 G/DL (32-36); MEAN CORPUSCULAR VOLUME 91 FL (80-99); MEAN PLATELET VOLUME 9.5 FL (7.4-10.4); MONOCYTES # (AUTO) 0.5 X 10^3 (0.0-1.0); MONOCYTES % (AUTO) 12 % (0-12); NEUTROPHILS # (AUTO) 3.1 X 10^3 (1.8-7.8); NEUTROPHILS % (AUTO) 70 % (42-75); PLATELET COUNT 128 10^3/uL (130-400); RED CELL DISTRIBUTION WIDTH 14.9 % (10.0-14.5); WHITE BLOOD COUNT 4.5 10^3/uL (4.3-11.0)
[2019-07-02 09:56] LABS: ALANINE AMINOTRANSFERASE 9 U/L (0-55); ALBUMIN 3.7 GM/DL (3.2-4.5); ALKALINE PHOSPHATASE 96 U/L (40-136); BILIRUBIN,TOTAL 0.4 MG/DL (0.1-1.0); BUN/CREATININE RATIO 20; CALCIUM 9.9 MG/DL (8.5-10.1); CARBON DIOXIDE 33 MMOL/L (21-32); CHLORIDE 102 MMOL/L (98-107); CREATININE SERUM 0.69 MG/DL (0.60-1.30); GFR ESTIMATED > 60; GLUCOSE 103 MG/DL (70-105); POTASSIUM 4.1 MMOL/L (3.6-5.0); SODIUM 143 MMOL/L (135-145); TOTAL PROTEIN 6.6 GM/DL (6.4-8.2)
== END 2019-08-06 | disposition home or self-care (01) ==
LOC: ONC 09:07
PROVIDERS: ATTEND Internal Medicine Hematology & Oncology
DX: Z51.11 Encounter for antineoplastic chemotherapy (principal); C82.13 Follicular lymphoma grade II, intra-abdominal lymph nodes; J44.9 Chronic obstructive pulmonary disease, unspecified; G47.33 Obstructive sleep apnea (adult) (pediatric); I27.9 Pulmonary heart disease, unspecified; E78.00 Pure hypercholesterolemia, unspecified; I25.10 Atherosclerotic heart disease of native coronary artery without angina pectoris; I45.10 Unspecified right bundle-branch block; Z79.899 Other long term (current) drug therapy
CPT/HCPCS: 36591; 71046; 80053; 82784; 83615; 85025; 96413; J9312

== ENCOUNTER 2019-10-22 09:04 | Outpatient (RCR) | payer MEDICARE ==
[2019-08-27 09:29] LABS: BASOPHILS % (AUTO) 1 % (0-10); EOSINOPHILS # (AUTO) 0.2 10^3/uL (0.0-0.3); EOSINOPHILS % (AUTO) 5 % (0-10); HEMATOCRIT 37 % (35-52); HEMOGLOBIN 11.5 G/DL (11.5-16.0); LYMPHOCYTES # (AUTO) 0.8 X 10^3 (1.0-4.0); LYMPHOCYTES % (AUTO) 24 % (12-44); MEAN CORPUSCULAR HEMOGLOBIN 28 PG (25-34); MEAN CORPUSCULAR HGB CONC 31 G/DL (32-36); MEAN CORPUSCULAR VOLUME 90 FL (80-99); MEAN PLATELET VOLUME 9.8 FL (7.4-10.4); MONOCYTES # (AUTO) 0.4 X 10^3 (0.0-1.0); MONOCYTES % (AUTO) 14 % (0-12); NEUTROPHILS # (AUTO) 1.8 X 10^3 (1.8-7.8); NEUTROPHILS % (AUTO) 57 % (42-75); PLATELET COUNT 142 10^3/uL (130-400); RED CELL DISTRIBUTION WIDTH 14.8 % (10.0-14.5); WHITE BLOOD COUNT 3.3 10^3/uL (4.3-11.0)
[2019-08-27 09:58] LABS: ALANINE AMINOTRANSFERASE 12 U/L (0-55); ALBUMIN 3.8 GM/DL (3.2-4.5); ALKALINE PHOSPHATASE 96 U/L (40-136); BILIRUBIN,TOTAL 0.4 MG/DL (0.1-1.0); BUN/CREATININE RATIO 18; CALCIUM 9.3 MG/DL (8.5-10.1); CARBON DIOXIDE 29 MMOL/L (21-32); CHLORIDE 104 MMOL/L (98-107); CREATININE SERUM 0.71 MG/DL (0.60-1.30); GFR ESTIMATED > 60; GLUCOSE 98 MG/DL (70-105); POTASSIUM 4.2 MMOL/L (3.6-5.0); SODIUM 143 MMOL/L (135-145); TOTAL PROTEIN 6.6 GM/DL (6.4-8.2)
[~2019-10-22 09:04] MED LIST changes: -NS IV 500 ML (CANCER CENTER) 500 ML ONE
[2019-10-22 09:25] LABS: BASOPHILS % (AUTO) 1 % (0-10); EOSINOPHILS # (AUTO) 0.1 10^3/uL (0.0-0.3); EOSINOPHILS % (AUTO) 5 % (0-10); HEMATOCRIT 38 % (35-52); HEMOGLOBIN 12.3 G/DL (11.5-16.0); LYMPHOCYTES # (AUTO) 0.6 X 10^3 (1.0-4.0); LYMPHOCYTES % (AUTO) 22 % (12-44); MEAN CORPUSCULAR HEMOGLOBIN 29 PG (25-34); MEAN CORPUSCULAR HGB CONC 32 G/DL (32-36); MEAN CORPUSCULAR VOLUME 90 FL (80-99); MEAN PLATELET VOLUME 9.9 FL (7.4-10.4); MONOCYTES # (AUTO) 0.4 X 10^3 (0.0-1.0); MONOCYTES % (AUTO) 14 % (0-12); NEUTROPHILS # (AUTO) 1.7 X 10^3 (1.8-7.8); NEUTROPHILS % (AUTO) 59 % (42-75); PLATELET COUNT 130 10^3/uL (130-400); RED CELL DISTRIBUTION WIDTH 14.5 % (10.0-14.5); WHITE BLOOD COUNT 2.9 10^3/uL (4.3-11.0)
[2019-10-22 09:47] LABS: ALANINE AMINOTRANSFERASE 17 U/L (0-55); ALBUMIN 3.8 GM/DL (3.2-4.5); ALKALINE PHOSPHATASE 92 U/L (40-136); BILIRUBIN,TOTAL 0.4 MG/DL (0.1-1.0); BUN/CREATININE RATIO 17; CALCIUM 9.2 MG/DL (8.5-10.1); CARBON DIOXIDE 29 MMOL/L (21-32); CHLORIDE 105 MMOL/L (98-107); CREATININE SERUM 0.71 MG/DL (0.60-1.30); GFR ESTIMATED > 60; GLUCOSE 118 MG/DL (70-105); POTASSIUM 3.7 MMOL/L (3.6-5.0); SODIUM 143 MMOL/L (135-145); TOTAL PROTEIN 6.6 GM/DL (6.4-8.2)
== END 2019-11-25 | disposition still patient (30) ==
LOC: ONC 09:04
PROVIDERS: ATTEND Internal Medicine Hematology & Oncology
DX: Z51.11 Encounter for antineoplastic chemotherapy (principal); C82.13 Follicular lymphoma grade II, intra-abdominal lymph nodes; J44.9 Chronic obstructive pulmonary disease, unspecified; G47.33 Obstructive sleep apnea (adult) (pediatric); I27.9 Pulmonary heart disease, unspecified; E78.00 Pure hypercholesterolemia, unspecified; I25.10 Atherosclerotic heart disease of native coronary artery without angina pectoris; I45.10 Unspecified right bundle-branch block; I10 Essential (primary) hypertension; Z79.899 Other long term (current) drug therapy; Z92.21 Personal history of antineoplastic chemotherapy
CPT/HCPCS: 80053; 83615; 85025; 96413; G0463; 36591; J9312

== ENCOUNTER → 2020-01-05 | Outpatient (CLI) | payer MEDICARE ==
[~2020-01-05] MED LIST changes: -ACETAMINOPHEN 325 MG TAB (TYLENOL) CANCER CTR PO PRN; -NS IV 1000 ML (CANCER CTR) IV SCH; -diphenhydrAMINE 25 MG TAB (BENADRYL) CANCER CENTER PO SCH; -riTUXimab 500 MG, riTUXimab FOR IV INJ CONC 200 MG in NS (IVPB) CANCER CENTER ONLY 150 ML IV SCH
== END ==
LOC: CARD 10:00
PROVIDERS: ATTEND Internal Medicine Cardiovascular Disease
DX: I42.0 Dilated cardiomyopathy (principal); I10 Essential (primary) hypertension; C82.13 Follicular lymphoma grade II, intra-abdominal lymph nodes; I45.10 Unspecified right bundle-branch block; I27.20 Pulmonary hypertension, unspecified; J44.9 Chronic obstructive pulmonary disease, unspecified
CPT/HCPCS: 93306

== ENCOUNTER 2020-02-11 10:22 | Outpatient (RCR) | payer MEDICARE ==
[2019-12-17 10:35] LABS: BASOPHILS % (AUTO) 1 % (0-10); EOSINOPHILS # (AUTO) 0.1 10^3/uL (0.0-0.3); EOSINOPHILS % (AUTO) 3 % (0-10); HEMATOCRIT 38 % (35-52); LYMPHOCYTES # (AUTO) 0.9 X 10^3 (1.0-4.0); LYMPHOCYTES % (AUTO) 27 % (12-44); MEAN CORPUSCULAR HEMOGLOBIN 29 PG (25-34); MEAN CORPUSCULAR HGB CONC 32 G/DL (32-36); MEAN CORPUSCULAR VOLUME 91 FL (80-99); MONOCYTES # (AUTO) 0.5 X 10^3 (0.0-1.0); MONOCYTES % (AUTO) 16 % (0-12); NEUTROPHILS # (AUTO) 1.8 X 10^3 (1.8-7.8); NEUTROPHILS % (AUTO) 53 % (42-75); PLATELET COUNT 128 10^3/uL (130-400); WHITE BLOOD COUNT 3.3 10^3/uL (4.3-11.0)
[2019-12-17 10:53] LABS: ALANINE AMINOTRANSFERASE 14 U/L (0-55); ALKALINE PHOSPHATASE 93 U/L (40-136); BILIRUBIN,TOTAL 0.5 MG/DL (0.1-1.0); BUN/CREATININE RATIO 22; CALCIUM 9.5 MG/DL (8.5-10.1); CARBON DIOXIDE 33 MMOL/L (21-32); CHLORIDE 103 MMOL/L (98-107); CREATININE SERUM 0.72 MG/DL (0.60-1.30); GFR ESTIMATED > 60; GLUCOSE 100 MG/DL (70-105); POTASSIUM 4.2 MMOL/L (3.6-5.0); SODIUM 144 MMOL/L (135-145); TOTAL PROTEIN 6.9 GM/DL (6.4-8.2)
[~2020-02-11 10:22] MED LIST changes: +ACETAMINOPHEN 325 MG TAB (TYLENOL) CANCER CTR PO PRN; +NS IV 1000 ML (CANCER CTR) IV SCH; +diphenhydrAMINE 25 MG TAB (BENADRYL) CANCER CENTER PO SCH; +riTUXimab 500 MG, riTUXimab FOR IV INJ CONC 200 MG in NS (IVPB) CANCER CENTER ONLY 150 ML IV SCH
[2020-02-11 10:40] LABS: BASOPHILS % (AUTO) 1 % (0-10); EOSINOPHILS # (AUTO) 0.1 10^3/uL (0.0-0.3); EOSINOPHILS % (AUTO) 4 % (0-10); HEMATOCRIT 35 % (35-52); HEMOGLOBIN 11.1 g/dL (11.5-16.0); LYMPHOCYTES # (AUTO) 0.7 10^3/uL (1.0-4.0); LYMPHOCYTES % (AUTO) 19 % (12-44); MEAN CORPUSCULAR HEMOGLOBIN 29 pg (25-34); MEAN CORPUSCULAR HGB CONC 31 g/dL (32-36); MEAN CORPUSCULAR VOLUME 93 fL (80-99); MEAN PLATELET VOLUME 9.6 fL (9.0-12.2); MONOCYTES # (AUTO) 0.5 10^3/uL (0.0-1.0); MONOCYTES % (AUTO) 13 % (0-12); NEUTROPHILS # (AUTO) 2.1 10^3/uL (1.8-7.8); NEUTROPHILS % (AUTO) 62 % (42-75); PLATELET COUNT 141 10^3/uL (130-400); WHITE BLOOD COUNT 3.4 10^3/uL (4.3-11.0)
[2020-02-11] MEDS ORDERED: NS IV 500 ML (CANCER CENTER) 500 ML ONE (11:00)
[2020-02-11 11:07] LABS: ALANINE AMINOTRANSFERASE 13 U/L (0-55); ALBUMIN 3.7 GM/DL (3.2-4.5); ALKALINE PHOSPHATASE 83 U/L (40-136); BILIRUBIN,TOTAL 0.3 MG/DL (0.1-1.0); BUN/CREATININE RATIO 18; CALCIUM 9.4 MG/DL (8.5-10.1); CARBON DIOXIDE 30 MMOL/L (21-32); CHLORIDE 101 MMOL/L (98-107); CREATININE SERUM 0.68 MG/DL (0.60-1.30); GFR ESTIMATED > 60; GLUCOSE 108 MG/DL (70-105); POTASSIUM 4.2 MMOL/L (3.6-5.0); SODIUM 143 MMOL/L (135-145); TOTAL PROTEIN 6.5 GM/DL (6.4-8.2)
== END 2020-03-16 | disposition home or self-care (01) ==
LOC: ONC 10:22
PROVIDERS: ATTEND Internal Medicine Hematology & Oncology
DX: Z51.11 Encounter for antineoplastic chemotherapy (principal); C82.13 Follicular lymphoma grade II, intra-abdominal lymph nodes; J44.9 Chronic obstructive pulmonary disease, unspecified; G47.33 Obstructive sleep apnea (adult) (pediatric); I27.9 Pulmonary heart disease, unspecified; E78.00 Pure hypercholesterolemia, unspecified; I25.10 Atherosclerotic heart disease of native coronary artery without angina pectoris; I45.10 Unspecified right bundle-branch block; I10 Essential (primary) hypertension; Z79.899 Other long term (current) drug therapy; Z92.21 Personal history of antineoplastic chemotherapy
CPT/HCPCS: 80053; 83615; 85025; 96413; G0463; 36591; J9312

== ENCOUNTER 2020-04-07 10:47 | Outpatient (RCR) | payer MEDICARE ==
[~2020-04-07 10:47] MED LIST changes: -LISI-556 PO; +LISI-729 PO; -MONT10TA26 PO; +MONT10TA32 PO
[2020-04-07 11:08] LABS: BASOPHILS % (AUTO) 1 % (0-10); EOSINOPHILS # (AUTO) 0.1 10^3/uL (0.0-0.3); EOSINOPHILS % (AUTO) 4 % (0-10); HEMATOCRIT 35 % (35-52); HEMOGLOBIN 10.7 g/dL (11.5-16.0); LYMPHOCYTES % (AUTO) 37 % (12-44); MEAN CORPUSCULAR HEMOGLOBIN 29 pg (25-34); MEAN CORPUSCULAR HGB CONC 31 g/dL (32-36); MEAN CORPUSCULAR VOLUME 92 fL (80-99); MEAN PLATELET VOLUME 9.8 fL (9.0-12.2); MONOCYTES # (AUTO) 0.4 10^3/uL (0.0-1.0); MONOCYTES % (AUTO) 15 % (0-12); NEUTROPHILS # (AUTO) 1.2 10^3/uL (1.8-7.8); NEUTROPHILS % (AUTO) 42 % (42-75); PLATELET COUNT 169 10^3/uL (130-400); WHITE BLOOD COUNT 2.8 10^3/uL (4.3-11.0)
[2020-04-07 11:30] LABS: ALANINE AMINOTRANSFERASE 17 U/L (0-55); ALBUMIN 3.6 GM/DL (3.2-4.5); ALKALINE PHOSPHATASE 80 U/L (40-136); BILIRUBIN,TOTAL 0.3 MG/DL (0.1-1.0); BUN/CREATININE RATIO 16; CALCIUM 9.3 MG/DL (8.5-10.1); CARBON DIOXIDE 33 MMOL/L (21-32); CHLORIDE 102 MMOL/L (98-107); CREATININE SERUM 0.67 MG/DL (0.60-1.30); GFR ESTIMATED > 60; GLUCOSE 95 MG/DL (70-105); SODIUM 144 MMOL/L (135-145); TOTAL PROTEIN 6.2 GM/DL (6.4-8.2)
== END 2020-06-18 08:28 | disposition home or self-care (01) ==
LOC: ONC 10:47
PROVIDERS: ATTEND Internal Medicine Hematology & Oncology
DX: Z51.11 Encounter for antineoplastic chemotherapy (principal); C82.13 Follicular lymphoma grade II, intra-abdominal lymph nodes; J44.9 Chronic obstructive pulmonary disease, unspecified; G47.33 Obstructive sleep apnea (adult) (pediatric); I27.9 Pulmonary heart disease, unspecified; E78.00 Pure hypercholesterolemia, unspecified; I25.10 Atherosclerotic heart disease of native coronary artery without angina pectoris; I45.10 Unspecified right bundle-branch block; I10 Essential (primary) hypertension; Z79.899 Other long term (current) drug therapy; Z92.21 Personal history of antineoplastic chemotherapy
CPT/HCPCS: 80053; 83615; 85025; 96413; G0463; 36591; J9312

== ENCOUNTER → 2020-06-29 | Outpatient (CLI) | payer MEDICARE ==
[~2020-06-29] MED LIST changes: -ACETAMINOPHEN 325 MG TAB (TYLENOL) CANCER CTR PO PRN; +CATHETER FLUSH 10 ML SYR IV PRN; +HOLD METFORMIN - RECEIVED CONTRAST 20 ML VIAL IV SCH; +IOHEXOL 350 MG/ML 100 ML (OMNIPAQUE 350) VIAL IV ONE; +NS 100 ML (IVPB) BAG IV ONE; -NS IV 1000 ML (CANCER CTR) IV SCH; -diphenhydrAMINE 25 MG TAB (BENADRYL) CANCER CENTER PO SCH; -riTUXimab 500 MG, riTUXimab FOR IV INJ CONC 200 MG in NS (IVPB) CANCER CENTER ONLY 150 ML IV SCH
--- NOTE | 2020-06-29 15:02 | Diagnostic Imaging Report ---
EXAMINATION: CT Neck and Chest with contrast. CT Abdomen and Pelvis with and without intravenous contrast. TECHNIQUE: Multiple contiguous axial images were obtained through the neck, chest, abdomen and pelvis after the uneventful administration of intravenous contrast. Pre-contrast images of the abdomen and pelvis were also obtained. All CT scans use one or more of the following dose optimizing techniques: automated exposure control, MA and/or KvP adjustment based on a patient size and exam type, or iterative reconstruction. HISTORY: Follicular lymphoma. COMPARISON: 06/26/2018. FINDINGS: Neck CT: Scattered subcentimeter lymph nodes are seen in the neck. None are pathologically enlarged or abnormally enhancing. The muscles of the neck are normal. Vessels of the neck demonstrate normal course and caliber. Fascial planes are preserved and the deep spaces of the neck are normal. The visualized airway is widely patent. The base of the skull and the temporal bones are normal. Limited views of the brain including the cerebellum and brainstem are normal. The limited view of the [place] of [place] is unremarkable. The visualized portions of the orbits are normal. The spinal canal is normal in caliber. Intervertebral disk heights are normal. Neural foramina are normal. Chest CT: There is bronchial wall thickening and mucous plugging in both lower lobes, right greater than left, with a few areas of tree-in-bud nodularity. Right-sided port catheter is present. No pleural effusion or pneumothorax. No suspicious nodules. There is no axillary or supraclavicular lymphadenopathy. There is no mediastinal lymphadenopathy. Left ventricle is dilated There are mild coronary artery calcifications. No pericardial effusion. Aorta is normal in caliber. Abdomen and Pelvis CT: The liver is normal without focal lesion. There is no biliary ductal dilation. Gallbladder is absent. Pancreas is normal. Spleen is normal. Adrenal glands are normal. The kidneys are normal. There is no hydronephrosis. Urinary bladder is normal. Cystic left adnexal mass has increased in size measuring 9.2 x 7.4 cm, previously 8.6 x 7.1 cm. Visualized bowel is normal in caliber without obstruction or inflammation. There is a large bowel containing ventral abdominal hernia without obstruction. No free fluid or air. No abdominal or pelvic lymphadenopathy. Aorta is normal in caliber without aneurysm. There are no suspicious osseous lesions. IMPRESSION: 1. No lymphadenopathy in the neck, chest, abdomen, or pelvis. 2. Bronchial wall thickening and mucous plugging in both lower lobes with a few areas of tree-in-bud, likely representing chronic or recurrent aspiration. 3. 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 Gynecologic evaluation is recommended. Dictated by: Dictated on workstation # [id number]
== END ==
LOC: RAD 13:15
PROVIDERS: ATTEND Internal Medicine Hematology & Oncology
DX: C82.90 Follicular lymphoma, unspecified, unspecified site (principal); N83.202 Unspecified ovarian cyst, left side; Z90.49 Acquired absence of other specified parts of digestive tract; Z95.828 Presence of other vascular implants and grafts
CPT/HCPCS: 70491; 71260; 74178

== ENCOUNTER 2020-07-01 13:50 | Outpatient (RCR) | payer MEDICARE ==
[2020-06-29 13:43] LABS: BASOPHILS % (AUTO) 1 % (0-10); EOSINOPHILS # (AUTO) 0.1 10^3/uL (0.0-0.3); EOSINOPHILS % (AUTO) 3 % (0-10); HEMATOCRIT 34 % (35-52); HEMOGLOBIN 10.9 g/dL (11.5-16.0); LYMPHOCYTES # (AUTO) 0.7 10^3/uL (1.0-4.0); LYMPHOCYTES % (AUTO) 26 % (12-44); MEAN CORPUSCULAR HEMOGLOBIN 29 pg (25-34); MEAN CORPUSCULAR HGB CONC 32 g/dL (32-36); MEAN CORPUSCULAR VOLUME 90 fL (80-99); MEAN PLATELET VOLUME 9.8 fL (9.0-12.2); MONOCYTES # (AUTO) 0.4 10^3/uL (0.0-1.0); MONOCYTES % (AUTO) 16 % (0-12); NEUTROPHILS # (AUTO) 1.4 10^3/uL (1.8-7.8); NEUTROPHILS % (AUTO) 52 % (42-75); PLATELET COUNT 136 10^3/uL (130-400); WHITE BLOOD COUNT 2.7 10^3/uL (4.3-11.0)
[2020-06-29 14:02] LABS: ALANINE AMINOTRANSFERASE 14 U/L (0-55); ALBUMIN 3.7 GM/DL (3.2-4.5); ALKALINE PHOSPHATASE 91 U/L (40-136); BILIRUBIN,TOTAL 0.4 MG/DL (0.1-1.0); BUN/CREATININE RATIO 17; CALCIUM 9.2 MG/DL (8.5-10.1); CARBON DIOXIDE 33 MMOL/L (21-32); CHLORIDE 104 MMOL/L (98-107); CREATININE SERUM 0.69 MG/DL (0.60-1.30); GFR ESTIMATED > 60; GLUCOSE 87 MG/DL (70-105); POTASSIUM 3.8 MMOL/L (3.6-5.0); SODIUM 144 MMOL/L (135-145); TOTAL PROTEIN 6.3 GM/DL (6.4-8.2)
[~2020-07-01 13:50] MED LIST changes: +ALTEPLASE 2 MG (CATHFLO) CANCER CENTER IV ONE; -CATHETER FLUSH 10 ML SYR IV PRN; -HOLD METFORMIN - RECEIVED CONTRAST 20 ML VIAL IV SCH; -IOHEXOL 350 MG/ML 100 ML (OMNIPAQUE 350) VIAL IV ONE; -NS 100 ML (IVPB) BAG IV ONE
== END 2020-09-27 | disposition home or self-care (01) ==
LOC: ONC 13:50
PROVIDERS: ATTEND Internal Medicine Hematology & Oncology
DX: Z51.11 Encounter for antineoplastic chemotherapy (principal); C82.13 Follicular lymphoma grade II, intra-abdominal lymph nodes; J43.9 Emphysema, unspecified; G47.33 Obstructive sleep apnea (adult) (pediatric); I42.9 Cardiomyopathy, unspecified; I27.9 Pulmonary heart disease, unspecified; E78.00 Pure hypercholesterolemia, unspecified; I25.10 Atherosclerotic heart disease of native coronary artery without angina pectoris; I45.10 Unspecified right bundle-branch block; I10 Essential (primary) hypertension; Z79.899 Other long term (current) drug therapy; Z92.21 Personal history of antineoplastic chemotherapy
CPT/HCPCS: 36593; 80053; 83615; 85025; 86304; 99213

== ENCOUNTER 2020-10-05 15:11 | Outpatient (RCR) | payer MEDICARE ==
[~2020-10-05 15:11] MED LIST changes: -ALTEPLASE 2 MG (CATHFLO) CANCER CENTER IV ONE
[2020-10-05 15:40] LABS: BASOPHILS % (AUTO) 1 % (0-10); EOSINOPHILS # (AUTO) 0.1 10^3/uL (0.0-0.3); EOSINOPHILS % (AUTO) 4 % (0-10); HEMATOCRIT 35 % (35-52); HEMOGLOBIN 10.9 g/dL (11.5-16.0); LYMPHOCYTES # (AUTO) 0.6 10^3/uL (1.0-4.0); LYMPHOCYTES % (AUTO) 25 % (12-44); MEAN CORPUSCULAR HEMOGLOBIN 28 pg (25-34); MEAN CORPUSCULAR HGB CONC 31 g/dL (32-36); MEAN CORPUSCULAR VOLUME 91 fL (80-99); MEAN PLATELET VOLUME 9.7 fL (9.0-12.2); MONOCYTES # (AUTO) 0.4 10^3/uL (0.0-1.0); MONOCYTES % (AUTO) 15 % (0-12); NEUTROPHILS # (AUTO) 1.4 10^3/uL (1.8-7.8); NEUTROPHILS % (AUTO) 54 % (42-75); PLATELET COUNT 156 10^3/uL (130-400); WHITE BLOOD COUNT 2.5 10^3/uL (4.3-11.0)
[2020-10-05 16:06] LABS: ALANINE AMINOTRANSFERASE 11 U/L (0-55); ALBUMIN 3.7 GM/DL (3.2-4.5); ALKALINE PHOSPHATASE 84 U/L (40-136); BILIRUBIN,TOTAL 0.4 MG/DL (0.1-1.0); BUN/CREATININE RATIO 17; CALCIUM 9.8 MG/DL (8.5-10.1); CARBON DIOXIDE 38 MMOL/L (21-32); CHLORIDE 100 MMOL/L (98-107); CREATININE SERUM 0.69 MG/DL (0.60-1.30); GFR ESTIMATED > 60; GLUCOSE 98 MG/DL (70-105); SODIUM 141 MMOL/L (135-145); TOTAL PROTEIN 6.5 GM/DL (6.4-8.2)
== END 2021-01-03 | disposition home or self-care (01) ==
LOC: ONC 15:11
PROVIDERS: ATTEND Internal Medicine Hematology & Oncology
DX: Z45.2 Encounter for adjustment and management of vascular access device (principal); C82.13 Follicular lymphoma grade II, intra-abdominal lymph nodes; J43.9 Emphysema, unspecified; G47.33 Obstructive sleep apnea (adult) (pediatric); I42.9 Cardiomyopathy, unspecified; I27.9 Pulmonary heart disease, unspecified; E78.00 Pure hypercholesterolemia, unspecified; I25.10 Atherosclerotic heart disease of native coronary artery without angina pectoris; I45.10 Unspecified right bundle-branch block; I10 Essential (primary) hypertension; J06.9 Acute upper respiratory infection, unspecified; Z79.899 Other long term (current) drug therapy; Z92.21 Personal history of antineoplastic chemotherapy; Z20.822 Contact with and (suspected) exposure to COVID-19; Z99.81 Dependence on supplemental oxygen; Z87.891 Personal history of nicotine dependence
CPT/HCPCS: 80053; 83615; 85025; 87636; 96523; G0463

== ENCOUNTER 2021-01-06 14:52 | Outpatient (RCR) | payer MEDICARE ==
[~2021-01-06 14:52] MED LIST changes: -LISI-729 PO; +LISI5TAB20 PO; +MONT-40 PO; -MONT10TA32 PO
[2021-01-06 15:16] LABS: EOSINOPHILS # (AUTO) 0.1 10^3/uL (0.0-0.3); HEMOGLOBIN 11.6 g/dL (11.5-16.0)
[2021-01-06 15:17] LABS: BASOPHILS % (AUTO) 1 % (0-10); EOSINOPHILS % (AUTO) 5 % (0-10); HEMATOCRIT 38 % (35-52); LYMPHOCYTES # (AUTO) 1.2 10^3/uL (1.0-4.0); LYMPHOCYTES % (AUTO) 39 % (12-44); MEAN CORPUSCULAR HEMOGLOBIN 28 pg (25-34); MEAN CORPUSCULAR HGB CONC 31 g/dL (32-36); MEAN CORPUSCULAR VOLUME 92 fL (80-99); MEAN PLATELET VOLUME 9.8 fL (9.0-12.2); MONOCYTES # (AUTO) 0.5 10^3/uL (0.0-1.0); MONOCYTES % (AUTO) 15 % (0-12); NEUTROPHILS # (AUTO) 1.3 10^3/uL (1.8-7.8); NEUTROPHILS % (AUTO) 41 % (42-75); PLATELET COUNT 118 10^3/uL (130-400); WHITE BLOOD COUNT 3.1 10^3/uL (4.3-11.0)
[2021-01-06 15:34] LABS: ALBUMIN 3.8 GM/DL (3.2-4.5); BILIRUBIN,TOTAL 0.3 MG/DL (0.1-1.0); CREATININE SERUM 0.71 MG/DL (0.60-1.30); POTASSIUM 4.1 MMOL/L (3.6-5.0); TOTAL PROTEIN 6.6 GM/DL (6.4-8.2)
== END 2021-04-06 16:23 | disposition home or self-care (01) ==
LOC: ONC 14:52
PROVIDERS: ATTEND Internal Medicine Hematology & Oncology
DX: Z45.2 Encounter for adjustment and management of vascular access device (principal); C82.13 Follicular lymphoma grade II, intra-abdominal lymph nodes; J43.9 Emphysema, unspecified; G47.33 Obstructive sleep apnea (adult) (pediatric); I42.9 Cardiomyopathy, unspecified; I27.9 Pulmonary heart disease, unspecified; E78.00 Pure hypercholesterolemia, unspecified; I25.10 Atherosclerotic heart disease of native coronary artery without angina pectoris; I45.10 Unspecified right bundle-branch block; I10 Essential (primary) hypertension; Z79.899 Other long term (current) drug therapy; Z92.21 Personal history of antineoplastic chemotherapy
CPT/HCPCS: 80053; 83615; 85025; G0463; 36591

== ENCOUNTER → 2021-04-07 | Outpatient (CLI) | payer MEDICARE ==
[~2021-04-07] MED LIST changes: +BARIUM SUSPENSION 2.1% (VANILLA SILQ) 450 ML PO ONE; +HOLD METFORMIN - RECEIVED CONTRAST 20 ML VIAL IV SCH; +IOHEXOL 350 MG/ML 100 ML (OMNIPAQUE 350) VIAL IV ONE; +NS 100 ML (IVPB) BAG IV ONE
--- NOTE | 2021-04-07 12:15 | Diagnostic Imaging Report ---
PROCEDURE: CT Neck, Chest, Abdomen, and Pelvis with contrast, Abdomen and Pelvis without. TECHNIQUE: Multiple contiguous axial images were obtained through the neck, chest, abdomen, and pelvis after the uneventful bolus administration of intravenous contrast. Precontrast acquisitions through the abdomen and pelvis were performed. Sagittal and coronal reformations are then performed. Auto Exposure Controls were utilized during the CT exam to meet ALARA standards for radiation dose reduction. INDICATION: Follicular lymphoma. COMPARISON: Exam is compared with studies of 06/29/2020. FINDINGS: NECK: No pathologically enlarged, morphologically distorted, nor abnormally numerous cervical lymph nodes are found. The nasopharynx, oropharynx, and hypopharynx are unremarkable. Vascular catheter via the right IJ extends into the SVC below the field of view. The prevertebral and retropharyngeal spaces were normal. There is carotid bifurcation atherosclerotic disease without convincing evidence for hemodynamically significant stenosis. The jugular veins are patent, with the left dominant. The bony structures showed no suspicious lytic or sclerotic lesion. The skull base and visualized intracranial contents, orbits, and paranasal sinuses are nonacute. Tiny subcentimeter low density likely cystic foci in the thyroid are stable. CHEST: There is no axillary, hilar, or mediastinal lymphadenopathy, and no suspicious pulmonary nodule or dominant lung mass. There has been essential resolution of what was previous diffuse smooth thickening of the airways and zones of mucus plugging and nonspecific basilar infiltrates, greater right. On follow-up, there are some areas of chronic scarring, stable, with the previous infiltrates having resolved. No effusion. No pneumothorax. ABDOMEN AND PELVIS: The large nonobstructing ventral supraumbilical abdominal wall hernia is comprised of omental fat as well as unobstructed mid segment transverse colon and multiple small bowel loops. The hernial orifice has a diameter of 5.3 cm, slightly progressed from prior when it was about 4.5 cm. No findings of strangulation. No resultant bowel obstruction. The nonfocal spleen remains normal in size. The adrenals are negative. Tiny cyst in the right hepatic lobe is chronic. Gallbladder is absent. No pathological distention of the biliary ducts. The pancreas and its duct are unremarkable. There are some left-sided renal cortical cysts, stable, simple and benign. Some mild stranding of the periaortic retroperitoneal fat with a few shotty subcentimeter retroperitoneal lymph nodes has decreased in the interim. There is no mesenteric mass. No pathologically enlarged lymph node. A large left adnexal cyst is an unchanged 8.9 cm in maximal dimension. It likely contains at least a partial thin curvilinear internal septation. If not already performed, a dedicated pelvic ultrasound is recommended to evaluate this large cystic mass. There is no evidence for associated adnexal torsion. The right adnexa and uterus are negative. Urinary bladder is unremarkable. Pelvic sidewalls and ilioinguinal chains are unremarkable. There is no suspect osseous lesion. IMPRESSION: NECK: No evidence for cervical adenopathy or acute pathology. CHEST: Resolution of prior infiltrates, mucus plugging, and bronchial thickening. Superimposed chronic areas of scarring, stable, with no lymphadenopathy or evidence for neoplasm. ABDOMEN AND PELVIS: 1. Decreased mild shotty lymph nodes in the periaortic retroperitoneum where there is reduced density and stranding of the fat. No pathologically enlarged nodes. No hepatosplenomegaly. 2. Large ventral supraumbilical nonobstructing hernia, mildly increased in diameter without strangulation or evidence for incarceration. 3. Benign left renal cyst, chronic. No bowel, biliary, or urinary tract obstruction. 4. Large cystic left adnexal mass, unchanged from prior. If not already performed, its workup with pelvic ultrasound recommended given size and likely septation. Dictated by: Dictated on workstation # [id number]
== END ==
LOC: RAD 10:15
PROVIDERS: ATTEND Internal Medicine Hematology & Oncology
DX: C82.90 Follicular lymphoma, unspecified, unspecified site (principal); K43.9 Ventral hernia without obstruction or gangrene; N28.1 Cyst of kidney, acquired; N83.8 Other noninflammatory disorders of ovary, fallopian tube and broad ligament
CPT/HCPCS: 70491; 71260; 74178

== ENCOUNTER 2021-04-14 14:34 | Outpatient (RCR) | payer MEDICARE ==
[2021-04-07 09:36] LABS: BASOPHILS % (AUTO) 0 % (0-10); EOSINOPHILS # (AUTO) 0.1 10^3/uL (0.0-0.3); EOSINOPHILS % (AUTO) 2 % (0-10); HEMATOCRIT 36 % (35-52); HEMOGLOBIN 11.5 g/dL (11.5-16.0); LYMPHOCYTES # (AUTO) 0.9 10^3/uL (1.0-4.0); LYMPHOCYTES % (AUTO) 16 % (12-44); MEAN CORPUSCULAR HEMOGLOBIN 30 pg (25-34); MEAN CORPUSCULAR HGB CONC 32 g/dL (32-36); MEAN CORPUSCULAR VOLUME 94 fL (80-99); MEAN PLATELET VOLUME 9.1 fL (9.0-12.2); MONOCYTES # (AUTO) 0.6 10^3/uL (0.0-1.0); MONOCYTES % (AUTO) 10 % (0-12); NEUTROPHILS # (AUTO) 4.2 10^3/uL (1.8-7.8); NEUTROPHILS % (AUTO) 72 % (42-75); PLATELET COUNT 132 10^3/uL (130-400); WHITE BLOOD COUNT 5.8 10^3/uL (4.3-11.0)
[2021-04-07 09:57] LABS: ALBUMIN 3.6 GM/DL (3.2-4.5); BILIRUBIN,TOTAL 0.4 MG/DL (0.1-1.0); CALCIUM 9.8 MG/DL (8.5-10.1); CREATININE SERUM 0.69 MG/DL (0.60-1.30); POTASSIUM 3.8 MMOL/L (3.6-5.0); TOTAL PROTEIN 6.7 GM/DL (6.4-8.2)
[~2021-04-14 14:34] MED LIST changes: -BARIUM SUSPENSION 2.1% (VANILLA SILQ) 450 ML PO ONE; -HOLD METFORMIN - RECEIVED CONTRAST 20 ML VIAL IV SCH; -IOHEXOL 350 MG/ML 100 ML (OMNIPAQUE 350) VIAL IV ONE; -NS 100 ML (IVPB) BAG IV ONE
== END 2021-05-06 | disposition home or self-care (01) ==
LOC: ONC 14:34
PROVIDERS: ATTEND Internal Medicine Hematology & Oncology
DX: Z45.2 Encounter for adjustment and management of vascular access device (principal); C82.13 Follicular lymphoma grade II, intra-abdominal lymph nodes; G47.33 Obstructive sleep apnea (adult) (pediatric); I42.9 Cardiomyopathy, unspecified; I27.9 Pulmonary heart disease, unspecified; E78.00 Pure hypercholesterolemia, unspecified; I25.10 Atherosclerotic heart disease of native coronary artery without angina pectoris; I45.10 Unspecified right bundle-branch block; I10 Essential (primary) hypertension; Z79.899 Other long term (current) drug therapy; Z92.21 Personal history of antineoplastic chemotherapy
CPT/HCPCS: 80053; 83615; 85025; 96523; 99213

== ENCOUNTER → 2022-04-25 | Outpatient (CLI) | payer MEDICARE ==
[~2022-04-25] MED LIST changes: +ALBU8.5H6 IH; -RT-ALBUINH IH
[2022-04-25 17:50] LABS: POTASSIUM 3.8 MMOL/L (3.6-5.0)
[2022-04-25 17:52] LABS: CALCIUM 9.1 MG/DL (8.5-10.1)
[2022-04-25 17:56] LABS: CREATININE SERUM 0.64 MG/DL (0.60-1.30); PHOSPHORUS 3.1 MG/DL (2.3-4.7)
== END ==
LOC: LABNPT 17:27
PROVIDERS: ATTEND Internal Medicine Hematology & Oncology
DX: C82.90 Follicular lymphoma, unspecified, unspecified site (principal)
CPT/HCPCS: 80069; 83735